=== PATIENT | male | born 1955 | race Caucasian/White ===

== ENCOUNTER 2021-12-06 09:34 | Inpatient (IN) ==
[2021-12-06] MEDS ORDERED: SODIUM CHLORIDE 0.9% 500 ML IV ONE (10:01)
[2021-12-06 11:01] LABS: Basophils # (auto) 0.04 K/uL (0-0.2); Basophils % (auto) 0.6 %; Eosinophils # (auto) 0.02 K/uL (0-0.5); Eosinophils % (auto) 0.3 %; Immature Granulocytes # (auto) 0.04 K/uL (0.00-0.02); Immature Granulocytes % (auto) 0.6 %; Lymphocytes # (auto) 1.81 K/uL (1.2-3.4); Mean Corpuscular Hemoglobin 34.2 pg (25-34); Mean Corpuscular Hgb Conc 33.3 g/dL (32-36); Mean Corpuscular Volume 102.7 fL (80-100); Mean Platelet Volume 9.4 fL (7.4-10.4); Monocytes # (auto) 0.57 K/uL (0.11-0.59); Monocytes % (auto) 9.1 %; Neutrophils # (auto) 3.77 K/uL (1.4-6.5); Neutrophils % (auto) 60.4 %; Platelet Count 145 K/uL (130-400); RDW Coefficient of Variation 18.6 % (11.5-14.5); RDW Standard Deviation 69.3 fL (36.4-46.3); Red Blood Count 4.09 M/uL (4.7-6.1); White Blood Count 6.25 K/uL (4.8-10.8)
[2021-12-06 11:13] LABS: INR 1.1 (0.9-1.1)
[2021-12-06] MEDS ORDERED: METOPROLOL TARTRATE 1 MG/ML VIAL IV STA ×2 (11:13→13:40)
[2021-12-06 11:40] LABS: Troponin I 0.03 ng/ml (0-0.04)
[2021-12-06 11:46] LABS: BUN Creatinine Ratio 10.1 (10-20); Creatinine Clr Calc Pharmacy 111.3 ml/min; Est GFR (African American) 102.5 ml/min; Est GFR (Non-African American) 88.5 ml/min; Potassium 3.1 mmol/L (3.5-5.1)
[2021-12-06 11:56] LABS: Albumin Globulin Ratio 1.4 (0.9-2); Albumin Level 3.6 gm/dl (3.4-5.0); Bilirubin,Total 0.8 mg/dl (0.2-1.0); Globulin 2.5 gm/dl (2.5-4.0); Magnesium 0.7 mg/dl (1.7-2.4); Phosphorus 3.9 mg/dl (2.5-4.9); Total Protein 6.1 gm/dl (6.0-8.3)
[2021-12-06] MEDS ORDERED: OPTIRAY 320 125ml IV ONE (12:37)
--- NOTE | 2021-12-06 12:50 | CT Scan Report ---
CT ANGIOGRAPHY OF THE CHEST, PULMONARY EMBOLUS PROTOCOL CLINICAL HISTORY: Shortness of breath, tachycardia, covid in october, r/o PE COMPARISON STUDY: Chest CT November 24, 2020. Chest radiograph performed earlier today. TECHNIQUE: Following IV administration of 111 mL of Optiray, helical axial images of the chest were o btained utilizing the pulmonary embolus protocol. Maximal intensity projections and sagittal and cor onal reformats were viewed on an independent 3D workstation. IV contrast was administered without co mplication. Automated exposure control was utilized for the study. A dose lowering technique was ut ilized adhering to the principles of ALARA. CT DOSE: 852.64 mGy.cm FINDINGS: No pulmonary emboli are identified although the segmental and subsegmental pulmonary arter ies are suboptimally assessed within the bilateral lower lobes. Dilatation of the ascending aorta, me asuring 4.6 cm, is similar to CT of November 2020. Note is made of mild cardiomegaly. Dilatation of th e central pulmonary arteries is noted. Main pulmonary artery measures 4.2 cm in diameter. There are t race bilateral pleural effusions. No pneumothorax is present. Marked elevation of the left hemidiaphr agm is unchanged. Adjacent airspace opacity reflects atelectasis. There are a few scattered small sub pleural groundglass opacities within the lungs, most evident within the left upper lobe. There is no pneumothorax. No thoracic lymphadenopathy is present. Hepatic steatosis is incidentally noted. There is trace perisplenic fluid. There is mild body wall edema. IMPRESSION: 1. No pulmonary emboli identified although bilateral lower lobe segmental and subsegmental pulmonary arteries suboptimally assessed due to respiratory motion. 2. No change in marked elevation of the left hemidiaphragm with associated atelectasis. 3. Scattered small subpleural groundglass opacities which could reflect an infectious process or atel ectasis. 4. Dilatation of the central pulmonary arteries which raises the possibility of pulmonary arterial hy pertension. 5. No change in dilatation of the ascending aorta, measuring 4.6 cm. Cardiomegaly. 6. Trace bilateral pleural effusions. ACT 112: Negative or not required by law. Electronically signed by: Blu Hdez M.D. 12/06/2021 12:49 PM
[2021-12-06] MEDS: MAGNESIUM SULFATE / D5W 1 GM/100 ML BAG IV SCH ×2 (13:00→14:00)
[2021-12-06] MEDS: POTASSIUM CHLORIDE / WTR 10 MEQ/100 ML PLCT IV SCH ×2 (13:01→14:00)
--- NOTE | 2021-12-06 13:51 | History & Physical Report ---
Date of Service December 06, 2021 Assessment & Plan (1) Atrial fibrillation with RVR: Plan: Start metoprolol 25mg Q6H with hold parameters Anticoagulation wtih Kade [id number]: 1-2 (possible CHF only due to a. fib rate as above), 2.2% stroke risk per year HAS BLED: 1 - low risk for major bleeding TSH WNL He denies alcohol use also notably AST is elevated > ALT. TTE ordered Aim K > 4, Mg > 2 (2) Acute heart failure: Plan: Unknown ejection fraction. Continue lasix 20mg PO daily - appears to be diuresing well on this. TTE as above. (3) Hypomagnesemia: Plan: Patient already taking Mg Ox 500mg PO daily at home and reports compliance. Suspect acutely decreased to 0.7mg/dL on admission due to recent diuretic use. Mg sulphate 2g IV given in ER. Increase Mg Ox to 800mg PO BID. Repeat levels in AM. (4) Elevated MCV: Plan: Consider B12 supplementation or repeating level as outpatient given prior level < 400 (5) Bipolar I disorder: Plan: On lamictal and depakote (6) Chronic gout: Plan: Continue allopurinol 300mg PO daily (7) BPH (benign prostatic hypertrophy): Plan: Continue alfuzosin 10mg PO daily (8) Asthma: Plan: Uses advair as needed (9) Insomnia: Plan: Melatonin 3mg PO HS PRN Plan: VTE Prophylaxis - Eliquis Diet - heart healthy, low Na Disposition - admit to PCU Admission and Anticipated Discharge Date Admission Date: [facility]2021 History of Present Illness Chief Complaint: Shortness of breath Primary Care Provider: DO Tom Soni Ayad is a 66-year-old male who presents on the advice of his primary care physician after finding incidental atrial fibrillation on EKG today. He was at his primary care doctor to follow-up for lower back pain, hip pain and increasing fatigue since September. With hindsight he reports feeling like his heart has been intermittently racing with associated fatigue and shortness of breath for the past 2 weeks. Symptoms can last for hours at a time but usually resolve spontaneously. He also noticed increased leg swelling and was started on Lasix 20mg PO daily for the last week with good resolution of the leg swelling but fatigue and shortness of breath episodes have persisted. This is on a background of having COVID-19 diagnosed from a home test on 17 October. Initial symptoms lasted about 12 days although he had trouble sleeping and coughing after this. He was vaccinated with the 1 dose of Clif & Clif vaccine. He followed up on October 31 for lingering COVID symptoms and was treated for secondary bacterial infection at that time with significant improvement in cough and shortness of breath. He was feeling better up until a few weeks ago. In the ER EKG showed atrial fibrillation with a rate of 164. He was given metoprolol 5mg IV x2 with improvement in his HR down to 100 bpm. He was referred to medicine for admission and ongoing management of atrial fibrillation with rapid ventricular rate. Allergies Allergy/AdvReac Type Severity Reaction Status Date / Time amitriptyline [From Elavil] Allergy Verified 12/06/21 08:09 aripiprazole [From Abilify] Allergy Verified 12/06/21 08:09 hyoscyamine Allergy Verified 12/06/21 08:09 [From Symax Duotab] meloxicam Allergy Verified 12/06/21 08:09 Penicillins Allergy Verified 12/06/21 08:09 venlafaxine [From Effexor] Allergy Verified 12/06/21 08:09 zolpidem [From Ambien] Allergy Verified 12/06/21 08:09 Home Medications Medication Instructions Recorded Confirmed Type cetirizine 10 mg tablet 5 mg PO DAILY PRN 11/25/19 12/06/21 History magnesium oxide 500 mg tablet 500 mg PO DAILY #60 tab 11/03/20 12/06/21 Rx fluticasone 232mcg-salmeterol 1 inh INHALATION BID #1 ea 11/27/20 12/06/21 Rx 14mcg/actuation breath act,powder sensor (AirDuo Digihaler) alfuzosin 10 mg tablet,extended 10 mg PO DAILY #90 tab 03/23/21 12/06/21 Rx release 24 hr allopurinol 300 mg tablet 300 mg PO DAILY #90 tab 03/23/21 12/06/21 Rx trazodone 100 mg tablet 200 mg PO DAILY #60 tab 04/17/21 12/06/21 Rx divalproex 500 mg tablet,extended 500 mg PO BID #180 tab 08/07/21 12/06/21 Rx release 24 hr prednisone 5 mg tablet 5 mg PO DAILY #30 tab 10/04/21 12/06/21 Rx oxycodone-acetaminophen 5 mg-325 1 tab PO Q12H PRN #60 tab 11/02/21 12/06/21 Rx mg tablet (Percocet) furosemide 20 mg tablet 20 mg PO DAILY PRN #30 tab 12/03/21 12/06/21 Rx lamotrigine 150 mg tablet 150 mg PO HS 12/06/21 12/06/21 History vitamin B complex 1 tab PO DAILY 12/06/21 12/06/21 History Past Med/Surg History Medical History Arthritis of hip Asthma Atelectasis Bipolar I disorder BPH (benign prostatic hypertrophy) Chronic gout Decreased range of right hip movement Dyspnea Elevated d-dimer Elevated hemidiaphragm Fatigue History of hypogonadism Hypertension Hypoxia Medical marijuana use Memory impairment 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 RLS (restless legs syndrome) Routine health maintenance Spinal stenosis Surgical History History of cholecystectomy Hx of hernia repair Hx of knee surgery [place] 2016, meniscal S/P insertion of spinal cord stimulator Family History Mother Breast cancer Hypertension Sister Diabetes Lung cancer Denies family history of Ovarian cancer Prostate cancer Myocardial infarction Colorectal cancer Social History Smoking Status: Never smoker Second Hand Exposure: No; Hx Alcohol Use: Yes Hx Substance Use: No Preferred Language: Maltese Communication Ability: Effective Hearing Ability: Use of Hearing Aid Market Consultant Required: No Beliefs That Will Affect Care: None marital status: Current Living Situation: Spouse current occupational status: retired How many Children do You have: 2 Other Information That Helps Us Care for You: No Feels Safe at Home: Yes Childhood Exposure to Second-Hand Smoke: Yes Diet Comment: Optivia diet caffeine: Yes Dental Care, Regularly: No Physical Activity Frequency: 3-4 Times per Week Seatbelt Use: always Sunscreen Use: No Assistive Devices: Glasses Review of Systems Review of Systems: All systems reviewed & are unremarkable except as noted in HPI & below Insomnia - Uses marijuana vape in the evenings to help him sleep Physical Exam Constitutional: WD/WN, vitals as above Eyes: + anicteric sclerae; normal pupil size ENMT: external ear and nose normal, oropharynx normal Cardiovascular: Rate/Rhythm: + tachycardic and + irregularly irregular Heart Sounds: no murmur Extremities: normal capillary refill and + pedal edema (1+ ankles equal b/l); no calf tenderness Gastrointestinal (Abdomen): Inspection/Auscultation: normal bowel sounds Percussion/Palpation: abdomen soft; abdomen nontender Musculoskeletal: no cyanosis or clubbing, extremities motor strength 5/5 Skin: no rashes, warm and dry Neurologic: moves all extremities and awake; not confused Psychiatric: A+Ox3, euthymic affect Results & Data Results & Data ([facility]) Vital Signs (Past 12 Hours) Vital Signs Temp Pulse Pulse Resp BP BP Pulse Ox 12/06/21 12:13 107 H 14 149/90 H 97 12/06/21 10:01 143 H 93 12/06/21 09:36 36.5 C 177 H 20 112/77 94 Laboratory Results Abnormal lab results 12/06/21 12/06/21 Range/Units 10:53 10:53 RBC 4.09 L (4.7-6.1) M/uL MCV 102.7 H (80-100) fL MCH 34.2 H (25-34) pg RDW Std Deviation 69.3 H (36.4-46.3) fL RDW Coeff of Daniel 18.6 H (11.5-14.5) % Immature Gran # (Auto) 0.04 H (0.00-0.02) K/uL Potassium 3.1 L (3.5-5.1) mmol/L Chloride 97 L (98-107) mmol/L Anion Gap 14 H (3-11) Calcium 8.0 L (8.5-10.1) mg/dl Magnesium 0.7 L* (1.7-2.4) mg/dl AST 77 H (13-39) U/L Lipase 4 L (11-82) U/L Diagnostic Findings PA CHEST RADIOGRAPH AND UPRIGHT AND SUPINE AP RADIOGRAPHS OF THE ABDOMEN CLINICAL HISTORY: R06.00 - Dyspnea, unspecified COMPARISON STUDY: CT of the abdomen and pelvis February 08, 2020. CT of the chest November 24, 2020. FINDINGS: Intracanalicular electrodes are partially imaged. Elevation of the left hemidiaphragm is unchanged. Left basilar opacity reflects atelectasis. No consolidation to suggest pneumonia. No pneumothorax. Cardiomediastinal silhouette is stable. There are cholecystectomy clips. No free air is present. The bowel gas pattern is normal. IMPRESSION: 1. Stable elevation of the left hemidiaphragm with associated left lower lung atelectasis. No acute findings within the chest. 2. No free air or evidence of bowel obstruction. CT ANGIOGRAPHY OF THE CHEST, PULMONARY EMBOLUS PROTOCOL CLINICAL HISTORY: Shortness of breath, tachycardia, covid in october, r/o PE COMPARISON STUDY: Chest CT November 24, 2020. Chest radiograph performed earlier today. TECHNIQUE: Following IV administration of 111 mL of Optiray, helical axial images of the chest were obtained utilizing the pulmonary embolus protocol. Maximal intensity projections and sagittal and coronal reformats were viewed on an independent 3D workstation. IV contrast was administered without complication. Automated exposure control was utilized for the study. A dose lowering technique was utilized adhering to the principles of ALARA. CT DOSE: 852.64 mGy.cm FINDINGS: No pulmonary emboli are identified although the segmental and subsegmental pulmonary arteries are suboptimally assessed within the bilateral lower lobes. Dilatation of the ascending aorta, measuring 4.6 cm, is similar to CT of November 2020. Note is made of mild cardiomegaly. Dilatation of the central pulmonary arteries is noted. Main pulmonary artery measures 4.2 cm in diameter. There are trace bilateral pleural effusions. No pneumothorax is present. Marked elevation of the left hemidiaphragm is unchanged. Adjacent airspace opacity reflects atelectasis. There are a few scattered small subpleural groundglass opacities within the lungs, most evident within the left upper lobe. There is no pneumothorax. No thoracic lymphadenopathy is present. Hepatic steatosis is incidentally noted. There is trace perisplenic fluid. There is mild body wall edema. IMPRESSION: 1. No pulmonary emboli identified although bilateral lower lobe segmental and subsegmental pulmonary arteries suboptimally assessed due to respiratory motion. 2. No change in marked elevation of the left hemidiaphragm with associated atelectasis. 3. Scattered small subpleural groundglass opacities which could reflect an infectious process or atelectasis. 4. Dilatation of the central pulmonary arteries which raises the possibility of pulmonary arterial hypertension. 5. No change in dilatation of the ascending aorta, measuring 4.6 cm. Cardiomegaly. 6. Trace bilateral pleural effusions. Medications Administered ER medications given: NSS 500 mL bolus Metoprolol 5 mg IV x2 Magnesium sulfate 1 g IV x2 Potassium chloride 10 meq IV x2 ECG Indication: SOB/dyspnea Rate (beats per minute): 164 Rhythm: atrial fibrillation Findings: no acute ischemic change Comparison ECG Date: no prior available Code Status & VTE Plan Code Status Full VTE Prophylaxis Plan VTE Prophylaxis will be ordered: Yes PG Care Time/CCT Total # of Minutes Spent Total Time Spent with Patient: Total time spent is greater than 50% in coordination of care (as documented) at patient's floor/unit and/or counseling patient: Coding Level of Care Code 88192 Initial Inpt Care Lvl 3 Diagnoses Bipolar I disorder F31.9 Chronic gout [id number] BPH (benign prostatic hypertrophy) N40.0 Asthma J45.909 Acute heart failure I50.9 Atrial fibrillation with RVR I48.91 Elevated MCV R71.8 Hypomagnesemia E83.42 Insomnia G47.00
[2021-12-06] MEDS ORDERED: METOPROLOL TARTRATE 25 MG TAB PO STA (14:09)
[2021-12-06] MEDS ORDERED: APIXABAN 5 MG TABLET PO STA (14:17)
--- NOTE | 2021-12-06 15:17 | Emergency Department Note ---
Impression & Plan Atrial fibrillation with rapid ventricular response, Hypomagnesemia, Hypokalemia, Atrial fibrillation, new onset ED Provider Note NAME: YANNICK QUINTERO AGE: 66 SEX: M ARRIVES VIA: Walk-In INFORMANT: Patient, ED PROVIDER(S): Karlo Morris MD CHIEF COMPLAINT: Referred. New afib. PLAN: Disposition: Admit MEDICAL DECISION MAKING: The patient is a pleasant 66-year-old gentleman with a past medical history of bipolar disorder on Depakote, BPH, spinal stenosis, history of hypomagnesemia who presents to the emergency department referred from his PCPs office accompanied by his for evaluation of new onset atrial fibrillation in the setting of the patient feeling weak, shortness of breath and palpitations for the past several days. The patient's symptoms occur in the setting of having COVID-19 which was diagnosed in October 2021. They report he had symptoms lasting several weeks but then improved. However they report he never returned to his baseline and has had some residual weakness and congestion. They deny nausea, vomiting, diarrhea. They report that he has been eating and drinking okay recently. They report that he has had new swelling of his ankles over the past week and was started on Lasix by their doctor and had some improvement. He did have blood work performed yesterday that showed slightly low potassium and otherwise was unremarkable. EKG demonstrates atrial fibrillatoin with RVR without overt acute ischemia. WBC, H/H and platelets within normal limits. Chemistry without metabolic acidosis. Potassium 3.1 with repletion provided. Magnesium 0.7, with repletion provided. Electrolytes otherwise without significant abnormality. AST 77, nonspecific and similar to prior values. Troponin 0.03, within normal limits. Lipase is not elevated. COVID-19 RNA, KWASI test was negative. CT a of the chest was negative for PE although suboptimal evaluation of lower lobe segmental and subsegmental pulmonary arteries. Note is made of scattered small subpleural groundglass opacities which may reflect the patient's prior COVID-19 infection/pneumonia. There is also suspicion for possible pulmonary artery hypertension with dilation of central pulmonary arteries. Trace pleural effusions are noted. The patient did have some improvement in his heart rate after 500 cc of normal saline with range improving from 150-170s to 130-140s. He was then given 5 mg of IV Lopressor with improvement to the 100s. However upon reevaluation the patient heart rate did again rise to the 120s-130s and so was given a repeat dose. I did review the patient's results with the patient and his at the bedside. Given his significant electrolyte abnormalities in the setting of his new onset atrial fibrillation he ultimately agreed with plan for admission. The patient's [id number]-[id number] score is 1-2 (unclear h/o htn) and so anticoagulation vs asa deferred to admitting team pending further evaluation. Case was d/w Dr. Nettles [facility] hospitalist who will evaluate the patient for admission. Triage Nursing notes reviewed and agree them. Prior medical records reviewed Vital Signs: reviewed and remarkable for tachycardia. Differential diagnosis: Premature contractions, electrolyte abnormality, cardiac dysrhythmia, thyroid dysfunction, pulmonary embolism, infection, gastrointestinal, as well as other pathologies. ER treatment provided: See below. Diagnostics interpreted by me: ECG: Atrial fibrillation, RVR, 164 bpm, nonspecific T wave abnormality, no overt ST elevation or depression, QTC 492, cures 102. Cardiac Monitoring: An order for continuous cardiac monitoring was placed and demonstrated atrial fibrillation, RVR, 164 bpm. Laboratory studies: See below Imaging studies: See below Consultation(s): Case was d/w Dr. Nettles [facility] hospitalist who will evaluate the patient for admission. HPI: The patient is a pleasant 66-year-old gentleman with a past medical history of bipolar disorder on Depakote, BPH, spinal stenosis, history of hypomagnesemia who presents to the emergency department referred from his PCPs office accompan ied by his for evaluation of new onset atrial fibrillation in the setting of the patient feeling weak, shortness of breath and palpitations for the past several days. The patient's symptoms occur in the setting of having COVID-19 which was diagnosed in October 2021. They report he had symptoms lasting several weeks but then improved. However they report he never returned to his baseline and has had some residual weakness and congestion. They deny nausea, vomiting, diarrhea. They report that he has been eating and drinking okay recently. They report that he has had new swelling of his ankles over the past week and was started on Lasix by their doctor and had some improvement. He did have blood work performed yesterday that showed slightly low potassium and otherwise was unremarkable. ROS: See above HPI for pertinent positives & negatives. A total of 10 systems reviewed and were otherwise negative. PAST MEDICAL HISTORY:See Below PAST SURGICAL HISTORY:See Below FAMILY HISTORY:See Below SOCIAL HISTORY:See Below HOME MEDICATIONS:See Below ALLERGIES:See Below VITALS:See Below PHYSICAL EXAMINATION: GENERAL: Awake, alert, fatigued-appearing, in no distress HENT: Normocephalic, atraumatic. Oropharynx with dry mucous membranes and otherw ise unremarkable. EYES: Normal conjunctiva. Sclera non-icteric. NECK: Supple. No nuchal rigidity. FROM. No JVD. RESPIRATORY: Clear to auscultation. CARDIAC: Tachycardic rate, irregular rhythm. Extremities warm and well perfused. Pulses equal. ABDOMEN: Soft, non-distended. No tenderness to palpation. No rebound or guarding. No masses. RECTAL: Deferred. MUSCULOSKELETAL: Chest examination reveals no tenderness. The back is symmetrical on inspection without obvious abnormality. There is no CVA tend erness to palpation. No joint edema. LOWER EXTREMITIES: Calves are equal size bilaterally and non-tender. Scant BLE edema. No discoloration. NEURO: Normal sensorium. No sensory or motor deficits noted. SKIN: No rash or jaundice noted. ED COURSE: Critical Care: I have personally spent greater than 65 minutes of critical care time in the direct management of this patient. This includes bedside care, interpretation of diagnostic studies, and testing, discussion with consultants, patient, and family members, and other required patient management activities. This 64 susan cesar is in excess of all separately billable procedures. Karlo Morris MD Past Med/Surg History Medical History Arthritis of hip Asthma Atelectasis Bipolar I disorder BPH (benign prostatic hypertrophy) Chronic gout Decreased range of right hip movement Dyspnea Elevated d-dimer Elevated hemidiaphragm Fatigue History of hypogonadism Hypertension Hypoxia Medical marijuana use Memory impairment 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 RLS (restless legs syndrome) Routine health maintenance Spinal stenosis Surgical History History of cholecystectomy Hx of hernia repair Hx of knee surgery Plummer 2016, meniscal S/P insertion of spinal cord stimulator Family History Mother Breast cancer Hypertension Sister Diabetes Lung cancer Denies family history of Ovarian cancer Prostate cancer Myocardial infarction Colorectal cancer Social History Smoking Status: Never smoker Second Hand Exposure: No; Hx Alcohol Use: No Hx Substance Use: Yes Prescribed Medications: Marijuana Last Used Substance: Hours (ago) Preferred Language: Malay Communication Ability: Effective Hearing Ability: Use of [facility] Receptionist Required: No marital status: Current Living Situation: Spouse current occupational status: retired How many Children do You have: 2 Feels Safe at Home: Yes Childhood Exposure to Second-Hand Smoke: Yes Diet Comment: Optivia diet caffeine: Yes Dental Care, Regularly: No Physical Activity Frequency: 3-4 Times per Week Seatbelt Use: always Sunscreen Use: No Allergies Allergies Allergy/AdvReac Type Severity Reaction Status Date / Time amitriptyline [From Elavil] Allergy Verified 12/06/21 08:09 aripiprazole [From Abilify] Allergy Verified 12/06/21 08:09 hyoscyamine Allergy Verified 12/06/21 08:09 [From Symax Duotab] meloxicam Allergy Verified 12/06/21 08:09 Penicillins Allergy Verified 12/06/21 08:09 venlafaxine [From Effexor] Allergy Verified 12/06/21 08:09 zolpidem [From Ambien] Allergy Verified 12/06/21 08:09 Home Meds Home Medications Medication Instructions Recorded Confirmed cetirizine 10 mg tablet 5 mg PO DAILY PRN 11/25/19 12/06/21 lamotrigine 150 mg tablet 150 mg PO HS 12/06/21 12/06/21 vitamin B complex 1 tab PO DAILY 12/06/21 12/06/21 Previous Rx's Medication Instructions Recorded magnesium oxide 500 mg tablet 500 mg PO DAILY #60 tab 11/03/20 fluticasone 232mcg-salmeterol 1 inh INHALATION BID #1 ea 11/27/20 14mcg/actuation breath act,powder sensor (AirDuo Digihaler) alfuzosin 10 mg tablet,extended 10 mg PO DAILY #90 tab 03/23/21 release 24 hr allopurinol 300 mg tablet 300 mg PO DAILY #90 tab 03/23/21 trazodone 100 mg tablet 200 mg PO DAILY #60 tab 04/17/21 divalproex 500 mg tablet,extended 500 mg PO BID #180 tab 08/07/21 release 24 hr prednisone 5 mg tablet 5 mg PO DAILY #30 tab 10/04/21 oxycodone-acetaminophen 5 mg-325 1 tab PO Q12H PRN #60 tab 11/02/21 mg tablet (Percocet) furosemide 20 mg tablet 20 mg PO DAILY PRN #30 tab 12/03/21 Results & Data (ED) Vital Signs Vital Signs - 24 hr 12/06/21 09:36 12/06/21 10:01 12/06/21 12:13 Temperature 36.5 C Temperature Source Oral Pulse Rate 177 H 143 H Pulse Rate [Left Radial] 107 H Pulse Rhythm Regular Pulse Rhythm [Left Radial] Regular Pulse Strength [Left Radial] Normal Respiratory Rate 20 14 Respiratory Effort / Characteristics Non-Labored Respiratory Depth Normal Respiratory Pattern Regular Blood Pressure 112/77 Blood Pressure [Left Arm] 149/90 H Blood Pressure Mean 88 Blood Pressure Mean [Left Arm] 109 Blood Pressure Position [Left Arm] Lying Pulse Oximetry 94 93 97 Oxygen Delivery Method Room Air Room Air Room Air Sepsis Recent Fever Within 48 Hours No Sepsis New/Unexplained Change in Mental Status No Sepsis Action Taken by Nursing No Action Required 12/06/21 14:00 Temperature Temperature Source Pulse Rate Pulse Rate [Left Radial] 103 H Pulse Rhythm Pulse Rhythm [Left Radial] Regular Pulse Strength [Left Radial] Normal Respiratory Rate 14 Respiratory Effort / Characteristics Non-Labored Respiratory Depth Normal Respiratory Pattern Regular Blood Pressure Blood Pressure [Left Arm] 126/87 Blood Pressure Mean Blood Pressure Mean [Left Arm] 100 Blood Pressure Position [Left Arm] Lying Pulse Oximetry 98 Oxygen Delivery Method Room Air Sepsis Recent Fever Within 48 Hours Sepsis New/Unexplained Change in Mental Status Sepsis Action Taken by Nursing Laboratory Data Attestation: I reviewed the patient's lab results. Result diagrams: 12/06/21 10:53 12/06/21 10:53 Lab Results 12/06/21 12/06/21 12/06/21 Range/Units 10:53 10:53 10:53 WBC 6.25 (4.8-10.8) K/uL RBC 4.09 L (4.7-6.1) M/uL Hgb 14.0 (14.0-18.0) g/dL Hct 42.0 (42-52) % MCV 102.7 H (80-100) fL MCH 34.2 H (25-34) pg MCHC 33.3 (32-36) g/dL RDW Std Deviation 69.3 H (36.4-46.3) fL RDW Coeff of Daniel 18.6 H (11.5-14.5) % Plt Count 145 (130-400) K/uL MPV 9.4 (7.4-10.4) fL Immature Gran % (Auto) 0.6 % Neut % (Auto) 60.4 % Lymph % (Auto) 29.0 % [place] % (Auto) 9.1 % Eos % (Auto) 0.3 % Baso % (Auto) 0.6 % Neut # (Auto) 3.77 (1.4-6.5) K/uL Lymph # (Auto) 1.81 (1.2-3.4) K/uL [place] # (Auto) 0.57 (0.11-0.59) K/uL Eos # (Auto) 0.02 (0-0.5) K/uL Baso # (Auto) 0.04 (0-0.2) K/uL Immature Gran # (Auto) 0.04 H (0.00-0.02) K/uL PT 11.0 (9.0-12.0) Seconds INR 1.1 (0.9-1.1) Sodium 141 (136-145) mmol/L Potassium 3.1 L (3.5-5.1) mmol/L Chloride 97 L (98-107) mmol/L Carbon Dioxide 30 (21-32) mmol/L Anion Gap 14 H (3-11) BUN 9 (6-23) mg/dl Creatinine 0.89 (0.6-1.4) mg/dl Est Cr Clr Drug Dosing 111.3 ml/min Est GFR ( Amer) 102.5 ml/min Est GFR (Non-Af Amer) 88.5 ml/min BUN/Creatinine Ratio 10.1 (10-20) Glucose 80 (70-99(Fasting)) mg/dl Calcium 8.0 L (8.5-10.1) mg/dl Phosphorus 3.9 (2.5-4.9) mg/dl Magnesium 0.7 L* (1.7-2.4) mg/dl Total Bilirubin 0.8 (0.2-1.0) mg/dl AST 77 H (13-39) U/L ALT 37 (7-52) U/L Alkaline Phosphatase 68 (34-104) U/L Troponin I 0.03 (0-0.04) ng/ml Total Protein 6.1 (6.0-8.3) gm/dl Albumin 3.6 (3.4-5.0) gm/dl Globulin 2.5 (2.5-4.0) gm/dl Albumin/Globulin Ratio 1.4 (0.9-2) Lipase 4 L (11-82) U/L SARS-CoV-2, RNA, NAAT (NEGATIVE) 12/06/21 Range/Units Unknown WBC (4.8-10.8) K/uL RBC (4.7-6.1) M/uL Hgb (14.0-18.0) g/dL Hct (42-52) % MCV (80-100) fL MCH (25-34) pg MCHC (32-36) g/dL RDW Std Deviation (36.4-46.3) fL RDW Coeff of Daniel (11.5-14.5) % Plt Count (130-400) K/uL MPV (7.4-10.4) fL Immature Gran % (Auto) % Neut % (Auto) % Lymph % (Auto) % [place] % (Auto) % Eos % (Auto) % Baso % (Auto) % Neut # (Auto) (1.4-6.5) K/uL Lymph # (Auto) (1.2-3.4) K/uL [place] # (Auto) (0.11-0.59) K/uL Eos # (Auto) (0-0.5) K/uL Baso # (Auto) (0-0.2) K/uL Immature Gran # (Auto) (0.00-0.02) K/uL PT (9.0-12.0) Seconds INR (0.9-1.1) Sodium (136-145) mmol/L Potassium (3.5-5.1) mmol/L Chloride (98-107) mmol/L Carbon Dioxide (21-32) mmol/L Anion Gap (3-11) BUN (6-23) mg/dl Creatinine (0.6-1.4) mg/dl Est Cr Clr Drug Dosing ml/min Est GFR ( Amer) ml/min Est GFR (Non-Af Amer) ml/min BUN/Creatinine Ratio (10-20) Glucose (70-99(Fasting)) mg/dl Calcium (8.5-10.1) mg/dl Phosphorus (2.5-4.9) mg/dl Magnesium (1.7-2.4) mg/dl Total Bilirubin (0.2-1.0) mg/dl AST (13-39) U/L ALT (7-52) U/L Alkaline Phosphatase (34-104) U/L Troponin I (0-0.04) ng/ml Total Protein (6.0-8.3) gm/dl Albumin (3.4-5.0) gm/dl Globulin (2.5-4.0) gm/dl Albumin/Globulin Ratio (0.9-2) Lipase (11-82) U/L SARS-CoV-2, RNA, NAAT NEGATIVE (NEGATIVE) Administered Medications Discontinued Medications Sodium Chloride (Nss) 500 mls @ 999 mls/hr IV .Q31M ONE Stop: 12/06/21 10:31 Last Infusion: 12/06/21 10:40 Dose: 0 mls/hr Documented by: [id number] Admin: 12/06/21 10:00 Dose: 999 mls/hr Documented by: [id number] Magnesium Sulfate/Dextrose (Magnesium Sulfate / D5w) 1 gm in 100 mls @ 100 mls/hr IV Q1H JEAN-CLAUDE Stop: 12/06/21 14:00 Last Infusion: 12/06/21 15:01 Dose: 0 mls/hr Documented by: [id number] Admin: 12/06/21 14:00 Dose: 100 mls/hr Documented by: [id number] Infusion: 12/06/21 14:00 Dose: 100 mls/hr Documented by: [id number] Admin: 12/06/21 13:00 Dose: 100 mls/hr Documented by: [id number] Potassium Chloride (K Saad / Wtr) 10 meq in 100 mls @ 100 mls/hr IV Q1H JEAN-CLAUDE; Protocol Stop: 12/06/21 13:59 Last Infusion: 12/06/21 15:01 Dose: 0 mls/hr Documented by: [id number] Admin: 12/06/21 14:00 Dose: 100 mls/hr Documented by: [id number] Infusion: 12/06/21 14:00 Dose: 100 mls/hr Documented by: [id number] Admin: 12/06/21 13:01 Dose: 100 mls/hr Documented by: [id number] Ioversol (Optiray 320 125ml) 111 ml IV ONCE ONE Stop: 12/06/21 12:38 Last Admin: 12/06/21 12:37 Dose: 111 ml Documented by: [id number] Metoprolol Tartrate (Metoprolol Tartrate 1 Mg/Ml Vial) 5 mg IV NOW STA Stop: 12/06/21 11:14 Last Admin: 12/06/21 11:17 Dose: 5 mg Documented by: [id number] Metoprolol Tartrate (Metoprolol Tartrate 1 Mg/Ml Vial) 5 mg IV NOW STA Stop: 12/06/21 13:41 Last Admin: 12/06/21 14:01 Dose: 5 mg Documented by: [id number] Imaging Data Radiologist's Impression: Chest CTA 12/06/21 10:01 CT ANGIOGRAPHY OF THE CHEST, PULMONARY EMBOLUS PROTOCOL CLINICAL HISTORY: Shortness of breath, tachycardia, covid in october, r/o PE COMPARISON STUDY: Chest CT November 24, 2020. Chest radiograph performed earlier today. TECHNIQUE: Following IV administration of 111 mL of Optiray, helical axial images of the chest were obtained utilizing the pulmonary embolus protocol. Maximal intensity projections and sagittal and coronal reformats were viewed on an independent 3D workstation. IV contrast was administered without complication. Automated exposure control was utilized for the study. A dose lowering technique was utilized adhering to the principles of ALARA. CT DOSE: 852.64 mGy.cm FINDINGS: No pulmonary emboli are identified although the segmental and subsegmental pulmonary arteries are suboptimally assessed within the bilateral lower lobes. Dilatation of the ascending aorta, measuring 4.6 cm, is similar to CT of November 2020. Note is made of mild cardiomegaly. Dilatation of the central pulmonary arteries is noted. Main pulmonary artery measures 4.2 cm in diameter. There are trace bilateral pleural effusions. No pneumothorax is present. Marked elevation of the left hemidiaphragm is unchanged. Adjacent airspace opacity reflects atelectasis. There are a few scattered small subpleural groundglass opacities within the lungs, most evident within the left upper lobe. There is no pneumothorax. No thoracic lymphadenopathy is present. Hepatic steatosis is incidentally noted. There is trace perisplenic fluid. There is mild body wall edema. IMPRESSION: 1. No pulmonary emboli identified although bilateral lower lobe segmental and subsegmental pulmonary arteries suboptimally assessed due to respiratory motion. 2. No change in marked elevation of the left hemidiaphragm with associated atelectasis. 3. Scattered small subpleural groundglass opacities which could reflect an infectious process or atelectasis. 4. Dilatation of the central pulmonary arteries which raises the possibility of pulmonary arterial hypertension. 5. No change in dilatation of the ascending aorta, measuring 4.6 cm. Cardiomegaly. 6. Trace bilateral pleural effusions. ACT 112: Negative or not required by law. Electronically signed by: Blu Hdez M.D. 12/06/2021 12:49 PM Discharge Plan Visit Data Chief Complaint: Referred by Doctor Stated Complaint: IN A-FIB, HEART RATE 171 ED Provider: Karlo Morris Discharge Problem: Atrial fibrillation with rapid ventricular response, Hypomagnesemia, Hypokalemia, Atrial fibrillation, new onset Forms Stand Alone Forms: [facility] [employer] Prescriptions Prescriptions: No Action magnesium oxide 500 mg tablet 500 mg PO DAILY Qty: 60 RF: 5 allopurinol 300 mg tablet 300 mg PO DAILY Qty: 90 RF: 3 alfuzosin 10 mg tablet extended release 24 hr 10 mg PO DAILY Qty: 90 RF: 3 trazodone 100 mg tablet 200 mg PO DAILY Qty: 60 RF: 11 oxycodone-acetaminophen [Percocet] 5-325 mg tablet 1 tab PO Q12H PRN (Reason: pain) Qty: 60 RF: 0 furosemide 20 mg tablet 20 mg PO DAILY PRN (Reason: edema) Qty: 30 RF: 5 divalproex 500 mg tablet extended release 24 hr 500 mg PO BID Qty: 180 RF: 3 prednisone 5 mg tablet 5 mg PO DAILY Qty: 30 RF: 5 cetirizine 10 mg tablet 5 mg PO DAILY PRN (Reason: Allergy Symptoms) RF: 0 AirDuo Digihaler 232-14 mcg/actuation aero powdr breath act w/sensor 1 inh inhalation BID Qty: 1 RF: 5 lamotrigine 150 mg tablet 150 mg PO HS RF: 0 vitamin B complex Tablet 1 tab PO DAILY RF: 0 Referrals Referrals: Keith Dimas DO [Primary Care Provider] -
[2021-12-06] MEDS ORDERED: ACETAMINOPHEN 325 MG TAB PO PRN (16:47)
[2021-12-06] MEDS ORDERED: CETIRIZINE HCL 10 MG TABLET PO PRN (16:47)
[2021-12-06] MEDS ORDERED: POLYETHYLENE (MIRALAX) 17 GM PACK PO PRN (16:47)
[2021-12-06] MEDS: MAGNESIUM OXIDE 400 MG TAB PO SCH (21:14)
[2021-12-06] MEDS: lamoTRIgine 100 MG TAB PO SCH (21:14)
[2021-12-06] MEDS: lamoTRIgine 25 MG TAB PO SCH (21:14)
[2021-12-06] MEDS: METOPROLOL TARTRATE 25 MG TAB PO SCH (21:15)
[2021-12-06] MEDS: DIVALPROEX EXTENDED RELEASE 500 MG TAB PO SCH (21:15)
[2021-12-06] MEDS: traZODone HCL 100 MG TAB PO SCH (21:16)
[2021-12-07] MEDS: METOPROLOL TARTRATE 25 MG TAB PO SCH ×3 (03:18→20:49)
[2021-12-07] MEDS: APIXABAN 5 MG TABLET PO SCH ×2 (08:17→20:51)
[2021-12-07] MEDS: allopurinoL 300 MG TAB PO SCH (08:17)
[2021-12-07] MEDS: ALFUZOSIN HCL 10 MG TAB PO SCH (08:17)
[2021-12-07] MEDS: DIVALPROEX EXTENDED RELEASE 500 MG TAB PO SCH ×2 (08:18→20:51)
[2021-12-07] MEDS: FLUTICASONE/VILANTEROL 200/25MCG 14 PUFFS/INHALER INH SCH (08:18)
[2021-12-07] MEDS: MAGNESIUM OXIDE 400 MG TAB PO SCH ×2 (08:19→20:51)
[2021-12-07] MEDS: FUROSEMIDE 20 MG TAB PO SCH (08:19)
[2021-12-07] MEDS: predniSONE 5 MG TAB PO SCH (08:19)
[2021-12-07] MEDS: VITAMIN B COMPLEX TAB PO SCH (08:20)
[2021-12-07 08:26] LABS: Hematocrit (blood only) 46.2 % (42-52); Hemoglobin 15.3 g/dL (14.0-18.0); Mean Corpuscular Hemoglobin 34.2 pg (25-34); Mean Corpuscular Hgb Conc 33.1 g/dL (32-36); Mean Corpuscular Volume 103.1 fL (80-100); Mean Platelet Volume 10.4 fL (7.4-10.4); Platelet Count 167 K/uL (130-400); RDW Coefficient of Variation 17.9 % (11.5-14.5); RDW Standard Deviation 67.6 fL (36.4-46.3); Red Blood Count 4.48 M/uL (4.7-6.1); White Blood Count 7.16 K/uL (4.8-10.8)
[2021-12-07 08:44] LABS: BUN Creatinine Ratio 10.3 (10-20); Calcium 7.7 mg/dl (8.5-10.1); Creatinine Clr Calc Pharmacy 113.9 ml/min; Est GFR (African American) 103.5 ml/min; Est GFR (Non-African American) 89.3 ml/min; Potassium 3.3 mmol/L (3.5-5.1)
[2021-12-07 08:54] LABS: Magnesium 0.9 mg/dl (1.7-2.4)
[2021-12-07] MEDS ORDERED: POTASSIUM CHLORIDE CRTAB 20 MEQ TABCR PO SCH (09:00)
--- NOTE | 2021-12-07 09:47 | XCELERA ---
[id number]\[id number]
[2021-12-07] MEDS ORDERED: METOPROLOL TARTRATE 50 MG TAB PO STA (14:01)
--- NOTE | 2021-12-07 14:15 | Hospitalist Progress Note ---
Date of Service December 07, 2021 Assessment & Plan (1) Atrial fibrillation with RVR: Plan: Paroxysmal afib, but now appears to be in a longer streak, possibly due to recent Covid or age. TSH wnl. He denies alcohol use also notably AST is elevated > ALT. - Anticoagulation wtih Eliquis ([id number]-1-GEZV: 1-2 (possible CHF only due to a. fib rate as above), 2.2% stroke risk per year) - Aim K > 4, Mg > 2 - Rate control has not been quite good enough with metoprolol 25 mg PO Q6h (HR ~100 at rest, up to 140 bpm with minimal activity). -> Increase metoprolol to 75 mg PO BID (50% increase); can transition to Toprol XL 150 mg if this is adequate. (2) Acute heart failure: Plan: Echo on 12/07 showed EF 40 - 45%. Likely tachycardia-induced given global hypokinesis. - Weight on 12/07 was 240 lbs (standing weight, done by me this afternoon). -> Continue lasix 20mg PO daily - diuresing well on this. - Beta lilian as above (3) Hypomagnesemia: Plan: Patient already taking Mg Ox 500mg PO daily at home and reports compliance. Suspect acutely decreased to 0.7mg/dL on admission due to recent diuretic use. - Mg sulphate 2g IV given in ER. Increase Mg Ox to 800mg PO BID. - Repeat levels in AM -> Replete further. (4) Elevated MCV: Plan: - Check B12 & folate in AM (5) Bipolar I disorder: Plan: No indication of mood issues. - Continue Lamictal and Depakote (6) Chronic gout: Plan: - Continue allopurinol 300mg PO daily (7) BPH (benign prostatic hypertrophy): Plan: - Continue alfuzosin 10mg PO daily (8) Asthma: Plan: No wheezing today. - Uses Advair as needed (9) Insomnia: Plan: - Melatonin 3mg PO HS PRN Admission and Anticipated Discharge Date Admission Date: December 06, 2021 Subjective Doing well today. Swelling is down substantially. Breathing is very comfortable. Reports no fevers/chills, chest pain, shortness of breath, abdominal pain, nausea, or vomiting. Physical Exam Constitutional: WD/WN, vitals as above Eyes: EOM intact bilaterally; no conjunctival abnormality ENMT: external ear and nose normal, oropharynx normal Neck: trachea midline, no thyromegaly normal visual inspection Respiratory: normal respiratory effort, lungs clear to auscultation no respiratory distress Cardiovascular: Rate/Rhythm: + tachycardic and + irregularly irregular Extremities: no edema Gastrointestinal (Abdomen): Inspection/Auscultation: abdomen normal to inspection; abdomen not distended Musculoskeletal: no cyanosis or clubbing, extremities motor strength 5/5 Skin: no rashes, warm and dry Neurologic: moves all extremities and awake Psychiatric: Orientation: alert, oriented to person and cooperative Results & Data Results & Data ([facility]) Vital Signs (Past 12 Hours) Vital Signs Temp Pulse Resp BP Pulse Ox 12/07/21 11:48 36.5 C 85 18 117/86 93 12/07/21 08:00 36.6 C 91 H 20 143/93 H 93 12/07/21 03:24 36.4 C L 104 H 20 135/98 97 PG Care Time/CCT Total # of Minutes Spent Total Time Spent with Patient: Total time spent is greater than 50% in coordination of care (as documented) at patient's floor/unit and/or counseling patient: Coding Level of Care Code 99465 Subseq Hosp Care Lvl 3 Diagnoses Atrial fibrillation with RVR I48.91 Acute heart failure I50.9 Hypomagnesemia E83.42 Elevated MCV R71.8 Bipolar I disorder F31.9 Chronic gout M1A.9XX0 BPH (benign prostatic hypertrophy) N40.0 Asthma J45.909 Insomnia G47.00
[2021-12-07] MEDS: MAGNESIUM SULFATE / D5W 1 GM/100 ML BAG IV SCH ×4 (15:06→21:30)
--- NOTE | 2021-12-07 18:57 | Electrocardiogram Report ---
Test Reason : Blood Pressure : / mmHG Vent. Rate : 164 BPM Atrial Rate : 163 BPM P-R Int : 000 ms QRS Dur : 102 ms QT Int : 298 ms P-R-T Axes : 000 048 -13 degrees QTc Int : 492 ms Atrial fibrillation with rapid ventricular response Low voltage QRS Nonspecific T wave abnormality Abnormal ECG No previous ECGs available Confirmed by Lemuel Strickland ([id number]) on 12/07/2021 6:56:46 PM Referred By: Confirmed By:Lemuel Strickland
[2021-12-07] MEDS: MELATONIN 3 MG TAB PO PRN (20:48)
[2021-12-07] MEDS: POTASSIUM CHLORIDE CRTAB 20 MEQ TABCR PO SCH (20:49)
[2021-12-07] MEDS: lamoTRIgine 25 MG TAB PO SCH (20:51)
[2021-12-07] MEDS: traZODone HCL 100 MG TAB PO SCH (20:51)
[2021-12-07] MEDS: lamoTRIgine 100 MG TAB PO SCH (20:52)
[2021-12-08 06:53] LABS: Hematocrit (blood only) 47.6 % (42-52); Hemoglobin 15.7 g/dL (14.0-18.0); Mean Corpuscular Hemoglobin 34.1 pg (25-34); Mean Corpuscular Volume 103.3 fL (80-100); Platelet Count 165 K/uL (130-400); RDW Coefficient of Variation 17.9 % (11.5-14.5); RDW Standard Deviation 67.6 fL (36.4-46.3); Red Blood Count 4.61 M/uL (4.7-6.1); White Blood Count 9.53 K/uL (4.8-10.8)
[2021-12-08 07:24] LABS: Albumin Globulin Ratio 1.3 (0.9-2); Albumin Level 3.4 gm/dl (3.4-5.0); BUN Creatinine Ratio 10.9 (10-20); Bilirubin,Total 0.9 mg/dl (0.2-1.0); Calcium 7.8 mg/dl (8.5-10.1); Creatinine Clr Calc Pharmacy 88.3 ml/min; Est GFR (African American) 80.1 ml/min; Est GFR (Non-African American) 69.1 ml/min; Globulin 2.6 gm/dl (2.5-4.0); Magnesium 1.6 mg/dl (1.7-2.4); Potassium 3.2 mmol/L (3.5-5.1)
[2021-12-08 07:47] LABS: Folate (Folic Acid) 12.81 ng/ml (>5.38)
[2021-12-08] MEDS: FLUTICASONE/VILANTEROL 200/25MCG 14 PUFFS/INHALER INH SCH (08:06)
[2021-12-08] MEDS: VITAMIN B COMPLEX TAB PO SCH (08:07)
[2021-12-08] MEDS: APIXABAN 5 MG TABLET PO SCH ×2 (08:07→21:21)
[2021-12-08] MEDS: predniSONE 5 MG TAB PO SCH (08:08)
[2021-12-08] MEDS: FUROSEMIDE 20 MG TAB PO SCH (08:08)
[2021-12-08] MEDS: ALFUZOSIN HCL 10 MG TAB PO SCH (08:09)
[2021-12-08] MEDS: METOPROLOL TARTRATE 25 MG TAB PO SCH (08:09)
[2021-12-08] MEDS: MAGNESIUM OXIDE 400 MG TAB PO SCH ×2 (08:09→21:22)
[2021-12-08] MEDS: allopurinoL 300 MG TAB PO SCH (08:10)
[2021-12-08] MEDS: POTASSIUM CHLORIDE CRTAB 20 MEQ TABCR PO SCH ×3 (08:10→21:11)
[2021-12-08] MEDS: DIVALPROEX EXTENDED RELEASE 500 MG TAB PO SCH ×2 (08:11→21:09)
[2021-12-08] MEDS ORDERED: INDOMETHACIN 25 MG CAP PO PRN (08:22)
[2021-12-08] MEDS ORDERED: KETOROLAC TROMETHAMINE 15 MG/ML VIAL IV ONE ×2 (08:22→16:19)
--- NOTE | 2021-12-08 08:27 | Hospitalist Progress Note ---
Date of Service December 08, 2021 Assessment & Plan (1) Atrial fibrillation with RVR: Plan: Paroxysmal afib, but now appears to be in a longer streak, possibly due to recent Covid or age. TSH wnl. He denies alcohol use also notably AST is elevated > ALT. - Anticoagulation wtih Eliquis ([id number]-5-EJQL: 1-2 (possible CHF only due to a. fib rate as above), 2.2% stroke risk per year) - Aim K > 4, Mg > 2 - Rate control -> Increase metoprolol to 75 mg PO BID (50% increase); will transition to Toprol XL 150 mg if this is adequate. (2) Acute heart failure: Plan: HFrEF Echo on 12/07 showed EF 40 - 45%. Likely tachycardia-induced given global hypokinesis. -> Continue lasix 20mg PO daily - diuresing well on this. - Beta lilian as above (3) Hypomagnesemia: Plan: Patient already taking Mg Ox 500mg PO daily at home and reports compliance. Suspect acutely decreased to 0.7mg/dL on admission due to recent diuretic use. - supplemental magnesium IV Increase Mg Ox to 800mg PO BID. - Replete . (4) Elevated MCV: Plan: - Check B12 & folate normal (5) Bipolar I disorder: Plan: No indication of mood issues. - Continue Lamictal and Depakote (6) Chronic gout: Plan: - acute flare, one dose cohchicine, nsaids, Continue allopurinol 300mg PO daily (7) BPH (benign prostatic hypertrophy): Plan: - Continue alfuzosin 10mg PO daily (8) Asthma: Plan: stable - Uses Advair as needed (9) Insomnia: Plan: - Melatonin 3mg PO HS PRN (10) Gout: Plan: will use colchicine and nsaids to help Admission and Anticipated Discharge Date Admission Date: December 06, 2021 Subjective Patient is feeling much better regarding his atrial fibrillation and is now in rate controlled. However he had a gout flare and cannot walk. Attempts were made to use colchicine and Toradol without success and therefore he needs to have another data improve his ambulation so he is safe enough to go home. Review of Systems Review of Systems: moderate distress from gout and fatigue no headache, no visual changes no speech or swallowing issues no chest pain, pressure or palpitations no shortness of breath, cough or wheezes no abdominal pain, nausea or vomiting, diarrhea or constipation no dysuria, hematuria or frequency right ankle/foot pain consistent with previous gout no back pain, CVA tenderness or radicular pain no bruising, bleeding or rashes no focal signs of weakness or numbness or altered sensation no complaints of anxiety or depression.. Physical Exam Physical Exam: The patient appeared well nourished and normally developed. Vital signs as documented. Head exam is normocephalic atraumatic Neck is without JVD, thyromegaly, or carotid bruits. Lungs are clear to auscultation, no focal loss of breath sounds Cardiac exam, irregular and rate control Abdominal exam reveals normal bowel sounds, soft non tender, no masses right ankle is painful to exam but with little swelling or erythema Neurologic exam is alert and oriented, no focal loss of strength or sensation Skin is without bruises or rashes Psychologically is without concerns for anxiety or depression.. Results & Data Results & Data ([facility]) Vital Signs (Past 12 Hours) Vital Signs Temp Pulse Resp BP Pulse Ox 12/08/21 07:45 97.9 F 84 20 119/78 96 12/08/21 03:06 97.3 F L 101 H 19 104/73 91 12/07/21 23:10 97.3 F L 92 H 17 107/76 93 PG Care Time/CCT Total # of Minutes Spent Total Time Spent with Patient: Total time spent is greater than 50% in coordination of care (as documented) at patient's floor/unit and/or counseling patient: Coding Level of Care Code 53379 Subseq Hosp Care Lvl 3 Diagnoses Atrial fibrillation with RVR I48.91 Acute heart failure I50.9 Hypomagnesemia E83.42 Elevated MCV R71.8 Bipolar I disorder F31.9 Chronic gout M1A.9XX0 BPH (benign prostatic hypertrophy) N40.0 Asthma J45.909 Insomnia G47.00 Gout M10.9
[2021-12-08] MEDS ORDERED: COLCHICINE 0.6 MG TAB PO ONE ×2 (08:45→16:30)
[2021-12-08] MEDS ORDERED: MAGNESIUM SULFATE / D5W 1 GM/100 ML BAG IV ONE (09:00)
[2021-12-08] MEDS ORDERED: METOPROLOL TARTRATE 25 MG TAB PO SCH ×2 (19:00)
[2021-12-08] MEDS: MELATONIN 3 MG TAB PO PRN (21:09)
[2021-12-08] MEDS: lamoTRIgine 100 MG TAB PO SCH (21:21)
[2021-12-08] MEDS: traZODone HCL 100 MG TAB PO SCH (21:21)
[2021-12-08] MEDS: lamoTRIgine 25 MG TAB PO SCH (21:21)
[2021-12-09] MEDS: METOPROLOL SUCC 50MG EXT REL TAB PO SCH (08:21)
[2021-12-09] MEDS: DIVALPROEX EXTENDED RELEASE 500 MG TAB PO SCH ×2 (08:23→20:56)
[2021-12-09] MEDS: allopurinoL 300 MG TAB PO SCH (08:23)
[2021-12-09] MEDS: VITAMIN B COMPLEX TAB PO SCH (08:24)
[2021-12-09] MEDS: predniSONE 5 MG TAB PO SCH (08:24)
[2021-12-09] MEDS: APIXABAN 5 MG TABLET PO SCH ×2 (08:26→20:56)
[2021-12-09] MEDS: FUROSEMIDE 20 MG TAB PO SCH (08:26)
[2021-12-09] MEDS: ALFUZOSIN HCL 10 MG TAB PO SCH (08:26)
[2021-12-09] MEDS: FLUTICASONE/VILANTEROL 200/25MCG 14 PUFFS/INHALER INH SCH (08:27)
[2021-12-09] MEDS: MAGNESIUM OXIDE 400 MG TAB PO SCH ×2 (08:27→20:56)
[2021-12-09] MEDS: POTASSIUM CHLORIDE CRTAB 20 MEQ TABCR PO SCH (08:28)
[2021-12-09] MEDS ORDERED: methylPREDNISolone 40 MG in SYRINGE 0 ML IV ONE (09:00)
--- NOTE | 2021-12-09 14:26 | XRay Report ---
XR foot LT min 3V routine CLINICAL HISTORY: pain in foot TECHNIQUE: 3 views of the left foot were obtained. Comparison: None available at the time of this dictation. FINDINGS: There is irregularity of the distal metaphysis of the first metatarsal without definite evidence of a cute fracture. The alignment is anatomic. Degenerative changes are seen. Vascular calcifications are seen. IMPRESSION: Irregularity of the first metatarsal distal metaphysis likely represents old healed fracture. Correla tion with point tenderness is recommended. Otherwise no evidence of acute abnormality. ACT 112: Negative or not required by law. Electronically signed by: Zach Hooks M.D. 12/09/2021 2:25 PM
--- NOTE | 2021-12-09 18:08 | Hospitalist Progress Note ---
Date of Service December 09, 2021 Assessment & Plan (1) Foot pain, left: Plan: Has become his biggest problem right now patient cannot stand bear weight or walk due to his foot pain. Plain radiographs did not reveal any significant fractures. Attempted treatment of gout did not have any significant resolution with exception of a dose of Toradol with some moderate improvement. Subsequently before ordering additional imaging will have evaluation by orthopedics patient previous is a relationship with Dr. August. Perhaps stress fracture could be the case as the patient says his foot began paining him about 4:00 in the morning and he stepped out onto the hard floor. But before ordering additional modality will discuss with Dr. August. We will supply some topical Voltaren gel at this time in addition to parenteral and enteral medications (2) Atrial fibrillation with RVR: Plan: Paroxysmal afib, but now appears to be in a longer streak, possibly due to recent Covid or age. TSH wnl. He denies alcohol use also notably AST is elevated > ALT. - Anticoagulation wtih Eliquis ([id number]-9-KXSX: 1-2 (possible CHF only due to a. fib rate as above), 2.2% stroke risk per year) - Aim K > 4, Mg > 2 - Rate control -> Increase metoprolol to 75 mg PO BID (50% increase); will transition to Toprol XL 150 mg if this is adequate. (3) Acute heart failure: Plan: HFrEF Echo on 12/07 showed EF 40 - 45%. Likely tachycardia-induced given global hypokinesis. -> Continue lasix 20mg PO daily - diuresing well on this. - Beta lilian as above (4) Hypomagnesemia: Plan: Patient already taking Mg Ox 500mg PO daily at home and reports compliance. Suspect acutely decreased to 0.7mg/dL on admission due to recent diuretic use. - supplemental magnesium IV Increase Mg Ox to 800mg PO BID. - Replete . (5) Elevated MCV: Plan: - Check B12 & folate normal (6) Bipolar I disorder: Plan: No indication of mood issues. - Continue Lamictal and Depakote (7) Chronic gout: Plan: - Now beginning to doubt if it was a acute flare, did not improve after 2 doses of cohchicine, nsaids, Continue allopurinol 300mg PO daily (8) BPH (benign prostatic hypertrophy): Plan: - Continue alfuzosin 10mg PO daily (9) Asthma: Plan: stable - Uses Advair as needed (10) Insomnia: Plan: - Melatonin 3mg PO HS PRN Admission and Anticipated Discharge Date Admission Date: December 06, 2021 Subjective Patient is feeling much better regarding his atrial fibrillation and is now in rate controlled. Patient feels his left foot is too painful to walk. He felt it was consistent with his gout. Attempts were made to use colchicine Solu-Medrol and Toradol without success plain x-ray did not reveal any acute fractures. Pain is in a slightly atypical location for gout. Still adamant that he cannot stand or go home with regard to his foot pain Review of Systems Review of Systems: moderate distress from gout and fatigue no headache, no visual changes no speech or swallowing issues no chest pain, pressure or palpitations no shortness of breath, cough or wheezes no abdominal pain, nausea or vomiting, diarrhea or constipation no dysuria, hematuria or frequency right ankle/foot pain consistent with previous gout however an unusual location no back pain, CVA tenderness or radicular pain no bruising, bleeding or rashes no focal signs of weakness or numbness or altered sensation no complaints of anxiety or depression.. Physical Exam Physical Exam: The patient appeared well nourished and normally developed. Vital signs as documented. Head exam is normocephalic atraumatic Neck is without JVD, thyromegaly, or carotid bruits. Lungs are clear to auscultation, no focal loss of breath sounds Cardiac exam, irregular and rate control Abdominal exam reveals normal bowel sounds, soft non tender, no masses Left foot shows erythema to the dorsum of his foot near the proximal metatarsal area. It is reproducibly tender to touch there. There is no evidence of cellulitis edema or fluctuance. It is not significantly warm. His joints are not significantly involved its more like perhaps tendinitis or tendon sheath issue Neurologic exam is alert and oriented, no focal loss of strength or sensation does have some mild neuropathy which is baseline for him Skin is with redness over the dorsum of his foot not clear whether it is from him rubbing it or part of his foot related issue Psychologically is without concerns for anxiety or depression.. Results & Data Results & Data ([facility]) Vital Signs (Past 12 Hours) Vital Signs Temp Pulse Pulse Resp BP Pulse Ox 12/09/21 15:41 98.2 F 102 H 20 127/80 94 12/09/21 11:22 98.1 F 96 H 18 107/75 97 12/09/21 08:00 120 H 12/09/21 07:44 97.9 F 100 H 20 122/89 97 PG Care Time/CCT Total # of Minutes Spent Total Time Spent with Patient: Total time spent is greater than 50% in coordination of care (as documented) at patient's floor/unit and/or counseling patient: Coding Level of Care Code 31133 Subseq Hosp Care Lvl 2 Diagnoses Atrial fibrillation with RVR I48.91 Acute heart failure I50.9 Hypomagnesemia E83.42 Elevated MCV R71.8 Bipolar I disorder F31.9 Chronic gout M1A.9XX0 BPH (benign prostatic hypertrophy) N40.0 Asthma J45.909 Insomnia G47.00 Foot pain, left M79.672
[2021-12-09] MEDS: lamoTRIgine 100 MG TAB PO SCH (20:55)
[2021-12-09] MEDS: lamoTRIgine 25 MG TAB PO SCH (20:55)
[2021-12-09] MEDS: traZODone HCL 100 MG TAB PO SCH (20:55)
[2021-12-09] MEDS: DICLOFENAC SOD 1% GEL 100 GM TUBE EXT SCH (20:57)
[2021-12-10 06:15] LABS: Hemoglobin 15.2 g/dL (14.0-18.0); Mean Corpuscular Hemoglobin 34.2 pg (25-34); Mean Corpuscular Hgb Conc 32.3 g/dL (32-36); Mean Corpuscular Volume 105.6 fL (80-100); Platelet Count 190 K/uL (130-400); RDW Coefficient of Variation 17.1 % (11.5-14.5); RDW Standard Deviation 67.1 fL (36.4-46.3); Red Blood Count 4.45 M/uL (4.7-6.1); White Blood Count 11.56 K/uL (4.8-10.8)
[2021-12-10 06:38] LABS: BUN Creatinine Ratio 15.5 (10-20); Calcium 8.4 mg/dl (8.5-10.1); Creatinine Clr Calc Pharmacy 89.7 ml/min; Est GFR (African American) 80.1 ml/min; Est GFR (Non-African American) 69.1 ml/min; Potassium 3.7 mmol/L (3.5-5.1)
[2021-12-10] MEDS: DICLOFENAC SOD 1% GEL 100 GM TUBE EXT SCH (08:23)
[2021-12-10] MEDS: VITAMIN B COMPLEX TAB PO SCH (08:24)
[2021-12-10] MEDS: predniSONE 5 MG TAB PO SCH (08:24)
[2021-12-10] MEDS: allopurinoL 300 MG TAB PO SCH (08:24)
[2021-12-10] MEDS: MAGNESIUM OXIDE 400 MG TAB PO SCH (08:25)
[2021-12-10] MEDS: DIVALPROEX EXTENDED RELEASE 500 MG TAB PO SCH (08:25)
[2021-12-10] MEDS: ALFUZOSIN HCL 10 MG TAB PO SCH (08:25)
[2021-12-10] MEDS: APIXABAN 5 MG TABLET PO SCH (08:25)
[2021-12-10] MEDS: FLUTICASONE/VILANTEROL 200/25MCG 14 PUFFS/INHALER INH SCH (08:25)
[2021-12-10] MEDS: FUROSEMIDE 20 MG TAB PO SCH (08:25)
[2021-12-10] MEDS: METOPROLOL SUCC 50MG EXT REL TAB PO SCH (08:25)
--- NOTE | 2021-12-10 09:06 | Orthopedic Consultation ---
Date of Service December 10, 2021 Assessment & Plan (1) Degenerative joint disease, foot, left: He was seen and examined by Dr. August today as well. He does have some 1st tarsometatarsal joint arthritis on xray and very possibly had some gout involvement in addition. He is improved this morning with the treatment so far. With the midfoot arthritis, we discussed wearing suppportive shoes. No further intervention needed for his foot at this time. We will contact him regarding scheduling for his hip replacement. History of Present Illness Reason for Consultation: . Requesting Physician: . Attending Physician: Ivan Knight MD .66 year old male who has seen Dr. August recently for hip pain and was looking into scheduling total hip arthroplasty. However, he was admitted 4 days ago with new onset atrial fibrillation. Two days ago he developed acute left foot pain. Denies injury. He has a h/o gout that has affected his 1st MTP joint in the past. He was given colchine, toradol, and is on allopurinol. Today his pain is improved. In fact, he was able to stand up this morning without any foot pain. He localizes the pain mostly around the midfoot. Allergies Allergy/AdvReac Type Severity Reaction Status Date / Time amitriptyline [From Elavil] Allergy Verified 12/06/21 08:09 aripiprazole [From Abilify] Allergy Verified 12/06/21 08:09 hyoscyamine Allergy Verified 12/06/21 08:09 [From Symax Duotab] meloxicam Allergy Verified 12/06/21 08:09 Penicillins Allergy Verified 12/06/21 08:09 venlafaxine [From Effexor] Allergy Verified 12/06/21 08:09 zolpidem [From Ambien] Allergy Verified 12/06/21 08:09 Home Medications Medication Instructions Recorded Confirmed Type cetirizine 10 mg tablet 5 mg PO DAILY PRN 11/25/19 12/06/21 History fluticasone 232mcg-salmeterol 1 inh INHALATION BID #1 ea 11/27/20 12/06/21 Rx 14mcg/actuation breath act,powder sensor (AirDuo Digihaler) alfuzosin 10 mg tablet,extended 10 mg PO DAILY #90 tab 03/23/21 12/06/21 Rx release 24 hr allopurinol 300 mg tablet 300 mg PO DAILY #90 tab 03/23/21 12/06/21 Rx trazodone 100 mg tablet 200 mg PO DAILY #60 tab 04/17/21 12/06/21 Rx divalproex 500 mg tablet,extended 500 mg PO BID #180 tab 08/07/21 12/06/21 Rx release 24 hr prednisone 5 mg tablet 5 mg PO DAILY #30 tab 10/04/21 12/06/21 Rx oxycodone-acetaminophen 5 mg-325 1 tab PO Q12H PRN #60 tab 11/02/21 12/06/21 Rx mg tablet (Percocet) furosemide 20 mg tablet 20 mg PO DAILY PRN #30 tab 12/03/21 12/06/21 Rx lamotrigine 150 mg tablet 150 mg PO HS 12/06/21 12/06/21 History vitamin B complex 1 tab PO DAILY 12/06/21 12/06/21 History apixaban 5 mg tablet (Eliquis) 5 mg PO BID #60 tab 12/08/21 Rx colchicine 0.6 mg capsule 0.6 mg PO UD #3 cap 12/08/21 Rx indomethacin 25 mg capsule 25 mg PO BID #10 cap 12/08/21 Rx magnesium oxide 500 mg tablet 500 mg PO BID #60 tab 12/08/21 12/06/21 Rx metoprolol succinate 100 mg 100 mg PO DAILY #30 tab 12/08/21 Rx tablet,extended release 24 hr metoprolol succinate 50 mg 50 mg PO DAILY #30 tab 12/08/21 Rx tablet,extended release 24 hr Past Med/Surg History Medical History Arthritis of hip Asthma Atelectasis Bipolar I disorder BPH (benign prostatic hypertrophy) Chronic gout Decreased range of right hip movement Dyspnea Elevated d-dimer Elevated hemidiaphragm Fatigue History of hypogonadism Hypertension Hypoxia Medical marijuana use Memory impairment 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 RLS (restless legs syndrome) Routine health maintenance Spinal stenosis Surgical History History of cholecystectomy Hx of hernia repair Hx of knee surgery [place] 2016, meniscal S/P insertion of spinal cord stimulator Family History Mother Breast cancer Hypertension Sister Diabetes Lung cancer Denies family history of Ovarian cancer Prostate cancer Myocardial infarction Colorectal cancer Social History Smoking Status: Never smoker Second Hand Exposure: No; Hx Alcohol Use: Yes Hx Substance Use: No Preferred Language: Tajik Communication Ability: Effective Hearing Ability: Use of Hearing Aid Welfare Aide Required: No Beliefs That Will Affect Care: None marital status: Current Living Situation: Spouse current occupational status: retired How many Children do You have: 4 Other Information That Helps Us Care for You: No Feels Safe at Home: Yes Childhood Exposure to Second-Hand Smoke: Yes Diet Comment: Optivia diet caffeine: Yes Dental Care, Regularly: No Physical Activity Frequency: 3-4 Times per Week Seatbelt Use: always Sunscreen Use: No Assistive Devices: Oxygen - at Night Review of Systems All systems reviewed & are unremarkable except as noted in HPI & below. Physical Exam .alert and oriented. NAD Left foot: No significant swelling or discoloration. He has some mild tenderness at the 1st tarsometatarsal joint. No tenderness of the 1st MTP joint. NVI. Skin intact. Results & Data Results & Data Laboratory Results . Diagnostic Findings . xrays of his left foot were reviewed and show some arthritis at the 1st tarsometatarsal joint. No fractures. PG Care Time/CCT Total # of Minutes Spent Total Time Spent with Patient: Total time spent is greater than 50% in coordination of care (as documented) at patient's floor/unit and/or counseling patient: Coding Level of Care Code 65958 Inpt Consult Level 3 Diagnoses Degenerative joint disease, foot, left M19.072
--- NOTE | 2021-12-10 15:07 | Discharge Summary ---
Date of Service December 10, 2021 Admission HPI Per Admitting Provider Tom Lion is a 66-year-old male who presents on the advice of his primary care physician after finding incidental atrial fibrillation on EKG today. He was at his primary care doctor to follow-up for lower back pain, hip pain and increasing fatigue since September. With hindsight he reports feeling like his heart has been intermittently racing with associated fatigue and shortness of breath for the past 2 weeks. Symptoms can last for hours at a time but usually resolve spontaneously. He also noticed increased leg swelling and was started on Lasix 20mg PO daily for the last week with good resolution of the leg swelling but fatigue and shortness of breath episodes have persisted. This is on a background of having COVID-19 diagnosed from a home test on 17 October. Initial symptoms lasted about 12 days although he had trouble sleeping and coughing after this. He was vaccinated with the 1 dose of Clif & Clif vaccine. He followed up on October 31 for lingering COVID symptoms and was treated for secondary bacterial infection at that time with significant improvement in cough and shortness of breath. He was feeling better up until a few weeks ago. In the ER EKG showed atrial fibrillation with a rate of 164. He was given metoprolol 5mg IV x2 with improvement in his HR down to 100 bpm. He was referred to medicine for admission and ongoing management of atrial fibrillation with rapid ventricular rate. Principal Diagnosis afib rvr HFref with pulmonary edema tendonitis to left foot -> improved Discharge Exam rate controlled afib clear lungs foot no longer tender Discharge Data Allergies Allergy/AdvReac Type Severity Reaction Status Date / Time amitriptyline [From Elavil] Allergy Verified 12/06/21 08:09 aripiprazole [From Abilify] Allergy Verified 12/06/21 08:09 hyoscyamine Allergy Verified 12/06/21 08:09 [From Symax Duotab] meloxicam Allergy Verified 12/06/21 08:09 Penicillins Allergy Verified 12/06/21 08:09 venlafaxine [From Effexor] Allergy Verified 12/06/21 08:09 zolpidem [From Ambien] Allergy Verified 12/06/21 08:09 Consultations 12/06/21 13:40 ED Decision to Admit Stat 12/09/21 15:59 Consult Orthopedic Surgery Routine Ordered Studies 12/06/21 10:01 CT angio chest PE protocol Stat Hospital Course (1) Foot pain, left: Now resolved, had become his biggest problem right now patient cannot stand bear weight or walk due to his foot pain. Plain radiographs did not reveal any significant fractures. Attempted treatment of gout did not have any significant resolution with exception of a dose of Toradol with some moderate improvement., On the Day of discharge was able to ambulate in halls (2) Atrial fibrillation with RVR: Paroxysmal afib, but now appears to be in a longer streak, possibly due to recent Covid or age. TSH wnl. He denies alcohol use also notably AST is elevated > ALT. - Anticoagulation wtih Eliquis ([id number]-6-ZQRT: 1-2 (possible CHF only due to a. fib rate as above), 2.2% stroke risk per year) - Aim K > 4, Mg > 2 - Rate control -> transition to Toprol XL 150 mg if this is adequate. (3) Acute heart failure: HFrEF Echo on 12/07 showed EF 40 - 45%. Likely tachycardia-induced given global hypokinesis. - Beta lilian and lasix low salt diet, follow up with pcp and cardiology (4) Hypomagnesemia: Mg Ox 500mg PO daily at home (5) Elevated MCV: - Check B12 & folate normal (6) Bipolar I disorder: No indication of mood issues. - Continue Lamictal and Depakote (7) Chronic gout: - Now beginning to doubt if it was a acute flare, did not improve after 2 doses of cohchicine, nsaids, Continue allopurinol 300mg PO daily (8) BPH (benign prostatic hypertrophy): - Continue alfuzosin 10mg PO daily (9) Asthma: stable - Uses Advair as needed (10) Insomnia: - Melatonin 3mg PO HS PRN Total Time Total Time Spent Total Time Spent (In Minutes): It required greater than 30 minutes to prepare this patient for discharge Discharge Plan Discharge Items Patient Disposition: Home - Self-Care Reason For Visit: A. FIB WITH RVR, ACUTE HEART FAILURE Discharge Diagnosis: atrial fibrillation rapid rate resolved with med changes Activity: Resume your previous activity Non-emergency contact: Primary Care Provider Call non-emergency contact if: your symptoms worsen Follow-up/Referrals: Keith Dimas DO [Primary Care Provider] - 12/17/21 1:30 pm (Please follow up with Dr. Dimas on Friday12/17/21 at 1:30 pm. Please arrive to the office at 1:15 pm for your appointment. If you are unable to keep this appointment, please call the office to resched domingo at [phone].) Addtl Attending Provider Instructions: If you have been diagnosed with atrial fibrillation (AF or AFib), we have controlled your rapid heart rate by using a medicine called metoprolol, you will be given the other dose for today to take the evening of your discharge, then on 12/09, start the Rx of extended release once a day Part of your rapid heart rate caused some fluid retention, it will still be important to watch your salt intake and if you notice that you are increasing in body weight this maybe fluid retention. If you notice this please contact your primary care provider and/or standards engineer. Please see your family doctor in a week and coordinate a Cardiology follow up appointment please use ibuprofen or indocin sparingly as you are on a blood thinner, consider using tylenol and ice or topical treatment if foot pain returns Pending Studies at Discharge: No Stand-Alone Forms: My [facility] [employer], Smoking Cessation Medications and DC Order Prescriptions: New Eliquis 5 mg Tablet 5 mg PO BID Qty: 60 RF: 3 metoprolol succinate 50 mg tablet extended release 24 hr 50 mg PO DAILY Qty: 30 RF: 3 metoprolol succinate 100 mg tablet extended release 24 hr 100 mg PO DAILY Qty: 30 RF: 2 indomethacin 25 mg capsule 25 mg PO BID Qty: 10 RF: 0 colchicine 0.6 mg capsule 0.6 mg PO UD Qty: 3 RF: 3 Continued allopurinol 300 mg tablet 300 mg PO DAILY Qty: 90 RF: 3 alfuzosin 10 mg tablet extended release 24 hr 10 mg PO DAILY Qty: 90 RF: 3 trazodone 100 mg tablet 200 mg PO DAILY Qty: 60 RF: 11 oxycodone-acetaminophen [Percocet] 5-325 mg tablet 1 tab PO Q12H PRN (Reason: pain) Qty: 60 RF: 0 furosemide 20 mg tablet 20 mg PO DAILY PRN (Reason: edema) Qty: 30 RF: 5 divalproex 500 mg tablet extended release 24 hr 500 mg PO BID Qty: 180 RF: 3 prednisone 5 mg tablet 5 mg PO DAILY Qty: 30 RF: 5 cetirizine 10 mg tablet 5 mg PO DAILY PRN (Reason: Allergy Symptoms) RF: 0 AirDuo Digihaler 232-14 mcg/actuation aero powdr breath act w/sensor 1 inh inhalation BID Qty: 1 RF: 5 lamotrigine 150 mg tablet 150 mg PO HS RF: 0 vitamin B complex Tablet 1 tab PO DAILY RF: 0 Changed magnesium oxide 500 mg tablet 500 mg PO BID Qty: 60 RF: 5 Discharge Orders: Discharge Order (Routine); Ordered 12/10/21 Ordered By: Ivan Escalante/Other Patient Handouts: Metoprolol 24 Hour 24 HR Extended Release Oral Tablet 100 mg, Colchicine Oral Tablet 0.6 mg, Eliquis Oral Tablet 2.5 mg, Eliquis Oral Tablet 5 mg, Indomethacin Oral Capsule 25 mg Admission Data Admit Date/Time: 12/06/21 14:29 Attending Provider: Ivan Knight Admit Provider: Michelet Nettles Primary Care Provider: Keith Dimas Other Providers: Ivan Knight ; James August Other Interventions: Discharge Summary Assessment (RN) Last Done: 12/10/21 13:16 Coding Level of Care Code D/C DAY MANAGEMENT >30 MINS Diagnoses Foot pain, left M79.672 Atrial fibrillation with RVR I48.91 Acute heart failure I50.9 Hypomagnesemia E83.42 Elevated MCV R71.8 Bipolar I disorder F31.9 Chronic gout M1A.9XX0 BPH (benign prostatic hypertrophy) N40.0 Asthma J45.909 Insomnia G47.00
== END 2021-12-10 15:02 | disposition home or self-care (01) | DRG 308 ==
LOC: ED 09:34 → EDINP 14:29 → SUATTDRO 14:29 → 2S 19:44
DX: J45.909 Unspecified asthma, uncomplicated; E87.6 Hypokalemia; Z79.52 Long term (current) use of systemic steroids; I48.0 Paroxysmal atrial fibrillation; Z88.8 Allergy status to other drugs, medicaments and biological substances; G47.00 Insomnia, unspecified; F31.9 Bipolar disorder, unspecified; U09.9 Post COVID-19 condition, unspecified; E83.42 Hypomagnesemia; M10.9 Gout, unspecified; Z20.822 Contact with and (suspected) exposure to COVID-19; N40.0 Benign prostatic hyperplasia without lower urinary tract symptoms; I50.21 Acute systolic (congestive) heart failure; M77.52 Other enthesopathy of left foot and ankle; Z82.49 Family history of ischemic heart disease and other diseases of the circulatory system; M19.072 Primary osteoarthritis, left ankle and foot; Z79.899 Other long term (current) drug therapy; I11.0 Hypertensive heart disease with heart failure; Z88.6 Allergy status to analgesic agent; Z88.0 Allergy status to penicillin

== ENCOUNTER 2022-03-19 05:10 | Observation (INO) ==
--- NOTE | 2022-02-25 10:38 | PAT Medication Instructions ---
Medication Instructions Date of Service February 25, 2022 Home Medications Medication Instructions Recorded fluticasone 232mcg-salmeterol 1 inh INHALATION BID #1 ea 11/27/20 14mcg/actuation breath act,powder sensor (AirDuo Digihaler) apixaban 5 mg tablet (Eliquis) 5 mg PO BID #60 tab 12/08/21 magnesium oxide 500 mg tablet 500 mg PO BID #60 tab 12/08/21 lamotrigine 150 mg tablet 150 mg PO HS #30 tab 12/24/21 furosemide 40 mg tablet See Rx Instructions PO BID #30 tab 01/11/22 sacubitril 24 mg-valsartan 26 mg 1 tab PO BID #60 tab 01/16/22 tablet (Entresto) baclofen 10 mg tablet 10 mg PO BID #60 tab 01/30/22 oxycodone-acetaminophen 5 mg-325 1 tab PO Q8H PRN #90 tab 02/07/22 mg tablet (Percocet) cetirizine 10 mg tablet 5 mg PO DAILY PRN fluticasone 232mcg-salmeterol 14mcg/actuation breath act,powder sensor (AirDuo Digihaler) 1 inh INHALATION BID vitamin B complex 1 tab PO DAILY apixaban 5 mg tablet (Eliquis) 5 mg PO BID magnesium oxide 500 mg tablet 500 mg PO BID lamotrigine 150 mg tablet 150 mg PO HS colchicine 0.6 mg capsule 0.6 mg PO DIRECTED PRN trazodone 100 mg tablet 200 mg PO HS furosemide 40 mg tablet See Rx Instructions PO BID sacubitril 24 mg-valsartan 26 mg tablet (Entresto) 1 tab PO BID baclofen 10 mg tablet 10 mg PO BID divalproex 500 mg tablet,extended release 24 hr 1,000 mg PO HS oxycodone-acetaminophen 5 mg-325 mg tablet (Percocet) 1 tab PO Q8H PRN alfuzosin 10 mg tablet,extended release 24 hr 10 mg PO QAM allopurinol 300 mg tablet 300 mg PO QPM digoxin 250 mcg (0.25 mg) tablet 125 mcg PO QAM metoprolol succinate 100 mg tablet,extended release 24 hr 200 mg PO QAM ASK your prescriber and surgeon apixaban 5 mg tablet (Eliquis) 5 mg PO BID (in order for spinal anesthesia, Apixaban/Eliquis needs to be stopped 72 hours/3 days before surgery. Please check if okay with doctor that prescribes this to you) STOP taking 48 hours before surgery colchicine 0.6 mg capsule 0.6 mg PO DIRECTED PRN DO NOT take the morning of surgery cetirizine 10 mg tablet 5 mg PO DAILY PRN vitamin B complex 1 tab PO DAILY magnesium oxide 500 mg tablet 500 mg PO BID furosemide 40 mg tablet See Rx Instructions PO BID sacubitril 24 mg-valsartan 26 mg tablet (Entresto) 1 tab PO BID (unless told otherwise by prescriber) baclofen 10 mg tablet 10 mg PO BID Take morning of surgery With a small sip of water, OTHERWISE NOTHING TO EAT OR DRINK AFTER MIDNIGHT: fluticasone 232mcg-salmeterol 14mcg/actuation breath act,powder sensor (AirDuo Digihaler) 1 inh INHALATION BID oxycodone-acetaminophen 5 mg-325 mg tablet (Percocet) 1 tab PO Q8H PRN (okay to take up to 4 hours prior to surgery if needed) alfuzosin 10 mg tablet,extended release 24 hr 10 mg PO QAM digoxin 250 mcg (0.25 mg) tablet 125 mcg PO QAM metoprolol succinate 100 mg tablet,extended release 24 hr 200 mg PO QAM Take evening before surgery cetirizine 10 mg tablet 5 mg PO DAILY PRN (if needed) fluticasone 232mcg-salmeterol 14mcg/actuation breath act,powder sensor (AirDuo Digihaler) 1 inh INHALATION BID magnesium oxide 500 mg tablet 500 mg PO BID lamotrigine 150 mg tablet 150 mg PO HS trazodone 100 mg tablet 200 mg PO HS furosemide 40 mg tablet See Rx Instructions PO BID sacubitril 24 mg-valsartan 26 mg tablet (Entresto) 1 tab PO BID baclofen 10 mg tablet 10 mg PO BID divalproex 500 mg tablet,extended release 24 hr 1,000 mg PO HS oxycodone-acetaminophen 5 mg-325 mg tablet (Percocet) 1 tab PO Q8H PRN (if needed) allopurinol 300 mg tablet 300 mg PO QPM Other Notes If you have any questions please call us at [phone] or [phone] or [phone] or [phone]
--- NOTE | 2022-02-26 11:30 | Anesthesiology Consultation ---
Date of Service February 26, 2022 Assessment & Plan (1) Encounter for pre-operative examination: Chart Review Chart Review: Acceptable Risk for Surgery (pending cardio appt and any updated cardiac testing (scheduled 03/05/22), PCP appt (03/07/22) and preop Covid testing results ) and Patient seen in Pre Admission Testing -Awaiting cardio appt scheduled 03/05/22 (will await to see if any updated cardiac testing done) -Awaiting PCP appt scheduled 03/07/22 Per PAT appt on 02/26/22, patient denies any recent travel or large group activities. No known Covid positive exposures or Covid related symptoms. No known Covid infection in the past 90 days. Pt is vaccinated for Covid. Preop Covid testing scheduled 03/15/22 = will await results. Educated on importance of self quarantining, social distancing and wearing mask in public for the patient one week prior to surgery and after Covid testing done Pt last seen by cardio 01/31/22= patient seen for follow-up on hypertension, pa roxysmal A. fibmild LV dysfunction (possibly tachycardia induced), dilated ascending thoracic aorta, and preop evaluation. Since last visit patient has been stable. To exercise and carry out daily activities. Patient is stable from cardiovascular standpoint. Demonstrates excellent control of BP. Has been managing his volume status well. Tolerating current medications without difficulty. Had previously planned on initiating amiodarone but will first reassess LV systolic function evaluate the patient in approximately 1 month. " In terms of hip replacement surgery, the patient is an acceptable cardiac risk as long as extremes of volume and blood pressure are avoided... Acceptable cardiac risk for hip replacement surgery without further testing. Hold Eliquis 3 full days before hip replacement surgery." F/u 1 month. Teaching & Discussion Pre-Anesthesia Teaching/Discussion Notes: Instructed NPO after midnight before surgery,except medications with 15 cc of water. Medication instructions provided according to the PAT guidelines. History Surgery Operation Date: 03/19/22 10:40 Proposed Procedures p Left Total Hip Arthroplasty - James August MD Height/Weight Height: 6 ft 3 in Weight: 113.9 kg Allergies Allergy/AdvReac Type Severity Reaction Status Date / Time meloxicam Allergy Severe Swollen Verified 02/26/22 12:13 tongue Penicillins Allergy Mild Rash Verified 02/21/22 13:12 amitriptyline [From Elavil] Allergy Unknown Hallucinati Verified 02/26/22 12:13 ons aripiprazole [From Abilify] Allergy Unknown Tremors, Verified 02/26/22 12:13 balance issues, trouble controlling body movements hyoscyamine Allergy Unknown Hallucinati Verified 02/26/22 12:13 [From Symax Duotab] ons venlafaxine [From Effexor] Allergy Unknown Hallucinations Verified 02/26/22 12:13 and tremors zolpidem [From Ambien] Allergy Unknown Hallucinati Verified 02/26/22 12:13 ons Medications Home Medications Medication Instructions Recorded Confirmed Last Taken cetirizine 10 mg tablet 5 mg PO DAILY PRN 11/25/19 02/21/22 Unknown vitamin B complex 1 tab PO DAILY 12/06/21 02/21/22 01/09/22 apixaban 5 mg tablet (Eliquis) 5 mg PO BID #60 tab 12/08/21 02/21/22 01/09/22 magnesium oxide 500 mg tablet 500 mg PO BID #60 tab 12/08/21 02/21/22 01/09/22 lamotrigine 150 mg tablet 150 mg PO HS #30 tab 12/24/21 02/21/22 01/09/22 colchicine 0.6 mg capsule 0.6 mg PO DIRECTED PRN 01/09/22 02/21/22 Unknown trazodone 100 mg tablet 200 mg PO HS 01/09/22 02/21/22 01/09/22 furosemide 40 mg tablet See Rx Instructions PO BID #30 tab 01/11/22 02/21/22 Unknown sacubitril 24 mg-valsartan 26 mg 1 tab PO BID #60 tab 01/16/22 02/21/22 Unknown tablet (Entresto) baclofen 10 mg tablet 10 mg PO BID #60 tab 01/30/22 02/21/22 Unknown divalproex 500 mg tablet,extended 1,000 mg PO HS tab 01/30/22 02/21/22 Unknown release 24 hr oxycodone-acetaminophen 5 mg-325 1 tab PO Q8H PRN #90 tab 02/07/22 02/21/22 Un known mg tablet (Percocet) alfuzosin 10 mg tablet,extended 10 mg PO QAM 02/21/22 02/21/22 Unknown release 24 hr allopurinol 300 mg tablet 300 mg PO QPM 02/21/22 02/21/22 Unknown digoxin 250 mcg (0.25 mg) tablet 125 mcg PO QAM 02/21/22 02/21/22 Unknown metoprolol succinate 100 mg 200 mg PO QAM 02/21/22 02/21/22 Unknown tablet,extended release 24 hr Vitamin D3 See Rx Instructions .ROUTE .COMPLEX 02/26/22 02/26/22 Unknown indomethacin 50 mg capsule 50 mg PO TID PRN 02/26/22 02/26/22 Unknown omega-3 fatty acids 1,000 mg PO QAM 02/26/22 02/26/22 Unknown Past Medical History Medical History (Updated 02/26/22 @ 15:42 by Ami Dutta PA-C) Ascending aorta dilatation 4.6 cm - no change from Nov [address] per 12/06/21 chest CTA Asthma COLD WEATHER INDUCED>NO INHALER USED FOR A WHILE Breathing stable Atrial fibrillation On Eliquis Bipolar I disorder BPH (benign prostatic hypertrophy) Chronic gout Chronic low back pain Congestive heart failure EF 40-45% Nov 2021 ECHO (questionable tachycardia induced per cardio) History of COVID-19 11/2021>TROUBLE BREATHING/CONGESTION>HOSPITAL AFTER DX FOR PULSE RATE *RESOLVED History of hypogonadism Hypertension Iniguez's neuroma of left foot Peripheral neuropathy Bilateral feet RLS (restless legs syndrome) HX OF Spinal stenosis Exercise / Class Metabolic Activity II 4-5 Yardwork/Stairs/Walk up hill (one flight of stairs - no chest pain or SOB ) Past Family History Family History Mother Breast cancer Hypertension Sister Diabetes Lung cancer Other No family history of adverse response to anesthesia Denies family history of Ovarian cancer Prostate cancer Myocardial infarction Colorectal cancer Past Surgical History Surgical History H/O hand surgery LEFT History of cataract surgery RT/LEFT History of colonoscopy History of tonsillectomy Hx of hernia repair UMBILICAL HERNIA Hx of knee surgery RT KNEE SCOPE Hx of vasectomy S/P insertion of spinal cord stimulator X 2 *ONLY 1 IS FUNCTIONING BUT NOT IN USE CURRENTLY (WILL BRING ALONG REMOTE AND INSTRUCTIONS TO SURGERY/PAT APT) [place] teeth removed Past Anesthesia History No Hx of Anesthesia Complications and No Family Hx of Anesthesia Complications History of PONV No Hx of PONV and No Hx of Motion Sickness Social History Smoking Status: Never smoker Hx Alcohol Use: No Hx Substance Use: No substance use type: does not use Substance Use Type Other:: medical marijuana for sleep Last Used Substance: Hours (ago) Review of Systems Patient denies chest pain, shortness of breath, dyspnea on exertion, reflux, cough, wheezing, palpitations. No hx of seizures, stroke, [place], apnea/snoring. No hx of blood clots or blood transfusions Physical Exam Vital Signs VITALS BP 140/91 P 83 TEMP 97.9 SP02 94% RESP 16 Constitutional no acute distress ENMT Mouth: no TMJ clicking Thyromental Distance: > or= 3.5 Finger Breadths (3.5) Mallampati Class: II Missing molars and side teeth Crowns to side teeth Neck + limited neck extension (significant ) Respiratory normal respiratory effort; no respiratory distress Auscultation: lungs clear to auscultation bilaterally; no wheezes Cardiovascular Heart Sounds: no murmur Vessels: no carotid bruit Irregularly irregular - rate controlled Musculoskeletal Spine: + pain with cervical ROM Extremities: extremities normal to inspection Psychiatric Orientation: alert Lab Results Anesthesia Preop Results Results Anesthesia Widget: WBC 8.58 K/uL (4.8-10.8) 02/26/22 Hgb 14.4 g/dL (14.0-18.0) 02/26/22 Hct 43.5 % (42-52) 02/26/22 Plt 276 K/uL (130-400) 02/26/22 Na 138 mmol/L (136-145) 02/26/22 K 4.0 mmol/L (3.5-5.1) 02/26/22 Cl 97 mmol/L (98-107) L 02/26/22 CO2 35 mmol/L (21-32) H 02/26/22 BUN 14 mg/dl (6-23) 02/26/22 Creat 1.27 mg/dl (0.6-1.4) 02/26/22 Glucose Level 82 mg/dl (70-99(Fasting)) 02/26/22 PT 11.2 Seconds (9.0-12.0) 02/26/22 PTT 27.9 Seconds (21.0-31.0) 02/26/22 INR 1.1 (0.9-1.1) 02/26/22 Blood Type O Positive 02/26/22 Antibody Screen NEGATIVE 02/26/22 Testing Electrocardiogram Date: 01/16/22 Findings: + AFIB @ (84bpm) Low voltage QRS Chest X-Ray Date: 01/16/22 Findings: + NAD There is again asymmetric elevation of the left hemidiaphragm. Echocardiogram Date: 12/07/21 EF: 40-45% Other Findings: no LVH Valvular Disease: + no significant valvular disease Mild to moderately reduced systolic function. Global hypokinesis. Mildly dilated right ventricle with mildly reduced systolic function. Severe left atrial dilation. Normal estimated RVSP, assuming normal right atrial pressure. Mildly dilated aortic root; 4.6 cm Atrial fibrillation with RVR. Stress Test Date: 11/02/20 Type: nuclear Myocardial perfusion study was negative for significant ischemic changes Apical inferior lateral and apical inferior fixed defects may represent artifact given normal wall motion. Cannot exclude small infarct. Normal LV systolic function and wall motion. EF 66%. Nondiagnostic EKG. Other Testing Chest CTA 12/06/2021 = No pulmonary emboli identified although bilateral lower lobe segmental and subsegmental pulmonary arteries suboptimally assessed due to respiratory motion. No change in marked elevation of the left hemidiaphragm with associated atelectasis. Scattered small subpleural groundglass opacities which could reflect an infectious process or atelectasis. Dilatation of the central pulmonary arteries which raises the possibility of pulmonary arterial hypertension. No change in dilatation of the ascending aorta, measuring 4.6 cm. Cardiomegaly. Trace bilateral pleural effusions.
--- NOTE | 2022-03-15 18:56 | History and Physical Report ---
DATE OF ADMISSION: 03/19/2022. CHIEF COMPLAINT: Left hip and leg pain. HISTORY OF PRESENT ILLNESS: The patient is a 67-year-old gentleman who presents now for surgical keaton atment of his left hip. He has got a long history of left hip and leg pain. He describes it has got ten worse over time. He describes mostly groin pain, thigh pain. He limps more as the day goes on. He has difficulty putting his shoes and socks on due to the stiffness. He takes oral medicines with out much relief. He has been through physical therapy without much relief at all. It was thought th at he may have the back problem and saw the back surgeon who has referred him for surgical treatment of his hip. He is now hoping to have his hip fixed. PAST MEDICAL HISTORY: Significant for: 1. Bipolar disorder. 2. BPH. 3. Hypertension. 4. Chronic back pain and spinal stenosis. 5. Atrial fibrillation, followed by Dr. Artis. PAST SURGICAL HISTORY: Includes: 1. Cholecystectomy. 2. Hernia repair. 3. Bilateral knee scopes. 4. Spinal cord stimulator. ALLERGIES: 1. AMITRIPTYLINE. 2. ABILIFY. 3. MELOXICAM. 4. PENICILLIN, WHICH CAUSES A RASH. 5. EFFEXOR. 5. AMBIEN. SOCIAL HISTORY: A 66-year-old male. He is . Does not smoke. No alcohol intake. FAMILY HISTORY: Noncontributory. REVIEW OF SYSTEMS: Negative for diabetes, neurologic problem, vascular problems or bleeding disorder s. He does have some chronic back issues. He is in atrial fibrillation, followed by Dr. Artis. PHYSICAL EXAMINATION: GENERAL: Shows a pleasant middle-aged male. Looks to be in pretty good health. HEENT: Benign. NECK: Supple. No lymphadenopathy. LUNGS: Clear to auscultation. HEART: Has a regular rate and rhythm. ABDOMEN: Soft, nontender, nondistended. EXTREMITIES: Grossly neurovascularly intact except as follows. Examination of the left hip and leg reveals the patient walks with a bit of a limp. He is about 0.5 cm short to a 1 cm short on the left side compared to right. He does have very limited hip motion. He has got an external rotation contracture about 10 degrees. Negative straight leg raise. No knee effusion. X-RAYS: X-rays of the left hip were reviewed. It shows advanced left hip DJD. He has got complete loss of his superior joint space. He has got pretty extensive osteophytes around the femoral head an d acetabulum. ASSESSMENT: A 67-year-old gentleman with multiple medical comorbidities including bipolar disorder, benign prostatic hyperplasia, hypertension, chronic back pain, spinal stenosis, atrial fibrillation w ith advanced left hip arthritis. He has failed conservative treatment and would like to have his lef t hip fixed. PLAN: We are going to take him to the operating room and do left total hip replacement. The risks a nd benefits of this procedure were explained to the patient, include but not limited to DVT, PE, deat h, infection, neurological injury, vascular injury, bleeding problem, pain, limited range of motion, stiffness, failure to relieve symptoms, incomplete relief of symptoms, etc. The patient understands and desires to proceed. Informed consent was obtained. Hopefully, this will help his back issues a little bit too, but there is certainly no guarantee. He has been seen by Dr. Artis and cleared for surgery. He has also seen his primary care doctor as marlena beckwith. He is planning to be discharged to home using [facility] program and his to yessenia ist in his care. He will need to hold his Eliquis 3 days preoperatively. Job ID: [id number]
[2022-03-19] MEDS ORDERED: GABAPENTIN 300 MG CAP PO SCH (06:00)
[2022-03-19] MEDS ORDERED: Scopolamine 1 MG TDSY TD SCH (06:00)
[2022-03-19] MEDS ORDERED: ACETAMINOPHEN 500 MG TAB PO SCH (06:00)
[2022-03-19] MEDS ORDERED: LR 500ML BOLUS, THEN 15ML/HR IV SCH (06:00)
[2022-03-19] MEDS ORDERED: TRANEXAMIC ACID 1,000 MG **IV Pre-op IV SCH (06:00)
[2022-03-19] MEDS ORDERED: FAMOTIDINE 20 MG TAB PO SCH (06:00)
[2022-03-19] MEDS ORDERED: ceFAZolin 2000MG 2,000 MG/15 ML SYR IV SCH (06:00)
[2022-03-19] MEDS ORDERED: LR 60ML/HR IV SCH (06:00)
[2022-03-19] MEDS ORDERED: BUPIVACAINE 0.5 % 5 MG/1 ML PF 10ML VIAL ONE (06:24)
[2022-03-19] MEDS ORDERED: BUPIVACAINE 0.5 % 5 MG/1 ML MPF 30ML VIAL ONE (06:38)
[2022-03-19] MEDS ORDERED: EPINEPHrine INJ 1 MG/ML AMP ONE (06:38)
[2022-03-19] MEDS ORDERED: PROPOFOL IV EMULSION 10 MG/ML 20 ML VIAL IV ONE (06:43)
[2022-03-19] MEDS ORDERED: LIDOCAINE 2% 2 ML VIAL/AMP(20MG/ML) INFIL ONE (06:43)
[2022-03-19] MEDS ORDERED: MIDAZOLAM HCL 1 MG/ML 2ML VIAL ONE (06:44)
[2022-03-19] MEDS ORDERED: fentaNYL citrate 100 MCG/2 ML VIAL ONE (06:44)
--- NOTE | 2022-03-19 06:54 | History & Physical Bridge Note ---
Date of Service March 19, 2022 History & Physical Bridge Note I have examined the patient, reviewed the History & Physical and in the interval since the performance of the History & Physical I have noted the following changes of clinical significance: no changes noted
[2022-03-19] MEDS ORDERED: ATROPINE SULFATE 0.1 MG/ML 10ML SYR IV PRN (07:29)
[2022-03-19] MEDS ORDERED: ONDANSETRON INJ 2 MG/ML 2 ML VIAL IV PRN ×2 (07:29→09:59)
[2022-03-19] MEDS ORDERED: fentaNYL citrate 100 MCG/2 ML VIAL IV PRN (07:29)
[2022-03-19] MEDS ORDERED: ePHEDrine sulfate 50 MG/ML AMP IV PRN (07:29)
[2022-03-19] MEDS ORDERED: HYDROmorphone INJ 2 MG/ML SYR/VIAL IV PRN (07:29)
[2022-03-19] MEDS ORDERED: PROMETHAZINE HCL 12.5 MG in SODIUM CHLORIDE 0.9% 50 ML IV PRN (07:29)
--- NOTE | 2022-03-19 08:48 | Operative Report ---
PG Post Operative Report Pre & Post Diagnosis Operation Date: 03/19/22 07:00 Pre-Op Diagnosis: Left Hip Advanced Degenerative Joint Disease Post-Op Diagnosis: Left Hip Advanced Degenerative Joint Disease I identified the patient and participated in the time-out.: Yes Procedure Operation Date: 03/19/22 07:00 Actual Procedures p Left Total Hip Arthroplasty--Uncemented(Left) - James August MD Surgeon James August MD Stars Coordinator Ketan Bolivar PA-C Estimated Blood Loss 200 Findings Consistent with Post-Op Diagnosis Operative findings were advanced left hip DJD. Extensive grade 4 [id number] disease of the femoral head and acetabulum. He had significant osteophytes around the femoral head as well as the acetabulum. Moderate-sized joint effusion. Fluids 1200 cc Specimens Left femoral head sent for pathology Anesthesia Type Spinal MAC Complications none Disposition Accompanied Patient To Recovery: Yes Indications Patient is a 67-year-old gentleman is had a several year history of increasing left hip and leg pain and discomfort. Also has history of chronic back problems and is had a dorsal column back stimulator placed. Over the years she has developed persistent progressive and increasing hip pain. He failed conservative measures. X-rays show advanced left hip arthritis. He elected proceed with surgical treatment. Description of Procedure Operative implants consist of: 1 Biomet G7 size 60 mm acetabular shell. 2. [place] hole wool grader. 3. 6.5 cancellous acetabular screws 1 of 35 mm length 125 mm length. 4. Highly cross-linked polyethylene liner with a 60 mm outer diameter and 40 mm inner diameter. 5. DePuy Cor[place] size 15 KLA femoral stem. 6. +12/40 mm ceramic articular ball. The patient was taken to the operating, identified, and placed on the operating table supine position protectors were properly padded. IV antibiotics tried by anesthesia team. A spinal anesthetic and been implemented holding area. Colon catheter was placed in sterile fashion. Patient was then placed in the right lateral decubitus position. An axillary roll was placed. A Stulberg hip positioner was used for positioning. The left hip and leg were then prepped and draped in usual sterile fashion. A posterolateral approach to the left hip was then performed to a curvilinear incision centered over the greater trochanter. Sharp dissection was carried through subcutaneous tissue down to the IT band gluteal fascia. The IT band gluteal fascia incised longitudinally in line with skin incision. The underlying greater bursa was excised. The piriformis and external rotators and the posterior capsule were then released from the posterior aspect the hip joint as a single layer. Great care was taken throughout the procedure to protect the sciatic nerve at all times. The hip was internally rotated and dislocated. Femoral neck osteotomy cut was made with Final Cut about 10 mm above the lesser trochanter. Femoral head was removed and sent for pathology. The femur was retracted anteriorly. Attention drawn the acetabulum. The acetabular labrum was excised. The pulvinar fat was excised. Sequential reaming the acetabular was then performed performed again with size 49 and progressing up to a 59. I did reamed a little bit with a 60 reamer and then placed a 60 mm cup in about 40 degrees lateral opening and 20 degrees of anteversion. Some large anterior osteophytes were removed. Trial liner was placed. Attention drawn the femur. The proximal femur was entered with a cookie cutter followed by canal finder. I then broached beginning with size 8 and progressing up to 15. We got excellent fit of 15. I then trialed the hip and the +5 articular ball provided pretty goo d stability but there was a lot of soft tissue laxity still. Therefore we elected to place the 12 mm head. The hip was fully stable full extension and external rotation and flexion to 90 degrees internal Tatian over 50 degrees. Soft tissue tension seemed appropriate and leg lengths seem equal. I elect to place these implants. All trial implants were removed. An apex hole wool grader was placed. Highly cross-linked polyethylene liner was placed. A DePuy size 15 KLA femoral stem was impacted in position. A +12/40 mm articular ball was placed. Hip was located once again found to be stable. Attention drawn toward closing. The wound was irrigated scope soft and pulsatile lavage solution. We did inject locally with 60 cc of absent Marcaine with epinephrine. The posterior capsule and external rotators were repaired as a single layer through drill holes in the posterior trochanter with #2 Tycron suture. The IT band gluteal fascia then closed #1 PDS suture running fashion for subcutaneous tissues then closed in 2 layers with deep layer #1 Vicryl suture and subcutaneous tissues with 2 Dexon suture in a buried interrupted fashion. Skin was closed skin irvin. Leg was then cleaned and dried and sterile dressed with Xeroform, 4 fours, ABD pad, Medipore tape were applied. Patient was then transferred to the recovery room in stable condition. Patient tolerated procedure well and there were no complications. Ketan Bolivar, my physician him assistant, was present for the entire procedure. His assistance was essential and required for appropriate patient positioning, prepping and draping, surgical exposure, performing the technical details of the operation, placement the implants, closure of the wound, and placement of the sterile bandage. I attest to the content of the Intraoperative Record and any orders documented therein. Any exceptions are noted below.
--- NOTE | 2022-03-19 09:29 | Anesthesiology Progress Note ---
Date of Service March 19, 2022 Anesthesia Post Procedure Vital Signs Vital Signs: Temp Pulse Pulse Resp BP Pulse Ox 03/19/22 09:25 73 14 111/87 97 03/19/22 09:15 66 15 97/73 L 93 03/19/22 09:05 66 12 92/73 L 93 03/19/22 08:55 74 14 96/68 L 97 03/19/22 08:45 73 16 95/68 L 97 03/19/22 08:36 36.2 C L 86 14 100/69 95 03/19/22 05:49 37 C 92 H 20 114/75 97 Pain Intensity Left Hip: Pain Intensity: 7 Transfer of Care Handoff Completed per policy Notes Mental Status: alert / awake / arousable and participated in evaluation Patient Amnestic to Procedure: Yes Nausea / Vomiting: adequately controlled Pain: adequately controlled Airway Patency, RR, SpO2: stable & adequate BP & HR: stable & adequate Hydration State: stable & adequate Neuraxial Anesthesia: was administered and sensory block is resolving Anesthetic Complications: no major complications apparent
[2022-03-19] MEDS ORDERED: ALUMINUM/MAGNESIUM SUSP 30 ML UDC PO PRN (09:59)
[2022-03-19] MEDS ORDERED: bisacodyL 10 MG SUPP PR PRN (09:59)
[2022-03-19] MEDS ORDERED: METOCLOPRAMIDE HCL INJ 5 MG/ML 2 ML VIAL IV PRN (09:59)
[2022-03-19] MEDS ORDERED: MAGNESIUM HYDROXIDE SUSP 30 ML UDC PO PRN (09:59)
[2022-03-19] MEDS ORDERED: NALOXONE HCL 0.4 MG/1 ML VIAL/CARP IV PRN (09:59)
[2022-03-19] MEDS ORDERED: CETIRIZINE HCL 10 MG TABLET PO PRN (09:59)
[2022-03-19] MEDS ORDERED: COLCHICINE 0.6 MG TAB PO PRN (10:38)
--- NOTE | 2022-03-19 10:42 | XRay Report ---
XR hip 1V LT w pelvis CLINICAL HISTORY: Postoperative evaluation. COMPARISON: Pelvis radiograph October 19, 2020. FINDINGS: Stimulator device projects over the right flank. Leads are partially imaged. Alignment of the total left hip arthroplasty is anatomic. No periprosthetic fracture or unexpected radiopaque fore ign bodies are noted. There are 2 acetabular screws. Skin irvin are present. IMPRESSION: Expected findings following total left hip arthroplasty. ACT 112: Negative or not required by law. Electronically signed by: Blu Hdez M.D. 03/19/2022 10:41 AM
[2022-03-19] MEDS: BACLOFEN 10 MG TAB PO SCH ×2 (10:54→20:38)
[2022-03-19] MEDS: DOCUSATE SODIUM 100 MG CAP PO SCH ×2 (10:54→20:38)
[2022-03-19] MEDS: MULTIVITAMIN TAB PO SCH (10:54)
[2022-03-19] MEDS: SODIUM CHLORIDE 0.9% 1000ML 1,000 ML IV SCH ×2 (10:54→17:18)
[2022-03-19] MEDS: ALFUZOSIN HCL 10 MG TAB PO SCH (10:54)
[2022-03-19] MEDS: allopurinoL 300 MG TAB PO SCH (10:55)
[2022-03-19] MEDS: DOCUSATE SODIUM/SENNA 50/8.6MG TAB PO SCH (10:55)
[2022-03-19] MEDS: TAMSULOSIN HCL 0.4 MG CAP PO SCH (10:55)
[2022-03-19] MEDS: KETOROLAC TROMETHAMINE 15 MG/ML VIAL IV SCH ×3 (11:27→22:16)
[2022-03-19] MEDS ORDERED: TRANEXAMIC ACID / 0.7% NACL 1,000 MG/100 ML BAG IV SCH (14:30)
[2022-03-19] MEDS: oxyCODONE HCL IR 5 MG TAB (IMMEDIATE RELEASE) PO PRN (14:40)
[2022-03-19] MEDS: ceFAZolin 2000MG 2,000 MG/15 ML SYR IV SCH ×2 (14:40→22:16)
[2022-03-19] MEDS: ACETAMINOPHEN 500 MG TAB PO SCH ×2 (14:41→22:16)
[2022-03-19] MEDS: Scopolamine CHECK PATCH PLACEMENT SCH ×2 (15:56→23:02)
[2022-03-19] MEDS: HYDROmorphone INJ 0.5 MG/0.5 ML SYR IV PRN (19:39)
[2022-03-19] MEDS: MAGNESIUM OXIDE 400 MG TAB PO SCH (20:38)
[2022-03-19] MEDS ORDERED: traZODone HCL 100 MG TAB PO SCH (21:00)
[2022-03-19] MEDS ORDERED: SENNA 8.6 MG TAB PO SCH (21:00)
[2022-03-19] MEDS ORDERED: DIVALPROEX EXTENDED RELEASE 500 MG TAB PO SCH (21:00)
[2022-03-19] MEDS ORDERED: lamoTRIgine 100 MG TAB PO SCH (21:00)
[2022-03-20] MEDS: oxyCODONE HCL IR 5 MG TAB (IMMEDIATE RELEASE) PO PRN ×2 (00:11→08:57)
[2022-03-20] MEDS: KETOROLAC TROMETHAMINE 15 MG/ML VIAL IV SCH (05:44)
[2022-03-20] MEDS: ACETAMINOPHEN 500 MG TAB PO SCH (05:44)
[2022-03-20 06:14] LABS: Basophils # (auto) 0.03 K/uL (0-0.2); Basophils % (auto) 0.3 %; Eosinophils # (auto) 0.07 K/uL (0-0.5); Eosinophils % (auto) 0.6 %; Hematocrit (blood only) 38.1 % (42-52); Hemoglobin 12.6 g/dL (14.0-18.0); Immature Granulocytes # (auto) 0.05 K/uL (0.00-0.02); Immature Granulocytes % (auto) 0.4 %; Lymphocytes # (auto) 1.93 K/uL (1.2-3.4); Lymphocytes % (auto) 17.2 %; Mean Corpuscular Hemoglobin 33.7 pg (25-34); Mean Corpuscular Hgb Conc 33.1 g/dL (32-36); Mean Corpuscular Volume 101.9 fL (80-100); Mean Platelet Volume 9.2 fL (7.4-10.4); Monocytes # (auto) 1.62 K/uL (0.11-0.59); Monocytes % (auto) 14.5 %; Platelet Count 173 K/uL (130-400); RDW Coefficient of Variation 15.5 % (11.5-14.5); Red Blood Count 3.74 M/uL (4.7-6.1)
[2022-03-20 06:37] LABS: BUN Creatinine Ratio 14.3 (10-20); Calcium 7.9 mg/dl (8.5-10.1); Creatinine Clr Calc Pharmacy 80.7 ml/min; Est GFR (African American) 72.3 ml/min; Est GFR (Non-African American) 62.4 ml/min; Potassium 3.6 mmol/L (3.5-5.1)
[2022-03-20] MEDS ORDERED: dexAMETHasone 10 MG in SYRINGE 0 ML IV SCH (08:00)
[2022-03-20] MEDS: MAGNESIUM OXIDE 400 MG TAB PO SCH (08:48)
[2022-03-20] MEDS: BACLOFEN 10 MG TAB PO SCH (08:48)
[2022-03-20] MEDS: ALFUZOSIN HCL 10 MG TAB PO SCH (08:48)
[2022-03-20] MEDS: MULTIVITAMIN TAB PO SCH (08:49)
[2022-03-20] MEDS: TAMSULOSIN HCL 0.4 MG CAP PO SCH (08:49)
[2022-03-20] MEDS: allopurinoL 300 MG TAB PO SCH (08:50)
[2022-03-20] MEDS: Scopolamine CHECK PATCH PLACEMENT SCH (08:54)
[2022-03-20] MEDS: DOCUSATE SODIUM 100 MG CAP PO SCH (08:56)
[2022-03-20] MEDS: DOCUSATE SODIUM/SENNA 50/8.6MG TAB PO SCH (08:56)
[2022-03-20] MEDS ORDERED: OMEGA-3 (PURIFIED FISH OIL) 1 GM CAP PO SCH (09:00)
[2022-03-20] MEDS ORDERED: FUROSEMIDE 40 MG TAB PO SCH (09:00)
[2022-03-20] MEDS ORDERED: VITAMIN B COMPLEX TAB PO SCH (09:00)
[2022-03-20] MEDS ORDERED: METOPROLOL SUCC 50MG EXT REL TAB PO SCH (09:00)
[2022-03-20] MEDS ORDERED: DIGOXIN 0.125 MG TAB PO SCH (09:00)
[2022-03-20] MEDS ORDERED: APIXABAN 2.5 MG TAB PO SCH (09:00)
--- NOTE | 2022-03-20 12:21 | Progress Notes ---
DATE OF SERVICE: 03/20/2022. SUBJECTIVE: A 67-year-old gentleman, postoperative day 1 from left hip replacement. He is doing pre tty well. He rates his pain at 1 or 2 currently. Therapy went pretty well. No chest pain or shortne ss of breath. Not feeling dizzy or lightheaded. He is hoping to go home. OBJECTIVE: VITAL SIGNS: Temperature 36.9. Vital signs are stable. PHYSICAL EXAMINATION: GENERAL: Shows a pleasant middle-aged male. He is sitting up in bed and looks quite comfortable. LUNGS: Clear to auscultation. HEART: Regular rate and rhythm. ABDOMEN: Soft, nontender, nondistended. EXTREMITIES: Grossly neurovascularly intact except as follows: Examination of the left leg reveals the dressing to be clean, dry and intact. His hip is located. Leg lengths are equal. He can dorsif daljit and plantarflex his foot appropriately. He is neurologically intact. ASSESSMENT: A 67-year-old gentleman, postoperative day 1 from left hip replacement, doing pretty wel l. Pain is controlled. Hip is located. He is neurologically intact. PLAN: 1. DVT prophylaxis includes thigh-high TEDs, SCDs and back on his anticoagulation/Eliquis. 2. PT, OT, weightbear as tolerated. Left total hip protocol. 3. Pain control, doing okay with current pain regimen. 4. Disposition: Plan to discharge to home with some home health later today if does okay in therapy . Job ID: [id number]
[2022-03-20] MEDS: HYDROmorphone INJ 0.5 MG/0.5 ML SYR IV PRN (12:27)
--- NOTE | 2022-03-26 06:39 | Discharge Summary ---
Date of Service March 26, 2022 Discharge Data Procedures Performed Operation Date: 03/19/22 07:00 Actual Procedures p Left Total Hip Arthroplasty--Uncemented(Left) - James August MD Hospital Course (1) S/P total left hip arthroplasty: This patient is a 67 year old patient admitted on 03/19/22 and underwent total hip arthroplasty. He tolerated the procedure well and there were no complications. Transferred to the PACU post op and later to the orthopedic floor for further care. He was given ancef for antibiotic prophylaxis. He was also given KIN stockings, SCDs, and eliquis for DVT prophylaxis. Hemoglobin, hematocrit, and vital signs were monitored during his hospital stay and remained stable. Did not require any blood transfusions. There were no complications during his hospital stay. By post op day #1 the patient was tolerating a regular diet, pain was reasonably controlled with oral pain medicine, and he was participating in physical therapy. On post op day #1 the patient was discharged home and set up with home health care. He was given printed discharge instructions including prescriptions for extra strength tylenol, zofran,, and oxycodone. Continue physical therapy, weight bearing as tolerated. Continue hip precautions. Continue KIN stockings. Follow up approximately 2 weeks post op or sooner if there are problems or concerns. Coding Level of Care Code None Diagnoses S/P total left hip arthroplasty Z96.642
== END 2022-03-20 13:37 | disposition home health service (06) ==
LOC: 3E 05:10 → ASU 05:10

== ENCOUNTER 2023-01-07 21:06 | Observation (INO) ==
[2023-01-07] MEDS ORDERED: dilTIAZem HCl 5 MG/ML 5 ML VIAL IV STA (21:34)
[2023-01-07] MEDS ORDERED: dilTIAZem HCl 5 MG/ML 5 ML VIAL IV ONE (21:35)
[2023-01-07] MEDS ORDERED: SODIUM CHLORIDE 0.9% 1000ML 500 ML IV ONE (21:35)
[2023-01-07] MEDS ORDERED: NITROGLYCERIN SL 0.4 MG/TAB TAB SL STA (21:40)
[2023-01-07] MEDS ORDERED: STAT IV Infusion **Titration per Protocol STA (21:40)
[2023-01-07] MEDS ORDERED: dilTIAZem HCL 125 MG in DEXTROSE 5% 100 ML IV SCH (21:45)
[2023-01-07] MEDS: SODIUM CHLORIDE 0.9% 500 ML IV SCH (21:58)
[2023-01-07 22:17] LABS: Basophils # (auto) 0.04 K/uL (0-0.2); Basophils % (auto) 0.4 %; Eosinophils # (auto) 0.19 K/uL (0-0.50); Hematocrit (blood only) 40.9 % (42.0-52.0); Hemoglobin 14.2 g/dl (14.0-18.0); Immature Granulocytes # (auto) 0.08 K/uL (0.01-0.20); Immature Granulocytes % (auto) 0.8 %; Lymphocytes # (auto) 2.81 K/uL (1.2-3.4); Lymphocytes % (auto) 29.8 %; Mean Corpuscular Hemoglobin 35.3 pg (25.0-34.0); Mean Corpuscular Hgb Conc 34.7 g/dL (32.0-36.0); Mean Corpuscular Volume 101.7 fL (80.0-100.0); Monocytes % (auto) 9.5 %; Neutrophils # (auto) 5.42 K/uL (1.40-6.50); Neutrophils % (auto) 57.5 %; Platelet Count 128 K/uL (130-400); RDW Coefficient of Variation 14.4 % (11.5-14.5); RDW Standard Deviation 53.1 fL (36.4-46.3); Red Blood Count 4.02 M/uL (4.70-6.10); White Blood Count 9.44 K/ul (4.8-10.8)
[2023-01-07 22:26] LABS: BUN Creatinine Ratio 17.1 (10-20); Blood Urea Nitrogen 24 mg/dl (6-23); Calcium 9.6 mg/dl (8.5-10.1); Carbon Dioxide 25 mmol/L (21-32); Chloride 98 mmol/L (98-107); Creatinine Clr Calc Pharmacy 60.4 ml/min; Est GFR (African American) 59.4 ml/min; Est GFR (Non-African American) 51.3 ml/min; Glucose 86 mg/dl (70-99(Fasting)); Lipase 14 U/L (11-82)
[2023-01-07 22:33] LABS: Troponin I High Sensitivity 7.8 pg/ml (0-20)
--- NOTE | 2023-01-07 22:50 | Emergency Department Note ---
History of Present Illness General Chief Complaint: Chest Pain Stated Complaint: CHEST PAIN,HX CHF,SOB,STABBING PAIN Time Seen by Provider: 01/07/23 21:34 History of Present Illness Provider Complaint: chest pain Onset (ago): day(s) 1 Duration: intermittent Onset: during rest Pain Location: left chest Pain Radiation: back Severity: moderate Maximum Pain Intensity: 8 Current Pain Intensity: 8 Quality: + tightness, + sharp and + dull Relieved By: + nothing Exacerbated By: + inspiration Context: no recent illness, no recent surgery, no recent immobilization, no recent travel or no trauma/injury Associated symptoms: + dyspnea and + palpitations; no nausea, no vomiting or no fever Patient has a history of atrial fibrillation feels like he is in atrial fibrillation. Patient is on Eliquis and metoprolol 200 mg every morning for this. Home Medications Medication Instructions Recorded Confirmed Type cetirizine 10 mg tablet 5 mg PO DAILY PRN Allergy Symptoms 11/25/19 01/07/23 History vitamin B complex 1 tab PO DAILY 12/06/21 01/07/23 History colchicine 0.6 mg capsule 0.6 mg PO DIRECTED PRN GOUT 01/09/22 01/07/23 History FLARE UPS metoprolol succinate 100 mg 200 mg PO QAM 02/21/22 01/07/23 History tablet,extended release 24 hr acetaminophen 500 mg capsule 1,000 mg PO TID Pain 30 days #180 03/18/22 01/07/23 Rx caps alfuzosin 10 mg tablet,extended 10 mg PO DAILY #90 tabs 04/08/22 01/07/23 Rx release 24 hr (Uroxatral) allopurinol 300 mg tablet 300 mg PO QAM #90 tabs 04/08/22 01/07/23 Rx apixaban 5 mg tablet (Eliquis) 5 mg PO BID #180 tabs 04/16/22 01/07/23 Rx trazodone 100 mg tablet 200 mg PO HS #60 tabs 04/16/22 01/07/23 Rx lamotrigine 150 mg tablet 150 mg PO HS #30 tabs 07/03/22 01/07/23 Rx (Lamictal) metolazone 5 mg tablet 5 mg PO DAILY PRN edema or weight 07/15/22 01/07/23 Rx gain #90 tabs Portable Oxygen #1 ea 09/23/22 12/25/22 Rx divalproex 500 mg tablet,extended 1,000 mg PO HS #180 tabs 10/30/22 01/07/23 Rx release 24 hr (Depakote ER) tadalafil 5 mg tablet 5 mg PO DAILY sexual activity #30 11/05/22 01/07/23 Rx tabs potassium chloride 20 mEq 20 meq PO TID #90 tabs 11/15/22 01/07/23 Rx tablet,extended release bumetanide 1 mg tablet 1 mg PO DAILY #45 tabs 12/04/22 01/07/23 Rx magnesium chloride 71.5 mg 71.5 mg PO BID #60 tabs 12/04/22 01/07/23 Rx (magnesium chloride) tablet,delayed release (Slow-Mag) oxycodone 5 mg tablet 5 mg PO Q8H PRN pain #90 tabs 01/03/23 01/07/23 Rx cholecalciferol (vitamin D3) 25 0 mcg PO DAILY 01/07/23 01/07/23 History mcg (1,000 unit) capsule (Vitamin D3) omega-3 fatty acids 1,000 mg 1,000 mg PO QAM 01/07/23 01/07/23 History capsule Allergies Allergy/AdvReac Type Severity Reaction Status Date / Time meloxicam Allergy Severe Swollen Verified 01/07/23 22:30 tongue amitriptyline [From Elavil] Allergy Intermediate Hallucinati Verified 01/07/23 22:30 ons aripiprazole [From Abilify] Allergy Intermediate Tremors, Verified 01/07/23 22:30 balance issues, trouble controlling body movements hyoscyamine Allergy Intermediate Hallucinati Verified 01/07/23 22:30 [From Symax Duotab] ons venlafaxine [From Effexor] Allergy Intermediate Hallucinations Verified 01/07/23 22:30 and tremors zolpidem [From Ambien] Allergy Intermediate Hallucinati Verified 01/07/23 22:30 ons Penicillins Allergy Mild Rash Verified 01/07/23 22:30 adhesive tape AdvReac Mild rash, red Verified 01/07/23 22:30 skin Past Med/Surg History Medical History Ascending aorta dilatation 4.6 cm - no change from Nov [address] per 12/06/21 chest CTA Asthma COLD WEATHER INDUCED>NO INHALER USED FOR A WHILE Breathing stable Atrial fibrillation On Eliquis Congestive heart failure EF 40-45% Nov 2021 ECHO (questionable tachycardia induced per cardio) Encounter for pre-operative examination History of COVID-19 11/2021>TROUBLE BREATHING/CONGESTION>HOSPITAL AFTER DX FOR PULSE RATE *RESOLVED History of hypogonadism Hypertension Lumbar facet joint syndrome Iniguez's neuroma of left foot Peripheral neuropathy Bilateral feet RLS (restless legs syndrome) HX OF Spinal stenosis Surgical History H/O hand surgery LEFT History of cataract surgery RT/LEFT History of colonoscopy History of tonsillectomy Hx of hernia repair UMBILICAL HERNIA Hx of knee surgery RT KNEE SCOPE Hx of vasectomy S/P insertion of spinal cord stimulator X 2 *ONLY 1 IS FUNCTIONING BUT NOT IN USE CURRENTLY (WILL BRING ALONG REMOTE AND INSTRUCTIONS TO SURGERY/PAT APT) S/P total left hip arthroplasty 03-19-22 Dr August, [facility] teeth removed Family History Mother Breast cancer Hypertension Sister Diabetes Lung cancer Other No family history of adverse response to anesthesia Denies family history of Ovarian cancer Prostate cancer Myocardial infarction Colorectal cancer Social History Smoking Status: Never smoker Second Hand Exposure: No ( A CHILD); Hx Alcohol Use: No Hx Substance Use: No Preferred Language: Slovak Communication Ability: Effective Hearing Ability: Use of Hearing Aid Care Asst Required: No Beliefs That Will Affect Care: None marital status: Current Living Situation: Spouse current occupational status: retired How many Children do You have: 6 How many Children do You have Comment: 2 biological and 4 step-children. Feels Safe at Home: Yes Childhood Exposure to Second-Hand Smoke: Yes Diet Comment: Optivia diet caffeine: Yes during the past year weight has: remained stable Dental Care, Regularly: No Physical Activity Frequency: Does not Exercise Physical Activity Frequency Comment: CHF Seatbelt Use: always Sunscreen Use: No Do you think of yourself as: straight/heterosexual Gender Identity: Male Assistive Devices: Hearing Aid - Bilateral and Oxygen - at Night Physical Exam Vital Signs Vital Signs - 24 hr 01/07/23 21:09 01/07/23 21:19 01/07/23 21:46 Temperature 36.8 C Temperature Source Temporal Artery Scan Pulse Rate 144 H 124 H Pulse Rate [Apical] 86 Pulse Rate from SpO2 Sensor Pulse Rhythm [Apical] Irregular Pulse Strength [Apical] Normal Respiratory Rate 17 18 Respiratory Effort / Characteristics Non-Labored Respiratory Depth Normal Normal Respiratory Pattern Regular Blood Pressure 111/75 Blood Pressure [Left Arm] 90/61 L Blood Pressure Mean 87 Blood Pressure Mean [Left Arm] 70 Blood Pressure Position [Left Arm] Lying Pulse Oximetry 95 94 Oxygen Delivery Method Room Air Sepsis Recent Fever Within 48 Hours No Sepsis New/Unexplained Change in Mental Status No Sepsis Action Taken by Nursing No Action Required 01/07/23 21:46 01/07/23 21:18 01/07/23 21:30 Temperature Temperature Source Pulse Rate 129 H 125 H Pulse Rate [Apical] Pulse Rate from SpO2 Sensor Pulse Rhythm [Apical] Pulse Strength [Apical] Respiratory Rate 20 24 Respiratory Effort / Characteristics Respiratory Depth Respiratory Pattern Blood Pressure Blood Pressure [Left Arm] Blood Pressure Mean Blood Pressure Mean [Left Arm] Blood Pressure Position [Left Arm] Pulse Oximetry 94 Oxygen Delivery Method Room Air Sepsis Recent Fever Within 48 Hours Sepsis New/Unexplained Change in Mental Status Sepsis Action Taken by Nursing 01/07/23 21:31 01/07/23 21:31 01/07/23 21:43 Temperature Temperature Source Pulse Rate 121 H 81 Pulse Rate [Apical] Pulse Rate from SpO2 Sensor 113 H 88 Pulse Rhythm [Apical] Pulse Strength [Apical] Respiratory Rate 26 H 21 Respiratory Effort / Characteristics Respiratory Depth Respiratory Pattern Blood Pressure 112/87 Blood Pressure [Left Arm] Blood Pressure Mean 95 Blood Pressure Mean [Left Arm] Blood Pressure Position [Left Arm] Pulse Oximetry 93 92 Oxygen Delivery Method Sepsis Recent Fever Within 48 Hours Sepsis New/Unexplained Change in Mental Status Sepsis Action Taken by Nursing 01/07/23 21:43 01/07/23 21:53 01/07/23 21:53 Temperature Temperature Source Pulse Rate 89 Pulse Rate [Apical] Pulse Rate from SpO2 Sensor 91 H Pulse Rhythm [Apical] Pulse Strength [Apical] Respiratory Rate 16 Respiratory Effort / Characteristics Respiratory Depth Respiratory Pattern Blood Pressure 89/61 L 107/76 Blood Pressure [Left Arm] Blood Pressure Mean 70 86 Blood Pressure Mean [Left Arm] Blood Pressure Position [Left Arm] Pulse Oximetry 96 Oxygen Delivery Method Sepsis Recent Fever Within 48 Hours Sepsis New/Unexplained Change in Mental Status Sepsis Action Taken by Nursing Physical Exam HENT: Exam performed. - Head: Normocephalic and atraumatic. EYES: Conjunctivae and EOM are normal. Pupils are equal, round, and reactive to light. Right eye exhibits no discharge. Left eye exhibits no discharge. No scleral icterus. NECK: Normal range of motion. Neck supple. No JVD present. CV: Tachycardic rate, irregular rhythm, normal heart sounds and intact distal pulses. There is no peripheral edema. Palpable radial pulses bue. PULM/CHEST: Effort normal and breath sounds normal. No respiratory distress. No stridor. He has no wheezes. He has no rales. ABD: The abdomen is soft. LYMPH: No cervical adenopathy. NEURO: Motor and sensation grossly intact. SKIN: Skin is warm and dry. He is not diaphoretic. Course Course 2133: The patient was evaluated in room C5. A complete history and physical exam was performed Cardiac monitoring: An order was placed for continuous cardiac monitoring. The monitor shows a rate of 130 with atrial fibrillation rhythm interpreted by me Patient found to be in A-fib RVR. Large-bore IV access was obtained patient was given Cardizem 10 mg bolus which improved his ventricular rate. We will conduct labs and imaging at this time. Patient reports his chest pain has improved significantly after receiving Cardizem bolus. 0008: Vital signs stable. Patient wear supplemental oxygen at night and he is satting well on supplemental oxygen. Labs and imaging within normal limits including negative troponin chest x-ray and D-dimer. Patient will be observed for chest pain rule out ACS discussed case with Dr. August who will evaluate the patient for admission. Administered Medications Sodium Chloride (Nss) 500 mls @ 125 mls/hr IV .Q4H [facility] Stop: 02/06/23 21:44 Last Admin: 01/07/23 21:58 Dose: 125 mls/hr Documented By: RSHenri Diltiazem HCl 125 mg/ Dextrose 125 mls @ 5 mls/hr IV .Q24H [facility]; Protocol Stop: 02/06/23 21:44 Last Admin: 01/07/23 21:58 Dose: Not Given Documented By: RSL Discontinued Medications Diltiazem HCl (Diltiazem Hcl 5 Mg/Ml 5 Ml Vial) 20 mg IV NOW RUST Stop: 01/07/23 21:35 Last Admin: 01/07/23 21:37 Dose: 20 mg Documented By: AMRIT Co-signed By: ML Diltiazem HCl (Diltiazem Hcl 5 Mg/Ml 5 Ml Vial) Confirm Administered Dose 25 mg IV .STK-MED ONE Stop: 01/07/23 21:36 Last Admin: 01/07/23 21:38 Dose: Not Given Documented By: AMRIT Sodium Chloride (Nss 1000ml) 500 mls @ 999 mls/hr IV .Q31M ONE Stop: 01/07/23 22:05 Last Infusion: 01/07/23 21:58 Dose: 0 mls/hr Documented By: Admin: 01/07/23 21:38 Dose: 999 mls/hr Documented By: AMRIT Miscellaneous (Stat Iv Infusion Titration Per Protocol) 1 each N/A NOW STA Stop: 01/07/23 21:41 Last Admin: 01/07/23 21:58 Dose: Not Given Documented By: AMRIT Nitroglycerin (Nitroglycerin Sl 0.4 Mg/Tab Tab) 0.4 mg SL NOW STA Stop: 01/07/23 21:41 Last Admin: 01/07/23 21:57 Dose: Not Given Documented By: AMRIT Medical Decision Making Laboratory Data Attestation: I reviewed the patient's lab results. 01/07/23 21:30 01/07/23 21:30 Labs: Lab Results 01/07/23 01/07/23 01/07/23 Range/Units 21:30 21:30 21:30 WBC 9.44 (4.8-10.8) K/ul RBC 4.02 L (4.70-6.10) M/uL Hgb 14.2 (14.0-18.0) g/dl Hct 40.9 L (42.0-52.0) % MCV 101.7 H (80.0-100.0) fL MCH 35.3 H (25.0-34.0) pg MCHC 34.7 (32.0-36.0) g/dL RDW Std Deviation 53.1 H (36.4-46.3) fL RDW Coeff of Daniel 14.4 (11.5-14.5) % Plt Count 128 L (130-400) K/uL MPV 10.0 (9.4-12.4) fL Immature Gran % (Auto) 0.8 % Neut % (Auto) 57.5 % Lymph % (Auto) 29.8 % [place] % (Auto) 9.5 % Eos % (Auto) 2.0 % Baso % (Auto) 0.4 % Neut # (Auto) 5.42 (1.40-6.50) K/uL Lymph # (Auto) 2.81 (1.2-3.4) K/uL [place] # (Auto) 0.90 H (0.11-0.59) K/uL Eos # (Auto) 0.19 (0-0.50) K/uL Baso # (Auto) 0.04 (0-0.2) K/uL Immature Gran # (Auto) 0.08 (0.01-0.20) K/uL PT Cancelled INR Cancelled APTT Cancelled PTT Ratio Cancelled D-Dimer (0-500) ug/L FEU Sodium TNP Potassium TNP Chloride 98 (98-107) mmol/L Carbon Dioxide 25 (21-32) mmol/L Anion Gap TNP BUN 24 H (6-23) mg/dl Creatinine 1.40 (0.6-1.4) mg/dl Est Cr Clr Drug Dosing 60.4 ml/min Est GFR ( Amer) 59.4 ml/min Est GFR (Non-Af Amer) 51.3 ml/min BUN/Creatinine Ratio 17.1 (10-20) Glucose 86 (70-99(Fasting)) mg/dl Calcium 9.6 (8.5-10.1) mg/dl Troponin I High Sens 7.8 (0-20) pg/ml Lipase 14 (11-82) U/L SARS-CoV-2, RNA, NAAT (NEGATIVE) 01/07/23 01/07/23 Range/Units 21:30 23:01 WBC (4.8-10.8) K/ul RBC (4.70-6.10) M/uL Hgb (14.0-18.0) g/dl Hct (42.0-52.0) % MCV (80.0-100.0) fL MCH (25.0-34.0) pg MCHC (32.0-36.0) g/dL RDW Std Deviation (36.4-46.3) fL RDW Coeff of Daniel (11.5-14.5) % Plt Count (130-400) K/uL MPV (9.4-12.4) fL Immature Gran % (Auto) % Neut % (Auto) % Lymph % (Auto) % [place] % (Auto) % Eos % (Auto) % Baso % (Auto) % Neut # (Auto) (1.40-6.50) K/uL Lymph # (Auto) (1.2-3.4) K/uL [place] # (Auto) (0.11-0.59) K/uL Eos # (Auto) (0-0.50) K/uL Baso # (Auto) (0-0.2) K/uL Immature Gran # (Auto) (0.01-0.20) K/uL PT 11.8 INR 1.1 APTT 30.6 PTT Ratio 1.1 D-Dimer 360 (0-500) ug/L FEU Sodium Potassium Chloride (98-107) mmol/L Carbon Dioxide (21-32) mmol/L Anion Gap BUN (6-23) mg/dl Creatinine (0.6-1.4) mg/dl Est Cr Clr Drug Dosing ml/min Est GFR ( Amer) ml/min Est GFR (Non-Af Amer) ml/min BUN/Creatinine Ratio (10-20) Glucose (70-99(Fasting)) mg/dl Calcium (8.5-10.1) mg/dl Troponin I High Sens (0-20) pg/ml Lipase (11-82) U/L SARS-CoV-2, RNA, NAAT NEGATIVE (NEGATIVE) Imaging Data Chest x-ray: Attestation: I personally reviewed and interpreted this imaging study as follows: My impression: No significant change from the chest x-ray done on December 20, 2022. ECG Data Attestation: I personally reviewed and interpreted this ECG as follows: Additional Comments: EKG #1 at 2114: Atrial fibrillation with rate of 123. QRS [address] elevation or ST depression. EKG #2 at 2142 status post Cardizem bolus: Atrial fibrillation with rate of 86. QRS QTc intervals within normal limits. No ST elevation or ST depressions. [facility] Narrative 2133: The patient was evaluated in room C5. A complete history and physical exam was performed Cardiac monitoring: An order was placed for continuous cardiac monitoring. The monitor shows a rate of 130 with atrial fibrillation rhythm interpreted by me Patient found to be in A-fib RVR. Large-bore IV access was obtained patient was given Cardizem 10 mg bolus which improved his ventricular rate. We will conduct labs and imaging at this time. Patient reports his chest pain has improved significantly after receiving Cardizem bolus. 0008: Vital signs stable. Patient wear supplemental oxygen at night and he is satting well on supplemental oxygen. Labs and imaging within normal limits including negative troponin chest x-ray and D-dimer. Patient will be observed for chest pain rule out ACS discussed case with Dr. August who will evaluate the patient for admission. Impression & Plan Chest pain Discharge Plan Visit Data Chief Complaint: Chest Pain Stated Complaint: CHEST PAIN,HX CHF,SOB,STABBING PAIN ED Provider: Satya Aggarwal Discharge Problem: Chest pain Patient Disposition: Being Evaluated by Hospitalist Forms Stand Alone Forms: [facility] Prescriptions Prescriptions: No Action acetaminophen 500 mg capsule 1,000 mg PO TID 30 Days Qty: 180 0RF Rx Instructions: TAke 3 times per day to lessen pain. alfuzosin [Uroxatral] 10 mg tablet extended release 24 hr 10 mg PO DAILY Qty: 90 3RF Rx Instructions: administer after the same meal each day allopurinol 300 mg tablet 300 mg PO QAM Qty: 90 3RF trazodone 100 mg tablet 200 mg PO HS Qty: 60 11RF Eliquis 5 mg tablet 5 mg PO BID Qty: 180 3RF lamotrigine [Lamictal] 150 mg tablet 150 mg PO HS Qty: 30 11RF (DME) Portable Oxygen Misc See Rx Instructions .Route Qty: 1 0RF Rx Instructions: prn dyspnea. portable oxygen concentrator divalproex [Depakote ER] 500 mg tablet extended release 24 hr 1,000 mg PO HS Qty: 180 3RF potassium chloride 20 mEq tablet extended release 20 meq PO TID Qty: 90 11RF oxycodone 5 mg tablet 5 mg PO Q8H PRN (Reason: pain) Qty: 90 0RF Rx Instructions: PDMP searched, last filled on 12/04/22 for 30 days, okay to fill tadalafil 5 mg tablet 5 mg PO DAILY Qty: 30 11RF cetirizine 10 mg tablet 5 mg PO DAILY PRN (Reason: Allergy Symptoms) metolazone 5 mg tablet 5 mg PO DAILY PRN (Reason: edema or weight gain) Qty: 90 3RF Hold Instructions: Home Medication placed on hold at Doctor's office Rx Instructions: take 1hr prior to lasix. Slow-Mag 71.5 mg tablet,delayed release (DR/EC) 71.5 mg PO BID Qty: 60 5RF bumetanide 1 mg tablet 1 mg PO DAILY Qty: 45 5RF Rx Instructions: Take one tablet daily. If weight 240 lbs or greater, increase to one tablet BID. Reduce to one tablet daily once weight 235 lbs or less. colchicine 0.6 mg capsule 0.6 mg PO DIRECTED PRN (Reason: GOUT FLARE UPS) Rx Instructions: two pills at onset of gout flare, one pill in 2-6 hours if not resolved no more than 3 pills every 3 days ask pt if he wants this filled metoprolol succinate 100 mg tablet extended release 24 hr 200 mg PO QAM vitamin B complex Tablet 1 tab PO DAILY omega-3 fatty acids 1,000 mg Capsule 1,000 mg PO QAM cholecalciferol (vitamin D3) [Vitamin D3] 25 mcg (1,000 unit) Capsule 0 mcg PO DAILY Rx Instructions: PT UNSURE OF STRENGTH Referrals Referrals: Keith Dimas DO [Primary Care Provider] -
[2023-01-07 23:47] LABS: D Dimer 360 ug/L FEU (0-500); INR 1.1 (0.9-1.1); Partial Thromboplastin Ratio 1.1; Partial Thromboplastin Time 30.6 Seconds (21.0-31.0); Prothrombin Time 11.8 Seconds (9.0-12.0)
--- NOTE | 2023-01-08 00:23 | History & Physical Report ---
Date of Service January 08, 2023 Assessment & Plan (1) Chest pain: Plan: 67-year-old male with history of atrial fibrillation on Eliquis anticoagulation, hypertension, chronic CHF presenting with acute episode of chest pain. Pain has since resolved. Troponin x1 unremarkable at 7.8. EKG with no acute ischemic findings. Exam is unremarkable. Do not strongly suspect cardiac source of chest pain. Of note, patient does have known history of dilatation of the ascending aortic aneurysm. Last visualized on 6 chest CTA 12/06/2021measuring 4.6 cm. Patient's pain in the chest and shoulder blade have resolved. He is comfortable at present, hemodynamically stable. Observation to medical telemetry Trend troponin (2) Atrial fibrillation with RVR: Plan: Patient with episode of A-fib with RVR in the ER with heart rates in the 140s. This has improved with administration of diltiazem IV 20 mg. Patient is compliant with his medications, metoprolol 200 mg daily as well as apixaban anticoagulation. Heart rate now improved presently 89 bpm. Continue metoprolol 200 mg p.o. every morning Continue apixaban 5 mg p.o. twice daily Telemetry monitoring Check magnesium and phosphorus levels and replete as needed (3) Congestive heart failure: Plan: Patient with chronic systolic heart failure, well compensated at present. He appears euvolemic. Last echocardiogram performed on 12/10/2022 which revealed left ventricular systolic function borderline reduced with a EF of 45 to 50%. Borderline global hypokinesis of the LV. Mild concentric LVH. Mild TR. Mild aortic root dilatation. Continue metoprolol succinate 200 mg p.o. daily Continue Bumex 1 mg p.o. daily (4) Hypertension: Plan: Blood pressure adequately controlled at present Continue metoprolol as above Continue to monitor (5) Bipolar 2 disorder: Plan: Patient reports stable moods. Continue Lamictal 150 mg p.o. nightly Continue divalproex 1000 mg p.o. nightly (6) BPH w urinary obs/LUTS: Plan: Chronic. Stable. Continue alfuzosin Monitor urine output (7) Chronic gout: Plan: Chronic. Stable. Continue allopurinol FENHep-Lock, monitor electrolytes and replete as needed, heart healthy diet as tolerated Prophylaxiscontinue patient's home apixaban Codefull per discussion with patient Dispositionobservation to medical telemetry History of Present Illness Chief Complaint: Chest pain Primary Care Provider: Keith Dimas DO Tom Lion is a 67-year-old male with history of atrial fibrillation on apixaban anticoagulation, hypertension and chronic systolic heart failure presenting with chest pain. Patient reports he was at home resting this evening around 2230 when he developed acute onset of sharp substernal chest pain and pain behind the left shoulder blade. Pain was nonradiating. Was mildly pleuritic. He denies dizziness, diaphoresis, palpitations. He did have some shortness of breath. Symptoms have since resolved. Patient is resting comfortably with no additional complaints at this time. Patient denies prior episodes of chest pain. He does follow with cardiology for his atrial fibrillation, chronic CHF and cardiomyopathy. Last seen 11/13/2022. Patient had a Holter monitor placed which ultimately showed persistent atrial fibrillation with ventricular rate of 77 to 154 bpm. Rare PVCs. In the ER patient afebrile, tachycardic with heart rate up to 144atrial fibrillation. Blood pressure stable. He was administered 20 mg diltiazem IV with improvement in heart rate. During my encounter he was in the 90s. Patient resting comfortably. Remains asymptomatic. Chest pain has not recurred. ER course: Normal saline 500 mL Diltiazem 20 mg IV Allergies Allergy/AdvReac Type Severity Reaction Status Date / Time meloxicam Allergy Severe Swollen Verified 01/07/23 22:30 tongue amitriptyline [From Elavil] Allergy Intermediate Hallucinati Verified 01/07/23 22:30 ons aripiprazole [From Abilify] Allergy Intermediate Tremors, Verified 01/07/23 22:30 balance issues, trouble controlling body movements hyoscyamine Allergy Intermediate Hallucinati Verified 01/07/23 22:30 [From Symax Duotab] ons venlafaxine [From Effexor] Allergy Intermediate Hallucinations Verified 01/07/23 22:30 and tremors zolpidem [From Ambien] Allergy Intermediate Hallucinati Verified 01/07/23 22:30 ons Penicillins Allergy Mild Rash Verified 01/07/23 22:30 adhesive tape AdvReac Mild rash, red Verified 01/07/23 22:30 skin Home Medications Medication Instructions Recorded Confirmed Type cetirizine 10 mg tablet 5 mg PO DAILY PRN Allergy Symptoms 11/25/19 01/07/23 History vitamin B complex 1 tab PO DAILY 12/06/21 01/07/23 History colchicine 0.6 mg capsule 0.6 mg PO DIRECTED PRN GOUT 01/09/22 01/07/23 History FLARE UPS metoprolol succinate 100 mg 200 mg PO QAM 02/21/22 01/07/23 History tablet,extended release 24 hr acetaminophen 500 mg capsule 1,000 mg PO TID Pain 30 days #180 03/18/22 01/07/23 Rx caps alfuzosin 10 mg tablet,extended 10 mg PO DAILY #90 tabs 04/08/22 01/07/23 Rx release 24 hr (Uroxatral) allopurinol 300 mg tablet 300 mg PO QAM #90 tabs 04/08/22 01/07/23 Rx apixaban 5 mg tablet (Eliquis) 5 mg PO BID #180 tabs 04/16/22 01/07/23 Rx trazodone 100 mg tablet 200 mg PO HS #60 tabs 04/16/22 01/07/23 Rx lamotrigine 150 mg tablet 150 mg PO HS #30 tabs 07/03/22 01/07/23 Rx (Lamictal) metolazone 5 mg tablet 5 mg PO DAILY PRN edema or weight 07/15/22 01/07/23 Rx gain #90 tabs Portable Oxygen #1 ea 09/23/22 12/25/22 Rx divalproex 500 mg tablet,extended 1,000 mg PO HS #180 tabs 10/30/22 01/07/23 Rx release 24 hr (Depakote ER) tadalafil 5 mg tablet 5 mg PO DAILY sexual activity #30 11/05/22 01/07/23 Rx tabs potassium chloride 20 mEq 20 meq PO TID #90 tabs 11/15/22 01/07/23 Rx tablet,extended release bumetanide 1 mg tablet 1 mg PO DAILY #45 tabs 12/04/22 01/07/23 Rx magnesium chloride 71.5 mg 71.5 mg PO BID #60 tabs 12/04/22 01/07/23 Rx (magnesium chloride) tablet,delayed release (Slow-Mag) oxycodone 5 mg tablet 5 mg PO Q8H PRN pain #90 tabs 01/03/23 01/07/23 Rx cholecalciferol (vitamin D3) 25 0 mcg PO DAILY 01/07/23 01/07/23 History mcg (1,000 unit) capsule (Vitamin D3) omega-3 fatty acids 1,000 mg 1,000 mg PO QAM 01/07/23 01/07/23 History capsule Past Med/Surg History Medical History (Updated 01/08/23 @ 01:09 by Diane August DO) Ascending aorta dilatation 4.6 cm - no change from Nov [address] per 12/06/21 chest CTA Asthma COLD WEATHER INDUCED>NO INHALER USED FOR A WHILE Breathing stable Atrial fibrillation On Eliquis Congestive heart failure EF 40-45% Nov 2021 ECHO (questionable tachycardia induced per cardio) Encounter for pre-operative examination History of COVID-19 11/2021>TROUBLE BREATHING/CONGESTION>HOSPITAL AFTER DX FOR PULSE RATE *RESOLVED History of hypogonadism Hypertension Lumbar facet joint syndrome Iniguez's neuroma of left foot Peripheral neuropathy Bilateral feet RLS (restless legs syndrome) HX OF Spinal stenosis Surgical History H/O hand surgery LEFT History of cataract surgery RT/LEFT History of colonoscopy History of tonsillectomy Hx of hernia repair UMBILICAL HERNIA Hx of knee surgery RT KNEE SCOPE Hx of vasectomy S/P insertion of spinal cord stimulator X 2 *ONLY 1 IS FUNCTIONING BUT NOT IN USE CURRENTLY (WILL BRING ALONG REMOTE AND INSTRUCTIONS TO SURGERY/PAT APT) S/P total left hip arthroplasty 03-19-22 Dr August, [facility] [place] teeth removed Family History Mother Breast cancer Hypertension Sister Diabetes Lung cancer Other No family history of adverse response to anesthesia Denies family history of Ovarian cancer Prostate cancer Myocardial infarction Colorectal cancer Social History Smoking Status: Never smoker Second Hand Exposure: No ( A CHILD); Hx Alcohol Use: No Hx Substance Use: No Preferred Language: Filipino Communication Ability: Effective Hearing Ability: Use of Hearing Aid 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 Feels Safe at Home: Yes Childhood Exposure to Second-Hand Smoke: Yes Diet Comment: Optivia diet caffeine: Yes during the past year weight has: remained stable Dental Care, Regularly: No Physical Activity Frequency: Does not Exercise Physical Activity Frequency Comment: CHF Seatbelt Use: always Sunscreen Use: No Do you think of yourself as: straight/heterosexual Gender Identity: Male Assistive Devices: Hearing Aid - Bilateral and Oxygen - at Night Review of Systems Review of Systems: All systems reviewed & are unremarkable except as noted in HPI & below Physical Exam Physical Exam: General: patient resting comfortably, NAD, non-toxic in appearance, AA&O x 4 Skin: warm, dry, intact, no rashes or lesions HEENT: NC/AT, PERRL, EOMI, anicteric sclera, conjunctiva without injection, external ear normal to inspection and nontender, nares patent, moist mucus membranes, dentition intact, no oropharyngeal lesions, neck supple, trachea midline, no LAD, no thyromegaly, no JVD Heart: +S1/S2, irregularly irregular, no m/r/g, no reproducible chest wall pain Lungs: equal air entry bilaterally, no rales/rhonchi/wheezes Abd: +BS, soft, NT/ND, no masses/organomegaly/ascites Ext: warm, 2+ pulses in UE/LE bilaterally, no clubbing/cyanosis or edema Neuro: nonfocal, patient AA&O x 4, speech intact, no facial droop, moving all extremities on command with equal strength 5/5 Results & Data Results & Data ([facility]) Vital Signs (Past 12 Hours) Vital Signs Temp Pulse Pulse Resp BP BP Pulse Ox 01/07/23 21:53 107/76 01/07/23 21:53 89 16 96 01/07/23 21:43 89/61 L 01/07/23 21:43 81 21 92 01/07/23 21:31 112/87 01/07/23 21:31 121 H 26 H 93 01/07/23 21:30 125 H 24 01/07/23 21:18 129 H 20 01/07/23 21:46 94 01/07/23 21:46 86 18 90/61 L 94 01/07/23 21:19 124 H 01/07/23 21:09 36.8 C 144 H 17 111/75 95 O2 Del Method 01/07/23 21:53 01/07/23 21:53 01/07/23 21:43 01/07/23 21:43 01/07/23 21:31 01/07/23 21:31 01/07/23 21:30 01/07/23 21:18 01/07/23 21:46 Room Air 01/07/23 21:46 Room Air 01/07/23 21:19 01/07/23 21:09 Laboratory Results Laboratory Results WBC 9.44 K/ul (4.8-10.8) 01/07/23 21:30 RBC 4.02 M/uL (4.70-6.10) L 01/07/23 21:30 Hgb 14.2 g/dl (14.0-18.0) 01/07/23 21:30 Hct 40.9 % (42.0-52.0) L 01/07/23 21: MCV 101.7 fL (80.0-100.0) H 01/07/23 21: MCH 35.3 pg (25.0-34.0) H 01/07/23 21: MCHC 34.7 g/dL (32.0-36.0) 01/07/23 21: RDW Std Deviation 53.1 fL (36.4-46.3) H 01/07/23 21:30 RDW Coeff of Daneil 14.4 % (11.5-14.5) 01/07/23 21: Plt Count 128 K/uL (130-400) L 01/07/23 21: MPV 10.0 fL (9.4-12.4) 01/07/23 21:30 Immature Gran % (Auto) 0.8 % 01/07/23 21:30 Neut % (Auto) 57.5 % 01/07/23 21: Lymph % (Auto) 29.8 % 01/07/23 21:30 Collier % (Auto) 9.5 % 01/07/23 21:30 Eos % (Auto) 2.0 % 01/07/23 21:30 Baso % (Auto) 0.4 % 01/07/23 21: Neut # (Auto) 5.42 K/uL (1.40-6.50) 01/07/23 21:30 Lymph # (Auto) 2.81 K/uL (1.2-3.4) 01/07/23 21:30 Collier # (Auto) 0.90 K/uL (0.11-0.59) H 01/07/23 21:30 Eos # (Auto) 0.19 K/uL (0-0.50) 01/07/23 21:30 Baso # (Auto) 0.04 K/uL (0-0.2) 01/07/23 21: Immature Gran # (Auto) 0.08 K/uL (0.01-0.20) 01/07/23 21:30 PT 11.8 Seconds (9.0-12.0) 01/07/23 23:01 INR 1.1 (0.9-1.1) 01/07/23 23:01 APTT 30.6 Seconds (21.0-31.0) 01/07/23 23:01 PTT Ratio 1.1 01/07/23 23:01 D-Dimer 360 ug/L FEU (0-500) 01/07/23 23:01 Sodium TNP 01/07/23 21:30 Potassium TNP 01/07/23 21:30 Chloride 98 mmol/L (98-107) 01/07/23 21:30 Carbon Dioxide 25 mmol/L (21-32) 01/07/23 21:30 Anion Gap TNP 01/07/23 21:30 BUN 24 mg/dl (6-23) H 01/07/23 21:30 Creatinine 1.40 mg/dl (0.6-1.4) 01/07/23 21: Est Cr Clr Drug Dosing 60.4 ml/min 01/07/23 21:30 Est GFR ( Amer) 59.4 ml/min 01/07/23 21:30 Est GFR (Non-Af Amer) 51.3 ml/min 01/07/23 21:30 BUN/Creatinine Ratio 17.1 (10-20) 01/07/23 21: Glucose 86 mg/dl (70-99(Fasting)) 01/07/23 21: Calcium 9.6 mg/dl (8.5-10.1) 01/07/23 21: Troponin I High Sens 7.8 pg/ml (0-20) 01/07/23 21:30 Lipase 14 U/L (11-82) 01/07/23 21:30 SARS-CoV-2, RNA, NAAT NEGATIVE (NEGATIVE) 01/07/23 21:30 Diagnostic Findings Chest x-rayby my interpretationpatient with chronic elevation of left hemidiaphragm, unchanged from prior valuations. Otherwise, does not appear to have infiltrate, pulmonary edema or pneumothorax. ECG Additional Comments: EKG with atrial fibrillation with heart rate of 123, normal axis, low voltage, QRS = 108, QTc equals 469 PG Care Time/CCT Total # of Minutes Spent Total Time Spent with Patient: Total time spent is greater than 50% in coordination of care (as documented) at patient's floor/unit and/or counseling patient: Coding Level of Care Code 53236 INT INP/OBS CARE 3/75MIN Diagnoses Chest pain R07.9 Chest pain type: unspecified Atrial fibrillation with RVR I48.91 Congestive heart failure I50.9 Hypertension I10 Bipolar 2 disorder F31.81 BPH w urinary obs/LUTS N40.1; N13.8 Chronic gout [id number] (1) Chest pain Chest pain type: unspecified Qualified Code(s): R07.9 - Chest pain, unspecified
[2023-01-08] MEDS ORDERED: ACETAMINOPHEN 325 MG TAB PO PRN (02:15)
[2023-01-08] MEDS ORDERED: oxyCODONE HCL IR 5 MG TAB (IMMEDIATE RELEASE) PO PRN (02:15)
[2023-01-08 03:11] LABS: Magnesium 1.5 mg/dl (1.7-2.4); Phosphorus 4.4 mg/dl (2.5-4.9)
[2023-01-08] MEDS: SODIUM CHLORIDE 0.9% 500 ML IV SCH (03:25)
--- NOTE | 2023-01-08 07:53 | Hospitalist Progress Note ---
Date of Service January 08, 2023 Assessment & Plan (1) Chest pain: Plan: 67-year-old male with history of atrial fibrillation on Eliquis anticoagulation, hypertension, chronic CHF presenting with acute episode of chest pain. Pain has since resolved. Troponin x1 unremarkable at 7.8. EKG with no acute ischemic findings. Exam is unremarkable. Do not strongly suspect cardiac source of chest pain. Of note, patient does have known history of dilatation of the ascending aortic aneurysm. Last visualized on 6 chest CTA 12/06/2021measuring 4.6 cm. Patient's pain in the chest and shoulder blade have resolved. He is comfortable at present, hemodynamically stable. Troponin initial 7.8, 6.2, 6.2, 5.9 ECHO ordered, not yet done No further CHEST PAIN since cardizem in ER , monitor on telemetry Hx afib --rates to 120-130s this morning, improving and to the 80-90s w/ magnesium replacement. Bumex 1mg PO x 1 additional for weight >240lb on admit (dry weight to be ~235lb) Montior weights/I&O EKG c CP Monitoring overnight and patient hopeful for discharge tomorrow (2) Atrial fibrillation with RVR: Plan: Patient with episode of A-fib with RVR in the ER with heart rates in the 140s. This has improved with administration of diltiazem IV 20 mg. Patient is compliant with his medications, metoprolol 200 mg daily as well as apixaban anticoagulation. Ddimer NEGATIVE, low susp for PE, also on eliquis Continue metoprolol 200mg, eliquis 5mg BID Mag 1.5-- IV replacement ordered, K 4.0 on AM labs. Keep mag ~2, K~4 TSH 2.347 Monitor on telemetry -- rates improved to 80-90s w/ mag and cardizem as above MCV also >100 -- check B12/folate w/ repeat labs, if normal check peripheral smear for further eval (3) Congestive heart failure: Plan: Patient with chronic systolic heart failure, well compensated at present. He appears euvolemic. Last echocardiogram performed on 12/10/2022 which revealed left ventricular systolic function borderline reduced with a EF of 45 to 50%. Borderline global hypokinesis of the LV. Mild concentric LVH. Mild TR. Mild aortic root dilatation. Continue metoprolol 200mg daily BNP 240 (prior 260 last month), slightly volume up/2nd to afib/rvr possibly from hypomagnesemia On bumex 1mg PO daily -- per nephrology notes, to be on 1mg BID when weight >240lb (recorded 114kg on admit) Additional 1mg BUMEX for today, monitor I&O and daily weights Repeat ECHO ordered Also has metolazone prn Follows with Dr Artis/Dr Holman, may benefit from reaching out to cardi ology/CHF clinic in follow up (reports eating high processed foods/frequent meals at restaurants 4x/weekly) (4) Hypertension: Plan: BP stable continue metoprolol (5) Bipolar 2 disorder: Plan: Patient reports stable moods. Continue Lamictal 150 mg p.o. nightly Continue divalproex 1000 mg p.o. nightly (6) BPH w urinary obs/LUTS: Plan: Chronic. Stable. Continue alfuzosin Monitor urine output (7) Chronic gout: Plan: Chronic. Stable. Continue allopurinol Plan continued inpatient stay patient hopeful for discharge tomorrow Admission and Anticipated Discharge Date Admission Date: January 08, 2023 Supervising Physician Co-Signing Physician Notes The patient was not seen by me. The chart was reviewed. Case discussed with EMELI Oliva. Agree with assessment and plan Subjective BRIDGE NOTE, ADMIT AFTER MIDNIGHT eval this morning, resting comfortably in bed, easily awoken. denies any further chest pain rates improved since Cardizem and replacement of magnesium. asked RN to check weight, as discussed his dry weight ~235 and to increase Bumex to BID when >240lb. Discussed giving extra dose while inpatient and monitoring overnight and hopefully will be able to discharge in AM. Also discussed Eliquis, stopped due to bruising/bleeding -- discussed should f/u PCP and consider restarting given increased stroke risk with his atrial fibrillation. Rates were higher 110-130/140s this morning, currently to the 90s w/ magnesium (additional bag currently running). 4L O2 when moving and uses when sleeping but does not require any at rest. No fever/chills, chest pain. No shortness of breath reported but was sleeping on usual 4L. RN to titrate when up/rest. States uses 4L w/ ambulation. No pleuritic chest pain. If developed worsening hypotension/tachycardia/chest pain would need to eval for possible PE. Review of Systems Review of Systems: All systems reviewed & are unremarkable except as noted in HPI & below Physical Exam Physical Exam: General: patient resting comfortably, NAD, non-toxic in appearance, AA&O x 4 Skin: warm, dry, intact, no rashes or lesions HEENT: NC/AT, PERRL, EOMI, anicteric sclera, conjunctiva without injection, external ear normal to inspection and nontender, nares patent, moist mucus membranes, dentition intact, no oropharyngeal lesions, neck supple, trachea midline, no LAD, no thyromegaly, +?JVD Heart: +S1/S2, irregularly irregular (rates 80-90s), no m/r/g, no reproducible chest wall pain Lungs: equal air entry bilaterally, no rales/rhonchi/wheezes Abd: +BS, soft, NT/ND, no masses/organomegaly/ascites Ext: warm, 2+ pulses in UE/LE bilaterally, no clubbing/cyanosis or edema Neuro: nonfocal, patient AA&O x 4, speech intact, no facial droop, moving all extremities on command with equal strength 5/5 Results & Data Results & Data ([facility]) Vital Signs (Past 12 Hours) Vital Signs Temp Pulse Pulse Pulse Resp BP BP 01/08/23 03:49 101 H 01/08/23 02:20 01/08/23 02:15 01/08/23 02:15 36.5 C 95 H 18 01/08/23 01:50 94 H 13 96/69 L 01/08/23 01:25 101 H 01/07/23 21:53 107/76 01/07/23 21:53 89 16 01/07/23 21:43 89/61 L 01/07/23 21:43 81 21 01/07/23 21:31 112/87 01/07/23 21:31 121 H 26 H 01/07/23 21:30 125 H 24 01/07/23 21:18 129 H 20 01/07/23 21:46 01/07/23 21:46 86 18 90/61 L 01/07/23 21:19 124 H 01/07/23 21:09 36.8 C 144 H 17 111/75 BP Pulse Ox O2 Del Method O2 Flow Rate 01/08/23 03:49 01/08/23 02:20 96 Nasal Cannula 2 01/08/23 02:15 Nasal Cannula 2 01/08/23 02:15 118/84 98 Nasal Cannula 4 01/08/23 01:50 01/08/23 01:25 01/07/23 21:53 01/07/23 21:53 96 01/07/23 21:43 01/07/23 21:43 92 01/07/23 21:31 01/07/23 21:31 93 01/07/23 21:30 01/07/23 21:18 01/07/23 21:46 94 Room Air 01/07/23 21:46 94 Room Air 01/07/23 21:19 01/07/23 21:09 95 Laboratory Results 01/08/23 01/08/23 01/07/23 Range/Units 02:43 02:43 23:01 WBC (4.8-10.8) K/ul RBC (4.70-6.10) M/uL Hgb (14.0-18.0) g/dl Hct (42.0-52.0) % MCV (80.0-100.0) fL MCH (25.0-34.0) pg MCHC (32.0-36.0) g/dL RDW Std Deviation (36.4-46.3) fL RDW Coeff of Daniel (11.5-14.5) % Plt Count (130-400) K/uL MPV (9.4-12.4) fL Immature Gran % (Auto) % Neut % (Auto) % Lymph % (Auto) % Carver % (Auto) % Eos % (Auto) % Baso % (Auto) % Neut # (Auto) (1.40-6.50) K/uL Lymph # (Auto) (1.2-3.4) K/uL Carver # (Auto) (0.11-0.59) K/uL Eos # (Auto) (0-0.50) K/uL Baso # (Auto) (0-0.2) K/uL Immature Gran # (Auto) (0.01-0.20) K/uL PT 11.8 INR 1.1 APTT 30.6 PTT Ratio 1.1 D-Dimer 360 (0-500) ug/L FEU Sodium Potassium Chloride (98-107) mmol/L Carbon Dioxide (21-32) mmol/L Anion Gap BUN (6-23) mg/dl Creatinine (0.6-1.4) mg/dl Est Cr Clr Drug Dosing ml/min Est GFR ( Amer) ml/min Est GFR (Non-Af Amer) ml/min BUN/Creatinine Ratio (10-20) Glucose (70-99(Fasting)) mg/dl Calcium (8.5-10.1) mg/dl Phosphorus 4.4 (2.5-4.9) mg/dl Magnesium 1.5 L (1.7-2.4) mg/dl Troponin I High Sens 6.2 (0-20) pg/ml Lipase (11-82) U/L SARS-CoV-2, RNA, NAAT (NEGATIVE) 01/07/23 01/07/23 01/07/23 Range/Units 21:30 21:30 21:30 WBC 9.44 (4.8-10.8) K/ul RBC 4.02 L (4.70-6.10) M/uL Hgb 14.2 (14.0-18.0) g/dl Hct 40.9 L (42.0-52.0) % MCV 101.7 H (80.0-100.0) fL MCH 35.3 H (25.0-34.0) pg MCHC 34.7 (32.0-36.0) g/dL RDW Std Deviation 53.1 H (36.4-46.3) fL RDW Coeff of Daniel 14.4 (11.5-14.5) % Plt Count 128 L (130-400) K/uL MPV 10.0 (9.4-12.4) fL Immature Gran % (Auto) 0.8 % Neut % (Auto) 57.5 % Lymph % (Auto) 29.8 % Carver % (Auto) 9.5 % Eos % (Auto) 2.0 % Baso % (Auto) 0.4 % Neut # (Auto) 5.42 (1.40-6.50) K/uL Lymph # (Auto) 2.81 (1.2-3.4) K/uL Carver # (Auto) 0.90 H (0.11-0.59) K/uL Eos # (Auto) 0.19 (0-0.50) K/uL Baso # (Auto) 0.04 (0-0.2) K/uL Immature Gran # (Auto) 0.08 (0.01-0.20) K/uL PT Cancelled INR Cancelled APTT Cancelled PTT Ratio Cancelled D-Dimer (0-500) ug/L FEU Sodium Potassium Chloride (98-107) mmol/L Carbon Dioxide (21-32) mmol/L Anion Gap BUN (6-23) mg/dl Creatinine (0.6-1.4) mg/dl Est Cr Clr Drug Dosing ml/min Est GFR ( Amer) ml/min Est GFR (Non-Af Amer) ml/min BUN/Creatinine Ratio (10-20) Glucose (70-99(Fasting)) mg/dl Calcium (8.5-10.1) mg/dl Phosphorus (2.5-4.9) mg/dl Magnesium (1.7-2.4) mg/dl Troponin I High Sens (0-20) pg/ml Lipase (11-82) U/L SARS-CoV-2, RNA, NAAT NEGATIVE (NEGATIVE) 01/07/23 Range/Units 21:30 WBC (4.8-10.8) K/ul RBC (4.70-6.10) M/uL Hgb (14.0-18.0) g/dl Hct (42.0-52.0) % MCV (80.0-100.0) fL MCH (25.0-34.0) pg MCHC (32.0-36.0) g/dL RDW Std Deviation (36.4-46.3) fL RDW Coeff of Daniel (11.5-14.5) % Plt Count (130-400) K/uL MPV (9.4-12.4) fL Immature Gran % (Auto) % Neut % (Auto) % Lymph % (Auto) % Carver % (Auto) % Eos % (Auto) % Baso % (Auto) % Neut # (Auto) (1.40-6.50) K/uL Lymph # (Auto) (1.2-3.4) K/uL Carver # (Auto) (0.11-0.59) K/uL Eos # (Auto) (0-0.50) K/uL Baso # (Auto) (0-0.2) K/uL Immature Gran # (Auto) (0.01-0.20) K/uL PT INR APTT PTT Ratio D-Dimer (0-500) ug/L FEU Sodium TNP Potassium TNP Chloride 98 (98-107) mmol/L Carbon Dioxide 25 (21-32) mmol/L Anion Gap TNP BUN 24 H (6-23) mg/dl Creatinine 1.40 (0.6-1.4) mg/dl Est Cr Clr Drug Dosing 60.4 ml/min Est GFR ( Amer) 59.4 ml/min Est GFR (Non-Af Amer) 51.3 ml/min BUN/Creatinine Ratio 17.1 (10-20) Glucose 86 (70-99(Fasting)) mg/dl Calcium 9.6 (8.5-10.1) mg/dl Phosphorus (2.5-4.9) mg/dl Magnesium (1.7-2.4) mg/dl Troponin I High Sens 7.8 (0-20) pg/ml Lipase 14 (11-82) U/L SARS-CoV-2, RNA, NAAT (NEGATIVE) PG Care Time/CCT Total # of Minutes Spent Total Time Spent with Patient: Total time spent is greater than 50% in coordination of care (as documented) at patient's floor/unit and/or counseling patient: Coding Level of Care Code None Diagnoses Chest pain R07.9 Chest pain type: unspecified Atrial fibrillation with RVR I48.91 Congestive heart failure I50.9 Hypertension I10 Bipolar 2 disorder F31.81 BPH w urinary obs/LUTS N40.1; N13.8 Chronic gout M1A.[id number] (1) Chest pain Chest pain type: unspecified Qualified Code(s): R07.9 - Chest pain, unspecified
--- NOTE | 2023-01-08 08:40 | XRay Report ---
XR chest 1V portable CLINICAL HISTORY: Chest pain, nonspecific COMPARISON STUDY: Chest radiograph December 20, 2022. Chest CT December 06, 2021. FINDINGS: Elevation of the left hemidiaphragm is again noted. No pneumothorax or pleural effusion is present. No consolidation is identified. There has been no significant change in appearance of the ch est. Cardiomediastinal silhouette is stable. IMPRESSION: No acute cardiopulmonary findings. No significant change in appearance of the chest. ACT 112: Negative or not required by law. Electronically signed by: Blu Hdez M.D. 01/08/2023 8:39 AM
[2023-01-08 08:41] LABS: Hematocrit (blood only) 38.7 % (42.0-52.0); Hemoglobin 13.3 g/dl (14.0-18.0); Mean Corpuscular Hgb Conc 34.4 g/dL (32.0-36.0); Mean Corpuscular Volume 101.8 fL (80.0-100.0); Mean Platelet Volume 9.8 fL (9.4-12.4); Platelet Count 118 K/uL (130-400); RDW Coefficient of Variation 14.6 % (11.5-14.5); RDW Standard Deviation 53.2 fL (36.4-46.3)
[2023-01-08] MEDS ORDERED: BUMETANIDE 1 MG TAB PO SCH (09:00)
[2023-01-08 09:07] LABS: BUN Creatinine Ratio 16.4 (10-20); Calcium 9.1 mg/dl (8.5-10.1); Creatinine Clr Calc Pharmacy 78.6 ml/min; Est GFR (African American) 70.2 ml/min; Est GFR (Non-African American) 60.5 ml/min
[2023-01-08] MEDS: ALFUZOSIN HCL 10 MG TAB PO SCH (09:13)
[2023-01-08] MEDS: METOPROLOL SUCC 50MG EXT REL TAB PO SCH (09:13)
[2023-01-08] MEDS: APIXABAN 5 MG TABLET PO SCH ×2 (09:13→21:00)
[2023-01-08] MEDS: MAGNESIUM SULFATE / D5W 1 GM/100 ML BAG IV SCH ×3 (09:14→12:29)
[2023-01-08] MEDS: allopurinoL 300 MG TAB PO SCH (09:14)
[2023-01-08 09:15] LABS: Vitamin B12 > 1500 pg/ml (180-914)
--- NOTE | 2023-01-08 10:14 | Electrocardiogram Report ---
Test Reason : Blood Pressure : / mmHG Vent. Rate : 123 BPM Atrial Rate : 131 BPM P-R Int : 000 ms QRS Dur : 108 ms QT Int : 328 ms P-R-T Axes : 000 039 007 degrees QTc Int : 469 ms Atrial fibrillation with rapid ventricular response Low voltage QRS Abnormal ECG When compared with ECG of 20-DEC-2022 05:13, No significant change was found Confirmed by Christofer Harris ([id number]) on 01/08/2023 10:13:50 AM Referred By: REFERRED SELF Confirmed By:Mando Harris
--- NOTE | 2023-01-08 10:15 | Electrocardiogram Report ---
Test Reason : Blood Pressure : / mmHG Vent. Rate : 086 BPM Atrial Rate : 080 BPM P-R Int : 000 ms QRS Dur : 104 ms QT Int : 382 ms P-R-T Axes : 000 047 017 degrees QTc Int : 457 ms Poor data quality, interpretation may be adversely affected Atrial fibrillation Low voltage QRS Abnormal ECG When compared with ECG of 07-JAN-2023 21:15, (unconfirmed) No significant change was found Confirmed by Christofer Harris ([id number]) on 01/08/2023 10:14:41 AM Referred By: REFERRED SELF Confirmed By:Mando Harris
[2023-01-08] MEDS ORDERED: BUMETANIDE 1 MG TAB PO ONE (11:24)
[2023-01-08 12:47] LABS: D Dimer 300 ug/L FEU (0-500)
--- NOTE | 2023-01-08 16:18 | XCELERA ---
[id number]
[2023-01-08] MEDS ORDERED: MELATONIN 3 MG TAB PO PRN (20:20)
[2023-01-08] MEDS ORDERED: METOPROLOL TARTRATE 25 MG TAB PO ONE (20:41)
[2023-01-08] MEDS ORDERED: LORazepam 0.5 MG TAB PO PRN (20:51)
[2023-01-08] MEDS ORDERED: DIVALPROEX EXTENDED RELEASE 500 MG TAB PO SCH (21:00)
[2023-01-08] MEDS ORDERED: lamoTRIgine 100 MG TAB PO SCH (21:00)
[2023-01-08] MEDS ORDERED: traZODone HCL 100 MG TAB PO SCH (21:00)
[2023-01-09 07:09] LABS: Basophils # (auto) 0.03 K/uL (0-0.2); Basophils % (auto) 0.4 %; Eosinophils # (auto) 0.13 K/uL (0-0.50); Eosinophils % (auto) 1.6 %; Hematocrit (blood only) 43.1 % (42.0-52.0); Immature Granulocytes % (auto) 1.2 %; Lymphocytes # (auto) 2.04 K/uL (1.2-3.4); Lymphocytes % (auto) 24.6 %; Mean Corpuscular Hemoglobin 35.5 pg (25.0-34.0); Mean Corpuscular Hgb Conc 34.8 g/dL (32.0-36.0); Mean Corpuscular Volume 101.9 fL (80.0-100.0); Mean Platelet Volume 9.8 fL (9.4-12.4); Monocytes # (auto) 0.99 K/uL (0.11-0.59); Monocytes % (auto) 11.9 %; Neutrophils % (auto) 60.3 %; Platelet Count 130 K/uL (130-400); RDW Coefficient of Variation 14.2 % (11.5-14.5); Red Blood Count 4.23 M/uL (4.70-6.10); White Blood Count 8.29 K/ul (4.8-10.8)
[2023-01-09 07:27] LABS: BUN Creatinine Ratio 13.1 (10-20); Creatinine Clr Calc Pharmacy 87.8 ml/min; Est GFR (African American) 82.2 ml/min; Magnesium 1.4 mg/dl (1.7-2.4); Potassium 3.4 mmol/L (3.5-5.1)
--- NOTE | 2023-01-09 07:39 | Hospitalist Progress Note ---
Date of Service January 09, 2023 Assessment & Plan (1) Chest pain: Plan: 67-year-old male with history of atrial fibrillation on Eliquis anticoagulation, hypertension, chronic CHF presenting with acute episode of chest pain. Pain has since resolved. Troponin x1 unremarkable at 7.8. EKG with no acute ischemic findings. Exam is unremarkable. Do not strongly suspect cardiac source of chest pain. Of note, patient does have known history of dilatation of the ascending aortic aneurysm. Last visualized on 6 chest CTA 12/06/2021measuring 4.6 cm. Patient's pain in the chest and shoulder blade have resolved. He is comfortable at present, hemodynamically stable. Troponin initial 7.8, 6.2, 6.2, 5.9 ECHO ordered, no significant change from last month. No wma. EF 40-45% No further CHEST PAIN since cardizem in ER , monitor on telemetry Hx afib --rates to 120-130s this morning, improving and to the 80-90s w/ magnesium replacement. Bumex 1mg PO x 1 additional for weight >240lb on admit (dry weight to be ~235lb) Montior weights/I&O EKG c CP Monitoring overnight and patient hopeful for discharge this morning (2) Atrial fibrillation with RVR: Plan: Patient with episode of A-fib with RVR in the ER with heart rates in the 140s. This has improved with administration of diltiazem IV 20 mg. Patient is compliant with his medications, metoprolol 200 mg daily as well as apixaban anticoagulation. Ddimer NEGATIVE, low susp for PE, also on eliquis Continue metoprolol 200mg, eliquis 5mg BID Mag 1.5-- IV replacement ordered, K 4.0 on AM labs. Keep mag ~2, K~4 TSH 2.347 Monitor on telemetry -- rates improved to 80-90s w/ mag and cardizem as above MCV also >100 -- check B12/folate w/ repeat labs, if normal check peripheral smear for further eval (3) Congestive heart failure: Plan: Patient with chronic systolic heart failure, well compensated at present. He appears euvolemic. Last echocardiogram performed on 12/10/2022 which revealed left ventricular systolic function borderline reduced with a EF of 45 to 50%. Borderline global hypokinesis of the LV. Mild concentric LVH. Mild TR. Mild aortic root dilatation. Continue metoprolol 200mg daily BNP 240 (prior 260 last month), slightly volume up/2nd to afib/rvr possibly from hypomagnesemia On bumex 1mg PO daily -- per nephrology notes, to be on 1mg BID when weight >240lb (recorded 114kg on admit) Additional 1mg BUMEX for today, monitor I&O and daily weights Repeat ECHO ordered Also has metolazone prn Follows with Dr Artis/Dr Holman, may benefit from reaching out to cardiology/CHF clinic in follow up (reports eating high processed foods/frequent meals at restaurants 4x/weekly) (4) Hypertension: Plan: BP stable continue metoprolol (5) Bipolar 2 disorder: Plan: Patient reports stable moods. Continue Lamictal 150 mg p.o. nightly Continue divalproex 1000 mg p.o. nightly (6) BPH w urinary obs/LUTS: Plan: Chronic. Stable. Continue alfuzosin Monitor urine output (7) Chronic gout: Plan: Chronic. Stable. Continue allopurinol Plan continued inpatient stay patient hopeful for discharge tomorrow Admission and Anticipated Discharge Date Admission Date: January 08, 2023 Results & Data Results & Data ([facility]) Vital Signs (Past 12 Hours) Vital Signs Temp Pulse Pulse Resp BP Pulse Ox O2 Del Method 01/09/23 07:30 36.5 C 97 H 12 123/86 97 Nasal Cannula 01/09/23 07:02 98 H 01/09/23 04:00 36.5 C 98 H 18 117/85 94 Room Air 01/08/23 23:00 113 H 01/08/23 20:00 Nasal Cannula 01/08/23 20:26 36.5 C 104 H 20 105/72 Room Air O2 Flow Rate 01/09/23 07:30 3 01/09/23 07:02 01/09/23 04:00 01/08/23 23:00 01/08/23 20:00 4 01/08/23 20:26 PG Care Time/CCT Total # of Minutes Spent Total Time Spent with Patient: Total time spent is greater than 50% in coordination of care (as documented) at patient's floor/unit and/or counseling patient: Coding Diagnoses Chest pain R07.9 Chest pain type: unspecified Atrial fibrillation with RVR I48.91 Congestive heart failure I50.9 Hypertension I10 Bipolar 2 disorder F31.81 BPH w urinary obs/LUTS N40.1; N13.8 Chronic gout [id number].[id number] (1) Chest pain Chest pain type: unspecified Qualified Code(s): R07.9 - Chest pain, unspecified
[2023-01-09] MEDS ORDERED: POTASSIUM CHLORIDE CRTAB 20 MEQ TABCR PO STA (07:48)
[2023-01-09] MEDS ORDERED: BUMETANIDE 1 MG TAB PO SCH (08:00)
[2023-01-09] MEDS: APIXABAN 5 MG TABLET PO SCH (08:36)
[2023-01-09] MEDS: METOPROLOL SUCC 50MG EXT REL TAB PO SCH (08:37)
[2023-01-09] MEDS: allopurinoL 300 MG TAB PO SCH (08:37)
[2023-01-09] MEDS: MAGNESIUM SULFATE / D5W 1 GM/100 ML BAG IV SCH ×4 (08:42→14:10)
[2023-01-09] MEDS ORDERED: MAGNESIUM CHLORIDE W/CALCIUM 64MG DELAYED REL TAB PO SCH (09:00)
[2023-01-09] MEDS: ALFUZOSIN HCL 10 MG TAB PO SCH (09:29)
--- NOTE | 2023-01-09 11:28 | Discharge Summary ---
Date of Service January 09, 2023 Admission HPI Per Admitting Provider Tom Lion is a 67-year-old male with history of atrial fibrillation on apixaban anticoagulation, hypertension and chronic systolic heart failure presenting with chest pain. Patient reports he was at home resting this evening around 2230 when he developed acute onset of sharp substernal chest pain and pain behind the left shoulder blade. Pain was nonradiating. Was mildly pleuritic. He denies dizziness, diaphoresis, palpitations. He did have some shortness of breath. Symptoms have since resolved. Patient is resting comfortably with no additional complaints at this time. Patient denies prior episodes of chest pain. He does follow with cardiology for his atrial fibrillation, chronic CHF and cardiomyopathy. Last seen 11/13/2022. Patient had a Holter monitor placed which ultimately showed persistent atrial fibrillation with ventricular rate of 77 to 154 bpm. Rare PVCs. In the ER patient afebrile, tachycardic with heart rate up to 144atrial fibrillation. Blood pressure stable. He was administered 20 mg diltiazem IV with improvement in heart rate. During my encounter he was in the 90s. Patient resting comfortably. Remains asymptomatic. Chest pain has not recurred. ER course: Normal saline 500 mL Diltiazem 20 mg IV Admission Exam Per Admitting Provider General: patient resting comfortably, NAD, non-toxic in appearance, AA&O x 4 Skin: warm, dry, intact, no rashes or lesions HEENT: NC/AT, PERRL, EOMI, anicteric sclera, conjunctiva without injection, external ear normal to inspection and nontender, nares patent, moist mucus membranes, dentition intact, no oropharyngeal lesions, neck supple, trachea midline, no LAD, no thyromegaly, +?JVD Heart: +S1/S2, irregularly irregular (rates 80-90s), no m/r/g, no reproducible chest wall pain Lungs: equal air entry bilaterally, no rales/rhonchi/wheezes Abd: +BS, soft, NT/ND, no masses/organomegaly/ascites Ext: warm, 2+ pulses in UE/LE bilaterally, no clubbing/cyanosis or edema Neuro: nonfocal, patient AA&O x 4, speech intact, no facial droop, moving all extremities on command with equal strength 5/5 Principal Diagnosis CP r/o ACS, AFIB w/ RVR Discharge Exam General: WD/WN male sitting up in bed, NAD HEENT: head normocephalic, atraumatic, mmm, trachea midline without deviation Resp: CTAB, diminished in bases but on ROOM AIR CV: irregularly irregular (rates 90s), no significant m/r/g, no pitting edema, calves nontender GI:+BS, soft/NT : no gilman MSK/Neuro: moves all extremities, no focal deficits Psych: AOx3, pleasant and cooperative Discharge Data Allergies Allergy/AdvReac Type Severity Reaction Status Date / Time meloxicam Allergy Severe Swollen Verified 01/07/23 22:30 tongue amitriptyline [From Elavil] Allergy Intermediate Hallucinati Verified 01/07/23 22:30 ons aripiprazole [From Abilify] Allergy Intermediate Tremors, Verified 01/07/23 22:30 balance issues, trouble controlling body movements hyoscyamine Allergy Intermediate Hallucinati Verified 01/07/23 22:30 [From Symax Duotab] ons venlafaxine [From Effexor] Allergy Intermediate Hallucinations Verified 01/07/23 22:30 and tremors zolpidem [From Ambien] Allergy Intermediate Hallucinati Verified 01/07/23 22:30 ons Penicillins Allergy Mild Rash Verified 01/07/23 22:30 adhesive tape AdvReac Mild rash, red Verified 01/07/23 22:30 skin Consultations 01/07/23 23:53 ED Decision to Admit Stat 01/09/23 10:27 [facility] [place] CHF Program Referral Routine Ordered Studies Chest X-Ray 01/07/23 21:35 XR chest 1V portable CLINICAL HISTORY: Chest pain, nonspecific COMPARISON STUDY: Chest radiograph December 20, 2022. Chest CT December 06, 2021. FINDINGS: Elevation of the left hemidiaphragm is again noted. No pneumothorax or pleural effusion is present. No consolidation is identified. There has been no significant change in appearance of the chest. Cardiomediastinal silhouette is stable. IMPRESSION: No acute cardiopulmonary findings. No significant change in appearance of the chest. ACT 112: Negative or not required by law. Electronically signed by: Blu Hdez M.D. 01/08/2023 8:39 AM Hospital Course (1) Atrial fibrillation with RVR: 67-year-old male with history of atrial fibrillation with rates in 140s on Eliquis anticoagulation, hypertension, chronic CHF presenting with acute episode of chest pain Given diltiazem 20mg IV with improvement. Compliance with medications at home. Mag low on admit, also with evidence of volume overload, possibly due to e levated HR. ECHO unchanged. Trop negative x 3 Ddimer negative, low susp for PE. On Eliquis. Continued on metoprolol 200mg, eliquis 5mg BID. Mag replacement, additional IV prior to d/c and RESUMED his home mag-oxide BID TSH wnl Given additional bumex dosing prior to discharge, BUN/Cr stable and improved, weights closer now to dry weight ~235lb (currently 237 on AM weight). Continue low Na diet/2L fluid daily Rates 90-100 on monitor, no further chest pain or shortness of breath reported and wanting to go home. F/u cardiology at discharge with CHF clinic-- continue bumex 1mg daily for now as discussed w/ Joanie Manasig and monitor weights. Patient to increase to 1mg TWICE DAILY for weight gain 3lb above dry 235lb or 5lb in a week. Consideration for entresto given reduced EF to be discussed in follow up with CHF clinic/cardiology (2) Congestive heart failure: Patient with chronic systolic heart failure, mildly reduced EF -- Last echocardiogram performed on 12/10/2022 which revealed left ventricular systolic function borderline reduced with a EF of 45 to 50%. Borderline global hypokinesis of the LV. Mild concentric LVH. Mild TR. Mild aortic root dilatation. BNP 240 from 260 last month, weight up (weight 250lb recorded on admit, dry weight ~235lb) ?2nd to afib w RVR vs dietary indiscretion/CHF exacerbation Prior Cards note high processed foods/eating out frequently Repeat ECHO unchanged Low AHA diet, 2L fluid restriction Given extra 1mg bumex 01/08, 2mg for 01/09 prior to discharge and CHF clinic consulted. Weight 237lb prior to discharge To continue current regimen 1mg bumex at discharge and use additional prn dosing for weight gain Further discussion with CHF clinic/cards in follow up for discussion of Entresto (didn't tolerate low dose due to hypotension in the past -- continued discussions). Consider LAXMI alone if not able to tolerate combination. Can also considr adding spironolactone vs SGLT2 inhibiter in follow up Continued metoprolol 200mg daily, eliquis for afib (3) Chest pain: Trop negative x 3 ECHO unchanged, no wma Tx afib w/ meds, additional bumex for weight gain w/ resolution (4) Hypertension: BP stable continue metoprolol (5) Bipolar 2 disorder: Patient reports stable moods. Continued Lamictal 150 mg p.o. nightly, divalproex 1000mg HS (6) BPH w urinary obs/LUTS: Chronic. Stable. Continued alfuzosin (7) Chronic gout: Chronic. Stable and continued allopurinol (8) Heart failure with mid-range ejection fraction: as above, slightly volume up, tx w/ additional diuretics w/ weight almost back to baseline close f/u as outlined Plan discharged home on usual diuretic regimen, to monitor weights and have close f/u CHF clininc. To increase bumex to twice daily for weight gain as outlined. COnsideration for addition of lisinopril/LAXMI in follow up if re-trial entresto unsuccessful Total Time Total Time Spent Total Time Spent (In Minutes): 50 Discharge Plan Discharge Items Patient Disposition: Home - Self-Care Reason For Visit: CHEST PAIN, AF WITH RVR Discharge Diagnosis: Chest Pain, Afib with RVR, CHF Goals: You have been hospitalized for an acute medical problem. During your stay at [facility], we have made an effort to correct the problem that brought you to the hospital while keeping you as comfortable as possible. Medications were used to bring your condition under control and your discharge instructions will include directions for any medications you should take after leaving the hospital. Please make sure you see your Primary Care Provider as part of your follow up plan. Activity: As commented below Non-emergency contact: Primary Care Provider and Site Promotion Agent Call non-emergency contact if: you have any medication questions Follow-up/Referrals: Chapito Artis MD [Physician] - Keith Dimas DO [Primary Care Provider] - 01/16/23 12:00 pm Yvonne Russell PA-C [Physician Syrup Maker Cook] - Diet: Heart Healthy and Low Sodium (2gm) Addtl Attending Provider Instructions: You were hospitalized for chest pain. Troponins were negative and ultrasound of your heart did not show any wall motion abnormalities to suggest heart attack. Your heart rate was on the fast side, which could have contributed to your symptoms and your weight was up. You were given medications to help this and were given additional doses of bumex and given 2mg this morning prior to discharge. You should continue a low salt diet and monitor your fluid intake and daily weights at home. We had the CHF clinic provider, Joanie Russell, see you while in the hospital and given improvement and almost back to your baseline weight, you are to continue the bumex 1mg ONCE daily, but can take TWICE daily as needed for weight gain >3lb in a day or 5lb in a week. You should have close follow up with them and they can discuss possibly starting a medication called Entresto to help strengthen your heart. Please follow up with primary care in the next 7-10 days to monitor your progress. Please return to the ER with any worsening chest pain, shortness of breath, or for any other symptoms concerning for you. It has been a pleasure being a part of the medical team providing for you while you have been in the hospital. Take care! Addtl Loan Documents Closer Provider Instructions: Call 911 and go to the Emergency Room if: * You have tightness or pain in your chest that does not go away with rest or Nitroglycerin * You are very short of breath even with rest Call your doctor if any of the following symptoms or problems start or get worse: * Shortness of breath or difficulty breathing * Wake up at night short of breath * Chest pain * Cough * Swelling of your hands, fee, or legs * More fatigued or tired with your normal activity * Palpitations - sudden fast heart beats WEIGHT * Weigh yourself every morning after using the bathroom. * Use the same scale. * Wear the same amount of clothing. * Write your weight down on your chart. * Call your doctor if you gain more than 2-3 pounds in 1-2 days. MEDICATIONS * Use this discharge instruction sheet for instructions. * Take your medications at the time your doctor ordered. * Do not skip a dose of your medicines. * If you miss a dose of medicine, take as soon as possible, but DO NOT DOUBLE A DOSE. * Read your medicine information when you get home. * Know all of the side effects of your medicine. * Call your doctor's office if you have any side effects. * Be sure all of your doctors know what medicine and herbs you take (including cold, flu, and herbal medicine). * Pain Medicine: If you do not get relief from your pain, please call your doctor for help. Take the following with you to your follow-up doctor appointments: * Weight Chart * Medication List * List of questions Do not drink excessive alcohol, beer or wine. Pending Studies at Discharge: No Stand-Alone Forms: [facility], Smoking Cessation Medications and DC Order Prescriptions: Continued acetaminophen 500 mg capsule 1,000 mg PO TID 30 Days Qty: 180 0RF Rx Instructions: TAke 3 times per day to lessen pain. alfuzosin [Uroxatral] 10 mg tablet extended release 24 hr 10 mg PO DAILY Qty: 90 3RF Rx Instructions: administer after the same meal each day allopurinol 300 mg tablet 300 mg PO QAM Qty: 90 3RF trazodone 100 mg tablet 200 mg PO HS Qty: 60 11RF Eliquis 5 mg tablet 5 mg PO BID Qty: 180 3RF lamotrigine [Lamictal] 150 mg tablet 150 mg PO HS Qty: 30 11RF (DME) Portable Oxygen Misc See Rx Instructions .Route Qty: 1 0RF Rx Instructions: prn dyspnea. portable oxygen concentrator divalproex [Depakote ER] 500 mg tablet extended release 24 hr 1,000 mg PO HS Qty: 180 3RF potassium chloride 20 mEq tablet extended release 20 meq PO TID Qty: 90 11RF oxycodone 5 mg tablet 5 mg PO Q8H PRN (Reason: pain) Qty: 90 0RF Rx Instructions: PDMP searched, last filled on 12/04/22 for 30 days, okay to fill tadalafil 5 mg tablet 5 mg PO DAILY Qty: 30 11RF cetirizine 10 mg tablet 5 mg PO DAILY PRN (Reason: Allergy Symptoms) metolazone 5 mg tablet 5 mg PO DAILY PRN (Reason: edema or weight gain) Qty: 90 3RF Hold Instructions: Home Medication placed on hold at Doctor's office Rx Instructions: take 1hr prior to lasix. Slow-Mag 71.5 mg tablet,delayed release (DR/EC) 71.5 mg PO BID Qty: 60 5RF bumetanide 1 mg tablet 1 mg PO DAILY Qty: 45 5RF Rx Instructions: Take one tablet daily. If weight 240 lbs or greater, increase to one tablet BID. Reduce to one tablet daily once weight 235 lbs or less. colchicine 0.6 mg capsule 0.6 mg PO DIRECTED PRN (Reason: GOUT FLARE UPS) Rx Instructions: two pills at onset of gout flare, one pill in 2-6 hours if not resolved no more than 3 pills every 3 days ask pt if he wants this filled metoprolol succinate 100 mg tablet extended release 24 hr 200 mg PO QAM vitamin B complex Tablet 1 tab PO DAILY omega-3 fatty acids 1,000 mg Capsule 1,000 mg PO QAM cholecalciferol (vitamin D3) [Vitamin D3] 25 mcg (1,000 unit) Capsule 0 mcg PO DAILY Rx Instructions: PT UNSURE OF STRENGTH Discharge Orders: Discharge Order- CHF (Routine); Ordered 01/09/23 Ordered By: Brook Escalante/Other Patient Handouts: Understanding Bipolar Disorder, AFib Dc, Eating Heart-Healthy Foods, ED Chest Pain, Uncertain Cause Admission Data Admit Date/Time: 01/08/23 00:22 Attending Provider: Moose Lomax Admit Provider: Diane August Primary Care Provider: Keith Dimas Other Providers: Diane August ; Yvonne Russell. Other Interventions: Discharge Summary Assessment (RN) Last Done: 01/09/23 12:40 Supervising Physician Co-Signing Physician Notes The patient was seen by me. Chart reviewed. Case discussed with EMELI Oliva. Agree with assessment and plan. Home today, January 09 Coding Level of Care Code HOSP INP/OBS DISCH >30 MIN Diagnoses Atrial fibrillation with RVR I48.91 Congestive heart failure I50.9 Chest pain R07.9 Chest pain type: unspecified Hypertension I10 Bipolar 2 disorder F31.81 BPH w urinary obs/LUTS N40.1; N13.8 Chronic gout M1A.9XX0 Heart failure with mid-range ejection fraction I50.22
--- NOTE | 2023-01-09 11:39 | Heart Failure Consultation ---
Date of Consultation January 09, 2023 Assessment & Plan (1) Heart failure with mid-range ejection fraction: (2) Chronic kidney disease with active medical management without dialysis, stage 3 (moderate): (3) Atrial fibrillation with RVR: (4) Ascending aorta dilatation: (5) Hypertension: Plan Chronic HFmrEF: Currently Class II symptoms. He did not present with HF symptoms and was well compensated on admission. He appears well compensated and euvolemic on exam currently. Kidney function stable. He did respond well to additional Bumex and is net negative 2 L. Suspect this was likely tachycardia related as he presented in afib with RVR. He was history of orthostatic symptoms and azotemic. Would discharge on his previous home dose of Bumex 1 mg daily with an additional 1 mg PRN for weight gain, edema, or dyspnea. Plan to check BMP/mag/BNP next week for close monitoring. Optimize rate control. Recommend daily standing weights both inpatient and at home. He does typically follow this routine at home. Dry weight 240 lb. Recommend low sodium diet, less than 2,000 mg daily. We discussed the nature of heart failure and the goals of the program. He is agreeable to enrollment and ongoing participation. Atrial fibrillation: Afib with RVR on admission. His rate is running high/normal at this time. Had Holter in Nov 2022 with adequate rate control. Continue metoprolol succinate 200 mg daily. Continue Eliquis 5 mg BID for stroke risk reduction. Cardiomyopathy: Mildly reduced LV systolic function with most recent echo, suspect tachycardia induced. Continue metoprolol succinate 200 mg daily. He did not tolerate low dose Entresto due to hypotension. Continue to discuss opportunities to further optimize his regimen. Consider retrial of Entresto or adding other agents like Spironolactone vs SGLT2i. Can discuss as outpatient. Dilated ascending thoracic aorta: Continue beta maría elena therapy. BP is well controlled. Will monitor over time. Hypokalemia: Stable .Continue supplementation. Disposition: Follow-up with the heart failure program within 7 days of discharge. Hoping for discharge today. History of Present Illness Attending Physician: Moose Lomax MD History of Present Illness Mr. Lion is a 67-year-old male with a past medical history significant for atrial fibrillation, cardiomyopathy (LVEF 40-45%, November 2021; 45-50% November 2022), chronic HFmrEF, hypertension, dilated ascending thoracic aorta, bipolar disorder, elevated left hemidiaphragm, and spinal stenosis. 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 Recent cardiac studies: 1. 12/10/22 Echo: LV systolic function is borderline. EF 45-50%. Borderline global hypokinesis. Mild concentric LVH.Mild TR. Mild aortic root dilation 2. 01/08/23 Echo: Limited. LV function mildly reduced. EF 45-50%. No change. He presented to the ED on 01/07/23 with chest pain radiating into the left shoulder. He was noted to be in afib with RVR in the 140s. Treated with Cardiz em. Troponin unremarkable. EKG without ischemic findings. He appeared well compensated and euvolemic on exam. He continued home dose of Bumex 1 mg. Echo unchanged with EF 45-50%. Patient has been referred to the heart failure program by the primary service. He has minimal complaints today. He currently has no lower extremity edema. His breathing is at baseline. He is tolerating room air. He typically wears 4 L of O2 at night. He denies orthopnea or PND. He denies palpitations, cough, or further episodes of chest pain. Kidney function and electrolytes stable. Weight 238 per bed scale. Dry weight at home 240 lb. He's net negative 2 L for his hospitalization. Home dose is Bumex 1 mg daily, increase to BID dosing for weight > 240 lb. Allergies Allergy/AdvReac Type Severity Reaction Status Date / Time meloxicam Allergy Severe Swollen Verified 01/07/23 22:30 tongue amitriptyline [From Elavil] Allergy Intermediate Hallucinati Verified 01/07/23 22:30 ons aripiprazole [From Abilify] Allergy Intermediate Tremors, Verified 01/07/23 22:30 balance issues, trouble controlling body movements hyoscyamine Allergy Intermediate Hallucinati Verified 01/07/23 22:30 [From Symax Duotab] ons venlafaxine [From Effexor] Allergy Intermediate Hallucinations Verified 01/07/23 22:30 and tremors zolpidem [From Ambien] Allergy Intermediate Hallucinati Verified 01/07/23 22:30 ons Penicillins Allergy Mild Rash Verified 01/07/23 22:30 adhesive tape AdvReac Mild rash, red Verified 01/07/23 22:30 skin Home Medications Medication Instructions Recorded Confirmed Type cetirizine 10 mg tablet 5 mg PO DAILY PRN Allergy Symptoms 11/25/19 01/07/23 History vitamin B complex 1 tab PO DAILY 12/06/21 01/07/23 History colchicine 0.6 mg capsule 0.6 mg PO DIRECTED PRN GOUT 01/09/22 01/07/23 History FLARE UPS metoprolol succinate 100 mg 200 mg PO QAM 02/21/22 01/07/23 History tablet,extended release 24 hr acetaminophen 500 mg capsule 1,000 mg PO TID Pain 30 days #180 03/18/22 01/07/23 Rx caps alfuzosin 10 mg tablet,extended 10 mg PO DAILY #90 tabs 04/08/22 01/07/23 Rx release 24 hr (Uroxatral) allopurinol 300 mg tablet 300 mg PO QAM #90 tabs 04/08/22 01/07/23 Rx apixaban 5 mg tablet (Eliquis) 5 mg PO BID #180 tabs 04/16/22 01/07/23 Rx trazodone 100 mg tablet 200 mg PO HS #60 tabs 04/16/22 01/07/23 Rx lamotrigine 150 mg tablet 150 mg PO HS #30 tabs 07/03/22 01/07/23 Rx (Lamictal) metolazone 5 mg tablet 5 mg PO DAILY PRN edema or weight 07/15/22 01/07/23 Rx gain #90 tabs Portable Oxygen #1 ea 09/23/22 12/25/22 Rx divalproex 500 mg tablet,extended 1,000 mg PO HS #180 tabs 10/30/22 01/07/23 Rx release 24 hr (Depakote ER) tadalafil 5 mg tablet 5 mg PO DAILY sexual activity #30 11/05/22 01/07/23 Rx tabs potassium chloride 20 mEq 20 meq PO TID #90 tabs 11/15/22 01/07/23 Rx tablet,extended release bumetanide 1 mg tablet 1 mg PO DAILY #45 tabs 12/04/22 01/07/23 Rx magnesium chloride 71.5 mg 71.5 mg PO BID #60 tabs 12/04/22 01/07/23 Rx (magnesium chloride) tablet,delayed release (Slow-Mag) oxycodone 5 mg tablet 5 mg PO Q8H PRN pain #90 tabs 01/03/23 01/07/23 Rx cholecalciferol (vitamin D3) 25 0 mcg PO DAILY 01/07/23 01/07/23 History mcg (1,000 unit) capsule (Vitamin D3) omega-3 fatty acids 1,000 mg 1,000 mg PO QAM 01/07/23 01/07/23 History capsule Patient History Medical History (Updated 01/09/23 @ 11:31 by Yvonne Russell PA-C) Ascending aorta dilatation 4.6 cm - no change from Nov [address] per 12/06/21 chest CTA Asthma COLD WEATHER INDUCED>NO INHALER USED FOR A WHILE Breathing stable Atrial fibrillation On Eliquis Congestive heart failure EF 40-45% Nov 2021 ECHO (questionable tachycardia induced per cardio) Encounter for pre-operative examination History of COVID-19 11/2021>TROUBLE BREATHING/CONGESTION>HOSPITAL AFTER DX FOR PULSE RATE *RESOLVED History of hypogonadism Hypertension Lumbar facet joint syndrome Iniguez's neuroma of left foot Peripheral neuropathy Bilateral feet RLS (restless legs syndrome) HX OF Spinal stenosis Surgical History H/O hand surgery LEFT History of cataract surgery RT/LEFT History of colonoscopy History of tonsillectomy Hx of hernia repair UMBILICAL HERNIA Hx of knee surgery RT KNEE SCOPE Hx of vasectomy S/P insertion of spinal cord stimulator X 2 *ONLY 1 IS FUNCTIONING BUT NOT IN USE CURRENTLY (WILL BRING ALONG REMOTE AND INSTRUCTIONS TO SURGERY/PAT APT) S/P total left hip arthroplasty 03-19-22 Dr August, [facility] Vivian teeth removed Family History Mother Breast cancer Hypertension Sister Diabetes Lung cancer Other No family history of adverse response to anesthesia Denies family history of Ovarian cancer Prostate cancer Myocardial infarction Colorectal cancer Social History Smoking Status: Never smoker Second Hand Exposure: No ( A CHILD); Hx Alcohol Use: No Hx Substance Use: No Preferred Language: Croatian Communication Ability: Effective Hearing Ability: Use of Hearing Aid Technical Planner Required: No Beliefs That Will Affect Care: None marital status: Current Living Situation: Spouse Current Living Situation Comment: House current occupational status: retired How many Children do You have: 6 How many Children do You have Comment: 2 biological and 4 step-children. Feels Safe at Home: Yes Childhood Exposure to Second-Hand Smoke: Yes Diet Comment: Optivia diet caffeine: Yes during the past year weight has: remained stable Dental Care, Regularly: No Physical Activity Frequency: Does not Exercise Physical Activity Frequency Comment: CHF Seatbelt Use: always Sunscreen Use: No Do you think of yourself as: straight/heterosexual Gender Identity: Male Assistive Devices: Glasses Physical Exam Physical Exam: Constitutional: Alert, oriented, in no acute distress HEENT: Head is atraumatic and normocephalic. EOMs intact. Sclera non-icteric. Neck: No JVD Pulmonary: Normal respiratory effort, clear to auscultation throughout Cardiac: Irregularly irregular, normal S1 and S2, no gallops, no rubs, no murmurs Extremities: No edema. No clubbing or cyanosis. 2+ radial pulses +vericose veins Abdomen: Normal bowel sounds, soft, non-tender, no abdominal masses palpated Skin: Normal skin color, turgor, and pigmentation. No rash or skin lesions Neurological: Oriented to person, place, and time Results & Data ([facility]) Vital Signs (Past 12 Hours) Vital Signs Temp Pulse Pulse Resp BP Pulse Ox O2 Del Method 01/09/23 11:00 Room Air 01/09/23 07:30 97.7 F 97 H 12 123/86 97 Nasal Cannula 01/09/23 07:02 98 H 01/09/23 04:00 97.7 F 98 H 18 117/85 94 Room Air O2 Flow Rate 01/09/23 11:00 01/09/23 07:30 3 01/09/23 07:02 01/09/23 04:00 Heart Failure Data/Metrics Heart Failure Type: HFmrEF (Midly Reduced/Mid-Range, EF 41-49%) Ejection Fraction: 45-50% Evidenced Based Beta María Elena Therapy Beta María Elena Therapy: Not Indicated LAXMI/ARB/ARNI Therapy LAXMI/ARB/ARNI Therapy: Not Indicated Aldosterone Antagonist Therapy Aldosterone Antagonist Therapy: Not Indicated Coding Level of Care Code 28677 INT INP/OBS CARE 3/75MIN Diagnoses Heart failure with mid-range ejection fraction I50.22 Chronic kidney disease with active medical management without dialysis, stage 3 (moderate) N18.30 Atrial fibrillation with RVR I48.91 Ascending aorta dilatation I77.810 Hypertension I10
== END 2023-01-09 16:32 | disposition home or self-care (01) ==
LOC: ED 21:06 → 2N 21:06 → SUATTDRO 01-08 00:22 → 2N 01-08 01:50

== ENCOUNTER 2023-11-01 05:44 | Observation (INO) ==
[2023-11-01] MEDS ORDERED: MULTI-VITAMIN INFUSION 10 ML, THIAMINE HCL 100 MG, FOLIC ACID 1 MG in SODIUM CHLORIDE 0... IV ONE (06:00)
[2023-11-01] MEDS ORDERED: SODIUM CHLORIDE 0.9% 1,000 ML IV SCH (06:00)
[2023-11-01] MEDS ORDERED: LORazepam 1 MG/1 ML SYR ED Inj Use IV PRN (06:05)
[2023-11-01 06:28] LABS: Basophils # (auto) 0.08 K/uL (0.00-0.20); Basophils % (auto) 0.6 %; Eosinophils # (auto) 0.01 K/uL (0.00-0.50); Eosinophils % (auto) 0.1 %; Hematocrit (blood only) 49.8 % (42.0-52.0); Immature Granulocytes # (auto) 0.09 K/uL (0.01-0.20); Immature Granulocytes % (auto) 0.7 %; Lymphocytes # (auto) 2.76 K/uL (1.20-3.40); Lymphocytes % (auto) 21.1 %; Mean Corpuscular Hemoglobin 34.2 pg (25.0-34.0); Mean Corpuscular Hgb Conc 34.1 g/dL (32.0-36.0); Mean Corpuscular Volume 100.2 fL (80.0-100.0); Mean Platelet Volume 9.8 fL (9.4-12.4); Monocytes # (auto) 1.28 K/uL (0.11-0.59); Monocytes % (auto) 9.8 %; Neutrophils # (auto) 8.89 K/uL (1.40-6.50); Neutrophils % (auto) 67.7 %; Platelet Count 245 K/uL (130-400); RDW Coefficient of Variation 13.2 % (11.5-14.5); RDW Standard Deviation 49.1 fL (36.4-46.3); Red Blood Count 4.97 M/uL (4.70-6.10); White Blood Count 13.11 K/ul (4.8-10.8)
[2023-11-01 06:44] LABS: Anion Gap 16 (3-11); BUN Creatinine Ratio 10.3 (10-20); Blood Urea Nitrogen 17 mg/dl (6-23); Calcium 8.8 mg/dl (8.6-10.3); Carbon Dioxide 28 mmol/L (21-32); Chloride 94 mmol/L (98-107); Creatinine Clr Calc Pharmacy 55.2 ml/min; Est GFR (African American) 48.4 ml/min; Est GFR (Non-African American) 41.7 ml/min; Glucose 82 mg/dl (70-99(Fasting)); Potassium 3.6 mmol/L (3.5-5.1); Sodium 138 mmol/L (136-145)
[2023-11-01 06:45] LABS: Alanine Aminotransferase 24 U/L (7-52); Albumin Globulin Ratio 1.5 (0.9-2); Albumin Level 4.1 gm/dl (3.4-5.0); Alkaline Phosphatase 69 U/L (34-104); Aspartate Aminotransferase 47 U/L (13-39); Creatine Kinase 368 U/L (30-223); Globulin 2.7 gm/dl (2.5-4.0); Lipase < 3 U/L (11-82); Magnesium 1.5 mg/dl (1.7-2.4); Total Protein 6.8 gm/dl (6.0-8.3)
[2023-11-01 06:50] LABS: Troponin I High Sensitivity 12.4 pg/ml (0-20)
[2023-11-01] MEDS ORDERED: OPTIRAY 320 500ml IV ONE (06:55)
[2023-11-01 07:03] LABS: Appearance Urine Clear (Clear); Bacteria Urine Automated Negative (Negative); Bilirubin Urine Negative (Negative); Blood Urine Negative (Negative); Color Urine Dark Yellow; Glucose Urine UA Negative (Negative); Ketones Urine Trace (Negative); Leukocyte Esterase Urine Trace (Negative); Nitrite Urine Negative (Negative); Protein Urine Trace (Negative); RBC Urine Automated 0-4 /hpf (0-4); Specific Gravity Urine 1.018 (1.000-1.030); Urobilinogen Urine Negative (Negative); pH Urine 5.5 (4.5-7.5)
[2023-11-01 07:20] LABS: Base Excess ABG 3.4 mEq/L (-9-1.8); HCO3 ABG 29 mmol/L (19-24); Oxygen Saturation ABG 92.9 % (90-95); PCO2 ABG 44 mmHg (35-46); PO2 ABG 67 mmHg (80-95); pH ABG 7.42 (7.35-7.45)
--- NOTE | 2023-11-01 07:20 | CT Scan Report ---
CT SCAN OF THE BRAIN WITHOUT IV CONTRAST CLINICAL HISTORY: Trauma. COMPARISON STUDY: CT of the brain dated 08/27/2023. TECHNIQUE: Unenhanced axial CT scan of the brain is performed from the vertex to the skull base. A do se lowering technique was utilized adhering to the principles of ALARA. FINDINGS: Brain parenchyma: There is age-related involutional change noting mild subcortical and periventricula r microangiopathic disease. There is no hemorrhage, mass effect, or evidence of acute territorial isc hemia by CT criteria. Arellano-white matter differentiation is preserved. No extra-axial fluid collection is seen. Ventricles, sulci, cisterns: Prominent secondary to involutional change. Intracranial vasculature: There is atherosclerotic calcification of the cavernous carotid and vertebr al arteries. Calvarium: The skeletal structures are osteopenic. No depressed calvarial fracture is seen. There is chronic deformity of the nasal bones. Sinuses and mastoids: There is trace mucosal thickening within the left maxillary antrum and the sphe noid sinuses. The mastoid air cells are well pneumatized. Orbits: The bony orbits are grossly intact. There are bilateral ocular lens implants. IMPRESSION: There is no hemorrhage, mass effect, or evidence of acute territorial ischemia by CT irene fitzgerald. ACT 112: Negative or not required by law. Electronically signed by: Benoit Azevedo M.D. 11/01/2023 7:18 AM
--- NOTE | 2023-11-01 07:23 | Emergency Department Note ---
Impression & Plan Fall from standing, Hypomagnesemia, Hematoma of muscle, Alcohol intoxication, Rhabdomyolysis ED Provider Note HISTORY OF PRESENT ILLNESS: Patient is a 68-year-old male presenting with bilateral hip pain and low back pain after a fall from standing. Patient reports he is a chronic alcoholic and drinks half a container to a full container of mouthwash daily. He states that yesterday he "had too much to drink" and got up to go to the bathroom and lost his balance, resulting in a fall. Patient reports he landed on his right hip and then onto his buttock. He is unsure if he struck his head or lost consciousness. He is on Eliquis for history of A-fib. States he was unable to get up off the floor secondary to pain in his bilateral hips and low back. States that he was able to drive himself to a phone after about 8 hours and called for help. Patient states he has been drinking this amount of mouthwash daily for "a long time." ROS: as above PHYSICAL EXAM: Constitutional: Patient appears in no acute distress. HENT: Head: Normocephalic and atraumatic. Eyes: EOMI, PERRL Mouth/Throat: Mucous membranes moist. Neck: Trachea midline. Neck supple. No midline cervical spine tenderness palpation. Cardiovascular: RRR, No murmurs, rubs or gallops. Intact distal pulses. Pulmonary/Chest: No respiratory distress. Breath sounds clear and equal bilaterally. No wheezes or rales. No chest wall tenderness to palpation. Abdominal: Abdomen soft, no tenderness, rebound or guarding. Back: No midline spinal tenderness, no paraspinal tenderness, no CVA tenderness. Musculoskeletal: Patient has tenderness to palpation of the bilateral hip. No laxity with compression of the pelvis. When asked to straight leg raise, the patient complains of pain in his low back and bilateral hips. He does have a hematoma to the left gluteal region. Skin: Warm and dry. No rash, erythema, pallor or cyanosis Psychiatric: Appropriate mood and affect for situation. Neurological: Alert and keenly responsive. CN II-XII grossly intact, moving all extremities equally and fully. MDM: - Vitals signs stable. - History obtained via patient. Patient presents with [] - Chronic conditions affecting care: Afib - Differential diagnoses include, but are not limited to: [] - Order placed for continuous cardiac monitoring. At this time, monitor showed rate of 81 bpm with atrial fibrillation rhythm, per my interpretation. - External medical records reviewed. Showed [EMS sheet, outpt notes, outpt imaging] - EKG interpreted by myself showed atrial fibrillation. Rate 75 bpm. QTc 428. No acute ischemic changes - Laboratory workup interpreted by myself showed leukocytosis (WBC 13.11); stable electrolytes; elevated anion gap (16); elevated creatinine (Cr 1.65 - baseline around 1.5); hypomagnesemia (Mg 1.5); elevated AST (47); elevated CK (368); normal lipase; elevated alcohol (381.2); elevated serum osmolality - UA negative for infection - UDS negative - CXR negative for pneumonia or pneumothorax, per my interpretation - CT head wo contrast negative for acute pathology - CT cervical spine negative for injury - CT abdomen/pelvis with IV contrast showed intramuscular hemorrhage in the left gluteal musculature with focus of active extravasation. - CT lumbar spine wo contrast negative for fracture. - Patient given 1L NS on arrival to ER. Banana bag also ordered for further hydration. Given 1g IV acetaminophen for pain control. - Discussed case with orthopedist, Dr. Parada about intramuscular hematoma. He recommended potential eliquis reversal with KCentra if warranted, but thought it was appropriate to keep patient at [facility] for monitoring of H&H. - 1g IV magnesium ordered for electrolyte replacement - Hematoma appears small on CT, I do not feel he requires active reversal at this time. However, I discussed case with armature winder, Dr. Haynes at 9:52. She recommends obtaining unfractionated heparin (Xa) level to assess for cogulopathy panel. She recommends holding on Kcentra reversal right now. If negative, will NOT do reversal. - Discussion was had with career services director about patient's case and need for admission - Hospitalist consulted for admission - Patient admitted to [facility] hospitalist service for further evaluation and management. ASSESSMENT AND PLAN: Diagnosis: fall from standing; alcohol intoxication; left gluteal muscle hematoma; hypomagnesemia; rhabdomyolysis Plan: admit Past Med/Surg History Medical History Peripheral neuropathy Atrial fibrillation History of COVID-19 History of hypogonadism Surgical History S/P total left hip arthroplasty H/O hand surgery Hx of vasectomy History of colonoscopy History of tonsillectomy [place] teeth removed History of cataract surgery S/P insertion of spinal cord stimulator History of cholecystectomy Hx of hernia repair Hx of knee surgery Family History Mother Breast cancer Hypertension Sister Diabetes Lung cancer Other No family history of adverse response to anesthesia Denies family history of Ovarian cancer Prostate cancer Myocardial infarction Colorectal cancer Social History Smoking Status: Never smoker Second Hand Exposure: No; Do You Dip or Chew Tobacco: No; Hx Alcohol Use: Yes Alcohol type: beer Hx Substance Use: No Preferred Language: Luxembourger Communication Ability: Effective Hearing Ability: Use of Hearing Aid Development Spec Required: No Beliefs That Will Affect Care: None marital status: Current Living Situation: Spouse Current Living Situation Comment: House current occupational status: retired How many Children do You have: 6 How many Children do You have Comment: 2 biological and 4 step-children. Feels Safe at Home: Yes Childhood Exposure to Second-Hand Smoke: Yes Diet: regular Diet Comment: Optivia diet caffeine: Yes during the past year weight has: remained stable Dental Care, Regularly: No Physical Activity Frequency: Does not Exercise Physical Activity Frequency Comment: CHF Seatbelt Use: always Sunscreen Use: No Do you think of yourself as: straight/heterosexual Gender Identity: Male Assistive Devices: Cane Allergies Allergies Allergy/AdvReac Type Severity Reaction Status Date / Time meloxicam Allergy Severe Swollen Verified 11/01/23 09:22 tongue amitriptyline [From Elavil] Allergy Intermediate Hallucinati Verified 11/01/23 09:22 ons aripiprazole [From Abilify] Allergy Intermediate Tremors, Verified 11/01/23 09:22 balance issues, trouble controlling body movements hyoscyamine Allergy Intermediate Hallucinati Verified 11/01/23 09:22 [From Symax Duotab] ons venlafaxine [From Effexor] Allergy Intermediate Hallucinations Verified 11/01/23 09:22 and tremors zolpidem [From Ambien] Allergy Intermediate Hallucinati Verified 11/01/23 09:22 ons Penicillins Allergy Mild Rash Verified 11/01/23 09:22 adhesive tape AdvReac Mild rash, red Verified 11/01/23 09:22 skin Home Meds Home Medications Medication Instructions Recorded Confirmed cetirizine 10 mg tablet 5 mg PO DAILY PRN Allergy Symptoms 11/25/19 10/14/23 vitamin B complex 1 tab PO DAILY 12/06/21 10/14/23 albuterol sulfate 90 mcg/actuation 2 puff inhalation Q4H PRN 01/31/23 11/01/23 aerosol inhaler SOB/WHEEZING cholecalciferol (vitamin D3) 25 5,000 unit PO DAILY 01/31/23 10/14/23 mcg (1,000 unit) capsule (Vitamin D3) mecobalamin (vitamin B12) 1,000 1,000 mcg PO DAILY 01/31/23 10/14/23 mcg chewable tablet testosterone 75 mg implant pellet 75 mg implant .COMPLEX 01/31/23 10/14/23 vitamin A 2,400 mcg capsule 2,400 mcg PO DAILY 01/31/23 10/14/23 zinc gluconate 50 mg tablet 50 mg PO DAILY 01/31/23 10/14/23 bumetanide 1 mg tablet 0 mg PO DAILY 08/07/23 11/01/23 metolazone 5 mg tablet 5 mg PO DAILY PRN Edema 11/01/23 11/01/23 Previous Rx's Medication Instructions Recorded acetaminophen 500 mg capsule 1,000 mg (2 x 500 mg) PO TID Pain 03/18/22 30 days #180 caps alfuzosin 10 mg tablet,extended 10 mg PO DAILY #90 tabs 04/16/23 release 24 hr (Uroxatral) metoprolol succinate 100 mg 200 mg (2 x 100 mg) PO QAM #180 04/28/23 tablet,extended release 24 hr tabs trazodone 100 mg tablet 200 mg (2 x 100 mg) PO HS #60 tabs 05/01/23 apixaban 5 mg tablet (Eliquis) 5 mg PO BID #180 tabs 05/14/23 diltiazem HCl 120 mg 120 mg PO DAILY #30 caps 05/28/23 capsule,extended release 12 hr Portable Oxygen #1 ea 07/04/23 allopurinol 300 mg tablet 300 mg PO QAM #90 tabs 07/10/23 lamotrigine 150 mg tablet 150 mg PO HS #30 tabs 07/22/23 (Lamictal) digoxin 125 mcg (0.125 mg) tablet 125 mcg PO DAILY #90 tabs 09/29/23 oxycodone 5 mg tablet 5 mg PO Q8H PRN pain #90 tabs 10/06/23 colchicine 0.6 mg capsule 0.6 mg PO DIRECTED PRN GOUT 10/14/23 FLARE UPS #2 caps Results & Data (ED) Vital Signs Vital Signs - 24 hr 11/01/23 05:55 11/01/23 06:01 11/01/23 08:40 Temperature 36.4 C L 36.6 C Temperature Source Oral Oral Pulse Rate 89 81 Pulse Rate [Right Finger] 85 Respiratory Rate 20 18 Respiratory Effort / Characteristics Non-Labored Spontaneous Non-Labored Spontaneous Respiratory Depth Normal Normal Respiratory Pattern Regular Blood Pressure 130/70 Blood Pressure [Right Arm] 123/85 Blood Pressure Mean 90 Blood Pressure Mean [Right Arm] 97 Blood Pressure Position Lying Pulse Oximetry 95 95 Oxygen Delivery Method Room Air Room Air Sepsis Recent Fever Within 48 Hours No Sepsis New/Unexplained Change in Mental Status N/A Sepsis Action Taken by Nursing No Action Required Laboratory Data 11/01/23 06:06 11/01/23 06:06 Lab Results 11/01/23 11/01/23 11/01/23 Range/Units 06:06 06:48 07:13 WBC 13.11 H (4.8-10.8) K/ul RBC 4.97 (4.70-6.10) M/uL Hgb 17.0 (14.0-18.0) g/dl Hct 49.8 (42.0-52.0) % MCV 100.2 H (80.0-100.0) fL MCH 34.2 H (25.0-34.0) pg MCHC 34.1 (32.0-36.0) g/dL RDW Std Deviation 49.1 H (36.4-46.3) fL RDW Coeff of Daniel 13.2 (11.5-14.5) % Plt Count 245 (130-400) K/uL MPV 9.8 (9.4-12.4) fL Immature Gran % (Auto) 0.7 % Neut % (Auto) 67.7 % Lymph % (Auto) 21.1 % Emmons % (Auto) 9.8 % Eos % (Auto) 0.1 % Baso % (Auto) 0.6 % Neut # (Auto) 8.89 H (1.40-6.50) K/uL Lymph # (Auto) 2.76 (1.20-3.40) K/uL Emmons # (Auto) 1.28 H (0.11-0.59) K/uL Eos # (Auto) 0.01 (0.00-0.50) K/uL Baso # (Auto) 0.08 (0.00-0.20) K/uL Immature Gran # (Auto) 0.09 (0.01-0.20) K/uL PT Cancelled 12.4 H INR Cancelled 1.1 ABG pH 7.42 (7.35-7.45) ABG pCO2 44 (35-46) mmHg ABG pO2 67 L (80-95) mmHg ABG HCO3 29 H (19-24) mmol/L ABG O2 Saturation 92.9 (90-95) % ABG Base Excess 3.4 H (-9-1.8) mEq/L Bayron Test Pos (Pos) Oxygen Given ROOM AIR Sodium 138 (136-145) mmol/L Potassium 3.6 (3.5-5.1) mmol/L Chloride 94 L (98-107) mmol/L Carbon Dioxide 28 (21-32) mmol/L Anion Gap 16 H (3-11) BUN 17 (6-23) mg/dl Creatinine 1.65 H (0.6-1.4) mg/dl Est Cr Clr Drug Dosing 55.2 ml/min Est GFR ( Amer) 48.4 ml/min Est GFR (Non-Af Amer) 41.7 ml/min BUN/Creatinine Ratio 10.3 (10-20) Glucose 82 (70-99(Fasting)) mg/dl Osmolality Cancelled 344 H Calcium 8.8 (8.6-10.3) mg/dl Magnesium 1.5 L (1.7-2.4) mg/dl Total Bilirubin 1.0 (0.2-1.0) mg/dl AST 47 H (13-39) U/L ALT 24 (7-52) U/L Alkaline Phosphatase 69 (34-104) U/L Total Creatine Kinase 368 H (30-223) U/L Troponin I High Sens 12.4 (0-20) pg/ml Total Protein 6.8 (6.0-8.3) gm/dl Albumin 4.1 (3.4-5.0) gm/dl Globulin 2.7 (2.5-4.0) gm/dl Albumin/Globulin Ratio 1.5 (0.9-2) Lipase < 3 L (11-82) U/L Urine Color Dark Yellow Urine Appearance Clear (Clear) Urine pH 5.5 (4.5-7.5) Ur Specific [place] 1.018 (1.000-1.030) Urine Protein Trace H (Negative) Urine Glucose (UA) Negative (Negative) Urine Ketones Trace H (Negative) Urine Blood Negative (Negative) Urine Nitrite Negative (Negative) Urine Bilirubin Negative (Negative) Urine Urobilinogen Negative (Negative) Ur Leukocyte Esterase Trace H (Negative) Urine WBC (Auto) 5-10 H (0-5) /hpf Urine RBC (Auto) 0-4 (0-4) /hpf U Hyaline Cast (Auto) 1-5 (0-5) /lpf U Epithel Cells (Auto) 10-20 H (0-5) /lpf Urine Bacteria (Auto) Negative (Negative) Urine Opiates Screen Neg (Neg) Ur Methadone, Qual Neg (Neg) Urine Barbiturates Neg (Neg) Ur Phencyclidine (PCP) Neg (Neg) U Amphetamin/Meth Scrn Neg (Neg) MDMA (Ecstasy) Screen Neg (Neg) U Benzodiazepines Scrn Neg (Neg) Ur Cocaine Metabolite Neg (Neg) U Marijuana (THC) Screen Neg (Neg) Ethyl Alcohol mg/dL 381.2 H (<10.0) mg/dl Administered Medications Sodium Chloride (Nss) 1,000 mls @ 100 mls/hr IV .Q10H JEAN-CLAUDE Stop: 12/01/23 05:59 Last Infusion: 11/01/23 06:41 Dose: 0 mls/hr Documented By: Admin: 11/01/23 06:26 Dose: 100 mls/hr Documented By: DANIELA Multivitamins 10 ml/ Thiamine HCl 100 mg/ Folic Acid 1 mg/Sodium Chloride 1,011.2 mls @ 200 mls/hr IV .Q5H4M ONE Stop: 11/01/23 11:03 Last Admin: 11/01/23 06:43 Dose: 200 mls/hr Documented By: DANIELA Magnesium Sulfate/Dextrose (Magnesium Sulfate / D5w) 1 gm in 100 mls @ 100 mls/hr IV NOW STA Stop: 11/01/23 10:08 Last Admin: 11/01/23 09:34 Dose: 100 mls/hr Documented By: TRAVON Discontinued Medications Acetaminophen (Ofirmev) 1,000 mg in 100 mls @ 400 mls/hr IV NOW STA Stop: 11/01/23 08:52 Last Infusion: 11/01/23 09:33 Dose: Infused Documented By: Admin: 11/01/23 09:17 Dose: 400 mls/hr Documented By: TRAVON Ioversol (Optiray 320 500ml) 94 ml IV ONCE ONE Stop: 11/01/23 06:56 Last Admin: 11/01/23 06:55 Dose: 94 ml Documented By: CAIT Imaging Data Radiologist's Impression: Abdomen/Pelvis CT 11/01/23 06:00 CT SCAN OF THE ABDOMEN AND PELVIS WITH IV CONTRAST; CT SCAN OF THE LUMBAR SPINE WITH IV CONTRAST CLINICAL HISTORY: Trauma. Fall. COMPARISON STUDY: Abdominal CT dated 02/08/2020. TECHNIQUE: Following the IV administration of 94 cc of Optiray 320, CT scan of the abdomen and pelvis is performed from the lung bases to the proximal femora. Additionally, CT scan of the lumbar spine is performed from the lower thoracic spine to the sacrum. Images for both examinations are reviewed in the axial, sagittal, and coronal planes. IV contrast was administered without complication. A dose lowering technique was utilized adhering to the principles of ALARA. CT DOSE: 3944.52 mGy.cm FINDINGS: Lung bases: The heart is enlarged and without pericardial effusion. There is chronic elevation of the left hemidiaphragm with bibasilar scarring/atelectasis. No airspace consolidation typical for pneumonia or pleural effusion is identified. No basilar pneumothorax is seen. Liver: The contrast-enhanced liver is normal in size, contour, and attenuation. There is minimal central intrahepatic biliary ductal dilatation. The hepatic veins and portal veins are patent. Gallbladder: Surgically absent noting clips in the gallbladder fossa. Spleen: Normal in size and attenuation. Pancreas: The pancreas is atrophic. There are parenchymal and intraductal calculi suggesting chronic pancreatitis. Adrenal glands: Unremarkable. Kidneys: The contrast enhanced kidneys are normal in size and without hydronephrosis. The kidneys enhance symmetrically. A 7 mm complex exophytic cyst is again seen arising from the right upper pole on image #167. Abdominal vasculature: The abdominal aorta is normal in course and caliber. Bowel: There is moderate colonic diverticulosis without CT evidence of acute diverticulitis. No bowel obstruction is seen. There is mild to moderate colonic fecal retention. The appendix is well-visualized and normal. Peritoneum: There is trace perisplenic ascites. No intraperitoneal free air is seen. No intraperitoneal hemorrhage is identified. Lymphadenopathy: None. Pelvic viscera: Evaluation of the pelvis is degraded by streak artifact from a left hip arthroplasty. The prostate gland is enlarged and heterogeneous. The bladder wall is thickened/trabeculated indicating chronic outlet obstruction. There is intramuscular hemorrhage within the left gluteus muscles. A focus of active extravasation is seen on axial image #359. Skeletal structures: The skeletal structures are osteopenic. See below for dedicated discussion of the lumbar spine. The bony pelvis and proximal femora appear intact. Degenerative change is noted in the sacroiliac joints. No lytic or blastic lesions are seen. A left hip arthroplasty is in place. There are chronic/healed bilateral rib fractures. LUMBAR SPINE: Vertebral body height and alignment are maintained throughout the lumbar spine. There is no evidence of fracture or malalignment. Anterior and lateral marginal osteophytes are seen throughout. The transverse and spinous processes are intact. There is no spondylolysis. Facet arthropathy is observed in the lower lumbar spine. There is moderate to severe disc space narrowing at L3-L4, L4-L5, and L5-S1. Milder narrowing is seen at the remaining lumbar levels. Posterior disc osteophyte complexes are seen at these levels. There is no CT evidence of large disc herniation or high-grade central canal stenosis. Degenerative endplate sclerosis is noted at L3-L4 and L5-S1. The paraspinous soft tissues are within normal limits. A neurostimulator device is present in the right gluteal soft tissues. This enters the central canal at T10, and extends into the thoracic region and terminates at the level of T9. IMPRESSION: 1. There is intramuscular hemorrhage within the left gluteal musculature with a focus of active extravasation. 2. There is no evidence of solid organ injury in the abdomen or pelvis. 3. Cardiomegaly. 4. There is no evidence of fracture or malalignment involving the lumbar spine. 5. Colonic diverticulosis without CT evidence of acute diverticulitis. 6. The pancreas is atrophic with evidence of chronic pancreatitis. 7. Trace left upper quadrant ascites. 8. Additional findings as above. ACT 112: Negative or not required by law. Electronically signed by: Benoit Azevedo M.D. 11/01/2023 7:41 AM Chest X-Ray 11/01/23 06:00 SINGLE VIEW CHEST CLINICAL HISTORY: Trauma. FINDINGS: An AP, portable, upright chest radiograph is compared to study dated 08/07/2023 and correlated with chest CT dated 12/06/2021. The heart is enlarged. The pulmonary vasculature is noncongested. There is chronic elevation of the left hemidiaphragm with associated atelectasis of left lower lung. No air space consolidation typical for pneumonia or large pleural effusion is identified. No pneumothorax is seen. The skeletal structures are osteopenic. There are chronic/healed bilateral rib fractures. IMPRESSION: Cardiomegaly with no acute cardiopulmonary abnormality. ACT 112: Negative or not required by law. Electronically signed by: Benoit Azeevdo M.D. 11/01/2023 7:[address] 11/01/23 06:00 CT SCAN OF THE ABDOMEN AND PELVIS WITH IV CONTRAST; CT SCAN OF THE LUMBAR SPINE WITH IV CONTRAST CLINICAL HISTORY: Trauma. Fall. COMPARISON STUDY: Abdominal CT dated 02/08/2020. TECHNIQUE: Following the IV administration of 94 cc of Optiray 320, CT scan of the abdomen and pelvis is performed from the lung bases to the proximal femora. Additionally, CT scan of the lumbar spine is performed from the lower thoracic spine to the sacrum. Images for both examinations are reviewed in the axial, sagittal, and coronal planes. IV contrast was administered without complication. A dose lowering technique was utilized adhering to the principles of ALARA. CT DOSE: 3944.52 mGy.cm FINDINGS: Lung bases: The heart is enlarged and without pericardial effusion. There is chronic elevation of the left hemidiaphragm with bibasilar scarring/atelectasis. No airspace consolidation typical for pneumonia or pleural effusion is identified. No basilar pneumothorax is seen. Liver: The contrast-enhanced liver is normal in size, contour, and attenuation. There is minimal central intrahepatic biliary ductal dilatation. The hepatic veins and portal veins are patent. Gallbladder: Surgically absent noting clips in the gallbladder fossa. Spleen: Normal in size and attenuation. Pancreas: The pancreas is atrophic. There are parenchymal and intraductal calculi suggesting chronic pancreatitis. Adrenal glands: Unremarkable. Kidneys: The contrast enhanced kidneys are normal in size and without hydronephrosis. The kidneys enhance symmetrically. A 7 mm complex exophytic cyst is again seen arising from the right upper pole on image #167. Abdominal vasculature: The abdominal aorta is normal in course and caliber. Bowel: There is moderate colonic diverticulosis without CT evidence of acute diverticulitis. No bowel obstruction is seen. There is mild to moderate colonic fecal retention. The appendix is well-visualized and normal. Peritoneum: There is trace perisplenic ascites. No intraperitoneal free air is seen. No intraperitoneal hemorrhage is identified. Lymphadenopathy: None. Pelvic viscera: Evaluation of the pelvis is degraded by streak artifact from a left hip arthroplasty. The prostate gland is enlarged and heterogeneous. The bladder wall is thickened/trabeculated indicating chronic outlet obstruction. There is intramuscular hemorrhage within the left gluteus muscles. A focus of active extravasation is seen on axial image #359. Skeletal structures: The skeletal structures are osteopenic. See below for dedicated discussion of the lumbar spine. The bony pelvis and proximal femora appear intact. Degenerative change is noted in the sacroiliac joints. No lytic or blastic lesions are seen. A left hip arthroplasty is in place. There are chronic/healed bilateral rib fractures. LUMBAR SPINE: Vertebral body height and alignment are maintained throughout the lumbar spine. There is no evidence of fracture or malalignment. Anterior and lateral marginal osteophytes are seen throughout. The transverse and spinous processes are intact. There is no spondylolysis. Facet arthropathy is observed in the lower lumbar spine. There is moderate to severe disc space narrowing at L3-L4, L4-L5, and L5-S1. Milder narrowing is seen at the remaining lumbar levels. Posterior disc osteophyte complexes are seen at these levels. There is no CT evidence of large disc herniation or high-grade central canal stenosis. Degenerative endplate sclerosis is noted at L3-L4 and L5-S1. The paraspinous soft tissues are within normal limits. A neurostimulator device is present in the right gluteal soft tissues. This enters the central canal at T10, and extends into the thoracic region and terminates at the level of T9. IMPRESSION: 1. There is intramuscular hemorrhage within the left gluteal musculature with a focus of active extravasation. 2. There is no evidence of solid organ injury in the abdomen or pelvis. 3. Cardiomegaly. 4. There is no evidence of fracture or malalignment involving the lumbar spine. 5. Colonic diverticulosis without CT evidence of acute diverticulitis. 6. The pancreas is atrophic with evidence of chronic pancreatitis. 7. Trace left upper quadrant ascites. 8. Additional findings as above. ACT 112: Negative or not required by law. Electronically signed by: Benoit Azevedo M.D. 11/01/2023 7:[address] 11/01/23 06:01 CT SCAN OF THE CERVICAL SPINE CLINICAL HISTORY: Trauma. COMPARISON STUDY: CT of the cervical spine dated 08/27/2023. TECHNIQUE: CT scan of the cervical spine is performed from the skull base to the upper thoracic spine. Images are reviewed in the axial, sagittal, and coronal planes. IV contrast was not administered for this examination. A dose lowering technique was utilized adhering to the principles of ALARA. FINDINGS: Skeletal structures: The skeletal structures are osteopenic. There is no evidence of fracture or subluxation involving the cervical spine. Vertebral body height is maintained. There is minimal retrolisthesis at C3-C4. Alignment is otherwise preserved. Anterior osteophytes are seen throughout. The odontoid process and lateral masses are intact. The atlantoaxial articulation is preserved noting advanced productive degenerative change. The spinous processes appear intact. There is moderate multilevel cervical spondylosis. Uncovertebral and facet arthropathy contribute to neural foraminal narrowing at several levels. Intervertebral discs: There is severe disc space narrowing at C3-C4, C5-C6, and C6-C7 with associated endplate sclerosis. Mild to moderate narrowing is seen at the remaining cervical levels. Central canal: Posterior disc osteophyte complexes at C3-C4, C5-C6, and C6-C7 may contribute to acquired compromise of the central canal. Soft tissues: The prevertebral and paraspinous soft tissues are within normal limits. Calvarium: The visualized calvarium at the skull base appears intact. Brain parenchyma: Partially visualized brain parenchyma at the skull base is within normal limits. Mastoids: The mastoid air cells are well pneumatized. Lung apices: Clear as visualized. IMPRESSION: 1. There is no evidence of cervical spine fracture or subluxation. 2. Osteopenia and spondylotic changes as above. ACT 112: Negative or not required by law. Electronically signed by: Benoit Azevedo M.D. 11/01/2023 7:[address] 11/01/23 06:01 CT SCAN OF THE BRAIN WITHOUT IV CONTRAST CLINICAL HISTORY: Trauma. COMPARISON STUDY: CT of the brain dated 08/27/2023. TECHNIQUE: Unenhanced axial CT scan of the brain is performed from the vertex to the skull base. A dose lowering technique was utilized adhering to the principles of ALARA. FINDINGS: Brain parenchyma: There is age-related involutional change noting mild subcortical and periventricular microangiopathic disease. There is no hemorrhage, mass effect, or evidence of acute territorial ischemia by CT criteria. Arellano-white matter differentiation is preserved. No extra-axial fluid collection is seen. Ventricles, sulci, cisterns: Prominent secondary to involutional change. Intracranial vasculature: There is atherosclerotic calcification of the cavernous carotid and vertebral arteries. Calvarium: The skeletal structures are osteopenic. No depressed calvarial fracture is seen. There is chronic deformity of the nasal bones. Sinuses and mastoids: There is trace mucosal thickening within the left maxillary antrum and the sphenoid sinuses. The mastoid air cells are well pneumatized. Orbits: The bony orbits are grossly intact. There are bilateral ocular lens implants. IMPRESSION: There is no hemorrhage, mass effect, or evidence of acute territorial ischemia by CT criteria. ACT 112: Negative or not required by law. Electronically signed by: Benoit Azevedo M.D. 11/01/2023 7:18 AM Discharge Plan Visit Data Chief Complaint: Fall Stated Complaint: Fall, Hip Pain, Alcohol Withdrawl ED Provider: Irene Love Discharge Problem: Fall from standing, Hypomagnesemia, Hematoma of muscle, Alcohol intoxication, Rhabdomyolysis Forms Stand Alone Forms: My [employer] Prescriptions Prescriptions: No Action acetaminophen 500 mg capsule 1,000 mg PO TID 30 Days Qty: 180 0RF Rx Instructions: TAke 3 times per day to lessen pain. alfuzosin [Uroxatral] 10 mg tablet extended release 24 hr 10 mg PO DAILY Qty: 90 3RF Rx Instructions: administer after the same meal each day trazodone 100 mg tablet 200 mg PO HS Qty: 60 11RF Eliquis 5 mg tablet 5 mg PO BID Qty: 180 3RF Hold Instructions: PT. STATED HE IS NOT CURRENTLY TAKING diltiazem HCl 120 mg capsule,extended release 12 hr 120 mg PO DAILY Qty: 30 11RF (DME) Portable Oxygen Misc See Rx Instructions .Route Qty: 1 0RF Rx Instructions: prn dyspnea. portable oxygen concentrator allopurinol 300 mg tablet 300 mg PO QAM Qty: 90 3RF lamotrigine [Lamictal] 150 mg tablet 150 mg PO HS Qty: 30 11RF digoxin 125 mcg (0.125 mg) tablet 125 mcg PO DAILY Qty: 90 3RF oxycodone 5 mg tablet 5 mg PO Q8H PRN (Reason: pain) Qty: 90 0RF Rx Instructions: DNFB 10-11-23 vitamin A 2,400 mcg capsule 2,400 mcg PO DAILY testosterone 75 mg pellet 75 mg implant .COMPLEX Rx Instructions: 75 mg implant Quarterly; zinc gluconate 50 mg tablet 50 mg PO DAILY albuterol sulfate 90 mcg/actuation HFA aerosol inhaler 2 puff inhalation Q4H PRN (Reason: SOB/WHEEZING) mecobalamin (vitamin B12) 1,000 mcg tablet,chewable 1,000 mcg PO DAILY colchicine 0.6 mg capsule 0.6 mg PO DIRECTED PRN (Reason: GOUT FLARE UPS) Qty: 2 5RF Rx Instructions: one pills at onset of gout flare, one pill in 2-6 hours if not resolved no more than 2 pills every 14 days cetirizine 10 mg tablet 5 mg PO DAILY PRN (Reason: Allergy Symptoms) metoprolol succinate 100 mg tablet extended release 24 hr 200 mg PO QAM Qty: 180 3RF metolazone 5 mg tablet 5 mg PO DAILY PRN (Reason: Edema) vitamin B complex Tablet 1 tab PO DAILY cholecalciferol (vitamin D3) [Vitamin D3] 25 mcg (1,000 unit) capsule 5,000 unit PO DAILY bumetanide 1 mg tablet 0 mg PO DAILY Rx Instructions: Take one tablet daily. If weight 240 lbs or greater, increase to 2MG. Reduce to 1MG daily once weight 235 lbs or less. Referrals Referrals: Keith Dimas DO [Primary Care Provider] -
--- NOTE | 2023-11-01 07:26 | CT Scan Report ---
CT SCAN OF THE CERVICAL SPINE CLINICAL HISTORY: Trauma. COMPARISON STUDY: CT of the cervical spine dated 08/27/2023. TECHNIQUE: CT scan of the cervical spine is performed from the skull base to the upper thoracic spine . Images are reviewed in the axial, sagittal, and coronal planes. IV contrast was not administered fo r this examination. A dose lowering technique was utilized adhering to the principles of ALARA. FINDINGS: Skeletal structures: The skeletal structures are osteopenic. There is no evidence of fracture or subl uxation involving the cervical spine. Vertebral body height is maintained. There is minimal retrolist hesis at C3-C4. Alignment is otherwise preserved. Anterior osteophytes are seen throughout. The odont oid process and lateral masses are intact. The atlantoaxial articulation is preserved noting advanced productive degenerative change. The spinous processes appear intact. There is moderate multilevel ce rvical spondylosis. Uncovertebral and facet arthropathy contribute to neural foraminal narrowing at s everal levels. Intervertebral discs: There is severe disc space narrowing at C3-C4, C5-C6, and C6-C7 with associated endplate sclerosis. Mild to moderate narrowing is seen at the remaining cervical levels. Central canal: Posterior disc osteophyte complexes at C3-C4, C5-C6, and C6-C7 may contribute to acqui red compromise of the central canal. Soft tissues: The prevertebral and paraspinous soft tissues are within normal limits. Calvarium: The visualized calvarium at the skull base appears intact. Brain parenchyma: Partially visualized brain parenchyma at the skull base is within normal limits. Mastoids: The mastoid air cells are well pneumatized. Lung apices: Clear as visualized. IMPRESSION: 1. There is no evidence of cervical spine fracture or subluxation. 2. Osteopenia and spondylotic changes as above. ACT 112: Negative or not required by law. Electronically signed by: Benoit Azevedo M.D. 11/01/2023 7:23 AM
[2023-11-01 07:44] LABS: Amphetamines+Metham, Urine Neg (Neg); Barbiturates, Urine Neg (Neg); Benzodiazepine, Urine Neg (Neg); Cocaine, Urine Neg (Neg); MDMA (Ecstacy), Urine Neg (Neg); Marijuana, Urine Neg (Neg); Methadone, Urine Neg (Neg); Opiate, Urine Neg (Neg); Phencyclidine, Urine Neg (Neg)
--- NOTE | 2023-11-01 07:44 | CT Scan Report ---
CT SCAN OF THE ABDOMEN AND PELVIS WITH IV CONTRAST; CT SCAN OF THE LUMBAR SPINE WITH IV CONTRAST CLINICAL HISTORY: Trauma. Fall. COMPARISON STUDY: Abdominal CT dated 02/08/2020. TECHNIQUE: Following the IV administration of 94 cc of Optiray 320, CT scan of the abdomen and pelvi s is performed from the lung bases to the proximal femora. Additionally, CT scan of the lumbar spine is performed from the lower thoracic spine to the sacrum. Images for both examinations are reviewed i n the axial, sagittal, and coronal planes. IV contrast was administered without complication. A dose lowering technique was utilized adhering to the principles of ALARA. CT DOSE: 3944.52 mGy.cm FINDINGS: Lung bases: The heart is enlarged and without pericardial effusion. There is chronic elevation of the left hemidiaphragm with bibasilar scarring/atelectasis. No airspace consolidation typical for pneumo darcie or pleural effusion is identified. No basilar pneumothorax is seen. Liver: The contrast-enhanced liver is normal in size, contour, and attenuation. There is minimal cent ral intrahepatic biliary ductal dilatation. The hepatic veins and portal veins are patent. Gallbladder: Surgically absent noting clips in the gallbladder fossa. Spleen: Normal in size and attenuation. Pancreas: The pancreas is atrophic. There are parenchymal and intraductal calculi suggesting chronic pancreatitis. Adrenal glands: Unremarkable. Kidneys: The contrast enhanced kidneys are normal in size and without hydronephrosis. The kidneys enh ance symmetrically. A 7 mm complex exophytic cyst is again seen arising from the right upper pole on image #[id number]. Abdominal vasculature: The abdominal aorta is normal in course and caliber. Bowel: There is moderate colonic diverticulosis without CT evidence of acute diverticulitis. No bowel obstruction is seen. There is mild to moderate colonic fecal retention. The appendix is well-visual ized and normal. Peritoneum: There is trace perisplenic ascites. No intraperitoneal free air is seen. No intraperitone al hemorrhage is identified. Lymphadenopathy: None. Pelvic viscera: Evaluation of the pelvis is degraded by streak artifact from a left hip arthroplasty. The prostate gland is enlarged and heterogeneous. The bladder wall is thickened/trabeculated indicat ing chronic outlet obstruction. There is intramuscular hemorrhage within the left gluteus muscles. A focus of active extravasation is seen on axial image #[id number]. Skeletal structures: The skeletal structures are osteopenic. See below for dedicated discussion of th e lumbar spine. The bony pelvis and proximal femora appear intact. Degenerative change is noted in th e sacroiliac joints. No lytic or blastic lesions are seen. A left hip arthroplasty is in place. There are chronic/healed bilateral rib fractures. LUMBAR SPINE: Vertebral body height and alignment are maintained throughout the lumbar spine. There i s no evidence of fracture or malalignment. Anterior and lateral marginal osteophytes are seen through out. The transverse and spinous processes are intact. There is no spondylolysis. Facet arthropathy is observed in the lower lumbar spine. There is moderate to severe disc space narrowing at L3-L4, L4-L5 , and L5-S1. Milder narrowing is seen at the remaining lumbar levels. Posterior disc osteophyte compl exes are seen at these levels. There is no CT evidence of large disc herniation or high-grade central canal stenosis. Degenerative endplate sclerosis is noted at L3-L4 and L5-S1. The paraspinous soft ti ssues are within normal limits. A neurostimulator device is present in the right gluteal soft tissues . This enters the central canal at T10, and extends into the thoracic region and terminates at the le raul of T9. IMPRESSION: 1. There is intramuscular hemorrhage within the left gluteal musculature with a focus of active extra vasation. 2. There is no evidence of solid organ injury in the abdomen or pelvis. 3. Cardiomegaly. 4. There is no evidence of fracture or malalignment involving the lumbar spine. 5. Colonic diverticulosis without CT evidence of acute diverticulitis. 6. The pancreas is atrophic with evidence of chronic pancreatitis. 7. Trace left upper quadrant ascites. 8. Additional findings as above. ACT 112: Negative or not required by law. Electronically signed by: Benoit Azevedo M.D. 11/01/2023 7:41 AM
--- NOTE | 2023-11-01 07:47 | XRay Report ---
SINGLE VIEW CHEST CLINICAL HISTORY: Trauma. FINDINGS: An AP, portable, upright chest radiograph is compared to study dated 08/07/2023 and correlat ed with chest CT dated 12/06/2021. The heart is enlarged. The pulmonary vasculature is noncongested. T here is chronic elevation of the left hemidiaphragm with associated atelectasis of left lower lung. N o air space consolidation typical for pneumonia or large pleural effusion is identified. No pneumotho rax is seen. The skeletal structures are osteopenic. There are chronic/healed bilateral rib fractures . IMPRESSION: Cardiomegaly with no acute cardiopulmonary abnormality. ACT 112: Negative or not required by law. Electronically signed by: Benoit Azevedo M.D. 11/01/2023 7:46 AM
[2023-11-01 07:54] LABS: INR 1.1 (0.9-1.1); Prothrombin Time 12.4 Seconds (9.0-12.0)
[2023-11-01] MEDS ORDERED: ACETAMINOPHEN 1,000 MG/100 ML VIAL IV STA (08:38)
[2023-11-01] MEDS ORDERED: MAGNESIUM SULFATE / D5W 1 GM/100 ML BAG IV STA (09:09)
[2023-11-01 09:12] LABS: Allen Test Pos (Pos)
--- NOTE | 2023-11-01 10:22 | History & Physical Report ---
Date of Service November 01, 2023 Assessment & Plan (1) Hematoma of left buttock: Plan: -Admit to the PCU on tele and pulse oximetry -Patient presented to the ED via EMS after sustaining a mechanical fall at home yesterday afternoon around 3 pm -Lost his balance due to alcohol intoxication -Only trauma on imaging obtained in the ED is the left gluteal hematoma with signs of active extravasation -Patient is on Elqiuis, last dose was yesterday morning -Patient's Hgb is stable, vitals have been completely stable, minimal bruising -Orthopaedics was consulted and was comfortable with the patient staying at our facility at this time -Dr. Haynes was consulted by the ED, appreciate her assistance >Will give 2000 units of K-Centra now with his elevated unfractionated Xa level -Hold all anticoagulation -Completed blood consent with patient and will obtain type & screen for now in case he would require transfusion -Will repeat CBC at noon then continue monitoring q6h for now -Orthopedics consult placed to follow while patient is admitted -Bruising has been outlined for monitoring moving forward -HH diet -BL KIN's for DVT PPX -AM CMP, mag, PT/INR (2) Fall from standing: Plan: -Patient experienced a mechanical fall in his home yesterday afternoon due to alcohol intoxication -Denies symptoms such as chest pain, palpitations, SOB, lightheadedness/dizzi ness prior to his fall -Denies hitting head or losing consciousness -See left buttock hematoma for management -Fall precautions, PT/OT consults (3) TYRA (acute kidney injury): Plan: -Cr today is 1.65, baseline is near 1.30 -Patient is dehydrated on exam, will obtain bladder scan to monitor for retention -No signs of hydronephrosis on CT of the abd/pelvis -S/P 1L NSS in the ED, will give a 1L LR bolus then continue with maintenance LR for now -If he is retaining a significant amount will order prn straight caths (4) Alcohol abuse: Plan: -Patient had been in remission but started drinking one week ago when he went to visit family -Has been drinking approximately 1/2 large bottle of mouth wash daily -Has hx of withdrawal but denies withdrawal seizures -Alcohol level at 381 on arrival -No signs of active withdrawal at this time -S/P one banana bag in the ED -Will start AWSS at risk protocol with ativan for now -If he being to go into withdrawal will consider starting Librium as well -Will continue daily B12, folic acid, and thiamine >Will start with 100 mg IV thiamine BID for now, can convert to PO in a few days (5) Hypomagnesemia: Plan: -1.5 on arrival -Likely due to alcohol abuse and poor oral intake -S/P one dose of 1gm IV mag-sulfate in the ED -Will give an additional 2gm IV mag-sulfate on admission -Monitor daily mag level (6) Atrial fibrillation, permanent: Plan: -Currently in rate controlled afib -Hold eliquis with hematoma, will be receiving K-centra shortly -Will give am dose of metoprolol and diltiazem -Will obtain Dig level and dose accordingly -Conitnue to monitor on tele (7) Restrictive lung disease: Plan: -Currently stable on RA -Does use prn O2 at home for SOB -Continue home breathing treatments -Incentive spirometry, flutter therapy, prn O2 to keep SpO2 between 89-92% (8) Hypertension: Plan: -Stable -Holding diuretics as he is dehydrated on exam and has an TYRA -Continue to monitor hemodynamics closely moving forward (9) Nocturnal hypoxia: Plan: -Patient wears 2L NC HS -Will order HS oxygen (10) Heart failure with reduced ejection fraction: Plan: -Currently appears dehydrated -No sign of congestive failure on CXR -Hold diuretics for now with dehydration and TYRA -IV fluids for hydration Plan The patient was discussed with Dr. Nettles at the time of the admission History of Present Illness Chief Complaint: Fall Primary Care Provider: Keith Dimas DO Tom is a 68 year old male with a PMH significant for current alcohol abuse (drinks mouthwash), afib on Eliquis, restrictive lung disease, stage 3 CKD, HFrEF (LVEF of 45-50% as of 10/20/23), HTN, lumbar stenosis, and BPH with urinary obs/LUTS who presented to the [facility] ED via EMS from home after sustaining a fall last night. He remained stable in the ED. Labs were significant for a leukocytosis of 13 with neutrophil predominance of 8.89, MCV of 100.2, CBC which appears hemoconcentrated, VBG pH of 7.42, pO2 of 67, and pCO2 of 44, cr of 1.65 (Baseline is near 1.3), AG of 16 with bicarb of 28, mag of 1.5, total CK of 368, and UA with trace protein, trace ketones/leukocyte esterase, 5-10 WBC, 10-20 epithelial cells and bacteria negative, alcohol level of 381 with urine tox screen negative. CT head, CT cervical spine, Chest Xray, and CT of the lumbar spine were negative for acute trauma. CT of the abd/pelvis w/IV con shows an intramuscular hemorrhage within the left gluteal musculature with a focus of active extravasation and signs of chronic pancreatitis. The ED spoke with Orthopedic surgery who was comfortable with the patient staying at our facility and recommend considering anticoagulation reversal. The ED also spoke with Dr. Haynes who recommended obtaining obtaining an unfractionated Xa prior to doing any anticoagulation reversal. Prior to arrival the patient was given 1L NSS, 1gm Iv mag-sulfate, 1gm IV tylenol, and a banana bag. At the time of the exam the patient was lying in bed in no acute distress. He states that he had been in sobriety until his went to visit family in [place] approximately a week ago. Since then he has been drinking approximately 1/2 of a large bottle of mouth was daily. His last drink was yesterday afternoon around 2 pm. He states that he was walking the his home when he lost his balance and fell, landing on his left hip. He denies symptoms such as lightheadedness, dizziness, chest pain, palpitations, or SOB prior to his fall. He did not hit his head or lose consciousness. He believes he fell around 3 PM yesterday and was on the ground overnight until he was able to reach his cell phone this am. His only complaints at this time are BL hip pain and left buttocks pain. He did not take any of his am medications today. His last dose of Eliquis was yesterday am. When asked, he states that he has gone into withdrawal in the past when he stops drinking but denies withdrawal seizures. He feels as though he is starting to develop mild tremors since arrival. He is a conditional code; he would not want chest compressions or defibrillation in the event of cardiac arrest. In the event of respiratory failure he would want a trial of intubation. His would be his primary decision maker if he could not make decisions himself. Please refer to Dr. Nettles's attestation for any changes to the treatment plan Allergies Allergy/AdvReac Type Severity Reaction Status Date / Time meloxicam Allergy Severe Swollen Verified 11/01/23 09:22 tongue amitriptyline [From Elavil] Allergy Intermediate Hallucinati Verified 11/01/23 09:22 ons aripiprazole [From Abilify] Allergy Intermediate Tremors, Verified 11/01/23 09:22 balance issues, trouble controlling body movements hyoscyamine Allergy Intermediate Hallucinati Verified 11/01/23 09:22 [From Symax Duotab] ons venlafaxine [From Effexor] Allergy Intermediate Hallucinations Verified 11/01/23 09:22 and tremors zolpidem [From Ambien] Allergy Intermediate Hallucinati Verified 11/01/23 09:22 ons Penicillins Allergy Mild Rash Verified 11/01/23 09:22 adhesive tape AdvReac Mild rash, red Verified 11/01/23 09:22 skin Home Medications Medication Instructions Recorded Confirmed Type cetirizine 10 mg tablet 5 mg PO DAILY PRN Allergy Symptoms 11/25/19 10/14/23 History vitamin B complex 1 tab PO DAILY 12/06/21 10/14/23 History acetaminophen 500 mg capsule 1,000 mg (2 x 500 mg) PO TID Pain 03/18/22 10/14/23 Rx 30 days #180 caps albuterol sulfate 90 mcg/actuation 2 puff inhalation Q4H PRN 01/31/23 11/01/23 History aerosol inhaler SOB/WHEEZING cholecalciferol (vitamin D3) 25 5,000 unit PO DAILY 01/31/23 10/14/23 History mcg (1,000 unit) capsule (Vitamin D3) mecobalamin (vitamin B12) 1,000 1,000 mcg PO DAILY 01/31/23 10/14/23 History mcg chewable tablet testosterone 75 mg implant pellet 75 mg implant .COMPLEX 01/31/23 10/14/23 History vitamin A 2,400 mcg capsule 2,400 mcg PO DAILY 01/31/23 10/14/23 History zinc gluconate 50 mg tablet 50 mg PO DAILY 01/31/23 10/14/23 History alfuzosin 10 mg tablet,extended 10 mg PO DAILY #90 tabs 04/16/23 11/01/23 Rx release 24 hr (Uroxatral) metoprolol succinate 100 mg 200 mg (2 x 100 mg) PO QAM #180 04/28/23 11/01/23 Rx tablet,extended release 24 hr tabs trazodone 100 mg tablet 200 mg (2 x 100 mg) PO HS #60 tabs 05/01/23 11/01/23 Rx apixaban 5 mg tablet (Eliquis) 5 mg PO BID #180 tabs 05/14/23 11/01/23 Rx diltiazem HCl 120 mg 120 mg PO DAILY #30 caps 05/28/23 11/01/23 Rx capsule,extended release 12 hr Portable Oxygen #1 ea 07/04/23 10/14/23 Rx allopurinol 300 mg tablet 300 mg PO QAM #90 tabs 07/10/23 11/01/23 Rx lamotrigine 150 mg tablet 150 mg PO HS #30 tabs 07/22/23 11/01/23 Rx (Lamictal) bumetanide 1 mg tablet 0 mg PO DAILY 08/07/23 11/01/23 History digoxin 125 mcg (0.125 mg) tablet 125 mcg PO DAILY #90 tabs 09/29/23 11/01/23 Rx oxycodone 5 mg tablet 5 mg PO Q8H PRN pain #90 tabs 10/06/23 11/01/23 Rx colchicine 0.6 mg capsule 0.6 mg PO DIRECTED PRN GOUT 10/14/23 11/01/23 Rx FLARE UPS #2 caps metolazone 5 mg tablet 5 mg PO DAILY PRN Edema 11/01/23 11/01/23 History Past Med/Surg History Medical History Peripheral neuropathy Atrial fibrillation History of COVID-19 History of hypogonadism Surgical History S/P total left hip arthroplasty H/O hand surgery Hx of vasectomy History of colonoscopy History of tonsillectomy [place] teeth removed History of cataract surgery S/P insertion of spinal cord stimulator History of cholecystectomy Hx of hernia repair Hx of knee surgery Family History Mother Breast cancer Hypertension Sister Diabetes Lung cancer Other No family history of adverse response to anesthesia Denies family history of Ovarian cancer Prostate cancer Myocardial infarction Colorectal cancer Social History Smoking Status: Never smoker Second Hand Exposure: No; Do You Dip or Chew Tobacco: No; Tobacco Cessation Education Requested by Patient: No Hx Alcohol Use: No Hx Substance Use: No Preferred Language: Gambian Communication Ability: Effective Hearing Ability: Use of Hearing Aid Mold Technician Required: No Beliefs That Will Affect Care: None marital status: Current Living Situation: Spouse Current Living Situation Comment: House current occupational status: retired How many Children do You have: 6 How many Children do You have Comment: 2 biological and 4 step-children. Other Information That Helps Us Care for You: No Feels Safe at Home: Yes Safety Concerns: Feels Safe At This Time Childhood Exposure to Second-Hand Smoke: Yes Diet: regular Diet Comment: Optivia diet caffeine: Yes during the past year weight has: remained stable Dental Care, Regularly: No Physical Activity Frequency: Does not Exercise Physical Activity Frequency Comment: CHF Seatbelt Use: always Sunscreen Use: No Do you think of yourself as: straight/heterosexual Gender Identity: Male Assistive Devices: Cane Physical Exam Physical Exam: Physical Exam: General: In no acute distress, stated age, non-toxic appearing HEENT: Normocephalic, atraumatic, no scleral icterus, pupils around round, symmetrical, and reactive to light, dry mucus membranes, trachea midline, no thyromegaly Chest/Pulm: No respiratory distress, symmetrical chest expansion, clear breath sounds throughout Cardiac: irregular rate and rhythm, no murmurs noted Abdomen: Negative for ascites and bruising, normoactive bowel sounds, soft, non-tender to palpation throughout Musculoskeletal: Symmetrical and without signs of acute trauma, upper and lower extremities with full ROM, no atrophy, spasticity, or flaccidity, negative tenderness to palpation of the face, head, and neck Extremities: Radial, dorsalis pedis, and posterior tibial pulses are intact and symmetrical, no edema noted in the BL LE's Skin: patient with an approximately 3 cm x 3 cm area of bruising over the left lateral buttocks; area was outlined with a surgical marker for repeat evaluation Neuro: Alert and oriented to person, place, month, year, and president, no focal defects, no tremors noted Psych: No acute distress, calm and cooperative during the exam Results & Data Results & Data Vital Signs (Past 12 Hours) Vital Signs Temp Pulse Pulse Resp BP BP Pulse Ox 11/01/23 08:40 36.6 C 85 18 123/85 95 11/01/23 06:01 81 11/01/23 05:55 36.4 C L 89 20 130/70 95 O2 Del Method 11/01/23 08:40 Room Air 11/01/23 06:01 11/01/23 05:55 Room Air Laboratory Results Abnormal lab results 11/01/23 11/01/23 11/01/23 Range/Units 06:06 06:48 07:13 WBC 13.11 H (4.8-10.8) K/ul MCV 100.2 H (80.0-100.0) fL MCH 34.2 H (25.0-34.0) pg RDW Std Deviation 49.1 H (36.4-46.3) fL Neut # (Auto) 8.89 H (1.40-6.50) K/uL Amelia # (Auto) 1.28 H (0.11-0.59) K/uL PT 12.4 H (9.0-12.0) Seconds Heparin Anti-Xa, Unfract 0.86 H* (0.3-0.7) IU/ml ABG pO2 67 L (80-95) mmHg ABG HCO3 29 H (19-24) mmol/L ABG Base Excess 3.4 H (-9-1.8) mEq/L Chloride 94 L (98-107) mmol/L Anion Gap 16 H (3-11) Creatinine 1.65 H (0.6-1.4) mg/dl Osmolality 344 H (280-300) mOsm/kg Magnesium 1.5 L (1.7-2.4) mg/dl AST 47 H (13-39) U/L Total Creatine Kinase 368 H (30-223) U/L Lipase < 3 L (11-82) U/L Urine Protein Trace H (Negative) Urine Ketones Trace H (Negative) Ur Leukocyte Esterase Trace H (Negative) Urine WBC (Auto) 5-10 H (0-5) /hpf U Epithel Cells (Auto) 10-20 H (0-5) /lpf Ethyl Alcohol mg/dL 381.2 H (<10.0) mg/dl Diagnostic Findings Abdomen/Pelvis CT 11/01/23 06:00 CT SCAN OF THE ABDOMEN AND PELVIS WITH IV CONTRAST; CT SCAN OF THE LUMBAR SPINE WITH IV CONTRAST CLINICAL HISTORY: Trauma. Fall. COMPARISON STUDY: Abdominal CT dated 02/08/2020. TECHNIQUE: Following the IV administration of 94 cc of Optiray 320, CT scan of the abdomen and pelvis is performed from the lung bases to the proximal femora. Additionally, CT scan of the lumbar spine is performed from the lower thoracic spine to the sacrum. Images for both examinations are reviewed in the axial, sagittal, and coronal planes. IV contrast was administered without complication. A dose lowering technique was utilized adhering to the principles of ALARA. CT DOSE: 3944.52 mGy.cm FINDINGS: Lung bases: The heart is enlarged and without pericardial effusion. There is chronic elevation of the left hemidiaphragm with bibasilar scarring/atelectasis. No airspace consolidation typical for pneumonia or pleural effusion is markell ntified. No basilar pneumothorax is seen. Liver: The contrast-enhanced liver is normal in size, contour, and attenuation. There is minimal central intrahepatic biliary ductal dilatation. The hepatic veins and portal veins are patent. Gallbladder: Surgically absent noting clips in the gallbladder fossa. Spleen: Normal in size and attenuation. Pancreas: The pancreas is atrophic. There are parenchymal and intraductal calculi suggesting chronic pancreatitis. Adrenal glands: Unremarkable. Kidneys: The contrast enhanced kidneys are normal in size and without hydronephrosis. The kidneys enhance symmetrically. A 7 mm complex exophytic cyst is again seen arising from the right upper pole on image #167. Abdominal vasculature: The abdominal aorta is normal in course and caliber. Bowel: There is moderate colonic diverticulosis without CT evidence of acute diverticulitis. No bowel obstruction is seen. There is mild to moderate colonic fecal retention. The appendix is well-visualized and normal. Peritoneum: There is trace perisplenic ascites. No intraperitoneal free air is seen. No intraperitoneal hemorrhage is identified. Lymphadenopathy: None. Pelvic viscera: Evaluation of the pelvis is degraded by streak artifact from a left hip arthroplasty. The prostate gland is enlarged and heterogeneous. The bladder wall is thickened/trabeculated indicating chronic outlet obstruction. There is intramuscular hemorrhage within the left gluteus muscles. A focus of active extravasation is seen on axial image #359. Skeletal structures: The skeletal structures are osteopenic. See below for dedicated discussion of the lumbar spine. The bony pelvis and proximal femora appear intact. Degenerative change is noted in the sacroiliac joints. No lytic or blastic lesions are seen. A left hip arthroplasty is in place. There are chronic/healed bilateral rib fractures. LUMBAR SPINE: Vertebral body height and alignment are maintained throughout the lumbar spine. There is no evidence of fracture or malalignment. Anterior and lateral marginal osteophytes are seen throughout. The transverse and spinous processes are intact. There is no spondylolysis. Facet arthropathy is observed in the lower lumbar spine. There is moderate to severe disc space narrowing at L3-L4, L4-L5, and L5-S1. Milder narrowing is seen at the remaining lumbar levels. Posterior disc osteophyte complexes are seen at these levels. There is no CT evidence of large disc herniation or high-grade central canal stenosis. Degenerative endplate sclerosis is noted at L3-L4 and L5-S1. The paraspinous soft tissues are within normal limits. A neurostimulator device is present in the right gluteal soft tissues. This enters the central canal at T10, and extends into the thoracic region and terminates at the level of T9. IMPRESSION: 1. There is intramuscular hemorrhage within the left gluteal musculature with a focus of active extravasation. 2. There is no evidence of solid organ injury in the abdomen or pelvis. 3. Cardiomegaly. 4. There is no evidence of fracture or malalignment involving the lumbar spine. 5. Colonic diverticulosis without CT evidence of acute diverticulitis. 6. The pancreas is atrophic with evidence of chronic pancreatitis. 7. Trace left upper quadrant ascites. 8. Additional findings as above. ACT 112: Negative or not required by law. Electronically signed by: Benoit Azevedo M.D. 11/01/2023 7:41 AM Chest X-Ray 11/01/23 06:00 SINGLE VIEW CHEST CLINICAL HISTORY: Trauma. FINDINGS: An AP, portable, upright chest radiograph is compared to study dated 08/07/2023 and correlated with chest CT dated 12/06/2021. The heart is enlarged. The pulmonary vasculature is noncongested. There is chronic elevation of the left hemidiaphragm with associated atelectasis of left lower lung. No air space consolidation typical for pneumonia or large pleural effusion is identified. No pneumothorax is seen. The skeletal structures are osteopenic. There are chronic/healed bilateral rib fractures. IMPRESSION: Cardiomegaly with no acute cardiopulmonary abnormality. ACT 112: Negative or not required by law. Electronically signed by: Benoit Azevedo M.D. 11/01/2023 7:[address] 11/01/23 06:00 CT SCAN OF THE ABDOMEN AND PELVIS WITH IV CONTRAST; CT SCAN OF THE LUMBAR SPINE WITH IV CONTRAST CLINICAL HISTORY: Trauma. Fall. COMPARISON STUDY: Abdominal CT dated 02/08/2020. TECHNIQUE: Following the IV administration of 94 cc of Optiray 320, CT scan of the abdomen and pelvis is performed from the lung bases to the proximal femora. Additionally, CT scan of the lumbar spine is performed from the lower thoracic spine to the sacrum. Images for both examinations are reviewed in the axial, sagittal, and coronal planes. IV contrast was administered without complication. A dose lowering technique was utilized adhering to the principles of ALARA. CT DOSE: 3944.52 mGy.cm FINDINGS: Lung bases: The heart is enlarged and without pericardial effusion. There is chronic elevation of the left hemidiaphragm with bibasilar scarring/atelectasis. No airspace consolidation typical for pneumonia or pleural effusion is identified. No basilar pneumothorax is seen. Liver: The contrast-enhanced liver is normal in size, contour, and attenuation. There is minimal central intrahepatic biliary ductal dilatation. The hepatic veins and portal veins are patent. Gallbladder: Surgically absent noting clips in the gallbladder fossa. Spleen: Normal in size and attenuation. Pancreas: The pancreas is atrophic. There are parenchymal and intraductal calculi suggesting chronic pancreatitis. Adrenal glands: Unremarkable. Kidneys: The contrast enhanced kidneys are normal in size and without hydronephrosis. The kidneys enhance symmetrically. A 7 mm complex exophytic cyst is again seen arising from the right upper pole on image #167. Abdominal vasculature: The abdominal aorta is normal in course and caliber. Bowel: There is moderate colonic diverticulosis without CT evidence of acute diverticulitis. No bowel obstruction is seen. There is mild to moderate colonic fecal retention. The appendix is well-visualized and normal. Peritoneum: There is trace perisplenic ascites. No intraperitoneal free air is seen. No intraperitoneal hemorrhage is identified. Lymphadenopathy: None. Pelvic viscera: Evaluation of the pelvis is degraded by streak artifact from a left hip arthroplasty. The prostate gland is enlarged and heterogeneous. The bladder wall is thickened/trabeculated indicating chronic outlet obstruction. There is intramuscular hemorrhage within the left gluteus muscles. A focus of active extravasation is seen on axial image #359. Skeletal structures: The skeletal structures are osteopenic. See below for dedicated discussion of the lumbar spine. The bony pelvis and proximal femora appear intact. Degenerative change is noted in the sacroiliac joints. No lytic or blastic lesions are seen. A left hip arthroplasty is in place. There are chronic/healed bilateral rib fractures. LUMBAR SPINE: Vertebral body height and alignment are maintained throughout the lumbar spine. There is no evidence of fracture or malalignment. Anterior and lateral marginal osteophytes are seen throughout. The transverse and spinous processes are intact. There is no spondylolysis. Facet arthropathy is observed in the lower lumbar spine. There is moderate to severe disc space narrowing at L3-L4, L4-L5, and L5-S1. Milder narrowing is seen at the remaining lumbar level s. Posterior disc osteophyte complexes are seen at these levels. There is no CT evidence of large disc herniation or high-grade central canal stenosis. Degenerative endplate sclerosis is noted at L3-L4 and L5-S1. The paraspinous soft tissues are within normal limits. A neurostimulator device is present in the right gluteal soft tissues. This enters the central canal at T10, and extends into the thoracic region and terminates at the level of T9. IMPRESSION: 1. There is intramuscular hemorrhage within the left gluteal musculature with a focus of active extravasation. 2. There is no evidence of solid organ injury in the abdomen or pelvis. 3. Cardiomegaly. 4. There is no evidence of fracture or malalignment involving the lumbar spine. 5. Colonic diverticulosis without CT evidence of acute diverticulitis. 6. The pancreas is atrophic with evidence of chronic pancreatitis. 7. Trace left upper quadrant ascites. 8. Additional findings as above. ACT 112: Negative or not required by law. Electronically signed by: Benoit Azevedo M.D. 11/01/2023 7:[address] 11/01/23 06:01 CT SCAN OF THE CERVICAL SPINE CLINICAL HISTORY: Trauma. COMPARISON STUDY: CT of the cervical spine dated 08/27/2023. TECHNIQUE: CT scan of the cervical spine is performed from the skull base to the upper thoracic spine. Images are reviewed in the axial, sagittal, and coronal planes. IV contrast was not administered for this examination. A dose lowering technique was utilized adhering to the principles of ALARA. FINDINGS: Skeletal structures: The skeletal structures are osteopenic. There is no evidence of fracture or subluxation involving the cervical spine. Vertebral body height is maintained. There is minimal retrolisthesis at C3-C4. Alignment is otherwise preserved. Anterior osteophytes are seen throughout. The odontoid process and lateral masses are intact. The atlantoaxial articulation is preserved noting advanced productive degenerative change. The spinous processes appear intact. There is moderate multilevel cervical spondylosis. Uncovertebral and facet arthropathy contribute to neural foraminal narrowing at several levels. Intervertebral discs: There is severe disc space narrowing at C3-C4, C5-C6, and C6-C7 with associated endplate sclerosis. Mild to moderate narrowing is seen at the remaining cervical levels. Central canal: Posterior disc osteophyte complexes at C3-C4, C5-C6, and C6-C7 may contribute to acquired compromise of the central canal. Soft tissues: The prevertebral and paraspinous soft tissues are within normal limits. Calvarium: The visualized calvarium at the skull base appears intact. Brain parenchyma: Partially visualized brain parenchyma at the skull base is within normal limits. Mastoids: The mastoid air cells are well pneumatized. Lung apices: Clear as visualized. IMPRESSION: 1. There is no evidence of cervical spine fracture or subluxation. 2. Osteopenia and spondylotic changes as above. ACT 112: Negative or not required by law. Electronically signed by: Benoit Azevedo M.D. 11/01/2023 7:[address] 11/01/23 06:01 CT SCAN OF THE BRAIN WITHOUT IV CONTRAST CLINICAL HISTORY: Trauma. COMPARISON STUDY: CT of the brain dated 08/27/2023. TECHNIQUE: Unenhanced axial CT scan of the brain is performed from the vertex to the skull base. A dose lowering technique was utilized adhering to the principles of ALARA. FINDINGS: Brain parenchyma: There is age-related involutional change noting mild subcortical and periventricular microangiopathic disease. There is no hemorrhage, mass effect, or evidence of acute territorial ischemia by CT criteria. Arellano-white matter differentiation is preserved. No extra-axial fluid collection is seen. Ventricles, sulci, cisterns: Prominent secondary to involutional change. Intracranial vasculature: There is atherosclerotic calcification of the cavernous carotid and vertebral arteries. Calvarium: The skeletal structures are osteopenic. No depressed calvarial fracture is seen. There is chronic deformity of the nasal bones. Sinuses and mastoids: There is trace mucosal thickening within the left maxillary antrum and the sphenoid sinuses. The mastoid air cells are well pneumatized. Orbits: The bony orbits are grossly intact. There are bilateral ocular lens implants. IMPRESSION: There is no hemorrhage, mass effect, or evidence of acute territorial ischemia by CT criteria. ACT 112: Negative or not required by law. Electronically signed by: Benoit Azevedo M.D. 11/01/2023 7:18 AM ECG Additional Comments: Atrial fibrillation Low voltage QRS Septal infarct (cited on or before 27-AUG-2023) Abnormal ECG When compared with ECG of 27-AUG-2023 22:11, No significant change was found Code Status & VTE Plan Code Status Conditional code; No CPR or defibrillation if cardiac arrest. Would want trial of intubation in the event of respiratory failure VTE Prophylaxis Plan VTE Prophylaxis will be ordered: Yes Supervising Physician Co-Signing Physician Notes I personally saw and examined the patient. I verified all meza points and agree with Hai Seymour PA-C with the following exceptions and/or additions: 68-year-old male presents to the ER following a fall last night due to alcohol intoxication. Having pain in his left hip today. Left gluteal muscle intramuscular hemorrhage noted on CT. Recently went back to drinking earlier this week and drinking half bottle of mouthwash daily. O/E Patient appears diaphoretic, HS regular rate, irregular rhythm, no murmurs, chest clear to auscultation bilaterally, abdomen soft nontender, no CVA tenderness, no unilateral focal weakness, bilateral resting tremors, mild ecchymosis over the left gluteal region outlined with surgical marker. A/P Gluteal intramuscular hemorrhage - Kcentra given in ER. Hold Eliquis. Unable to exclude extravasation on CT however his hemoglobin has been relatively stable. Continue to trend q.6 hourly. Transfusion threshold of hemoglobin < 7. Alcohol withdrawal - when patient reviewed in better 211 his signs have withdrawal symptoms and was given lorazepam 1 mg around 4 PM. Currently having tremors and diaphoresis. Will start phenobarbital 520 mg IV loading dose followed by 65 mg IV x 2 if needed over the next 2 hours, PRN dose of 65 mg IV q.6 hourly for RASS >= 2 or hallucinations, start tapering dose oral dose tomorrow. Fall - suspect secondary to alcohol intoxication, PT/OT Otherwise as above PG Care Time/CCT Total # of Minutes Spent Total Time Spent with Patient: Total time spent is greater than 50% in coordination of care (as documented) at patient's floor/unit and/or counseling patient: Coding [place] [address] INT INP/OBS CARE 3/75MIN Patient Type Established Medical Decision Making High Complexity Diagnoses Hematoma of left buttock S30.0XXA Fall from standing W19.XXXA TYRA (acute kidney injury) N17.9 Alcohol abuse F10.10 Hypomagnesemia E83.42 Atrial fibrillation, permanent I48.21 Restrictive lung disease J98.4 Hypertension I10 Nocturnal hypoxia G47.34 Heart failure with reduced ejection fraction I50.20
[2023-11-01] MEDS ORDERED: LORazepam 1 MG in SYRINGE 0.5 ML IV PRN (10:28)
[2023-11-01 10:43] LABS: ANTI-Xa, UFH(UnfractionatedHep 0.86 IU/ml (0.3-0.7)
[2023-11-01] MEDS ORDERED: METOPROLOL SUCC 50MG EXT REL TAB PO STA (10:51)
[2023-11-01] MEDS ORDERED: dilTIAZem HCL 120 MG CAPCR PO STA (10:52)
[2023-11-01] MEDS ORDERED: LACTATED RINGER'S 1,000 ML IV ONE (10:53)
[2023-11-01] MEDS ORDERED: KCENTRA (500unit vial) 2000 units IVP IV ONE (11:30)
[2023-11-01 12:21] LABS: Basophils # (auto) 0.07 K/uL (0.00-0.20); Basophils % (auto) 0.6 %; Eosinophils # (auto) 0.01 K/uL (0.00-0.50); Eosinophils % (auto) 0.1 %; Hematocrit (blood only) 43.3 % (42.0-52.0); Hemoglobin 15.5 g/dl (14.0-18.0); Immature Granulocytes # (auto) 0.06 K/uL (0.01-0.20); Immature Granulocytes % (auto) 0.5 %; Lymphocytes # (auto) 2.13 K/uL (1.20-3.40); Lymphocytes % (auto) 18.9 %; Mean Corpuscular Hemoglobin 35.3 pg (25.0-34.0); Mean Corpuscular Hgb Conc 35.8 g/dL (32.0-36.0); Mean Corpuscular Volume 98.6 fL (80.0-100.0); Mean Platelet Volume 9.5 fL (9.4-12.4); Monocytes # (auto) 0.98 K/uL (0.11-0.59); Monocytes % (auto) 8.7 %; Neutrophils # (auto) 8.01 K/uL (1.40-6.50); Neutrophils % (auto) 71.2 %; Platelet Count 227 K/uL (130-400); RDW Coefficient of Variation 13.2 % (11.5-14.5); Red Blood Count 4.39 M/uL (4.70-6.10); White Blood Count 11.26 K/ul (4.8-10.8)
[2023-11-01] MEDS ORDERED: LACTATED RINGER'S 1,000 ML IV SCH (12:27)
[2023-11-01] MEDS ORDERED: ALBUTEROL HFA 8 GM INHALER INH PRN (12:27)
[2023-11-01] MEDS: MAGNESIUM SULFATE / D5W 1 GM/100 ML BAG IV SCH ×2 (12:52→14:26)
[2023-11-01] MEDS ORDERED: DIGOXIN 0.125 MG TAB PO ONE (13:26)
--- NOTE | 2023-11-01 18:17 | XRay Report ---
LEFT HIP 2 VIEWS CLINICAL HISTORY: Left hip pain. FINDINGS: AP and frog-leg views of the left hip are compared to study dated 03/19/2022 and correlated w ith pelvic CT performed the same day 11/01/2023. The skeletal structures are osteopenic. There is no radiographic evidence of acute fracture involving the left hip or the visualized left hemipelvis. A l eft hip arthroplasty is in near anatomic alignment. No periprosthetic lucency is seen. Degenerative s clerosis is noted in the left sacroiliac joint and the pubic symphysis. Soft tissue edema is suggeste d the left gluteal tissues. There is atherosclerotic calcification of the left femoral artery. IMPRESSION: 1. No acute bony abnormality is identified. 2. A left hip arthroplasty is in near anatomic alignment. Electronically signed by: Benoit Azevedo M.D. 11/01/2023 6:15 PM
[2023-11-01 18:23] LABS: Basophils # (auto) 0.07 K/uL (0.00-0.20); Basophils % (auto) 0.6 %; Eosinophils # (auto) 0.02 K/uL (0.00-0.50); Eosinophils % (auto) 0.2 %; Hematocrit (blood only) 41.7 % (42.0-52.0); Hemoglobin 14.8 g/dl (14.0-18.0); Immature Granulocytes # (auto) 0.07 K/uL (0.01-0.20); Immature Granulocytes % (auto) 0.6 %; Lymphocytes # (auto) 2.21 K/uL (1.20-3.40); Lymphocytes % (auto) 20.4 %; Mean Corpuscular Hemoglobin 34.8 pg (25.0-34.0); Mean Corpuscular Hgb Conc 35.5 g/dL (32.0-36.0); Mean Corpuscular Volume 98.1 fL (80.0-100.0); Mean Platelet Volume 9.6 fL (9.4-12.4); Monocytes # (auto) 1.28 K/uL (0.11-0.59); Monocytes % (auto) 11.8 %; Neutrophils # (auto) 7.19 K/uL (1.40-6.50); Neutrophils % (auto) 66.4 %; Platelet Count 225 K/uL (130-400); RDW Coefficient of Variation 13.2 % (11.5-14.5); RDW Standard Deviation 47.7 fL (36.4-46.3); Red Blood Count 4.25 M/uL (4.70-6.10); White Blood Count 10.84 K/ul (4.8-10.8)
[2023-11-01] MEDS ORDERED: PHENobarbital sodium 65 MG/ML VIAL IV STA (18:57)
[2023-11-01] MEDS ORDERED: PHENobarbital PO Alcohol Withdrawal PO STA (18:57)
[2023-11-01] MEDS ORDERED: PHENobarbital sodium 65 MG/ML VIAL IV PRN (19:12)
[2023-11-01] MEDS: lamoTRIgine 100 MG TAB PO SCH (20:34)
[2023-11-02 01:09] LABS: Basophils # (auto) 0.06 K/uL (0.00-0.20); Basophils % (auto) 0.6 %; Eosinophils # (auto) 0.02 K/uL (0.00-0.50); Eosinophils % (auto) 0.2 %; Hematocrit (blood only) 39.8 % (42.0-52.0); Immature Granulocytes # (auto) 0.08 K/uL (0.01-0.20); Immature Granulocytes % (auto) 0.7 %; Lymphocytes # (auto) 1.93 K/uL (1.20-3.40); Lymphocytes % (auto) 17.9 %; Mean Corpuscular Hemoglobin 34.8 pg (25.0-34.0); Mean Corpuscular Hgb Conc 35.2 g/dL (32.0-36.0); Mean Platelet Volume 10.1 fL (9.4-12.4); Monocytes # (auto) 1.19 K/uL (0.11-0.59); Neutrophils % (auto) 69.6 %; Platelet Count 208 K/uL (130-400); RDW Coefficient of Variation 13.1 % (11.5-14.5); RDW Standard Deviation 47.9 fL (36.4-46.3); Red Blood Count 4.02 M/uL (4.70-6.10); White Blood Count 10.78 K/ul (4.8-10.8)
[2023-11-02] MEDS: LIDOCAINE 5% 1 PATCH TD SCH ×2 (01:33→21:09)
[2023-11-02] MEDS: PHENobarbital sodium 65 MG/ML VIAL IV PRN ×2 (01:33→15:00)
[2023-11-02] MEDS ORDERED: PHENobarbitaL sodium 65 MG in SYRINGE 0 ML IV ONE (06:30)
[2023-11-02 07:08] LABS: Basophils # (auto) 0.07 K/uL (0.00-0.20); Basophils % (auto) 0.6 %; Eosinophils # (auto) 0.03 K/uL (0.00-0.50); Eosinophils % (auto) 0.3 %; Hematocrit (blood only) 39.3 % (42.0-52.0); Hemoglobin 13.7 g/dl (14.0-18.0); Immature Granulocytes # (auto) 0.07 K/uL (0.01-0.20); Immature Granulocytes % (auto) 0.6 %; Lymphocytes % (auto) 15.3 %; Mean Corpuscular Hemoglobin 34.9 pg (25.0-34.0); Mean Corpuscular Hgb Conc 34.9 g/dL (32.0-36.0); Mean Platelet Volume 9.8 fL (9.4-12.4); Monocytes # (auto) 1.21 K/uL (0.11-0.59); Monocytes % (auto) 10.9 %; Neutrophils # (auto) 8.03 K/uL (1.40-6.50); Neutrophils % (auto) 72.3 %; Platelet Count 191 K/uL (130-400); RDW Coefficient of Variation 13.1 % (11.5-14.5); RDW Standard Deviation 48.3 fL (36.4-46.3); Red Blood Count 3.93 M/uL (4.70-6.10); White Blood Count 11.11 K/ul (4.8-10.8)
[2023-11-02 07:50] LABS: Albumin Globulin Ratio 1.6 (0.9-2); Albumin Level 3.1 gm/dl (3.4-5.0); BUN Creatinine Ratio 13.8 (10-20); Bilirubin,Total 1.3 mg/dl (0.2-1.0); Calcium 8.2 mg/dl (8.6-10.3); Creatinine Clr Calc Pharmacy 101.1 ml/min; Est GFR (African American) 95.5 ml/min; Est GFR (Non-African American) 82.4 ml/min; Magnesium 1.6 mg/dl (1.7-2.4); Potassium 2.9 mmol/L (3.5-5.1); Total Protein 5.1 gm/dl (6.0-8.3)
[2023-11-02] MEDS ORDERED: MAGNESIUM SULFATE / D5W 1 GM/100 ML BAG IV ONE (07:55)
--- NOTE | 2023-11-02 08:04 | Hospitalist Progress Note ---
Date of Service November 02, 2023 Assessment & Plan (1) Hematoma of left buttock: Plan: Patient presented to the ED via EMS after sustaining a mechanical fall at home fell due to alcohol intoxication, taking apixaban for afib admission CT: left gluteal hematoma with signs of active extravasation -abixaban stopped -Patient's Hgb is stable, unchanged 11/02 AM, vitals have been completely stable, minimal bruising -Orthopaedics was consulted and was comfortable with the patient staying at our facility at this time -Dr. Haynes was consulted by the ED, appreciate her assistance >given 2000 units of K-Centra at admission, had elevated unfractionated Xa level -blood transfusion consent is in chart -continue monitoring q6h hct for now - added scheduled acetaminophen and low-dose oxycodone as needed pain - reviewed recommendations from Ortho consult, march weight-bear as tolerated, follow-up with Dr. August his outpatient orthopedist -AM CMP, mag, PT/INR - reviewed 11/02 (2) Fall from standing: Plan: -Patient experienced a mechanical fall in his home yesterday afternoon due to alcohol intoxication -Denies symptoms such as chest pain, palpitations, SOB, lightheadedness/dizziness prior to his fall -Denies hitting head or losing consciousness -See left buttock hematoma for management -Fall precautions, PT/OT consults (3) TYRA (acute kidney injury): Plan: -Cr on admission is 1.65, baseline is near 1.30 -prerenal, resolved after IV fluids (4) Alcohol abuse: Plan: -Patient had been in remission but started drinking one week ago when he went to visit family -Has been drinking approximately 1/2 large bottle of mouth wash daily -Has hx of withdrawal but denies withdrawal seizures -Alcohol level at 381 on arrival -No signs of active withdrawal at this time -S/P one banana bag in the ED -continue AWSS at risk protocol with phenobarbital -Will continue daily B12, folic acid, and thiamine >Will start with 100 mg IV thiamine BID for now, can convert to PO in a few days (5) Hypomagnesemia: Plan: -1.5 on arrival, replaced 3g IV, still 1.6 11/02 ordered mag 1g IV, check in am -due to alcohol abuse and poor oral intake (6) Atrial fibrillation, permanent: Plan: -Currently in rate controlled afib -apixaban stopped -cont metoprolol and diltiazem -dig level not elevated. hold digoxin with current electrolyte abnormalities (7) Restrictive lung disease: Plan: -Currently stable on RA -Does use prn O2 at home for SOB -Continue home breathing treatments -Incentive spirometry, flutter therapy, prn O2 to keep SpO2 between 89-92% (8) Hypertension: Plan: -Stable -Holding diuretics, meds as above -Continue to monitor hemodynamics closely moving forward (9) Nocturnal hypoxia: Plan: -Patient wears 2L NC HS -Will order HS oxygen (10) Heart failure with reduced ejection fraction: Plan: -Hold diuretics for now with dehydration and TYRA -cont metoprolol (11) Hypokalemia: Plan: Severe, K 2.9 on 11/02 -continue tele -replace po 40 meq x 2 doses, replete mag -recheck K 4pm Plan DVT ppx: SCDs Admission and Anticipated Discharge Date Admission Date: November 01, 2023 Subjective Mr. Lion is feeling better today generally, he has left buttock pain that is improved from last night but still quite painful and requests pain medication for this. He was able to ambulate with PT though it was painful. No increase in swelling of his left buttock. No lightheadedness or orthostasis. He is having alcohol withdrawal symptoms including shakes and tremors, denies hallucinations. States his is coming back into town from [place] in the next day or 2. Physical Exam 2 Physical Exam: PHYSICAL EXAMINATION Last 24h vital signs reviewed, see documentation in flowsheet General: comfortable appearing, no distress HEENT: Normocephalic, atraumatic, pupils round and equal, sclerae anicteric, no conjunctival injection, moist mucus membranes Lungs: Normal respiratory effort. Clear to auscultation bilaterally. No RRW Heart: Regular rate and rhythm, no murmurs. No JVD Abdomen: Soft, nontender, nondistended. Bowel sounds present. Extremities: Warm, dry, well-perfused. No extremity edema. Left buttock with firm swelling lateral area, has not extended past demarcated area however seems to probably have flattened out Neuro: Alert and oriented x 4, mildly tremulous bilateral upper extremities, face symmetric, moves 4 extremities well skin is warm dry no rashes not damp. Psych: Normal affect and behavior, denies hallucinosis Results & Data Results & Data Vital Signs (Past 12 Hours) Vital Signs Temp Pulse Pulse Resp BP BP BP 11/02/23 07:36 36.6 C 70 18 119/78 11/02/23 06:32 79 21 114/86 11/02/23 05:56 37.1 C 87 21 128/86 11/02/23 03:01 36.5 C 74 20 112/72 11/02/23 01:33 92 H 22 127/83 11/01/23 23:09 36.9 C 80 18 134/90 11/01/23 23:00 84 11/01/23 20:00 11/01/23 19:58 99 H 21 133/91 Pulse Ox O2 Del Method O2 Flow Rate 11/02/23 07:36 97 Nasal Cannula 2 11/02/23 06:32 11/02/23 05:56 98 Nasal Cannula 2 11/02/23 03:01 97 Nasal Cannula 2 11/02/23 01:33 11/01/23 23:09 97 Nasal Cannula 2 11/01/23 23:00 11/01/23 20:00 Nasal Cannula 2 11/01/23 19:58 Laboratory Results 11/02/23 06:53 11/02/23 06:53 PG Care Time/CCT Total # of Minutes Spent Total Time Spent with Patient: Total time spent is greater than 50% in coordination of care (as documented) at patient's floor/unit and/or counseling patient: Coding Level of Care Code 64065 SUB INP/OBS CARE 2/35MIN Diagnoses Hematoma of left buttock S30.0XXA Fall from standing W19.XXXA TYRA (acute kidney injury) N17.9 Alcohol abuse F10.10 Hypomagnesemia E83.42 Atrial fibrillation, permanent I48.21 Restrictive lung disease J98.4 Hypertension I10 Nocturnal hypoxia G47.34 Heart failure with reduced ejection fraction I50.20 Hypokalemia E87.6
[2023-11-02 08:10] LABS: INR 1.1 (0.9-1.1); Prothrombin Time 11.9 Seconds (9.0-12.0)
[2023-11-02] MEDS: POTASSIUM CHLORIDE CRTAB 20 MEQ TABCR PO SCH ×2 (08:26→12:04)
[2023-11-02] MEDS: CYANOCOBALAMIN (B-12) 100 MCG TABLET PO SCH (09:10)
[2023-11-02] MEDS: METOPROLOL SUCC 50MG EXT REL TAB PO SCH (09:10)
[2023-11-02] MEDS: FOLIC ACID 1 MG TAB PO SCH (09:10)
[2023-11-02] MEDS: dilTIAZem HCL 120 MG CAPCR PO SCH (09:10)
[2023-11-02] MEDS: THIAMINE HCL 100 MG in SYRINGE 9 ML IV SCH ×2 (09:10→21:07)
[2023-11-02] MEDS: allopurinoL 300 MG TAB PO SCH (09:10)
[2023-11-02] MEDS: TAMSULOSIN HCL 0.4 MG CAP PO SCH (09:10)
[2023-11-02] MEDS: ACETAMINOPHEN 325 MG TAB PO SCH ×3 (10:21→21:07)
[2023-11-02] MEDS: oxyCODONE HCL IR 5 MG TAB (IMMEDIATE RELEASE) PO PRN ×2 (10:21→21:18)
--- NOTE | 2023-11-02 11:35 | Orthopedic Consultation ---
Date of Consultation November 02, 2023 Assessment & Plan (1) Alcohol abuse: (2) Hematoma of left buttock: Findings discussed with patient. X-rays are negative. Uncomplicated hip replacement. Labs and vitals are noted. He is hemodynamically stable and his hematocrit today is 39. CT scan shows a hematoma of the left hip with some extravasation. His blood thinners have been held and he was given Kcentra. In regards to his left hip. Hip precautions. Otherwise range of motion as tolerated. Activities as tolerated with assistance. He may weight-bear as tolerated with PT OT and use a walker. He can follow-up with me 7 to 10 days postdischarge. However he is an established patient with Dr. August and if possible I would recommend that he follow-up with him. Anticoagulation can be resumed when appropriate. I would do heat or ice on the hematoma. He does not require operative intervention for this. (3) Fall from standing: (4) History of left hip replacement: History of Present Illness Attending Physician: Diana Boyd MD History of Present Illness The patient is 68 years old. Reports having and alcohol problem. Went on a drinking binge. Apparently fell approximately 1 day ago. He reports that he laid there for 8 hours and could not get up. He called 911. He was brought to the hospital. He reports landing directly on his left hip. He also reports that he had his left hip replaced. He indicated that this was about 3 months ago. He did not recall who the doctor was. Procedure was done in approximately March [address] August. He reports 8 out of 10 pain laying in bed. He was able to get up with PT to stand and walk a few steps he reports. With pain. Allergies Allergy/AdvReac Type Severity Reaction Status Date / Time meloxicam Allergy Severe Swollen Verified 11/01/23 09:22 tongue amitriptyline [From Elavil] Allergy Intermediate Hallucinati Verified 11/01/23 09:22 ons aripiprazole [From Abilify] Allergy Intermediate Tremors, Verified 11/01/23 09:22 balance issues, trouble controlling body movements hyoscyamine Allergy Intermediate Hallucinati Verified 11/01/23 09:22 [From Symax Duotab] ons venlafaxine [From Effexor] Allergy Intermediate Hallucinations Verified 11/01/23 09:22 and tremors zolpidem [From Ambien] Allergy Intermediate Hallucinati Verified 11/01/23 09:22 ons Penicillins Allergy Mild Rash Verified 11/01/23 09:22 adhesive tape AdvReac Mild rash, red Verified 11/01/23 09:22 skin Home Medications Medication Instructions Recorded Confirmed Type cetirizine 10 mg tablet 5 mg PO DAILY PRN Allergy Symptoms 11/25/19 10/14/23 History vitamin B complex 1 tab PO DAILY 12/06/21 10/14/23 History acetaminophen 500 mg capsule 1,000 mg (2 x 500 mg) PO TID Pain 03/18/22 10/14/23 Rx 30 days #180 caps albuterol sulfate 90 mcg/actuation 2 puff inhalation Q4H PRN 01/31/23 11/01/23 History aerosol inhaler SOB/WHEEZING cholecalciferol (vitamin D3) 25 5,000 unit PO DAILY 01/31/23 10/14/23 History mcg (1,000 unit) capsule (Vitamin D3) mecobalamin (vitamin B12) 1,000 1,000 mcg PO DAILY 01/31/23 10/14/23 History mcg chewable tablet testosterone 75 mg implant pellet 75 mg implant .COMPLEX 01/31/23 10/14/23 History vitamin A 2,400 mcg capsule 2,400 mcg PO DAILY 01/31/23 10/14/23 History zinc gluconate 50 mg tablet 50 mg PO DAILY 01/31/23 10/14/23 History alfuzosin 10 mg tablet,extended 10 mg PO DAILY #90 tabs 04/16/23 11/01/23 Rx release 24 hr (Uroxatral) metoprolol succinate 100 mg 200 mg (2 x 100 mg) PO QAM #180 04/28/23 11/01/23 Rx tablet,extended release 24 hr tabs trazodone 100 mg tablet 200 mg (2 x 100 mg) PO HS #60 tabs 05/01/23 11/01/23 Rx apixaban 5 mg tablet (Eliquis) 5 mg PO BID #180 tabs 05/14/23 11/01/23 Rx diltiazem HCl 120 mg 120 mg PO DAILY #30 caps 05/28/23 11/01/23 Rx capsule,extended release 12 hr Portable Oxygen #1 ea 07/04/23 10/14/23 Rx allopurinol 300 mg tablet 300 mg PO QAM #90 tabs 07/10/23 11/01/23 Rx lamotrigine 150 mg tablet 150 mg PO HS #30 tabs 07/22/23 11/01/23 Rx (Lamictal) bumetanide 1 mg tablet 0 mg PO DAILY 08/07/23 11/01/23 History digoxin 125 mcg (0.125 mg) tablet 125 mcg PO DAILY #90 tabs 09/29/23 11/01/23 Rx oxycodone 5 mg tablet 5 mg PO Q8H PRN pain #90 tabs 10/06/23 11/01/23 Rx colchicine 0.6 mg capsule 0.6 mg PO DIRECTED PRN GOUT 10/14/23 11/01/23 Rx FLARE UPS #2 caps metolazone 5 mg tablet 5 mg PO DAILY PRN Edema 11/01/23 11/01/23 History Patient History Medical History Peripheral neuropathy Atrial fibrillation History of COVID-19 History of hypogonadism Surgical History S/P total left hip arthroplasty H/O hand surgery Hx of vasectomy History of colonoscopy History of tonsillectomy [place] teeth removed History of cataract surgery S/P insertion of spinal cord stimulator History of cholecystectomy Hx of hernia repair Hx of knee surgery Family History Mother Breast cancer Hypertension Sister Diabetes Lung cancer Other No family history of adverse response to anesthesia Denies family history of Ovarian cancer Prostate cancer Myocardial infarction Colorectal cancer Social History Smoking Status: Never smoker Second Hand Exposure: No; Do You Dip or Chew Tobacco: No; Tobacco Cessation Education Requested by Patient: No Hx Alcohol Use: No Hx Substance Use: No Preferred Language: Moldovan Communication Ability: Effective Hearing Ability: Use of Hearing Aid Armature Rewinder Required: No Beliefs That Will Affect Care: None marital status: Current Living Situation: Spouse Current Living Situation Comment: House current occupational status: retired How many Children do You have: 6 How many Children do You have Comment: 2 biological and 4 step-children. Other Information That Helps Us Care for You: No Feels Safe at Home: Yes Safety Concerns: Feels Safe At This Time Childhood Exposure to Second-Hand Smoke: Yes Diet: regular Diet Comment: Optivia diet caffeine: Yes during the past year weight has: remained stable Dental Care, Regularly: No Physical Activity Frequency: Does not Exercise Physical Activity Frequency Comment: CHF Seatbelt Use: always Sunscreen Use: No Do you think of yourself as: straight/heterosexual Gender Identity: Male Assistive Devices: Cane Physical Exam Physical Exam: DP pulse 1+. Posterior tib pulse trace. Sensation intact. Left leg is not bruised or swollen. 5 out of 5 ankle and toe plantarflexion dorsiflexion inversion and eversion strength. He can flex his knee to 90 and hip to about 45 degrees. There is limited and uncomfortable rotatory movements of the left hip. He can do an active straight leg raise and actively abduct his hip. With discomfort he can position himself on the right side. There is a well-healed posterior hip incision with mild swelling of the gluteal region and a bruise present. This area is tender to palpation. The bony portion of the hip and pelvis do not appear to be tender. Skin intact. Results & Data Vital Signs (Past 12 Hours) Vital Signs Temp Pulse Pulse Resp BP BP Pulse Ox 11/02/23 10:45 36.8 C 78 18 124/94 95 11/02/23 07:36 36.6 C 70 18 119/78 97 11/02/23 06:32 79 21 114/86 11/02/23 05:56 37.1 C 87 21 128/86 98 11/02/23 03:01 36.5 C 74 20 112/72 97 11/02/23 01:33 92 H 22 127/83 O2 Del Method O2 Flow Rate 11/02/23 10:45 Room Air 11/02/23 07:36 Nasal Cannula 2 11/02/23 06:32 11/02/23 05:56 Nasal Cannula 2 11/02/23 03:01 Nasal Cannula 2 11/02/23 01:33 Laboratory Results Laboratory Results WBC 11.11 K/ul (4.8-10.8) H 11/02/23 06:53 RBC 3.93 M/uL (4.70-6.10) L 11/02/23 06:53 Hgb 13.7 g/dl (14.0-18.0) L 11/02/23 06:53 Hct 39.3 % (42.0-52.0) L 11/02/23 06:53 MCV 100.0 fL (80.0-100.0) 11/02/23 06:53 MCH 34.9 pg (25.0-34.0) H 11/02/23 06:53 MCHC 34.9 g/dL (32.0-36.0) 11/02/23 06:53 RDW Std Deviation 48.3 fL (36.4-46.3) H 11/02/23 06:53 RDW Coeff of Daniel 13.1 % (11.5-14.5) 11/02/23 06:53 Plt Count 191 K/uL (130-400) 11/02/23 06:53 MPV 9.8 fL (9.4-12.4) 11/02/23 06:53 Immature Gran % (Auto) 0.6 % 11/02/23 06:53 Neut % (Auto) 72.3 % 11/02/23 06:53 Lymph % (Auto) 15.3 % 11/02/23 06:53 Webb % (Auto) 10.9 % 11/02/23 06:53 Eos % (Auto) 0.3 % 11/02/23 06:53 Baso % (Auto) 0.6 % 11/02/23 06:53 Neut # (Auto) 8.03 K/uL (1.40-6.50) H 11/02/23 06:53 Lymph # (Auto) 1.70 K/uL (1.20-3.40) 11/02/23 06:53 Webb # (Auto) 1.21 K/uL (0.11-0.59) H 11/02/23 06:53 Eos # (Auto) 0.03 K/uL (0.00-0.50) 11/02/23 06:53 Baso # (Auto) 0.07 K/uL (0.00-0.20) 11/02/23 06:53 Immature Gran # (Auto) 0.07 K/uL (0.01-0.20) 11/02/23 06:53 PT 11.9 Seconds (9.0-12.0) 11/02/23 06:53 INR 1.1 (0.9-1.1) 11/02/23 06:53 Heparin Anti-Xa, Unfract 0.86 IU/ml (0.3-0.7) H* 11/01/23 07:13 ABG pH 7.42 (7.35-7.45) 11/01/23 07:13 ABG pCO2 44 mmHg (35-46) 11/01/23 07:13 ABG pO2 67 mmHg (80-95) L 11/01/23 07:13 ABG HCO3 29 mmol/L (19-24) H 11/01/23 07:13 ABG O2 Saturation 92.9 % (90-95) 11/01/23 07:13 ABG Base Excess 3.4 mEq/L (-9-1.8) H 11/01/23 07:13 Bayron Test Pos (Pos) 11/01/23 07:13 Oxygen Given ROOM AIR 11/01/23 07:13 Sodium 136 mmol/L (136-145) 11/02/23 06:53 Potassium 2.9 mmol/L (3.5-5.1) L 11/02/23 06:53 Chloride 96 mmol/L (98-107) L 11/02/23 06:53 Carbon Dioxide 34 mmol/L (21-32) H 11/02/23 06:53 Anion Gap 6 (3-11) 11/02/23 06:53 BUN 13 mg/dl (6-23) 11/02/23 06:53 Creatinine 0.94 mg/dl (0.6-1.4) D 11/02/23 06:53 Est Cr Clr Drug Dosing 101.1 ml/min 11/02/23 06:53 Est GFR ( Amer) 95.5 ml/min 11/02/23 06:53 Est GFR (Non-Af Amer) 82.4 ml/min 11/02/23 06:53 BUN/Creatinine Ratio 13.8 (10-20) 11/02/23 06:53 Glucose 116 mg/dl (70-99(Fasting)) H 11/02/23 06:53 Osmolality 344 mOsm/kg (280-300) H 11/01/23 07:13 Calcium 8.2 mg/dl (8.6-10.3) L 11/02/23 06:53 Magnesium 1.6 mg/dl (1.7-2.4) L 11/02/23 06:53 Total Bilirubin 1.3 mg/dl (0.2-1.0) H 11/02/23 06:53 AST 28 U/L (13-39) 11/02/23 06:53 ALT 16 U/L (7-52) 11/02/23 06:53 Alkaline Phosphatase 54 U/L (34-104) 11/02/23 06:53 Total Creatine Kinase 368 U/L (30-223) H 11/01/23 06:06 Troponin I High Sens 12.4 pg/ml (0-20) 11/01/23 06:06 Total Protein 5.1 gm/dl (6.0-8.3) L D 11/02/23 06:53 Albumin 3.1 gm/dl (3.4-5.0) L 11/02/23 06:53 Globulin 2.0 gm/dl (2.5-4.0) L 11/02/23 06:53 Albumin/Globulin Ratio 1.6 (0.9-2) 11/02/23 06:53 Lipase < 3 U/L (11-82) L 11/01/23 06:06 Urine Color Dark Yellow 11/01/23 06:48 Urine Appearance Clear (Clear) 11/01/23 06:48 Urine pH 5.5 (4.5-7.5) 11/01/23 06:48 Ur Specific [place] 1.018 (1.000-1.030) 11/01/23 06:48 Urine Protein Trace (Negative) H 11/01/23 06:48 Urine Glucose (UA) Negative (Negative) 11/01/23 06:48 Urine Ketones Trace (Negative) H 11/01/23 06:48 Urine Blood Negative (Negative) 11/01/23 06:48 Urine Nitrite Negative (Negative) 11/01/23 06:48 Urine Bilirubin Negative (Negative) 11/01/23 06:48 Urine Urobilinogen Negative (Negative) 11/01/23 06:48 Ur Leukocyte Esterase Trace (Negative) H 11/01/23 06:48 Urine WBC (Auto) 5-10 /hpf (0-5) H 11/01/23 06:48 Urine RBC (Auto) 0-4 /hpf (0-4) 11/01/23 06:48 U Hyaline Cast (Auto) 1-5 /lpf (0-5) 11/01/23 06:48 U Epithel Cells (Auto) 10-20 /lpf (0-5) H 11/01/23 06:48 Urine Bacteria (Auto) Negative (Negative) 11/01/23 06:48 Digoxin 0.5 ng/ml (0.8-2.0) L 11/01/23 12:00 Urine Opiates Screen Neg (Neg) 11/01/23 06:48 Ur Methadone, Qual Neg (Neg) 11/01/23 06:48 Urine Barbiturates Neg (Neg) 11/01/23 06:48 Ur Phencyclidine (PCP) Neg (Neg) 11/01/23 06:48 U Amphetamin/Meth Scrn Neg (Neg) 11/01/23 06:48 MDMA (Ecstasy) Screen Neg (Neg) 11/01/23 06:48 U Benzodiazepines Scrn Neg (Neg) 11/01/23 06:48 Ur Cocaine Metabolite Neg (Neg) 11/01/23 06:48 U Marijuana (THC) Screen Neg (Neg) 11/01/23 06:48 Ethyl Alcohol mg/dL 381.2 mg/dl (<10.0) H 11/01/23 06:06 Blood Type O Positive 11/01/23 11:53 Antibody Screen NEGATIVE 11/01/23 11:53 Impressions Abdomen/Pelvis CT 11/01/23 06:00 CT SCAN OF THE ABDOMEN AND PELVIS WITH IV CONTRAST; CT SCAN OF THE LUMBAR SPINE WITH IV CONTRAST CLINICAL HISTORY: Trauma. Fall. COMPARISON STUDY: Abdominal CT dated 02/08/2020. TECHNIQUE: Following the IV administration of 94 cc of Optiray 320, CT scan of the abdomen and pelvis is performed from the lung bases to the proximal femora. Additionally, CT scan of the lumbar spine is performed from the lower thoracic spine to the sacrum. Images for both examinations are reviewed in the axial, sagittal, and coronal planes. IV contrast was administered without complication. A dose lowering technique was utilized adhering to the principles of ALARA. CT DOSE: 3944.52 mGy.cm FINDINGS: Lung bases: The heart is enlarged and without pericardial effusion. There is chronic elevation of the left hemidiaphragm with bibasilar scarring/atelectasis. No airspace consolidation typical for pneumonia or pleural effusion is identified. No basilar pneumothorax is seen. Liver: The contrast-enhanced liver is normal in size, contour, and attenuation. There is minimal central intrahepatic biliary ductal dilatation. The hepatic veins and portal veins are patent. Gallbladder: Surgically absent noting clips in the gallbladder fossa. Spleen: Normal in size and attenuation. Pancreas: The pancreas is atrophic. There are parenchymal and intraductal calculi suggesting chronic pancreatitis. Adrenal glands: Unremarkable. Kidneys: The contrast enhanced kidneys are normal in size and without hydronephrosis. The kidneys enhance symmetrically. A 7 mm complex exophytic cyst is again seen arising from the right upper pole on image #167. Abdominal vasculature: The abdominal aorta is normal in course and caliber. Bowel: There is moderate colonic diverticulosis without CT evidence of acute diverticulitis. No bowel obstruction is seen. There is mild to moderate colonic fecal retention. The appendix is well-visualized and normal. Peritoneum: There is trace perisplenic ascites. No intraperitoneal free air is seen. No intraperitoneal hemorrhage is identified. Lymphadenopathy: None. Pelvic viscera: Evaluation of the pelvis is degraded by streak artifact from a left hip arthroplasty. The prostate gland is enlarged and heterogeneous. The bladder wall is thickened/trabeculated indicating chronic outlet obstruction. There is intramuscular hemorrhage within the left gluteus muscles. A focus of active extravasation is seen on axial image #359. Skeletal structures: The skeletal structures are osteopenic. See below for dedicated discussion of the lumbar spine. The bony pelvis and proximal femora appear intact. Degenerative change is noted in the sacroiliac joints. No lytic or blastic lesions are seen. A left hip arthroplasty is in place. There are chronic/healed bilateral rib fractures. LUMBAR SPINE: Vertebral body height and alignment are maintained throughout the lumbar spine. There is no evidence of fracture or malalignment. Anterior and lateral marginal osteophytes are seen throughout. The transverse and spinous processes are intact. There is no spondylolysis. Facet arthropathy is observed in the lower lumbar spine. There is moderate to severe disc space narrowing at L3-L4, L4-L5, and L5-S1. Milder narrowing is seen at the remaining lumbar levels. Posterior disc osteophyte complexes are seen at these levels. There is no CT evidence of large disc herniation or high-grade central canal stenosis. Degenerative endplate sclerosis is noted at L3-L4 and L5-S1. The paraspinous soft tissues are within normal limits. A neurostimulator device is present in the right gluteal soft tissues. This enters the central canal at T10, and extends into the thoracic region and terminates at the level of T9. IMPRESSION: 1. There is intramuscular hemorrhage within the left gluteal musculature with a focus of active extravasation. 2. There is no evidence of solid organ injury in the abdomen or pelvis. 3. Cardiomegaly. 4. There is no evidence of fracture or malalignment involving the lumbar spine. 5. Colonic diverticulosis without CT evidence of acute diverticulitis. 6. The pancreas is atrophic with evidence of chronic pancreatitis. 7. Trace left upper quadrant ascites. 8. Additional findings as above. ACT 112: Negative or not required by law. Electronically signed by: Benoit Azevedo M.D. 11/01/2023 7:41 AM Chest X-Ray 11/01/23 06:00 SINGLE VIEW CHEST CLINICAL HISTORY: Trauma. FINDINGS: An AP, portable, upright chest radiograph is compared to study dated 08/07/2023 and correlated with chest CT dated 12/06/2021. The heart is enlarged. The pulmonary vasculature is noncongested. There is chronic elevation of the left hemidiaphragm with associated atelectasis of left lower lung. No air space consolidation typical for pneumonia or large pleural effusion is identified. No pneumothorax is seen. The skeletal structures are osteopenic. There are chronic/healed bilateral rib fractures. IMPRESSION: Cardiomegaly with no acute cardiopulmonary abnormality. ACT 112: Negative or not required by law. Electronically signed by: Benoit Azevedo M.D. 11/01/2023 7:[address] 11/01/23 06:00 CT SCAN OF THE ABDOMEN AND PELVIS WITH IV CONTRAST; CT SCAN OF THE LUMBAR SPINE WITH IV CONTRAST CLINICAL HISTORY: Trauma. Fall. COMPARISON STUDY: Abdominal CT dated 02/08/2020. TECHNIQUE: Following the IV administration of 94 cc of Optiray 320, CT scan of the abdomen and pelvis is performed from the lung bases to the proximal femora. Additionally, CT scan of the lumbar spine is performed from the lower thoracic spine to the sacrum. Images for both examinations are reviewed in the axial, sagittal, and coronal planes. IV contrast was administered without complication. A dose lowering technique was utilized adhering to the principles of ALARA. CT DOSE: 3944.52 mGy.cm FINDINGS: Lung bases: The heart is enlarged and without pericardial effusion. There is chronic elevation of the left hemidiaphragm with bibasilar scarring/atelectasis. No airspace consolidation typical for pneumonia or pleural effusion is id entified. No basilar pneumothorax is seen. Liver: The contrast-enhanced liver is normal in size, contour, and attenuation. There is minimal central intrahepatic biliary ductal dilatation. The hepatic veins and portal veins are patent. Gallbladder: Surgically absent noting clips in the gallbladder fossa. Spleen: Normal in size and attenuation. Pancreas: The pancreas is atrophic. There are parenchymal and intraductal calculi suggesting chronic pancreatitis. Adrenal glands: Unremarkable. Kidneys: The contrast enhanced kidneys are normal in size and without hydronephrosis. The kidneys enhance symmetrically. A 7 mm complex exophytic cyst is again seen arising from the right upper pole on image #167. Abdominal vasculature: The abdominal aorta is normal in course and caliber. Bowel: There is moderate colonic diverticulosis without CT evidence of acute diverticulitis. No bowel obstruction is seen. There is mild to moderate colonic fecal retention. The appendix is well-visualized and normal. Peritoneum: There is trace perisplenic ascites. No intraperitoneal free air is seen. No intraperitoneal hemorrhage is identified. Lymphadenopathy: None. Pelvic viscera: Evaluation of the pelvis is degraded by streak artifact from a left hip arthroplasty. The prostate gland is enlarged and heterogeneous. The bladder wall is thickened/trabeculated indicating chronic outlet obstruction. There is intramuscular hemorrhage within the left gluteus muscles. A focus of active extravasation is seen on axial image #359. Skeletal structures: The skeletal structures are osteopenic. See below for dedicated discussion of the lumbar spine. The bony pelvis and proximal femora appear intact. Degenerative change is noted in the sacroiliac joints. No lytic or blastic lesions are seen. A left hip arthroplasty is in place. There are chronic/healed bilateral rib fractures. LUMBAR SPINE: Vertebral body height and alignment are maintained throughout the lumbar spine. There is no evidence of fracture or malalignment. Anterior and lateral marginal osteophytes are seen throughout. The transverse and spinous processes are intact. There is no spondylolysis. Facet arthropathy is observed in the lower lumbar spine. There is moderate to severe disc space narrowing at L3-L4, L4-L5, and L5-S1. Milder narrowing is seen at the remaining lumbar levels. Posterior disc osteophyte complexes are seen at these levels. There is no CT evidence of large disc herniation or high-grade central canal stenosis. Degenerative endplate sclerosis is noted at L3-L4 and L5-S1. The paraspinous soft tissues are within normal limits. A neurostimulator device is present in the right gluteal soft tissues. This enters the central canal at T10, and extends into the thoracic region and terminates at the level of T9. IMPRESSION: 1. There is intramuscular hemorrhage within the left gluteal musculature with a focus of active extravasation. 2. There is no evidence of solid organ injury in the abdomen or pelvis. 3. Cardiomegaly. 4. There is no evidence of fracture or malalignment involving the lumbar spine. 5. Colonic diverticulosis without CT evidence of acute diverticulitis. 6. The pancreas is atrophic with evidence of chronic pancreatitis. 7. Trace left upper quadrant ascites. 8. Additional findings as above. ACT 112: Negative or not required by law. Electronically signed by: Benoit Azevedo M.D. 11/01/2023 7:[address] 11/01/23 06:01 CT SCAN OF THE CERVICAL SPINE CLINICAL HISTORY: Trauma. COMPARISON STUDY: CT of the cervical spine dated 08/27/2023. TECHNIQUE: CT scan of the cervical spine is performed from the skull base to the upper thoracic spine. Images are reviewed in the axial, sagittal, and coronal planes. IV contrast was not administered for this examination. A dose lowering technique was utilized adhering to the principles of ALARA. FINDINGS: Skeletal structures: The skeletal structures are osteopenic. There is no evidence of fracture or subluxation involving the cervical spine. Vertebral body height is maintained. There is minimal retrolisthesis at C3-C4. Alignment is otherwise preserved. Anterior osteophytes are seen throughout. The odontoid process and lateral masses are intact. The atlantoaxial articulation is preserved noting advanced productive degenerative change. The spinous processes appear intact. There is moderate multilevel cervical spondylosis. Uncovertebral and facet arthropathy contribute to neural foraminal narrowing at several levels. Intervertebral discs: There is severe disc space narrowing at C3-C4, C5-C6, and C6-C7 with associated endplate sclerosis. Mild to moderate narrowing is seen at the remaining cervical levels. Central canal: Posterior disc osteophyte complexes at C3-C4, C5-C6, and C6-C7 may contribute to acquired compromise of the central canal. Soft tissues: The prevertebral and paraspinous soft tissues are within normal limits. Calvarium: The visualized calvarium at the skull base appears intact. Brain parenchyma: Partially visualized brain parenchyma at the skull base is within normal limits. Mastoids: The mastoid air cells are well pneumatized. Lung apices: Clear as visualized. IMPRESSION: 1. There is no evidence of cervical spine fracture or subluxation. 2. Osteopenia and spondylotic changes as above. ACT 112: Negative or not required by law. Electronically signed by: Benoit Azevedo M.D. 11/01/2023 7:[address] 11/01/23 06:01 CT SCAN OF THE BRAIN WITHOUT IV CONTRAST CLINICAL HISTORY: Trauma. COMPARISON STUDY: CT of the brain dated 08/27/2023. TECHNIQUE: Unenhanced axial CT scan of the brain is performed from the vertex to the skull base. A dose lowering technique was utilized adhering to the principles of ALARA. FINDINGS: Brain parenchyma: There is age-related involutional change noting mild subcortical and periventricular microangiopathic disease. There is no hemorrhage, mass effect, or evidence of acute territorial ischemia by CT criteria. Arellano-white matter differentiation is preserved. No extra-axial fluid collection is seen. Ventricles, sulci, cisterns: Prominent secondary to involutional change. Intracranial vasculature: There is atherosclerotic calcification of the cavernous carotid and vertebral arteries. Calvarium: The skeletal structures are osteopenic. No depressed calvarial fracture is seen. There is chronic deformity of the nasal bones. Sinuses and mastoids: There is trace mucosal thickening within the left maxill jose antrum and the sphenoid sinuses. The mastoid air cells are well pneumatized. Orbits: The bony orbits are grossly intact. There are bilateral ocular lens implants. IMPRESSION: There is no hemorrhage, mass effect, or evidence of acute territorial ischemia by CT criteria. ACT 112: Negative or not required by law. Electronically signed by: Benoit Azevedo M.D. 11/01/2023 7:18 AM Hip X-Ray 11/01/23 16:39 LEFT HIP 2 VIEWS CLINICAL HISTORY: Left hip pain. FINDINGS: AP and frog-leg views of the left hip are compared to study dated 03/19/2022 and correlated with pelvic CT performed the same day 11/01/2023. The skeletal structures are osteopenic. There is no radiographic evidence of acute fracture involving the left hip or the visualized left hemipelvis. A left hip arthroplasty is in near anatomic alignment. No periprosthetic lucency is seen. Degenerative sclerosis is noted in the left sacroiliac joint and the pubic symphysis. Soft tissue edema is suggested the left gluteal tissues. There is atherosclerotic calcification of the left femoral artery. IMPRESSION: 1. No acute bony abnormality is identified. 2. A left hip arthroplasty is in near anatomic alignment. Electronically signed by: Benoit Azevedo M.D. 11/01/2023 6:15 PM
[2023-11-02] MEDS: PHENobarbitaL 30 MG TAB PO SCH (12:04)
[2023-11-02 12:42] LABS: Basophils # (auto) 0.05 K/uL (0.00-0.20); Basophils % (auto) 0.4 %; Eosinophils # (auto) 0.03 K/uL (0.00-0.50); Eosinophils % (auto) 0.2 %; Hematocrit (blood only) 42.3 % (42.0-52.0); Hemoglobin 14.5 g/dl (14.0-18.0); Immature Granulocytes # (auto) 0.08 K/uL (0.01-0.20); Immature Granulocytes % (auto) 0.6 %; Lymphocytes # (auto) 1.56 K/uL (1.20-3.40); Mean Corpuscular Hemoglobin 34.2 pg (25.0-34.0); Mean Corpuscular Hgb Conc 34.3 g/dL (32.0-36.0); Mean Corpuscular Volume 99.8 fL (80.0-100.0); Mean Platelet Volume 10.2 fL (9.4-12.4); Monocytes # (auto) 1.32 K/uL (0.11-0.59); Monocytes % (auto) 10.1 %; Neutrophils # (auto) 9.98 K/uL (1.40-6.50); Neutrophils % (auto) 76.7 %; Platelet Count 205 K/uL (130-400); RDW Coefficient of Variation 13.1 % (11.5-14.5); RDW Standard Deviation 47.6 fL (36.4-46.3); Red Blood Count 4.24 M/uL (4.70-6.10); White Blood Count 13.02 K/ul (4.8-10.8)
[2023-11-02] MEDS ORDERED: DIGOXIN 0.125 MG TAB PO SCH (16:00)
[2023-11-02] MEDS ORDERED: POTASSIUM CHLORIDE CRTAB 20 MEQ TABCR PO STA (16:03)
[2023-11-02] MEDS ORDERED: LOPERAMIDE HCL 2 MG CAP PO PRN (18:30)
[2023-11-02 19:07] LABS: Basophils # (auto) 0.07 K/uL (0.00-0.20); Basophils % (auto) 0.6 %; Eosinophils # (auto) 0.06 K/uL (0.00-0.50); Eosinophils % (auto) 0.5 %; Hematocrit (blood only) 41.7 % (42.0-52.0); Hemoglobin 14.6 g/dl (14.0-18.0); Immature Granulocytes # (auto) 0.09 K/uL (0.01-0.20); Immature Granulocytes % (auto) 0.7 %; Lymphocytes # (auto) 2.41 K/uL (1.20-3.40); Lymphocytes % (auto) 19.6 %; Mean Corpuscular Hemoglobin 35.2 pg (25.0-34.0); Mean Corpuscular Volume 100.5 fL (80.0-100.0); Mean Platelet Volume 10.4 fL (9.4-12.4); Monocytes # (auto) 1.29 K/uL (0.11-0.59); Monocytes % (auto) 10.5 %; Neutrophils % (auto) 68.1 %; Platelet Count 203 K/uL (130-400); RDW Coefficient of Variation 13.1 % (11.5-14.5); RDW Standard Deviation 48.4 fL (36.4-46.3); Red Blood Count 4.15 M/uL (4.70-6.10); White Blood Count 12.32 K/ul (4.8-10.8)
[2023-11-02] MEDS: lamoTRIgine 100 MG TAB PO SCH (21:07)
[2023-11-03 01:01] LABS: Basophils # (auto) 0.04 K/uL (0.00-0.20); Basophils % (auto) 0.3 %; Eosinophils % (auto) 0.9 %; Hematocrit (blood only) 40.8 % (42.0-52.0); Hemoglobin 14.6 g/dl (14.0-18.0); Immature Granulocytes # (auto) 0.09 K/uL (0.01-0.20); Immature Granulocytes % (auto) 0.8 %; Lymphocytes # (auto) 2.66 K/uL (1.20-3.40); Lymphocytes % (auto) 22.6 %; Mean Corpuscular Hemoglobin 35.3 pg (25.0-34.0); Mean Corpuscular Hgb Conc 35.8 g/dL (32.0-36.0); Mean Corpuscular Volume 98.6 fL (80.0-100.0); Mean Platelet Volume 10.1 fL (9.4-12.4); Monocytes # (auto) 0.94 K/uL (0.11-0.59); Neutrophils # (auto) 7.92 K/uL (1.40-6.50); Neutrophils % (auto) 67.4 %; Platelet Count 181 K/uL (130-400); RDW Coefficient of Variation 13.1 % (11.5-14.5); RDW Standard Deviation 47.4 fL (36.4-46.3); Red Blood Count 4.14 M/uL (4.70-6.10); White Blood Count 11.75 K/ul (4.8-10.8)
[2023-11-03] MEDS: PHENobarbitaL 30 MG TAB PO SCH ×2 (01:01→13:11)
[2023-11-03] MEDS: oxyCODONE HCL IR 5 MG TAB (IMMEDIATE RELEASE) PO PRN ×2 (01:47→19:00)
--- NOTE | 2023-11-03 05:53 | Electrocardiogram Report ---
Test Reason : Blood Pressure : / mmHG Vent. Rate : 075 BPM Atrial Rate : 000 BPM P-R Int : 000 ms QRS Dur : 092 ms QT Int : 384 ms P-R-T Axes : 000 063 034 degrees QTc Int : 428 ms Atrial fibrillation Low voltage QRS Septal infarct (cited on or before 27-AUG-2023) Abnormal ECG When compared with ECG of 27-AUG-2023 22:11, No significant change was found Confirmed by Lemuel Strickland ([id number]) on 11/03/2023 5:53:28 AM Referred By: Confirmed By:Lemuel Strickland
[2023-11-03 06:38] LABS: Basophils # (auto) 0.05 K/uL (0.00-0.20); Basophils % (auto) 0.5 %; Eosinophils # (auto) 0.11 K/uL (0.00-0.50); Immature Granulocytes % (auto) 0.9 %; Lymphocytes % (auto) 22.6 %; Mean Corpuscular Hemoglobin 34.8 pg (25.0-34.0); Mean Corpuscular Hgb Conc 34.1 g/dL (32.0-36.0); Mean Platelet Volume 9.9 fL (9.4-12.4); Monocytes # (auto) 0.98 K/uL (0.11-0.59); Monocytes % (auto) 9.2 %; Neutrophils % (auto) 65.8 %; Platelet Count 177 K/uL (130-400); RDW Coefficient of Variation 13.2 % (11.5-14.5); RDW Standard Deviation 50.2 fL (36.4-46.3); Red Blood Count 4.02 M/uL (4.70-6.10); White Blood Count 10.64 K/ul (4.8-10.8)
[2023-11-03 06:57] LABS: Albumin Globulin Ratio 1.4 (0.9-2); Albumin Level 3.1 gm/dl (3.4-5.0); BUN Creatinine Ratio 12.9 (10-20); Bilirubin,Total 0.8 mg/dl (0.2-1.0); Creatinine Clr Calc Pharmacy 101.3 ml/min; Est GFR (African American) 96.7 ml/min; Est GFR (Non-African American) 83.5 ml/min; Globulin 2.2 gm/dl (2.5-4.0); Magnesium 1.4 mg/dl (1.7-2.4); Potassium 3.2 mmol/L (3.5-5.1); Total Protein 5.3 gm/dl (6.0-8.3)
[2023-11-03 07:20] LABS: Prothrombin Time 11.4 Seconds (9.0-12.0)
[2023-11-03] MEDS: ACETAMINOPHEN 325 MG TAB PO SCH ×4 (07:23→21:20)
[2023-11-03] MEDS: FOLIC ACID 1 MG TAB PO SCH (08:16)
[2023-11-03] MEDS: allopurinoL 300 MG TAB PO SCH (08:16)
[2023-11-03] MEDS: CYANOCOBALAMIN (B-12) 100 MCG TABLET PO SCH (08:16)
[2023-11-03] MEDS: dilTIAZem HCL 120 MG CAPCR PO SCH (08:16)
[2023-11-03] MEDS: TAMSULOSIN HCL 0.4 MG CAP PO SCH (08:17)
[2023-11-03] MEDS: PHENobarbital sodium 65 MG/ML VIAL IV PRN (08:17)
[2023-11-03] MEDS: METOPROLOL SUCC 50MG EXT REL TAB PO SCH (08:17)
[2023-11-03] MEDS: THIAMINE HCL 100 MG in SYRINGE 9 ML IV SCH ×2 (08:17→21:19)
[2023-11-03] MEDS: POTASSIUM CHLORIDE CRTAB 20 MEQ TABCR PO SCH ×2 (09:57→15:18)
[2023-11-03] MEDS: MAGNESIUM SULFATE / D5W 1 GM/100 ML BAG IV SCH ×3 (09:58→13:11)
[2023-11-03 12:53] LABS: Basophils # (auto) 0.08 K/uL (0.00-0.20); Basophils % (auto) 0.6 %; Eosinophils % (auto) 0.8 %; Hematocrit (blood only) 40.9 % (42.0-52.0); Immature Granulocytes # (auto) 0.14 K/uL (0.01-0.20); Immature Granulocytes % (auto) 1.1 %; Lymphocytes # (auto) 1.82 K/uL (1.20-3.40); Lymphocytes % (auto) 13.9 %; Mean Corpuscular Hemoglobin 34.9 pg (25.0-34.0); Mean Corpuscular Hgb Conc 34.2 g/dL (32.0-36.0); Mean Platelet Volume 10.2 fL (9.4-12.4); Monocytes # (auto) 0.96 K/uL (0.11-0.59); Monocytes % (auto) 7.3 %; Neutrophils # (auto) 10.02 K/uL (1.40-6.50); Neutrophils % (auto) 76.3 %; Platelet Count 198 K/uL (130-400); RDW Coefficient of Variation 13.2 % (11.5-14.5); RDW Standard Deviation 49.7 fL (36.4-46.3); Red Blood Count 4.01 M/uL (4.70-6.10); White Blood Count 13.12 K/ul (4.8-10.8)
--- NOTE | 2023-11-03 16:11 | Hospitalist Progress Note ---
Date of Service November 03, 2023 Assessment & Plan (1) Hematoma of left buttock: Plan: Patient presented to the ED via EMS after sustaining a mechanical fall at home fell due to alcohol intoxication, taking apixaban for afib admission CT: left gluteal hematoma with signs of active extravasation -abixaban stopped -Orthopaedics was consulted and was comfortable with the patient staying at our facility at this time -Dr. Haynes was consulted by the ED, appreciate her assistance >given 2000 units of K-Centra at admission, had elevated unfractionated Xa level -blood transfusion consent is in chart -Patient's Hgb is stable, unchanged 11/03 AM, vitals have been completely stable, swelling on physical exam is stable flattening and evolving as expected. a.m. CBC -scheduled acetaminophen and low-dose oxycodone as needed pain - reviewed recommendations from Ortho consult, march weight-bear as tolerated, follow-up with Dr. August his outpatient orthopedist today's labs notable for hematocrit stable at 41. Mild leukocytosis of 13,000 related to hematoma, platelet count normal INR was 1.0 after Kcentra (2) Fall from standing: Plan: -Patient experienced a mechanical fall in his home yesterday afternoon due to alcohol intoxication -Denies symptoms such as chest pain, palpitations, SOB, lightheadedness/dizziness prior to his fall -Denies hitting head or losing consciousness -See left buttock hematoma for management -Fall precautions, PT/OT consults (3) TYRA (acute kidney injury): Plan: -Cr on admission is 1.65, baseline is near 1.30 -prerenal, resolved after IV fluids - creatinine normal at 0.93 (4) Alcohol abuse: Plan: -Patient had been in remission but started drinking one week ago when he went to visit family -Has been drinking approximately 1/2 large bottle of mouth wash daily -Has hx of withdrawal but denies withdrawal seizures -Alcohol level at 381 on arrival -No signs of active withdrawal at this time -S/P one banana bag in the ED -continue AWSS at risk protocol with phenobarbital - continue, did receive 1 dose of phenobarbital IV this morning, suspect he may not need any more -Will continue daily B12, folic acid, and thiamine >Will start with 100 mg IV thiamine BID for now, can convert to PO in a few days - counseled cessation 11/03, his is coming back into town this week though he is not sure exactly what day, he plans to follow-up with his PCP to discuss naltrexone and go back to AA meetings which he used to attend though he does not currently have a sponsor (5) Hypomagnesemia: Plan: -1.5 on arrival, replaced 3g IV, still 1.6, replaced IV on 11/02 and again replaced today 11/03 - check mag in a.m. -due to alcohol abuse and poor oral intake (6) Atrial fibrillation, permanent: Plan: -Currently in rate controlled afib -apixaban stopped -cont metoprolol and diltiazem -dig level not elevated. hold digoxin with current electrolyte abnormalities (7) Restrictive lung disease: Plan: -Currently stable on RA -Does use prn O2 at home for SOB -Continue home breathing treatments -Incentive spirometry, flutter therapy, prn O2 to keep SpO2 between 89-92% (8) Hypertension: Plan: -Stable -Holding diuretics, meds as above -Continue to monitor hemodynamics closely moving forward (9) Nocturnal hypoxia: Plan: -Patient wears 2L NC HS -Will order HS oxygen (10) Heart failure with reduced ejection fraction: Plan: -Hold diuretics for now with dehydration and TYRA -cont metoprolol (11) Hypokalemia: Plan: Severe, K 2.9 on 11/02 -replaced po 40 meq x 2 doses, replete mag 11/02 - still mildly low replaced with 40 mEq p.o. today, a.m. BMP Plan DVT ppx: SCDs Admission and Anticipated Discharge Date Admission Date: November 01, 2023 Subjective Tom is feeling better, walking better continues to have left buttock pain but it is improved and his ambulation is getting steadier. He notices definite improvement in his alcohol withdrawal syndrome symptoms, not nearly as shaky. He did receive dose of IV phenobarbital as needed this morning Physical Exam 2 Physical Exam: PHYSICAL EXAMINATION Last 24h vital signs reviewed, see documentation in flowsheet General: comfortable appearing, no distress was walking with acute care nursing assistant and walker, pretty steady, got back into bed HEENT: Normocephalic, atraumatic, pupils round and equal, sclerae anicteric, no conjunctival injection, moist mucus membranes Lungs: Normal respiratory effort. Clear to auscultation bilaterally. No RRW Heart: Regular rate and rhythm, no murmurs. No JVD Abdomen: Soft, nontender, nondistended. Bowel sounds present. Extremities: Warm, dry, well-perfused. No extremity edema. Left buttock with swelling lateral area, less firm and flatter, has not extended past demarcated area. improved Neuro: Alert and oriented x 4, not currently tremulous bilateral upper extremities, face symmetric, moves 4 extremities well skin is warm dry no rashes not damp. Psych: Normal affect and behavior Results & Data Results & Data Vital Signs (Past 12 Hours) Vital Signs Temp Pulse Pulse Resp BP BP Pulse Ox 11/03/23 15:34 37.0 C 73 18 111/84 98 11/03/23 12:09 36.9 C 92 H 19 120/88 96 11/03/23 08:35 11/03/23 08:17 90 20 129/80 11/03/23 07:08 36.7 C 87 19 129/80 99 11/03/23 04:39 36.6 C 88 15 121/87 98 O2 Del Method O2 Flow Rate 11/03/23 15:34 Room Air 11/03/23 12:09 Room Air 11/03/23 08:35 Room Air 0 11/03/23 08:17 11/03/23 07:08 Nasal Cannula 2 11/03/23 04:39 Nasal Cannula 2 Laboratory Results 11/03/23 12:20 11/03/23 06:06 PG Care Time/CCT Total # of Minutes Spent Total Time Spent with Patient: Total time spent is greater than 50% in coordination of care (as documented) at patient's floor/unit and/or counseling patient: Coding Level of Care Code 66600 SUB INP/OBS CARE 2/35MIN Diagnoses Hematoma of left buttock S30.0XXA Fall from standing W19.XXXA TYRA (acute kidney injury) N17.9 Alcohol abuse F10.10 Hypomagnesemia E83.42 Atrial fibrillation, permanent I48.21 Restrictive lung disease J98.4 Hypertension I10 Nocturnal hypoxia G47.34 Heart failure with reduced ejection fraction I50.20 Hypokalemia E87.6
[2023-11-03] MEDS: lamoTRIgine 100 MG TAB PO SCH (21:19)
[2023-11-03] MEDS: LIDOCAINE 5% 1 PATCH TD SCH (21:24)
[2023-11-04] MEDS: PHENobarbitaL 30 MG TAB PO SCH (01:15)
[2023-11-04] MEDS: oxyCODONE HCL IR 5 MG TAB (IMMEDIATE RELEASE) PO PRN (01:16)
[2023-11-04] MEDS: ACETAMINOPHEN 325 MG TAB PO SCH ×4 (05:04→20:54)
[2023-11-04 06:30] LABS: Hemoglobin 13.2 g/dl (14.0-18.0); Mean Corpuscular Hemoglobin 35.3 pg (25.0-34.0); Mean Corpuscular Hgb Conc 34.7 g/dL (32.0-36.0); Mean Corpuscular Volume 101.6 fL (80.0-100.0); Mean Platelet Volume 10.4 fL (9.4-12.4); Platelet Count 169 K/uL (130-400); RDW Coefficient of Variation 13.2 % (11.5-14.5); RDW Standard Deviation 49.2 fL (36.4-46.3); Red Blood Count 3.74 M/uL (4.70-6.10); White Blood Count 11.79 K/ul (4.8-10.8)
[2023-11-04 07:02] LABS: Albumin Globulin Ratio 1.5 (0.9-2); Albumin Level 3.1 gm/dl (3.4-5.0); BUN Creatinine Ratio 11.7 (10-20); Bilirubin,Total 0.8 mg/dl (0.2-1.0); Calcium 7.9 mg/dl (8.6-10.3); Creatinine Clr Calc Pharmacy 124.4 ml/min; Est GFR (African American) 107.3 ml/min; Est GFR (Non-African American) 92.6 ml/min; Globulin 2.1 gm/dl (2.5-4.0); Magnesium 1.4 mg/dl (1.7-2.4); Potassium 3.6 mmol/L (3.5-5.1); Total Protein 5.2 gm/dl (6.0-8.3)
[2023-11-04] MEDS: dilTIAZem HCL 120 MG CAPCR PO SCH (08:07)
[2023-11-04] MEDS: CYANOCOBALAMIN (B-12) 100 MCG TABLET PO SCH (08:07)
[2023-11-04] MEDS: TAMSULOSIN HCL 0.4 MG CAP PO SCH (08:07)
[2023-11-04] MEDS: allopurinoL 300 MG TAB PO SCH (08:07)
[2023-11-04] MEDS: THIAMINE HCL 100 MG in SYRINGE 9 ML IV SCH ×2 (08:08→20:54)
[2023-11-04] MEDS: METOPROLOL SUCC 50MG EXT REL TAB PO SCH (08:08)
[2023-11-04] MEDS: FOLIC ACID 1 MG TAB PO SCH (08:08)
[2023-11-04] MEDS: MAGNESIUM SULFATE / D5W 1 GM/100 ML BAG IV SCH ×3 (08:45→12:40)
--- NOTE | 2023-11-04 10:57 | Orthopedic Progress Note ---
Date of Service November 04, 2023 Assessment & Plan (1) Alcohol abuse: (2) Hematoma of left buttock: Plan: PT/OT Total hip precautions reviewed Weightbearing as tolerated with walker assistance Ice with easy wrap Pain control with p.o. medication Patient states he will most likely follow-up with Dr. August for this issue (3) Fall from standing: (4) History of left hip replacement: Admission and Anticipated Discharge Date Admission Date: November 01, 2023 Subjective tinThis 68-year-old male seen this morning for follow-up of a left buttock hematoma after falling from a standing position a few days ago. Patient states his pain is much better than it had been and the swelling has receded. He states that he only has mild pain when he lies on the left side. Patient states that he had the left hip replaced by Dr. August a few months ago. He denies any numbness or tingling or limitations with range of motion in his left lower extremity. He states that he has been able to get up and ambulate with physical therapy with the assistance of his walker. Review of Systems Review of Systems: All systems reviewed & are unremarkable except as noted in Subjective Physical Exam Physical Exam: Left hip: Patient has a palpable hematoma over the medial aspect of the left buttock. This is mildly tender to palpation. Patient tolerates passive hip flexion to 90 degrees and has no pain with light passive internal or external rotation. Logroll testing causes no pain. He is able to perform active straight leg raise test. He is able to actively dorsi and plantarflex his foot. Quad strength is 4+ out of 5. He is neurovascularly intact in the left lower extremity. Results & Data Vital Signs (Past 12 Hours) Vital Signs Temp Pulse Pulse Resp BP BP Pulse Ox 11/04/23 09:00 11/04/23 07:26 36.6 C 86 18 112/77 96 11/04/23 03:38 36.5 C 78 19 116/82 96 11/03/23 23:45 36.4 C L 87 19 125/95 98 11/03/23 23:00 79 O2 Del Method 11/04/23 09:00 Room Air 11/04/23 07:26 Room Air 11/04/23 03:38 Room Air 11/03/23 23:45 Room Air 11/03/23 23:00 Diagnostic Findings Laboratory Results WBC 11.79 K/ul (4.8-10.8) H 11/04/23 05:36 RBC 3.74 M/uL (4.70-6.10) L 11/04/23 05:36 Hgb 13.2 g/dl (14.0-18.0) L 11/04/23 05:36 Hct 38.0 % (42.0-52.0) L 11/04/23 05:36 MCV 101.6 fL (80.0-100.0) H 11/04/23 05:36 MCH 35.3 pg (25.0-34.0) H 11/04/23 05:36 MCHC 34.7 g/dL (32.0-36.0) 11/04/23 05:36 RDW Std Deviation 49.2 fL (36.4-46.3) H 11/04/23 05:36 RDW Coeff of Daniel 13.2 % (11.5-14.5) 11/04/23 05:36 Plt Count 169 K/uL (130-400) 11/04/23 05:36 MPV 10.4 fL (9.4-12.4) 11/04/23 05:36 Immature Gran % (Auto) 1.1 % 11/03/23 12:20 Neut % (Auto) 76.3 % 11/03/23 12:20 Lymph % (Auto) 13.9 % 11/03/23 12:20 [place] % (Auto) 7.3 % 11/03/23 12:20 Eos % (Auto) 0.8 % 11/03/23 12:20 Baso % (Auto) 0.6 % 11/03/23 12:20 Neut # (Auto) 10.02 K/uL (1.40-6.50) H 11/03/23 12:20 Lymph # (Auto) 1.82 K/uL (1.20-3.40) 11/03/23 12:20 [place] # (Auto) 0.96 K/uL (0.11-0.59) H 11/03/23 12:20 Eos # (Auto) 0.10 K/uL (0.00-0.50) 11/03/23 12:20 Baso # (Auto) 0.08 K/uL (0.00-0.20) 11/03/23 12:20 Immature Gran # (Auto) 0.14 K/uL (0.01-0.20) 11/03/23 12:20 PT 11.4 Seconds (9.0-12.0) 11/03/23 06:06 INR 1.0 (0.9-1.1) 11/03/23 06:06 Heparin Anti-Xa, Unfract 0.86 IU/ml (0.3-0.7) H* 11/01/23 07:13 ABG pH 7.42 (7.35-7.45) 11/01/23 07:13 ABG pCO2 44 mmHg (35-46) 11/01/23 07:13 ABG pO2 67 mmHg (80-95) L 11/01/23 07:13 ABG HCO3 29 mmol/L (19-24) H 11/01/23 07:13 ABG O2 Saturation 92.9 % (90-95) 11/01/23 07:13 ABG Base Excess 3.4 mEq/L (-9-1.8) H 11/01/23 07:13 [place]ron Test Pos (Pos) 11/01/23 07:13 Oxygen Given ROOM AIR 11/01/23 07:13 Sodium 134 mmol/L (136-145) L 11/04/23 05:36 Potassium 3.6 mmol/L (3.5-5.1) 11/04/23 05:36 Chloride 99 mmol/L (98-107) 11/04/23 05:36 Carbon Dioxide 30 mmol/L (21-32) 11/04/23 05:36 Anion Gap 5 (3-11) 11/04/23 05:36 BUN 9 mg/dl (6-23) 11/04/23 05:36 Creatinine 0.77 mg/dl (0.6-1.4) 11/04/23 05:36 Est Cr Clr Drug Dosing 124.4 ml/min 11/04/23 05:36 Est GFR ( Amer) 107.3 ml/min 11/04/23 05:36 Est GFR (Non-Af Amer) 92.6 ml/min 11/04/23 05:36 BUN/Creatinine Ratio 11.7 (10-20) 11/04/23 05:36 Glucose 81 mg/dl (70-99(Fasting)) 11/04/23 05:36 Osmolality 344 mOsm/kg (280-300) H 11/01/23 07:13 Calcium 7.9 mg/dl (8.6-10.3) L 11/04/23 05:36 Magnesium 1.4 mg/dl (1.7-2.4) L 11/04/23 05:36 Total Bilirubin 0.8 mg/dl (0.2-1.0) 11/04/23 05:36 AST 17 U/L (13-39) 11/04/23 05:36 ALT 14 U/L (7-52) 11/04/23 05:36 Alkaline Phosphatase 60 U/L (34-104) 11/04/23 05:36 Total Creatine Kinase 368 U/L (30-223) H 11/01/23 06:06 Troponin I High Sens 12.4 pg/ml (0-20) 11/01/23 06:06 Total Protein 5.2 gm/dl (6.0-8.3) L 11/04/23 05:36 Albumin 3.1 gm/dl (3.4-5.0) L 11/04/23 05:36 Globulin 2.1 gm/dl (2.5-4.0) L 11/04/23 05:36 Albumin/Globulin Ratio 1.5 (0.9-2) 11/04/23 05:36 Lipase < 3 U/L (11-82) L 11/01/23 06:06 Urine Color Dark Yellow 11/01/23 06:48 Urine Appearance Clear (Clear) 11/01/23 06:48 Urine pH 5.5 (4.5-7.5) 11/01/23 06:48 Ur Specific [place] 1.018 (1.000-1.030) 11/01/23 06:48 Urine Protein Trace (Negative) H 11/01/23 06:48 Urine Glucose (UA) Negative (Negative) 11/01/23 06:48 Urine Ketones Trace (Negative) H 11/01/23 06:48 Urine Blood Negative (Negative) 11/01/23 06:48 Urine Nitrite Negative (Negative) 11/01/23 06:48 Urine Bilirubin Negative (Negative) 11/01/23 06:48 Urine Urobilinogen Negative (Negative) 11/01/23 06:48 Ur Leukocyte Esterase Trace (Negative) H 11/01/23 06:48 Urine WBC (Auto) 5-10 /hpf (0-5) H 11/01/23 06:48 Urine RBC (Auto) 0-4 /hpf (0-4) 11/01/23 06:48 U Hyaline Cast (Auto) 1-5 /lpf (0-5) 11/01/23 06:48 U Epithel Cells (Auto) 10-20 /lpf (0-5) H 11/01/23 06:48 Urine Bacteria (Auto) Negative (Negative) 11/01/23 06:48 Digoxin 0.5 ng/ml (0.8-2.0) L 11/01/23 12:00 Urine Opiates Screen Neg (Neg) 11/01/23 06:48 Ur Methadone, Qual Neg (Neg) 11/01/23 06:48 Urine Barbiturates Neg (Neg) 11/01/23 06:48 Ur Phencyclidine (PCP) Neg (Neg) 11/01/23 06:48 U Amphetamin/Meth Scrn Neg (Neg) 11/01/23 06:48 MDMA (Ecstasy) Screen Neg (Neg) 11/01/23 06:48 U Benzodiazepines Scrn Neg (Neg) 11/01/23 06:48 Ur Cocaine Metabolite Neg (Neg) 11/01/23 06:48 U Marijuana (THC) Screen Neg (Neg) 11/01/23 06:48 Ethyl Alcohol mg/dL 381.2 mg/dl (<10.0) H 11/01/23 06:06 Blood Type O Positive 11/01/23 11:53 Antibody Screen NEGATIVE 11/01/23 11:53 Impressions Abdomen/Pelvis CT 11/01/23 06:00 CT SCAN OF THE ABDOMEN AND PELVIS WITH IV CONTRAST; CT SCAN OF THE LUMBAR SPINE WITH IV CONTRAST CLINICAL HISTORY: Trauma. Fall. COMPARISON STUDY: Abdominal CT dated 02/08/2020. TECHNIQUE: Following the IV administration of 94 cc of Optiray 320, CT scan of the abdomen and pelvis is performed from the lung bases to the proximal femora. Additionally, CT scan of the lumbar spine is performed from the lower thoracic spine to the sacrum. Images for both examinations are reviewed in the axial, sag ittal, and coronal planes. IV contrast was administered without complication. A dose lowering technique was utilized adhering to the principles of ALARA. CT DOSE: 3944.52 mGy.cm FINDINGS: Lung bases: The heart is enlarged and without pericardial effusion. There is chronic elevation of the left hemidiaphragm with bibasilar scarring/atelectasis. No airspace consolidation typical for pneumonia or pleural effusion is identified. No basilar pneumothorax is seen. Liver: The contrast-enhanced liver is normal in size, contour, and attenuation. There is minimal central intrahepatic biliary ductal dilatation. The hepatic veins and portal veins are patent. Gallbladder: Surgically absent noting clips in the gallbladder fossa. Spleen: Normal in size and attenuation. Pancreas: The pancreas is atrophic. There are parenchymal and intraductal calculi suggesting chronic pancreatitis. Adrenal glands: Unremarkable. Kidneys: The contrast enhanced kidneys are normal in size and without hy dronephrosis. The kidneys enhance symmetrically. A 7 mm complex exophytic cyst is again seen arising from the right upper pole on image #167. Abdominal vasculature: The abdominal aorta is normal in course and caliber. Bowel: There is moderate colonic diverticulosis without CT evidence of acute diverticulitis. No bowel obstruction is seen. There is mild to moderate colonic fecal retention. The appendix is well-visualized and normal. Peritoneum: There is trace perisplenic ascites. No intraperitoneal free air is seen. No intraperitoneal hemorrhage is identified. Lymphadenopathy: None. Pelvic viscera: Evaluation of the pelvis is degraded by streak artifact from a left hip arthroplasty. The prostate gland is enlarged and heterogeneous. The bladder wall is thickened/trabeculated indicating chronic outlet obstruction. There is intramuscular hemorrhage within the left gluteus muscles. A focus of active extravasation is seen on axial image #[id number]. Skeletal structures: The skeletal structures are osteopenic. See below for dedicated discussion of the lumbar spine. The bony pelvis and proximal femora appear intact. Degenerative change is noted in the sacroiliac joints. No lytic or blastic lesions are seen. A left hip arthroplasty is in place. There are chronic/healed bilateral rib fractures. LUMBAR SPINE: Vertebral body height and alignment are maintained throughout the lumbar spine. There is no evidence of fracture or malalignment. Anterior and lateral marginal osteophytes are seen throughout. The transverse and spinous processes are intact. There is no spondylolysis. Facet arthropathy is observed in the lower lumbar spine. There is moderate to severe disc space narrowing at L3-L4, L4-L5, and L5-S1. Milder narrowing is seen at the remaining lumbar levels. Posterior disc osteophyte complexes are seen at these levels. There is no CT evidence of large disc herniation or high-grade central canal stenosis. Degenerative endplate sclerosis is noted at L3-L4 and L5-S1. The paraspinous soft tissues are within normal limits. A neurostimulator device is present in the right gluteal soft tissues. This enters the central canal at T10, and extends into the thoracic region and terminates at the level of T9. IMPRESSION: 1. There is intramuscular hemorrhage within the left gluteal musculature with a focus of active extravasation. 2. There is no evidence of solid organ injury in the abdomen or pelvis. 3. Cardiomegaly. 4. There is no evidence of fracture or malalignment involving the lumbar spine. 5. Colonic diverticulosis without CT evidence of acute diverticulitis. 6. The pancreas is atrophic with evidence of chronic pancreatitis. 7. Trace left upper quadrant ascites. 8. Additional findings as above. ACT 112: Negative or not required by law. Electronically signed by: Benoit Azevedo M.D. 11/01/2023 7:41 AM Chest X-Ray 11/01/23 06:00 SINGLE VIEW CHEST CLINICAL HISTORY: Trauma. FINDINGS: An AP, portable, upright chest radiograph is compared to study dated 08/07/2023 and correlated with chest CT dated 12/06/2021. The heart is enlarged. The pulmonary vasculature is noncongested. There is chronic elevation of the left hemidiaphragm with associated atelectasis of left lower lung. No air space consolidation typical for pneumonia or large pleural effusion is identified. No pneumothorax is seen. The skeletal structures are osteopenic. There are chronic/healed bilateral rib fractures. IMPRESSION: Cardiomegaly with no acute cardiopulmonary abnormality. ACT 112: Negative or not required by law. Electronically signed by: Benoit Azevedo M.D. 11/01/2023 7:[address] 11/01/23 06:00 CT SCAN OF THE ABDOMEN AND PELVIS WITH IV CONTRAST; CT SCAN OF THE LUMBAR SPINE WITH IV CONTRAST CLINICAL HISTORY: Trauma. Fall. COMPARISON STUDY: Abdominal CT dated 02/08/2020. TECHNIQUE: Following the IV administration of 94 cc of Optiray 320, CT scan of the abdomen and pelvis is performed from the lung bases to the proximal femora. Additionally, CT scan of the lumbar spine is performed from the lower thoracic spine to the sacrum. Images for both examinations are reviewed in the axial, sagittal, and coronal planes. IV contrast was administered without complication. A dose lowering technique was utilized adhering to the principles of ALARA. CT DOSE: 3944.52 mGy.cm FINDINGS: Lung bases: The heart is enlarged and without pericardial effusion. There is chronic elevation of the left hemidiaphragm with bibasilar scarring/atelectasis. No airspace consolidation typical for pneumonia or pleural effusion is identified. No basilar pneumothorax is seen. Liver: The contrast-enhanced liver is normal in size, contour, and attenuation. There is minimal central intrahepatic biliary ductal dilatation. The hepatic veins and portal veins are patent. Gallbladder: Surgically absent noting clips in the gallbladder fossa. Spleen: Normal in size and attenuation. Pancreas: The pancreas is atrophic. There are parenchymal and intraductal calculi suggesting chronic pancreatitis. Adrenal glands: Unremarkable. Kidneys: The contrast enhanced kidneys are normal in size and without hydronephrosis. The kidneys enhance symmetrically. A 7 mm complex exophytic cyst is again seen arising from the right upper pole on image #167. Abdominal vasculature: The abdominal aorta is normal in course and caliber. Bowel: There is moderate colonic diverticulosis without CT evidence of acute diverticulitis. No bowel obstruction is seen. There is mild to moderate colonic fecal retention. The appendix is well-visualized and normal. Peritoneum: There is trace perisplenic ascites. No intraperitoneal free air is seen. No intraperitoneal hemorrhage is identified. Lymphadenopathy: None. Pelvic viscera: Evaluation of the pelvis is degraded by streak artifact from a left hip arthroplasty. The prostate gland is enlarged and heterogeneous. The bl adder wall is thickened/trabeculated indicating chronic outlet obstruction. There is intramuscular hemorrhage within the left gluteus muscles. A focus of active extravasation is seen on axial image #359. Skeletal structures: The skeletal structures are osteopenic. See below for dedicated discussion of the lumbar spine. The bony pelvis and proximal femora appear intact. Degenerative change is noted in the sacroiliac joints. No lytic or blastic lesions are seen. A left hip arthroplasty is in place. There are chronic/healed bilateral rib fractures. LUMBAR SPINE: Vertebral body height and alignment are maintained throughout the lumbar spine. There is no evidence of fracture or malalignment. Anterior and lateral marginal osteophytes are seen throughout. The transverse and spinous processes are intact. There is no spondylolysis. Facet arthropathy is observed in the lower lumbar spine. There is moderate to severe disc space narrowing at L3-L4, L4-L5, and L5-S1. Milder narrowing is seen at the remaining lumbar levels. Posterior disc osteophyte complexes are seen at these levels. There is no CT evidence of large disc herniation or high-grade central canal stenosis. Degenerative endplate sclerosis is noted at L3-L4 and L5-S1. The paraspinous soft tissues are within normal limits. A neurostimulator device is present in the right gluteal soft tissues. This enters the central canal at T10, and extends into the thoracic region and terminates at the level of T9. IMPRESSION: 1. There is intramuscular hemorrhage within the left gluteal musculature with a focus of active extravasation. 2. There is no evidence of solid organ injury in the abdomen or pelvis. 3. Cardiomegaly. 4. There is no evidence of fracture or malalignment involving the lumbar spine. 5. Colonic diverticulosis without CT evidence of acute diverticulitis. 6. The pancreas is atrophic with evidence of chronic pancreatitis. 7. Trace left upper quadrant ascites. 8. Additional findings as above. ACT 112: Negative or not required by law. Electronically signed by: Benoit Azevedo M.D. 11/01/2023 7:[address] 11/01/23 06:01 CT SCAN OF THE CERVICAL SPINE CLINICAL HISTORY: Trauma. COMPARISON STUDY: CT of the cervical spine dated 08/27/2023. TECHNIQUE: CT scan of the cervical spine is performed from the skull base to the upper thoracic spine. Images are reviewed in the axial, sagittal, and coronal planes. IV contrast was not administered for this examination. A dose lowering technique was utilized adhering to the principles of ALARA. FINDINGS: Skeletal structures: The skeletal structures are osteopenic. There is no evidence of fracture or subluxation involving the cervical spine. Vertebral body height is maintained. There is minimal retrolisthesis at C3-C4. Alignment is otherwise preserved. Anterior osteophytes are seen throughout. The odontoid process and lateral masses are intact. The atlantoaxial articulation is prese rved noting advanced productive degenerative change. The spinous processes appear intact. There is moderate multilevel cervical spondylosis. Uncovertebral and facet arthropathy contribute to neural foraminal narrowing at several levels. Intervertebral discs: There is severe disc space narrowing at C3-C4, C5-C6, and C6-C7 with associated endplate sclerosis. Mild to moderate narrowing is seen at the remaining cervical levels. Central canal: Posterior disc osteophyte complexes at C3-C4, C5-C6, and C6-C7 may contribute to acquired compromise of the central canal. Soft tissues: The prevertebral and paraspinous soft tissues are within normal limits. Calvarium: The visualized calvarium at the skull base appears intact. Brain parenchyma: Partially visualized brain parenchyma at the skull base is within normal limits. Mastoids: The mastoid air cells are well pneumatized. Lung apices: Clear as visualized. IMPRESSION: 1. There is no evidence of cervical spine fracture or subluxation. 2. Osteopenia and spondylotic changes as above. ACT 112: Negative or not required by law. Electronically signed by: Benoit Azevedo M.D. 11/01/2023 7:[address] 11/01/23 06:01 CT SCAN OF THE BRAIN WITHOUT IV CONTRAST CLINICAL HISTORY: Trauma. COMPARISON STUDY: CT of the brain dated 08/27/2023. TECHNIQUE: Unenhanced axial CT scan of the brain is performed from the vertex to the skull base. A dose lowering technique was utilized adhering to the principles of ALARA. FINDINGS: Brain parenchyma: There is age-related involutional change noting mild subcortical and periventricular microangiopathic disease. There is no hemorrhage, mass effect, or evidence of acute territorial ischemia by CT criteria. Arellano-white matter differentiation is preserved. No extra-axial fluid collection is seen. Ventricles, sulci, cisterns: Prominent secondary to involutional change. Intracranial vasculature: There is atherosclerotic calcification of the cavernous carotid and vertebral arteries. Calvarium: The skeletal structures are osteopenic. No depressed calvarial fracture is seen. There is chronic deformity of the nasal bones. Sinuses and mastoids: There is trace mucosal thickening within the left maxillary antrum and the sphenoid sinuses. The mastoid air cells are well pneumatized. Orbits: The bony orbits are grossly intact. There are bilateral ocular lens implants. IMPRESSION: There is no hemorrhage, mass effect, or evidence of acute territorial ischemia by CT criteria. ACT 112: Negative or not required by law. Electronically signed by: Benoit Azevedo M.D. 11/01/2023 7:18 AM Hip X-Ray 11/01/23 16:39 LEFT HIP 2 VIEWS CLINICAL HISTORY: Left hip pain. FINDINGS: AP and frog-leg views of the left hip are compared to study dated 03/19/2022 and correlated with pelvic CT performed the same day 11/01/2023. The skeletal structures are osteopenic. There is no radiographic evidence of acute fracture involving the left hip or the visualized left hemipelvis. A left hip arthroplasty is in near anatomic alignment. No periprosthetic lucency is seen. Degenerative sclerosis is noted in the left sacroiliac joint and the pubic symphysis. Soft tissue edema is suggested the left gluteal tissues. There is atherosclerotic calcification of the left femoral artery. IMPRESSION: 1. No acute bony abnormality is identified. 2. A left hip arthroplasty is in near anatomic alignment. Electronically signed by: Benoit Azevedo M.D. 11/01/2023 6:15 PM
[2023-11-04 16:00] LABS: Hemoglobin 13.9 g/dl (14.0-18.0)
--- NOTE | 2023-11-04 19:59 | Hospitalist Progress Note ---
Date of Service November 04, 2023 Assessment & Plan (1) Hematoma of left buttock: Plan: 2nd to fall at home in setting of alcohol intoxication and chronic apixaban for afib abixaban stopped - s/p [facility] ortho consult appreciated -- WBAT f/u Dr August as outpatient for recheck H/H remain stable over last 48 hours despite the hematoma keep off the Eliquis for now (2) Fall from standing: Plan: Pt denied chest pain, palpitations, SOB, lightheadedness/dizziness prior to his fall No LOC No head injury Vitals stable while here A.fib stable while here Cont PT/OT (3) TYRA (acute kidney injury): Plan: Peak Cr 1.6 now resolved (4) Alcohol abuse: Plan: Patient had been sober but started drinking about 1 week prior to admission traveled out of town and after her departure he began to drink again Alcohol level 381 on arrival No signs of etoh withdrawal today Cont thiamine supplementation, etc Finish phenobarbital taper (5) Hypomagnesemia: Plan: 2nd etoh abuse had recent diarrhea per staff as well replace again with 3 grams mag sulfate repeat level this evening wnl send home with mag oxide at d/c (6) Atrial fibrillation, permanent: Plan: cont metoprolol and diltiazem holding digoxin Eliquis on hold rates acceptable (7) Restrictive lung disease: Plan: stable lung exam and O2 sats (8) Hypertension: Plan: controlled (9) Nocturnal hypoxia: Plan: Patient wears 2L NC HS (10) Heart failure with reduced ejection fraction: Plan: EF 40-45% resume bumex cont metoprolol ideally he is not on diltiazem due to depressed EF but this is chronic med for him (11) Hypokalemia: Plan: replaced resolved Plan patient wanting to go home but Pt/Ot advising rehab needs re-evals tomorrow Admission and Anticipated Discharge Date Admission Date: November 01, 2023 Subjective patient states that buttock pain has improved mobility has improved can ambulate more comfortably than previous denies shakes/tremors from etoh withdrawal reports his is flying back into town from [place] and thus, if he returns home, he will no longer be alone denies any other new complaints Review of Systems Review of Systems: cv - no chest pain pulm - no dyspnea or INGRAM GI - no abd pain/nausea/emesis Physical Exam Physical Exam: gen - NAD, looks good neck - no JVD mouth - MMM heart - irregularly irregular, s1 s2, no murmur lungs - CTA b/l abd - soft NT ND BS+ ext - no edema, pulses 2+ b/l musculo - left buttock with mild swelling but no sigificant ecchymoses Results & Data Results & Data Vital Signs (Past 12 Hours) Vital Signs Temp Pulse Pulse Resp BP Pulse Ox O2 Del Method 11/04/23 19:29 36.8 C 84 20 128/89 97 Room Air 11/04/23 15:52 36.7 C 86 18 133/83 97 Room Air 11/04/23 15:20 75 11/04/23 11:02 36.7 C 84 18 118/86 96 Room Air 11/04/23 09:00 Room Air Laboratory Results Laboratory Results - last 48 hr 11/03/23 11/04/23 11/04/23 12:20 05:36 15:46 WBC 13.12 H 11.79 H RBC 4.01 L 3.74 L Hgb 14.0 13.2 L 13.9 L Hct 40.9 L 38.0 L 41.0 L MCV 102.0 H 101.6 H MCH 34.9 H 35.3 H MCHC 34.2 34.7 RDW Std Deviation 49.7 H 49.2 H RDW Coeff of Daniel 13.2 13.2 Plt Count 198 169 MPV 10.2 10.4 Immature Gran % (Auto) 1.1 Neut % (Auto) 76.3 Lymph % (Auto) 13.9 Freeborn % (Auto) 7.3 Eos % (Auto) 0.8 Baso % (Auto) 0.6 Neut # (Auto) 10.02 H Lymph # (Auto) 1.82 Freeborn # (Auto) 0.96 H Eos # (Auto) 0.10 Baso # (Auto) 0.08 Immature Gran # (Auto) 0.14 Sodium 134 L Potassium 3.6 Chloride 99 Carbon Dioxide 30 Anion Gap 5 BUN 9 Creatinine 0.77 Est Cr Clr Drug Dosing 124.4 Est GFR ( Amer) 107.3 Est GFR (Non-Af Amer) 92.6 BUN/Creatinine Ratio 11.7 Glucose 81 Calcium 7.9 L Magnesium 1.4 L 1.8 Total Bilirubin 0.8 AST 17 ALT 14 Alkaline Phosphatase 60 Total Protein 5.2 L Albumin 3.1 L Globulin 2.1 L Albumin/Globulin Ratio 1.5 PG Care Time/CCT Total # of Minutes Spent Total Time Spent with Patient: Total time spent is greater than 50% in coordination of care (as documented) at patient's floor/unit and/or counseling patient: Coding Level of Care Code 34492 SUB INP/OBS CARE 2/35MIN Diagnoses Hematoma of left buttock S30.0XXA Fall from standing W19.XXXA TYRA (acute kidney injury) N17.9 Alcohol abuse F10.10 Hypomagnesemia E83.42 Atrial fibrillation, permanent I48.21 Restrictive lung disease J98.4 Hypertension I10 Nocturnal hypoxia G47.34 Heart failure with reduced ejection fraction I50.20 Hypokalemia E87.6
[2023-11-04] MEDS: LIDOCAINE 5% 1 PATCH TD SCH (20:54)
[2023-11-04] MEDS ORDERED: traZODone HCL 100 MG TAB PO SCH (21:00)
[2023-11-04] MEDS ORDERED: DIVALPROEX EXTENDED RELEASE 500 MG TAB PO SCH (21:00)
[2023-11-05] MEDS ORDERED: PHENobarbitaL 30 MG TAB PO SCH (01:00)
[2023-11-05] MEDS: ACETAMINOPHEN 325 MG TAB PO SCH ×2 (03:58→09:10)
[2023-11-05 06:48] LABS: Hematocrit (blood only) 35.9 % (42.0-52.0); Hemoglobin 12.2 g/dl (14.0-18.0); Mean Corpuscular Hemoglobin 34.9 pg (25.0-34.0); Mean Corpuscular Volume 102.6 fL (80.0-100.0); Platelet Count 159 K/uL (130-400); RDW Coefficient of Variation 13.3 % (11.5-14.5); RDW Standard Deviation 50.6 fL (36.4-46.3); White Blood Count 10.77 K/ul (4.8-10.8)
[2023-11-05 07:28] LABS: BUN Creatinine Ratio 9.6 (10-20); Calcium 7.8 mg/dl (8.6-10.3); Creatinine Clr Calc Pharmacy 115.8 ml/min; Est GFR (African American) 104.1 ml/min; Est GFR (Non-African American) 89.8 ml/min; Potassium 3.5 mmol/L (3.5-5.1)
[2023-11-05] MEDS: allopurinoL 300 MG TAB PO SCH (09:02)
[2023-11-05] MEDS: FOLIC ACID 1 MG TAB PO SCH (09:03)
[2023-11-05] MEDS: TAMSULOSIN HCL 0.4 MG CAP PO SCH (09:03)
[2023-11-05] MEDS: CYANOCOBALAMIN (B-12) 100 MCG TABLET PO SCH (09:03)
[2023-11-05] MEDS: METOPROLOL SUCC 50MG EXT REL TAB PO SCH (09:09)
[2023-11-05] MEDS: dilTIAZem HCL 120 MG CAPCR PO SCH (09:10)
[2023-11-05] MEDS: THIAMINE HCL 100 MG in SYRINGE 9 ML IV SCH (09:10)
[2023-11-05] MEDS: oxyCODONE HCL IR 5 MG TAB (IMMEDIATE RELEASE) PO PRN (09:13)
[2023-11-05 13:17] LABS: Hematocrit (blood only) 36.5 % (42.0-52.0); Hemoglobin 12.6 g/dl (14.0-18.0)
--- NOTE | 2023-11-05 14:28 | Discharge Summary ---
Date of Service November 05, 2023 Admission HPI Per Admitting Provider Tom is a 68 year old male with a PMH significant for current alcohol abuse (drinks mouthwash), afib on Eliquis, restrictive lung disease, stage 3 CKD, HFrEF (LVEF of 45-50% as of 10/20/23), HTN, lumbar stenosis, and BPH with urinary obs/LUTS who presented to the [facility] ED via EMS from home after sustaining a fall last night. He remained stable in the ED. Labs were significant for a leukocytosis of 13 with neutrophil predominance of 8.89, MCV of 100.2, CBC which appears hemoconcentrated, VBG pH of 7.42, pO2 of 67, and pCO2 of 44, cr of 1.65 (Baseline is near 1.3), AG of 16 with bicarb of 28, mag of 1.5, total CK of 368, and UA with trace protein, trace ketones/leukocyte esterase, 5-10 WBC, 10-20 epithelial cells and bacteria negative, alcohol level of 381 with urine tox screen negative. CT head, CT cervical spine, Chest Xray, and CT of the lumbar spine were negative for acute trauma. CT of the abd/pelvis w/IV con shows an intramuscular hemorrhage within the left gluteal musculature with a focus of active extravasation and signs of chronic pancreatitis. The ED spoke with Orthopedic surgery who was comfortable with the patient staying at our facility and recommend considering anticoagulation reversal. The ED also spoke with Dr. Haynes who recommended obtaining obtaining an unfractionated Xa prior to doing any anticoagulation reversal. Prior to arrival the patient was given 1L NSS, 1gm Iv mag-sulfate, 1gm IV tylenol, and a banana bag. At the time of the exam the patient was lying in bed in no acute distress. He states that he had been in sobriety until his went to visit family in [place] approximately a week ago. Since then he has been drinking approximately 1/2 of a large bottle of mouth was daily. His last drink was yesterday afternoon around 2 pm. He states that he was walking the his home when he lost his balance and fell, landing on his left hip. He denies symptoms such as lightheadedness, dizziness, chest pain, palpitations, or SOB prior to his fall. He did not hit his head or lose consciousness. He believes he fell around 3 PM yesterday and was on the ground overnight until he was able to reach his cell phone this am. His only complaints at this time are BL hip pain and left buttocks pain. He did not take any of his am medications today. His last dose of Eliquis was yesterday am. When asked, he states that he has gone into withdrawal in the past when he stops drinking but denies withdrawal seizures. He feels as though he is starting to develop mild tremors since arrival. He is a conditional code; he would not want chest compressions or defibrillation in the event of cardiac arrest. In the event of respiratory failure he would want a trial of intubation. His would be his primary decision maker if he could not make decisions himself. Please refer to Dr. Nettles's attestation for any changes to the treatment plan Discharge Exam gen - NAD, looks good neck - no JVD mouth - MMM heart - irregularly irregular, s1 s2, no murmur lungs - CTA b/l abd - soft NT ND BS+ ext - no edema, pulses 2+ b/l musculo - left buttock with mild swelling but no sigificant ecchymoses Discharge Data Allergies Allergy/AdvReac Type Severity Reaction Status Date / Time meloxicam Allergy Severe Swollen Verified 11/01/23 09:22 tongue amitriptyline [From Elavil] Allergy Intermediate Hallucinati Verified 11/01/23 09:22 ons aripiprazole [From Abilify] Allergy Intermediate Tremors, Verified 11/01/23 09:22 balance issues, trouble controlling body movements hyoscyamine Allergy Intermediate Hallucinati Verified 11/01/23 09:22 [From Symax Duotab] ons venlafaxine [From Effexor] Allergy Intermediate Hallucinations Verified 11/01/23 09:22 and tremors zolpidem [From Ambien] Allergy Intermediate Hallucinati Verified 11/01/23 09:22 ons Penicillins Allergy Mild Rash Verified 11/01/23 09:22 adhesive tape AdvReac Mild rash, red Verified 11/01/23 09:22 skin Consultations 11/01/23 09:37 ED Decision to Admit Stat 11/01/23 11:20 Consult Orthopedic Surgery Routine Ordered Studies 11/01/23 06:00 CT abd pelvis IV con only Stat CT lumbar spine w con Stat 11/01/23 06:01 CT cervical spine wo con Stat CT head/brain wo con Stat Hospital Course (1) Hematoma of left buttock: 2nd to fall at home in setting of alcohol intoxication and chronic apixaban for afib abixaban stopped - s/p [facility] ortho consult appreciated -- WBAT f/u Dr August as outpatient for recheck H/H remain stable over last 48 hours despite the hematoma keep off the Eliquis for now (2) Fall from standing: Pt denied chest pain, palpitations, SOB, lightheadedness/dizziness prior to his fall No LOC No head injury Vitals stable while here A.fib stable while here Cont PT/OT (3) TYRA (acute kidney injury): Peak Cr 1.6 now resolved (4) Alcohol abuse: Patient had been sober but started drinking about 1 week prior to admission traveled out of town and after her departure he began to drink again Alcohol level 381 on arrival No signs of etoh withdrawal today Cont thiamine supplementation, etc Finish phenobarbital taper (5) Hypomagnesemia: 2nd etoh abuse had recent diarrhea per staff as well replace again with 3 grams mag sulfate repeat level this evening wnl send home with mag oxide at d/c (6) Atrial fibrillation, permanent: cont metoprolol and diltiazem holding digoxin Eliquis on hold rates acceptable (7) Restrictive lung disease: stable lung exam and O2 sats (8) Hypertension: controlled (9) Nocturnal hypoxia: Patient wears 2L NC HS (10) Heart failure with reduced ejection fraction: EF 40-45% resume bumex cont metoprolol ideally he is not on diltiazem due to depressed EF but this is chronic med for him (11) Hypokalemia: replaced resolved Plan patient wanting to go home but Pt/Ot advising rehab needs re-evals tomorrow Discharge Plan Discharge Items Patient Disposition: Home - Self-Care Reason For Visit: FALL,LEFT GLUTEAL HEMATOMA Discharge Diagnosis: 1. fall 2. left buttock hematoma 3. acute kidney injury- resolved 4. low magnesium- improved 5. atrial fibrillation 6. history of alcohol use Activity: As commented below Activity Comment: light activities x 1 week then gradually increase as tolerated Exercise/Sports: Wait until after follow-up appointment Driving/Machine Use: Resume 3 days after discharge Weightbearing Comment: weight bearing as tolerated on your left leg Non-emergency contact: Primary Care Provider and Specialist Call non-emergency contact if: you have any medication questions, your symptoms worsen, your pain is not controlled and your pain is worsening Follow-up/Referrals: Chapito Artis MD [Physician] - 12/09/23 1:00 pm Keith Dimas DO [Primary Care Provider] - 11/07/23 11:30 am (DISCHARGE PCP F/U APPOINTMENT 11/07/23 @ 11:30am) James August MD [Physician] - (1-2 weeks - if needed - for recheck of left buttock hematoma) Diet: Heart Healthy Fluids: 1800ml (7 cups) Addtl Attending Provider Instructions: Mr Lion, You were hospitalized after having had a fall at home. This led to a buttock hematoma on the left. Your Eliquis blood thinner was held. We performed serial CBC (red blood cell counts) to ensure you were no longer bleeding. Orthopedics saw you in consultation and recommended conservative treatment for the hematoma (rather than draining it). Your examination as well as blood work would suggest there is no ongoing bleeding. Your mobility & walking have improved while here. Your other medical problems - a.fib, congestive heart failure, etc - have been stable. You did have low magnesium in your blood. This took a copious amount of magnesium supplement to correct to normal. Alcohol use, diuretic use, and other factors likely caused the low magnesium levels. Recommendations - 1. HOLD YOUR ELIQUIS at this time. Only resume once your outpatient doctors tell you to start taking it again. Hopefully we can resume this sometime in the next 1-2 weeks. 2. HOLD YOUR DIGOXIN at this time. Only resume if Dr Artis or your family doctor recommend such. 3. TAKE magnesium oxide supplement - 400mg twice daily every day. 4. TAKE thiamine supplement - 200mg twice daily x 30 days then stop. 5. Ok to use a heating pad on the left buttock area -- 30-40 minutes, several times each day - to help speed up resolution of the hematoma. This will also help with pain/discomfort. Don't fall asleep with the heating pad on as this could cause a burn. 6. Have a repeat cbc (blood count) and magnesium level rechecked at the time of your hospital follow-up appointment later this week. 7. Use a walker when ambulating around your home. 8. Take it easy for the next several days - avoid heavy exertional activities, avoid excessive stair climbing, etc. Gradually resume normal activities over the next 1-2 weeks. 9. Follow-up - see separate section. [facility] if - * you have severe pain in your left buttock at rest or with walking despite taking your usual tylenol, etc * you have difficulty walking because of the buttock hematoma * you are short of breath or have chest pain * you are dizzy or lightheaded * any other concerns It was our pleasure to care for you ! Happy holidays ! Pending Studies at Discharge: No Stand-Alone Forms: My [facility], Smoking Cessation Medications and DC Order Prescriptions: New thiamine HCl (vitamin B1) 100 mg tablet 200 mg PO BID Qty: 120 0RF magnesium oxide 400 mg magnesium tablet 400 mg PO BID Qty: 60 2RF Continued acetaminophen 500 mg capsule 1,000 mg PO TID 30 Days Qty: 180 0RF Rx Instructions: TAke 3 times per day to lessen pain. alfuzosin [Uroxatral] 10 mg tablet extended release 24 hr 10 mg PO DAILY Qty: 90 3RF Rx Instructions: administer after the same meal each day trazodone 100 mg tablet 200 mg PO HS Qty: 60 11RF diltiazem HCl 120 mg capsule,extended release 12 hr 120 mg PO DAILY Qty: 30 11RF (DME) Portable Oxygen Misc See Rx Instructions .Route Qty: 1 0RF Rx Instructions: prn dyspnea. portable oxygen concentrator allopurinol 300 mg tablet 300 mg PO QAM Qty: 90 3RF lamotrigine [Lamictal] 150 mg tablet 150 mg PO HS Qty: 30 11RF oxycodone 5 mg tablet 5 mg PO Q8H PRN (Reason: pain) Qty: 90 0RF Rx Instructions: DNFB 10-11-23 vitamin A 2,400 mcg capsule 2,400 mcg PO DAILY testosterone 75 mg pellet 75 mg implant .COMPLEX Rx Instructions: 75 mg implant Quarterly; zinc gluconate 50 mg tablet 50 mg PO DAILY albuterol sulfate 90 mcg/actuation HFA aerosol inhaler 2 puff inhalation Q4H PRN (Reason: SOB/WHEEZING) mecobalamin (vitamin B12) 1,000 mcg tablet,chewable 1,000 mcg PO DAILY colchicine 0.6 mg capsule 0.6 mg PO DIRECTED PRN (Reason: GOUT FLARE UPS) Qty: 2 5RF Rx Instructions: one pills at onset of gout flare, one pill in 2-6 hours if not resolved no more than 2 pills every 14 days cetirizine 10 mg tablet 5 mg PO DAILY PRN (Reason: Allergy Symptoms) metoprolol succinate 100 mg tablet extended release 24 hr 200 mg PO QAM Qty: 180 3RF metolazone 5 mg tablet 5 mg PO DAILY PRN (Reason: Edema) vitamin B complex Tablet 1 tab PO DAILY cholecalciferol (vitamin D3) [Vitamin D3] 25 mcg (1,000 unit) capsule 5,000 unit PO DAILY Changed bumetanide 1 mg tablet 1 mg PO DAILY Qty: 1 0RF Rx Instructions: Take one tablet daily. If weight 240 lbs or greater, increase to 2MG. Reduce to 1MG daily once weight 235 lbs or less. Held Eliquis 5 mg tablet 5 mg PO BID Qty: 180 3RF Hold Instructions: PT. STATED HE IS NOT CURRENTLY TAKING digoxin 125 mcg (0.125 mg) tablet 125 mcg PO DAILY Qty: 90 3RF Hold Instructions: hold unless your outpatient doctors tell you to resume Discharge Orders: Discharge Order (Routine); Ordered 11/05/23 Ordered By: Michelet Reveles Admission Data Admit Date/Time: 11/01/23 10:27 Attending Provider: Michelet Reveles Admit Provider: Michelet Nettles Primary Care Provider: Keith Dimas Other Providers: Diana Boyd; Mario Parada Coding Diagnoses Hematoma of left buttock S30.0XXA Fall from standing W19.XXXA TYRA (acute kidney injury) N17.9 Alcohol abuse F10.10 Hypomagnesemia E83.42 Atrial fibrillation, permanent I48.21 Restrictive lung disease J98.4 Hypertension I10 Nocturnal hypoxia G47.34 Heart failure with reduced ejection fraction I50.20 Hypokalemia E87.6
== END 2023-11-05 17:13 | disposition home or self-care (01) ==
LOC: ED 05:44 → EDINP 10:27 → SUATTDRO 10:27 → INTOOBSV 10:27 → 2E 12:29

== ENCOUNTER 2024-07-24 05:00 | Inpatient (IN) ==
[2024-07-24 05:46] LABS: Basophils # (auto) 0.04 K/uL (0.00-0.20); Basophils % (auto) 0.3 %; Eosinophils # (auto) 0.17 K/uL (0.00-0.50); Eosinophils % (auto) 1.5 %; Hematocrit (blood only) 41.1 % (42.0-52.0); Hemoglobin 13.7 g/dl (14.0-18.0); Immature Granulocytes # (auto) 0.07 K/uL (0.01-0.20); Immature Granulocytes % (auto) 0.6 %; Lymphocytes # (auto) 1.53 K/uL (1.20-3.40); Lymphocytes % (auto) 13.4 %; Mean Corpuscular Hemoglobin 33.6 pg (25.0-34.0); Mean Corpuscular Hgb Conc 33.3 g/dL (32.0-36.0); Mean Corpuscular Volume 100.7 fL (80.0-100.0); Mean Platelet Volume 10.6 fL (9.4-12.4); Monocytes # (auto) 0.84 K/uL (0.11-0.59); Monocytes % (auto) 7.3 %; Neutrophils # (auto) 8.81 K/uL (1.40-6.50); Neutrophils % (auto) 76.9 %; Platelet Count 140 K/uL (130-400); RDW Coefficient of Variation 14.4 % (11.5-14.5); RDW Standard Deviation 52.7 fL (36.4-46.3); Red Blood Count 4.08 M/uL (4.70-6.10); White Blood Count 11.46 K/ul (4.8-10.8)
[2024-07-24 06:06] LABS: Albumin Globulin Ratio 1.5 (0.9-2); Albumin Level 3.8 gm/dl (3.4-5.0); BUN Creatinine Ratio 10.1 (10-20); Calcium 8.8 mg/dl (8.6-10.3); Creatinine Clr Calc Pharmacy 13.1 ml/min; Est GFR (African American) 8.1 ml/min; Globulin 2.6 gm/dl (2.5-4.0); Potassium 4.7 mmol/L (3.5-5.1); Total Protein 6.4 gm/dl (6.0-8.3); Troponin I High Sensitivity 18.6 pg/ml (0-20)
[2024-07-24 06:48] LABS: Adenovirus PCR Not Detected (NotDetected); Bordetella parapertussis PCR Not Detected (NotDetected); Bordetella pertussis PCR Not Detected (NotDetected); Chlamydia pneumoniae PCR Not Detected (NotDetected); Coronavirus 229E PCR Not Detected (NotDetected); Coronavirus CoV-2 (COVID19)PCR Not Detected (NotDetected); Coronavirus HKU1 PCR Not Detected (NotDetected); Coronavirus NL63 PCR Not Detected (NotDetected); Coronavirus OC43PCR Not Detected (NotDetected); Human Metapneumovirus PCR Not Detected (NotDetected); Influenza A PCR Not Detected (NotDetected); Influenza B PCR Not Detected (NotDetected); Mycoplasma pneumoniae PCR Not Detected (NotDetected); Parainfluenza Virus 1 PCR Not Detected (NotDetected); Parainfluenza Virus 2 PCR Not Detected (NotDetected); Parainfluenza Virus 3 PCR Not Detected (NotDetected); Parainfluenza Virus 4 PCR Not Detected (NotDetected); Respiratory Syncytial VirusPCR Not Detected (NotDetected); Rhinovirus/Enterovirus PCR Not Detected (NotDetected)
[2024-07-24] MEDS: SODIUM CHLORIDE 0.9% 1,000 ML IV SCH ×2 (06:49→10:06)
--- NOTE | 2024-07-24 07:23 | Emergency Department Note ---
History of Present Illness General Chief complaint: Fall Stated complaint: Fall, Bilateral Hip Pain Time Seen by Provider: 07/24/24 05:03 History of Present Illness This is a 69-year-old male presenting to the emergency department via EMS from home. The patient history is primarily provided by EMS and the patient's . Patient has had several frequent falls recently, and typically uses a walker to help with ambulation. He wears oxygen at night. There is a past history of alcoholism, however there is no alcohol in the home. Patient reportedly got up at night to use the bathroom, and was assisting him to the bathroom. Patient felt weak and nearly fell, however the was able to keep him upright. Patient does have some chronic pain in his hips, and otherwise has been acting different than normal according to the . Patient himself does not have significant complaints at this time. No recent fevers or chills. No chest pain or abdominal pain. Discomfort is rated 1/10. Home Medications Medication Instructions Recorded Confirmed Type cetirizine 10 mg tablet 10 mg PO DAILY PRN Allergy Symptoms 11/25/19 07/24/24 History vitamin B complex 1 tab PO QDL 12/06/21 07/24/24 History acetaminophen 500 mg capsule 1,000 mg (2 x 500 mg) PO TID Pain 03/18/22 07/24/24 Rx 30 days #180 caps cholecalciferol (vitamin D3) 25 5,000 unit PO QAM 01/31/23 07/24/24 History mcg (1,000 unit) capsule (Vitamin D3) mecobalamin (vitamin B12) 1,000 1,000 mcg PO QAM 01/31/23 07/24/24 History mcg chewable tablet testosterone 75 mg implant pellet 75 mg implant .COMPLEX 01/31/23 07/24/24 History vitamin A 2,400 mcg capsule 2,400 mcg PO QDL 01/31/23 07/24/24 History zinc gluconate 50 mg tablet 50 mg PO QDL 01/31/23 07/24/24 History allopurinol 300 mg tablet 300 mg PO QAM #90 tabs 07/10/23 07/24/24 Rx colchicine 0.6 mg capsule 0.6 mg PO DIRECTED PRN GOUT 10/14/23 07/24/24 Rx FLARE UPS #2 caps albuterol sulfate 90 mcg/actuation 2 puff inhalation Q4H PRN 11/18/23 07/24/24 Rx aerosol inhaler SOB/WHEEZING #8.5 grams divalproex 500 mg tablet,extended 1,000 mg (2 x 500 mg) PO HS #180 11/18/23 07/24/24 Rx release 24 hr (Depakote ER) tabs benzonatate 100 mg capsule 100 mg PO TID PRN cough #60 caps 11/26/23 07/24/24 Rx ipratropium 0.5 mg-albuterol 3 mg 3 ml inhalation Q6H PRN wheezing 11/28/23 07/24/24 Rx (2.5 mg base)/3 mL nebulization #180 mL soln potassium chloride 20 mEq 20 meq PO BID #180 tabs 01/14/24 07/24/24 Rx tablet,extended release magnesium oxide 400 mg PO BID #180 tabs 02/09/24 07/24/24 Rx trazodone 100 mg tablet 200 mg (2 x 100 mg) PO HS #60 tabs 03/22/24 07/24/24 Rx metoprolol succinate 100 mg 100 mg PO QAM #90 tabs 04/09/24 07/24/24 Rx tablet,extended release 24 hr bumetanide 1 mg tablet 2 mg PO QAM 05/06/24 07/24/24 History cephalexin 500 mg capsule 2,000 mg PO ONCE PRN prior to 05/06/24 07/24/24 History dental procedures digoxin 125 mcg (0.125 mg) tablet 125 mcg PO QPM 05/06/24 07/24/24 History naltrexone 50 mg tablet 50 mg PO QAM 05/06/24 07/24/24 History thiamine HCl (vitamin B1) 100 mg 100 mg PO BID 05/06/24 07/24/24 History tablet alfuzosin 10 mg tablet,extended 10 mg PO QAM #90 tabs 05/17/24 07/24/24 Rx release 24 hr (Uroxatral) diltiazem HCl 120 mg 120 mg PO QPM #90 caps 06/09/24 07/24/24 Rx capsule,extended release 12 hr lamotrigine 150 mg tablet 150 mg PO HS #30 tabs 06/09/24 07/24/24 Rx (Lamictal) apixaban 5 mg tablet (Eliquis) 5 mg PO BID #180 tabs 08/19/24 09/07/24 Rx Allergies Allergy/AdvReac Type Severity Reaction Status Date / Time meloxicam Allergy Severe Swollen Verified 07/24/24 07:10 tongue amitriptyline [From Elavil] Allergy Intermediate Hallucinati Verified 07/24/24 07:10 ons aripiprazole [From Abilify] Allergy Intermediate Tremors, Verified 07/24/24 07:10 balance issues, trouble controlling body movements hyoscyamine Allergy Intermediate Hallucinati Verified 07/24/24 07:10 [From Symax Duotab] ons venlafaxine [From Effexor] Allergy Intermediate Hallucinations Verified 07/24/24 07:10 and tremors zolpidem [From Ambien] Allergy Intermediate Hallucinati Verified 07/24/24 07:10 ons ciprofloxacin Allergy Mild Rash Verified 07/24/24 07:10 Penicillins Allergy Mild Rash Verified 07/24/24 07:10 adhesive tape AdvReac Mild rash, red Verified 07/24/24 07:10 skin Past Med/Surg History Problem List Weakness (Acute) TYRA (acute kidney injury) (Acute) Hypercarbia Acute metabolic encephalopathy Alcohol withdrawal Personal history of colonic polyps Varicose veins of legs COVID-19 History of left hip replacement Heart failure with reduced ejection fraction Nocturnal hypoxia Alcohol abuse Hematoma of left buttock Rhabdomyolysis (Acute) Fall from standing (Acute) Atrial fibrillation, permanent (Acute) Restrictive lung disease Heart failure with mid-range ejection fraction Chest pain (Acute) Chronic kidney disease with active medical management without dialysis, stage 3 (moderate) Metabolic alkalosis Hypertension Lumbar facet joint syndrome Bipolar 2 disorder Congestive heart failure EF 40-45% Nov 2021 ECHO (questionable tachycardia induced per cardio) Degenerative joint disease of left hip Myofascial pain Leg length discrepancy Ascending aorta dilatation 4.6 cm - no change from Nov [address] per 12/06/21 chest CTA Left ventricular dysfunction Degenerative joint disease, foot, left Foot pain, left Insomnia Asthma COLD WEATHER INDUCED>NO INHALER USED FOR A WHILE Breathing stable Chronic gout Chronic lumbar pain S/P insertion of spinal cord stimulator X 2 *ONLY 1 IS FUNCTIONING BUT NOT IN USE CURRENTLY (WILL BRING ALONG REMOTE AND INSTRUCTIONS TO SURGERY/PAT APT) Hypoxia Atelectasis Elevated hemidiaphragm left Dyspnea Iniguez's neuroma of left foot Cough Orthopnea Hypomagnesemia Elevated MCV Fatigue Hearing loss, bilateral Recurrent right knee instability Memory impairment Hypogonadism in male (Chronic) RLS (restless legs syndrome) HX OF BPH w urinary obs/LUTS Skin tag (Chronic) Medical marijuana use (Chronic) Spinal stenosis (Chronic) Hx of knee surgery RT KNEE SCOPE Medical History Spinal stenosis Varicose veins of legs Restrictive lung disease Nocturnal hypoxia on 4L oxygen HS Lumbar facet joint syndrome Left ventricular dysfunction Hypertension Hearing loss Elevated hemidiaphragm on left Dyspnea on exertion Congestive heart failure EF 40-45% Nov 2021 ECHO (questionable tachycardia induced per cardio) Chronic lumbar pain per pt since 2011 with spinal stenosis Chronic kidney disease, stage [address] Holman Chronic gout History of chest pain 2022--per pt resolved--follows with Dr. Artis Bipolar 2 disorder lamicatal/depakote Decreased diffusion capacity of lung "atelectasis"--in right lung per pt capacity is 50% On home oxygen therapy 4L via NC at HS Asthma cold weather induced--rarely uses rescue inhaler History of alcohol abuse on naltrexone Acute kidney injury superimposed on CKD per pt was due to fall--per pt resolved Acute heart failure hx--does have congestive heart failure Hypokalemia Peripheral neuropathy Bilateral feet Atrial fibrillation On Eliquis History of COVID-19 11/2021>TROUBLE BREATHING/CONGESTION>HOSPITAL AFTER DX FOR PULSE RATE *RESOLVED History of hypogonadism Surgical History S/P insertion of spinal cord stimulator X 2 *ONLY 1 CURRENTLY, BUT NOT IN USE CURRENTLY (WILL BRING ALONG REMOTE) History of arthroscopy of right knee Hx of eye surgery 08-29-23 R orbital superior medial orbitotomy exploration and removal of glass fragments largest [address] Jose Murphy S/P total left hip arthroplasty 03-19-22 Dr August, [facility] H/O hand surgery LEFT Hx of vasectomy History of colonoscopy History of tonsillectomy [place] teeth removed History of cataract surgery RT/LEFT History of cholecystectomy Hx of hernia repair UMBILICAL HERNIA Family History Mother Breast cancer Hypertension Sister Diabetes Lung cancer Other No family history of adverse response to anesthesia Denies family history of Ovarian cancer Prostate cancer Myocardial infarction Colorectal cancer Social History Smoking Status: Never smoker Second Hand Exposure: No; Do You Dip or Chew Tobacco: No; Hx Alcohol Use: Yes (Current withdrawal) Alcohol type: beer Hx Substance Use: Yes (Positive lab results) Prescribed Medications: Marijuana Last Used Substance: Unknown Substance Use Type Other:: Medical marijuana for sleep Preferred Language: Telugu Communication Ability: Effective Communication Ability Comment: Patient unable to communicate at this time Hearing Ability: Use of Hearing Aid Health Insurance Assessor Required: No Beliefs That Will Affect Care: None marital status: Current Living Situation: Spouse current occupational status: retired How many Children do You have: 6 How many Children do You have Comment: 2 biological and 4 step-children. Feels Safe at Home: Yes Childhood Exposure to Second-Hand Smoke: Yes Diet: regular Diet Comment: Optivia diet caffeine: Yes during the past year weight has: remained stable Dental Care, Regularly: No Physical Activity Frequency: Does not Exercise Physical Activity Frequency Comment: CHF Seatbelt Use: always Sunscreen Use: No Do you think of yourself as: straight/heterosexual Gender Identity: Male Assistive Devices: Hearing Aid - Bilateral and Oxygen - Continuous Assistive Devices Comment: No hearing aides present with patient Review of Systems A total of 10 systems reviewed and were otherwise negative Physical Exam Vital Signs Vital Signs - 24 hr 07/24/24 05:07 07/24/24 05:07 07/24/24 05:10 Temperature 36.9 C Temperature Source Oral Pulse Rate 98 H 98 H 89 Pulse Rate [Left Finger] Respiratory Rate 20 20 16 Respiratory Effort / Characteristics Non-Labored Respiratory Depth Normal Respiratory Pattern Regular Blood Pressure 119/57 L 119/57 L Blood Pressure [Left Arm] Blood Pressure Mean 77 60 Blood Pressure Mean [Left Arm] Pulse Oximetry 94 94 95 Oxygen Delivery Method Nasal Cannula Nasal Cannula Nasal Cannula Oxygen Flow Rate 2 2 2 Sepsis Recent Fever Within 48 Hours No Sepsis New/Unexplained Change in Mental Status N/A Sepsis Action Taken by Nursing No Action Required 07/24/24 05:15 07/24/24 05:33 07/24/24 07:00 Temperature Temperature Source Pulse Rate 95 H 108 H Pulse Rate [Left Finger] 97 H Respiratory Rate 24 16 Respiratory Effort / Characteristics Respiratory Depth Respiratory Pattern Blood Pressure 112/65 Blood Pressure [Left Arm] 80/61 L Blood Pressure Mean 80 Blood Pressure Mean [Left Arm] 67 Pulse Oximetry 94 94 Oxygen Delivery Method Nasal Cannula Nasal Cannula Oxygen Flow Rate 2 3 Sepsis Recent Fever Within 48 Hours Sepsis New/Unexplained Change in Mental Status Sepsis Action Taken by Nursing VITALS: Vitals are noted on the nurse's note and reviewed by myself. Vital signs stable. GENERAL: Elderly white male who is pleasant and cooperative HEAD: Normocephalic atraumatic. NECK: Supple without nuchal rigidity. No lymphadenopathy. No thyromegaly. Cervical spine is nontender. HEART: Irregularly irregular LUNGS: Clear to auscultation bilaterally without wheezes, rales or rhonchi. No retractions or accessory muscle use. ABDOMEN: Positive normal bowel sounds x 4. Soft, nontender, without masses or organomegaly. No guarding or rebound tenderness. MUSCULOSKELETAL: No muscle atrophy, erythema, or edema noted. Full range of motion in all extremities. NEURO: Patient was alert and oriented to person place and time. CN II through XII grossly intact. GCS 15. Course Administered Medications Sodium Chloride (Nss) 1,000 mls @ 125 mls/hr IV .Q8H JEAN-CLAUDE Stop: 08/23/24 08:29 Last Admin: 07/24/24 18:42 Dose: 125 mls/hr Documented By: Infusion: 07/24/24 18:41 Dose: Infused Documented By: Admin: 07/24/24 10:50 Dose: 125 mls/hr Documented By: Infusion: 07/24/24 10:50 Dose: Infused Documented By: Admin: 07/24/24 10:06 Dose: 125 mls/hr Documented By: SANTO DOMINGO Thiamine HCl 100 mg/ Syringe 10 mls @ 2 mls/min IV QAM JEAN-CLAUDE Stop: 08/23/24 09:44 Last Admin: 07/24/24 11:33 Dose: 2 mls/min Documented By: LIZZY Folic Acid 1 mg/ Syringe 10 mls @ 5 mls/min IV QAM JEAN-CLAUDE Stop: 08/23/24 09:44 Last Admin: 07/24/24 11:34 Dose: 5 mls/min Documented By: LIZZY Ceftriaxone Sodium (Rocephin) 2,000 mg in 50 mls @ 100 mls/hr IV Q24H JEAN-CLAUDE Stop: 07/29/24 19:14 Last Infusion: 07/24/24 20:30 Dose: Infused Documented By: Admin: 07/24/24 19:59 Dose: 100 mls/hr Documented By: JUANJOSE Naloxone HCl (Naloxone Hcl 0.4 Mg/1 Ml Vial/Carp) 0.2 mg IV Q5M PRN PRN Reason: Oversedation/Resp Depression Last Admin: 07/24/24 15:00 Dose: 0.4 mg Documented By: CITLALLI Discontinued Medications Flumazenil (Flumazenil 0.1 Mg/1 Ml 10 Ml Vial) 0.2 mg IV NOW STA Stop: 07/24/24 18:53 Last Admin: 07/24/24 18:55 Dose: 0.2 mg Documented By: MAYTE Flumazenil (Flumazenil 0.1 Mg/1 Ml 10 Ml Vial) Confirm Administered Dose 1 mg IV .STK-MED ONE Stop: 07/24/24 18:55 Last Admin: 07/24/24 19:03 Dose: 0.3 mg Documented By: MAYTE Sodium Chloride (Nss) 1,000 mls @ 999 mls/hr IV .Q1H1M JEAN-CLAUDE Stop: 07/24/24 08:00 Last Infusion: 07/24/24 07:50 Dose: Infused Documented By: SANTO DOMINGO Admin: 07/24/24 06:49 Dose: 999 mls/hr Documented By: LUI Sodium Chloride (Nss) 1,000 mls @ 999 mls/hr IV .Q1H1M ONE Stop: 07/24/24 09:38 Last Infusion: 07/24/24 11:45 Dose: Infused Documented By: Admin: 07/24/24 09:01 Dose: 999 mls/hr Documented By: SANTO DOMINGO Lorazepam (Lorazepam 2 Mg/1 Ml Vial) 2 mg IV UD PRN; Protocol PRN Reason: EtOH Withdrawal AWSS Score 8,9 Stop: 08/23/24 09:42 Last Admin: 07/24/24 13:10 Dose: 2 mg Documented By: CITLALLI Lorazepam (Lorazepam 2 Mg/1 Ml Vial) 3 mg IV ONCE PRN; Protocol PRN Reason: EtOH Withdrawal AWSS Score 10+ Last Admin: 07/24/24 10:04 Dose: 3 mg Documented By: SANTO DOMINGO Lorazepam (Lorazepam 2 Mg/1 Ml Vial) 3 mg IV NOW STA Stop: 07/24/24 11:18 Last Admin: 07/24/24 11:32 Dose: 3 mg Documented By: LIZZY Naloxone HCl (Naloxone Hcl 0.4 Mg/1 Ml Vial/Carp) Confirm Administered Dose 0.4 mg .ROUTE .STK-MED ONE Stop: 07/24/24 14:41 Last Admin: 07/24/24 14:44 Dose: 0.4 mg Documented By: [facility] Medical Decision Making Differential Diagnosis Differential includes acute coronary syndrome, myocardial infarction, CVA, TIA, anemia, infection, pneumonia, UTI, pyelonephritis, poor nutrition, dehydration, electrolyte disturbance,hypoglycemia. Laboratory Data 07/24/24 16:40 07/24/24 16:40 Lab Results 07/24/24 07/24/24 07/24/24 Range/Units 05:17 05:21 06:45 WBC 11.46 H (4.8-10.8) K/ul RBC 4.08 L (4.70-6.10) M/uL Hgb 13.7 L (14.0-18.0) g/dl Hct 41.1 L (42.0-52.0) % MCV 100.7 H (80.0-100.0) fL MCH 33.6 (25.0-34.0) pg MCHC 33.3 (32.0-36.0) g/dL RDW Std Deviation 52.7 H (36.4-46.3) fL RDW Coeff of Daniel 14.4 (11.5-14.5) % Plt Count 140 (130-400) K/uL MPV 10.6 (9.4-12.4) fL Immature Gran % (Auto) 0.6 % Neut % (Auto) 76.9 % Lymph % (Auto) 13.4 % [place] % (Auto) 7.3 % Eos % (Auto) 1.5 % Baso % (Auto) 0.3 % Neut # (Auto) 8.81 H (1.40-6.50) K/uL Lymph # (Auto) 1.53 (1.20-3.40) K/uL [place] # (Auto) 0.84 H (0.11-0.59) K/uL Eos # (Auto) 0.17 (0.00-0.50) K/uL Baso # (Auto) 0.04 (0.00-0.20) K/uL Immature Gran # (Auto) 0.07 (0.01-0.20) K/uL Sodium 131 L (136-145) mmol/L Potassium 4.7 (3.5-5.1) mmol/L Chloride 90 L (98-107) mmol/L Carbon Dioxide 29 (21-32) mmol/L Anion Gap 12 H (3-11) BUN 73 H (6-23) mg/dl Creatinine 7.20 H* (0.6-1.4) mg/dl Est Cr Clr Drug Dosing 13.1 ml/min Est GFR ( Amer) 8.1 ml/min Est GFR (Non-Af Amer) 7.0 ml/min BUN/Creatinine Ratio 10.1 (10-20) Glucose 108 H (70-99(Fasting)) mg/dl Calcium 8.8 (8.6-10.3) mg/dl Magnesium 2.0 (1.7-2.4) mg/dl Total Bilirubin 1.0 (0.2-1.0) mg/dl AST 34 (13-39) U/L ALT 24 (7-52) U/L Alkaline Phosphatase 66 (34-104) U/L Total Creatine Kinase 1221 H (30-223) U/L Troponin I High Sens 18.6 (0-20) pg/ml B-Natriuretic Peptide 116 H (0-100) pg/ml Total Protein 6.4 (6.0-8.3) gm/dl Albumin 3.8 (3.4-5.0) gm/dl Globulin 2.6 (2.5-4.0) gm/dl Albumin/Globulin Ratio 1.5 (0.9-2) Lipase 3 L (11-82) U/L Urine Color Dark Yellow Urine Appearance Cloudy A (Clear) Urine pH 5.0 (4.5-7.5) Ur Specific Murphy 1.020 (1.000-1.030) Urine Protein 1+ H (Negative) Urine Glucose (UA) Negative (Negative) Urine Ketones Trace H (Negative) Urine Blood Negative (Negative) Urine Nitrite Negative (Negative) Urine Bilirubin 2+ H (Negative) Urine Urobilinogen Negative (Negative) Ur Leukocyte Esterase 1+ H (Negative) Urine WBC (Auto) 0-5 (0-5) /hpf Urine RBC (Auto) 3-5 H (0-2) /hpf U Hyaline Cast (Auto) 6-10 H (0-2) /lpf U Epithel Cells (Auto) 0-2 (0-2) /hpf Urine Bacteria (Auto) None Seen (None Seen) Hyaline Casts Present A (None Presnt) /lpf Ethyl Alcohol mg/dL < 10.0 (<10.0) mg/dl Adenovirus (PCR) Not Detected (NotDetected) B. pertussis DNA (PCR) Not Detected (NotDetected) B.parapertussis DNA PCR Not Detected (NotDetected) C. pneumoniae DNA (PCR) Not Detected (NotDetected) Coronavirus OC43 (PCR) Not Detected (NotDetected) Coronavirus HKU1 (PCR) Not Detected (NotDetected) Coronavirus 229E (PCR) Not Detected (NotDetected) SARS-CoV-2 (PCR) Not Detected (NotDetected) Coronavirus NL63 (PCR) Not Detected (NotDetected) Human Metapneumovir PCR Not Detected (NotDetected) Influenza Type A (PCR) Not Detected (NotDetected) Influenza Type B (PCR) Not Detected (NotDetected) M. pneumoniae (PCR) Not Detected (NotDetected) Parainfluenza 1 (PCR) Not Detected (NotDetected) Parainfluenza 2 (PCR) Not Detected (NotDetected) Parainfluenza 3 (PCR) Not Detected (NotDetected) Parainfluenza 4 (PCR) Not Detected (NotDetected) RSV (PCR) Not Detected (NotDetected) Entero/Rhino (PCR) Not Detected (NotDetected) MDM Narrative Physical exam and history were performed. Nursing notes, EMR, and Medication List were personally reviewed. No social concerns were identified as barriers to patients care. Patient appears to have a near fall at home. Patient has had several falls over the past week and at baseline has difficulty with ambulation. The patient does not have any significant complaints himself other than hip pain. IV access was established and labs were obtained. He was hydrated with normal saline. Patient's blood work is as above and was reviewed. He does not have a significantly elevated white blood cell count or gross anemia. Creatinine is markedly elevated at over 7, which appears new and acute for the patient. Potassium is normal and EKG is reassuring. CK is over 1200. Urine is tea colored on inspection and without distinct evidence of infection on labs. Bio fire negative. Colon catheter was placed and the patient was hydrated with normal saline. Case was discussed with my attending. Patient does not appear well for discharge and escalation of care is necessary. It is unsure if his rhabdo is from falls earlier in the week, in which case this could be contributory to TYRA. Case was discussed with the on-call hospitalist group who agreed to evaluate the patient here in the ER. Please see their dictation for further patient course, plan, disposition. The chart was completed utilizing [employer] Speech Voice Recognition Software. Grammatical errors, random word insertions, pronoun errors, and incomplete sentences are an occasional consequence of this system due to software limitations, ambient noise, and hardware issues. Any formal questions or concerns about the content, text, or information contained within the body of this dictation should be directly addressed to the provider for clarification. Impression & Plan TYRA (acute kidney injury), Rhabdomyolysis, Atrial fibrillation, permanent, Weakness Discharge Plan Visit Data Chief Complaint: Fall Stated Complaint: Fall, Bilateral Hip Pain ED Provider: Job Zamora ED Midlevel Provider: James Dawn Discharge Problem: TYRA (acute kidney injury), Rhabdomyolysis, Atrial fibrillation, permanent, Weakness Patient Disposition: Admitted As Inpatient Discharge Instructions Interventions: ED Discharge Assessment Last Done: 07/24/24 10:20
--- NOTE | 2024-07-24 07:41 | History & Physical Report ---
Date of Service July 24, 2024 Assessment & Plan (1) TYRA (acute kidney injury): Plan: 69-year-old man with history of alcohol abuse reported to be in remission, chronic atrial fibrillation, heart failure with mid range ejection fraction, CKD stage III who was admitted with acute encephalopathy and severe acute kidney injury. overall picture is hard to put together however with respect to the kidney injury it appears to be prerenal and he was clinically dry on exam, with respect to his acute encephalopathy differential diagnosis is broad his talk screen is positive for MDMA, pupils are pinpoint concerning for some kind of overdose, he appeared to potentially be in alcohol withdrawal or another withdrawal syndrome because of tremulousness and tachycardia. He has been mildly hypotensive but I do not see any clear-cut signs of infection. UA is abnormal but this is likely related to his TYRA does not clearly appear to be UTI. Hypotension - possibly hypovolemic, no evidence of infection Severe TYRA on CKD stage III with mild rhabdomyolysis, multiple recent falls at home -IV saline 1L bolus now then continue 125/h -continue gilman, monitor UOP -Renal ultrasound - Resulted, no evidence of obstruction -urine Cr and NA for FeNA - resulted, Myah less than 0.3% consistent with prerenal -monitor BMP - repeat this evening is pending -monitor CK - recheck in a.m. -consult nephrology if not improving rapidly with fluids. has had marginal urine output throughout the day but continues to make urine and electrolytes are acceptable so seems unlikely to require renal rate replacement therapy in the short-term future (2) Acute metabolic encephalopathy: Plan: unclear cause, suspicious for withdrawal syndrome and or overdose/toxic ingestion he is on apixaban so I obtained stat head CT which was negative for any acute findings he is not lateralizing on neurological exam so acute stroke seems unlikely early in hospital course was treated with IV lorazepam for possible withdrawal syndrome however he became oversedated on this we did not see any improvement in his clinical status, held for now and if ongoing signs of withdrawal may need to use Precedex. if respiratory status worsens first alert may need dose of flumazenil administered total of 0.8 mg IV naloxone mid afternoon and he did have some response became more alert, moving around much more, grimacing, trying to open his eyes, and grunting trying to verbalize also respiratory rate increased and blood pressure improved. tox screen is negative for oxycodone methadone and fentanyl, however check ammonia (on VPA) - pending check acetaminophen level, salicylate level hold sedating meds (3) Hypercarbia: Plan: Mild acute hypercarbic respiratory failure there may be some could chronic component to this as he does have restrictive lung disease and requires 2L nocturnal oxygen at home however it worsened after receiving lorazepam for possible alcohol withdrawal repeat VBG improved after naloxone turned down oxygen and eventually turned it off keep O2 sats 88-90% avoid over oxygenation will continue serial VBG, he is at risk for needing mechanical ventilation and poor candidate for NIV because of poor mental status (4) Alcohol withdrawal: Plan: unclear whether alcohol withdrawal but has been tremulous appearing and tachycardic, did not do well with IV lorazepam see above supplement thiamine folate IV may need Precedex drip if ongoing concerns over withdrawal syndrome and concomitant respiratory failure (5) Atrial fibrillation, permanent: Plan: Hold apixaban since unable to take p.o. if prolonged n.p.o. can start enoxaparin prophylaxis dose or bridging hypotensive so metoprolol and diltiazem held, digoxin held and level pending (6) Heart failure with mid-range ejection fraction: Plan: Appears hypovolemic Last EF 45-50% 11/08 hypotensive so bumetanide held, metoprolol held (7) Bipolar 2 disorder: Plan: VPA, lamotrigine - both held currently Plan Ecchymoses, bilateral hips, L ankle Hips/pelvis xray no fracture. Hx R SOPHIE L ankle xray obtainedno fracture, soft tissue swelling only DVT prophylaxiscurrently still anticoagulated on apixaban, reassess tomorrow History of Present Illness Chief Complaint: fall, weakness Primary Care Provider: Keith Dimas, DO 69 y/o with afib fell a few times this week when alone, last night fell when using walker but his caught him and he didn't hit ground He is unable to provide any history because he is somnolent, however his reported he quit drinking in 2022. Utox was positive for MDMA. In the ED he was tachycardic and appeared to be tremulous which raised concern for alcohol withdrawal because he does have a significant drinking history. ED course Cr 7 (usually 1-1.4) Was able to urinate 200 mL tea colored into urinal in ED CK elevated 1200 gilman placed - 1L IVF given Allergies Allergy/AdvReac Type Severity Reaction Status Date / Time meloxicam Allergy Severe Swollen Verified 07/24/24 07:10 tongue amitriptyline [From Elavil] Allergy Intermediate Hallucinati Verified 07/24/24 07:10 ons aripiprazole [From Abilify] Allergy Intermediate Tremors, Verified 07/24/24 07:10 balance issues, trouble controlling body movements hyoscyamine Allergy Intermediate Hallucinati Verified 07/24/24 07:10 [From Symax Duotab] ons venlafaxine [From Effexor] Allergy Intermediate Hallucinations Verified 07/24/24 07:10 and tremors zolpidem [From Ambien] Allergy Intermediate Hallucinati Verified 07/24/24 07:10 ons ciprofloxacin Allergy Mild Rash Verified 07/24/24 07:10 Penicillins Allergy Mild Rash Verified 07/24/24 07:10 adhesive tape AdvReac Mild rash, red Verified 07/24/24 07:10 skin Home Medications Medication Instructions Recorded Confirmed Type cetirizine 10 mg tablet 10 mg PO DAILY PRN Allergy Symptoms 11/25/19 07/24/24 History vitamin B complex 1 tab PO QDL 12/06/21 07/24/24 History acetaminophen 500 mg capsule 1,000 mg (2 x 500 mg) PO TID Pain 03/18/22 07/24/24 Rx 30 days #180 caps cholecalciferol (vitamin D3) 25 5,000 unit PO QAM 01/31/23 07/24/24 History mcg (1,000 unit) capsule (Vitamin D3) mecobalamin (vitamin B12) 1,000 1,000 mcg PO QAM 01/31/23 07/24/24 History mcg chewable tablet testosterone 75 mg implant pellet 75 mg implant .COMPLEX 01/31/23 07/24/24 History vitamin A 2,400 mcg capsule 2,400 mcg PO QDL 01/31/23 07/24/24 History zinc gluconate 50 mg tablet 50 mg PO QDL 01/31/23 07/24/24 History allopurinol 300 mg tablet 300 mg PO QAM #90 tabs 07/10/23 07/24/24 Rx colchicine 0.6 mg capsule 0.6 mg PO DIRECTED PRN GOUT 10/14/23 07/24/24 Rx FLARE UPS #2 caps albuterol sulfate 90 mcg/actuation 2 puff inhalation Q4H PRN 11/18/23 07/24/24 Rx aerosol inhaler SOB/WHEEZING #8.5 grams divalproex 500 mg tablet,extended 1,000 mg (2 x 500 mg) PO HS #180 11/18/23 07/24/24 Rx release 24 hr (Depakote ER) tabs benzonatate 100 mg capsule 100 mg PO TID PRN cough #60 caps 11/26/23 07/24/24 Rx ipratropium 0.5 mg-albuterol 3 mg 3 ml inhalation Q6H PRN wheezing 11/28/23 07/24/24 Rx (2.5 mg base)/3 mL nebulization #180 mL soln potassium chloride 20 mEq 20 meq PO BID #180 tabs 01/14/24 07/24/24 Rx tablet,extended release magnesium oxide 400 mg PO BID #180 tabs 02/09/24 07/24/24 Rx trazodone 100 mg tablet 200 mg (2 x 100 mg) PO HS #60 tabs 03/22/24 07/24/24 Rx metoprolol succinate 100 mg 100 mg PO QAM #90 tabs 04/09/24 07/24/24 Rx tablet,extended release 24 hr bumetanide 1 mg tablet 2 mg PO QAM 05/06/24 07/24/24 History cephalexin 500 mg capsule 2,000 mg PO ONCE PRN prior to 05/06/24 07/24/24 History dental procedures digoxin 125 mcg (0.125 mg) tablet 125 mcg PO QPM 05/06/24 07/24/24 History naltrexone 50 mg tablet 50 mg PO QAM 05/06/24 07/24/24 History thiamine HCl (vitamin B1) 100 mg 100 mg PO BID 05/06/24 07/24/24 History tablet alfuzosin 10 mg tablet,extended 10 mg PO QAM #90 tabs 05/17/24 07/24/24 Rx release 24 hr (Uroxatral) diltiazem HCl 120 mg 120 mg PO QPM #90 caps 06/09/24 07/24/24 Rx capsule,extended release 12 hr lamotrigine 150 mg tablet 150 mg PO HS #30 tabs 06/09/24 07/24/24 Rx (Lamictal) apixaban 5 mg tablet (Eliquis) 5 mg PO BID #180 tabs 07/05/24 07/24/24 Rx Past Med/Surg History Problem List Hypercarbia Acute metabolic encephalopathy Alcohol withdrawal Personal history of colonic polyps Varicose veins of legs COVID-19 History of left hip replacement Heart failure with reduced ejection fraction Nocturnal hypoxia Alcohol abuse Hematoma of left buttock Rhabdomyolysis (Acute) Fall from standing (Acute) Atrial fibrillation, permanent Restrictive lung disease Heart failure with mid-range ejection fraction Chest pain (Acute) Chronic kidney disease with active medical management without dialysis, stage 3 (moderate) Metabolic alkalosis Hypertension Lumbar facet joint syndrome Bipolar 2 disorder Congestive heart failure EF 40-45% Nov 2021 ECHO (questionable tachycardia induced per cardio) Degenerative joint disease of left hip Myofascial pain Leg length discrepancy Ascending aorta dilatation 4.6 cm - no change from Nov [address] per 12/06/21 chest CTA Left ventricular dysfunction Degenerative joint disease, foot, left Foot pain, left Insomnia Asthma COLD WEATHER INDUCED>NO INHALER USED FOR A WHILE Breathing stable Chronic gout Chronic lumbar pain S/P insertion of spinal cord stimulator X 2 *ONLY 1 IS FUNCTIONING BUT NOT IN USE CURRENTLY (WILL BRING ALONG REMOTE AND INSTRUCTIONS TO SURGERY/PAT APT) Hypoxia Atelectasis Elevated hemidiaphragm left Dyspnea Iniguez's neuroma of left foot Cough Orthopnea Hypomagnesemia Elevated MCV Fatigue Hearing loss, bilateral Recurrent right knee instability Memory impairment Hypogonadism in male (Chronic) RLS (restless legs syndrome) HX OF BPH w urinary obs/LUTS Skin tag (Chronic) Medical marijuana use (Chronic) Spinal stenosis (Chronic) Hx of knee surgery RT KNEE SCOPE Medical History Spinal stenosis Varicose veins of legs Restrictive lung disease Nocturnal hypoxia on 4L oxygen HS Lumbar facet joint syndrome Left ventricular dysfunction Hypertension Hearing loss Elevated hemidiaphragm on left Dyspnea on exertion Congestive heart failure EF 40-45% Nov 2021 ECHO (questionable tachycardia induced per cardio) Chronic lumbar pain per pt since 2011 with spinal stenosis Chronic kidney disease, stage [address] Holman Chronic gout History of chest pain 2022--per pt resolved--follows with Dr. Artis Bipolar 2 disorder lamicatal/depakote Decreased diffusion capacity of lung "atelectasis"--in right lung per pt capacity is 50% On home oxygen therapy 4L via NC at HS Asthma cold weather induced--rarely uses rescue inhaler History of alcohol abuse on naltrexone Acute kidney injury superimposed on CKD per pt was due to fall--per pt resolved Acute heart failure hx--does have congestive heart failure Hypokalemia Peripheral neuropathy Bilateral feet Atrial fibrillation On Eliquis History of COVID-19 11/2021>TROUBLE BREATHING/CONGESTION>HOSPITAL AFTER DX FOR PULSE RATE *RESOLVED History of hypogonadism Surgical History S/P insertion of spinal cord stimulator X 2 *ONLY 1 CURRENTLY, BUT NOT IN USE CURRENTLY (WILL BRING ALONG REMOTE) History of arthroscopy of right knee Hx of eye surgery 08-29-23 R orbital superior medial orbitotomy exploration and removal of glass fragments largest [address] Jose Murphy S/P total left hip arthroplasty 03-19-22 Dr August, [facility] H/O hand surgery LEFT Hx of vasectomy History of colonoscopy History of tonsillectomy [place] teeth removed History of cataract surgery RT/LEFT History of cholecystectomy Hx of hernia repair UMBILICAL HERNIA Family History Mother Breast cancer Hypertension Sister Diabetes Lung cancer Other No family history of adverse response to anesthesia Denies family history of Ovarian cancer Prostate cancer Myocardial infarction Colorectal cancer Social History Smoking Status: Never smoker Second Hand Exposure: No; Do You Dip or Chew Tobacco: No; Hx Alcohol Use: Yes (Current withdrawal) Alcohol type: beer Hx Substance Use: Yes (Positive lab results) Prescribed Medications: Marijuana Last Used Substance: Unknown Substance Use Type Other:: Medical marijuana for sleep Preferred Language: Syriac Communication Ability: Effective Communication Ability Comment: Patient unable to communicate at this time Hearing Ability: Use of Hearing Aid Care Coordinator Required: No Beliefs That Will Affect Care: None marital status: Current Living Situation: Spouse current occupational status: retired How many Children do You have: 6 How many Children do You have Comment: 2 biological and 4 step-children. Feels Safe at Home: Yes Childhood Exposure to Second-Hand Smoke: Yes Diet: regular Diet Comment: Optivia diet caffeine: Yes during the past year weight has: remained stable Dental Care, Regularly: No Physical Activity Frequency: Does not Exercise Physical Activity Frequency Comment: CHF Seatbelt Use: always Sunscreen Use: No Do you think of yourself as: straight/heterosexual Gender Identity: Male Assistive Devices: Hearing Aid - Bilateral and Oxygen - Continuous Assistive Devices Comment: No hearing aides present with patient Review of Systems Review of Systems: Unobtainable due to cognitive status Physical Exam Physical Exam: PHYSICAL EXAMINATION Last 24h vital signs reviewed, see documentation in flowsheet General: poorly responsive HEENT: abrasion above left eyebrow, pupils are round and pinpoint, sclera anicteric Lungs: Normal respiratory effort. Clear to auscultation bilaterally. No RRW Heart: mildly tachycardic Regular rate and rhythm, no murmurs. No JVD Abdomen: Soft, nontender, nondistended. Bowel sounds present. Extremities: Warm, dry, well-perfused. No extremity edema. left ankle with ecchymosis especially over lateral malleolus and some abrasions ecchymoses bilateral hips Neuro: lethargic and poorly arousable even to sternal rub, grimaces, pupils are pinpoint, face symmetric, observed to move 4 extremities Psych: unable to assess Results & Data Results & Data Vital Signs (Past 12 Hours) Vital Signs Temp Pulse Pulse Resp BP BP Pulse Ox 07/24/24 07:00 97 H 16 80/61 L 94 07/24/24 05:33 108 H 24 112/65 94 07/24/24 05:15 95 H 07/24/24 05:10 89 16 119/57 L 95 07/24/24 05:07 98 H 20 94 07/24/24 05:07 36.9 C 98 H 20 119/57 L 94 O2 Del Method O2 Flow Rate 07/24/24 07:00 Nasal Cannula 3 07/24/24 05:33 Nasal Cannula 2 07/24/24 05:15 07/24/24 05:10 Nasal Cannula 2 07/24/24 05:07 Nasal Cannula 2 07/24/24 05:07 Nasal Cannula 2 Laboratory Results white blood count 11, hemoglobin 13.7 and 12 on repeat, lactate negative potassium 4.5, sodium normal, BUN 73, creatinine 6.85 U-Tox positive for MDMA, BAL negative total CK12 100 BNP 116 AST/ALT/alk phos normal, lipase normal UA grossly abnormal with 1+ protein, trace ketones, 1+ leukocyte esterase, hyaline casts, 3-5 RBCs, no bacteria and no white cells respiratory bio fire panel negative Diagnostic Findings Hip/Pelvis X-Ray 07/24/24 05:07 XR hip ABBEY 2v w pelvis HISTORY: 69 years-old Male pain acute bilateral hip pain. COMPARISON: CT 11/01/2023 TECHNIQUE: AP view of the pelvis with 2 views of the bilateral hips FINDINGS: Unremarkable appearance of the left hip arthroplasty. [id number] right hip osteoarthritis. Battery pack projects over the right iliac crest. Gaseous distention of the colon. No acute fracture or dislocation. IMPRESSION: 1. No acute fracture or dislocation. 2. Unremarkable appearance of the left hip arthroplasty. 3. Mild to moderate right hip osteoarthritis. ACT 112: Negative or not required by law. The above report was generated using voice recognition software. It may contain grammatical, syntax or spelling errors. Electronically signed by: Mars Albrecht M.D. 07/24/2024 8:08 AM Renal Ultrasound 07/24/24 08:42 RENAL ULTRASOUND HISTORY: Acute kidney injury TYRA COMPARISON: CT 11/01/2023. FINDINGS: Right kidney: 11.9 cm. No hydronephrosis. Normal corticomedullary differentiation and cortical thickness. Left kidney: Suboptimally visualized secondary to patient motion and obscuring bowel gas. A stool-filled loop of bowel noted within the abdominal floor quadrant. Bladder: No bladder wall thickening. The bilateral ureteral jets were identified. IMPRESSION: 1. No hydronephrosis identified. 2. Limited exam as above. ACT 112: Negative or not required by law. Electronically signed by: Mars Albrecht M.D. 07/24/2024 12:58 PM Ankle X-Ray 07/24/24 09:01 XR ankle LT min 3V routine HISTORY: 69 years-old Male falls, ankle swelling acute pain and swelling of left ankle COMPARISON: None TECHNIQUE: 3 views of the left ankle FINDINGS: Moderate circumferential soft tissue swelling. No acute fracture or dislocation identified. Corticated ossifications adjacent to the medial malleolus appear chronic. Soft tissue thickening of the distal Achilles tendon. Mild to moderate osteoarthritis. Arterial calcifications. IMPRESSION: Soft tissue swelling without acute osseous abnormality. ACT 112: Negative or not required by law. The above report was generated using voice recognition software. It may contain grammatical, syntax or spelling errors. Electronically signed by: Mars Albrecht M.D. 07/24/2024 11:[address] 07/24/24 09:01 CT head/brain wo con CLINICAL HISTORY: 69 years-old Male with acute encephalopathy, falls, on apixaban. Acutely altered mental status TECHNIQUE: Multiple axial CT images of the head were obtained without contrast. A dose lowering technique was utilized adhering to the principles of ALARA. CT DOSE: 1375.09 mGy.cm COMPARISON: 11/01/2023 FINDINGS: No acute intracranial hemorrhage, midline shift, intracranial mass, hydrocephalus, territorial ischemia or abnormal extra-axial collection. Involutional changes with suggestion of mild chronic microvascular ischemic dis ease. The study is motion degraded. The calvarium is intact. Chronic bilateral nasal bone fractures with mild angulation and displacement on the right redemonstrated. Prior bilateral lens repair. The paranasal sinuses, mastoid air cells, and middle ear cavities are clear. IMPRESSION: Motion degraded exam without acute intracranial abnormality. ACT 112: Negative or not required by law. The above report was generated using voice recognition software. It may contain grammatical, syntax or spelling errors. Electronically signed by: Mars Albrecht M.D. 07/24/2024 9:34 AM Chest X-Ray 07/24/24 14:26 XR chest 1V portable HISTORY: 69 years-old Male hypoxia acute hypoxia COMPARISON: 11/01/2023 TECHNIQUE: AP view of the chest FINDINGS: Cardiac silhouette is enlarged. Stimulator leads overlie the mid thoracic spine. Left hemidiaphragmatic elevation. Hypoinflation with bronchovascular crowding and mild bibasilar atelectasis again noted. IMPRESSION: Cardiomegaly without acute process. ACT 112: Negative or not required by law. The above report was generated using voice recognition software. It may contain grammatical, syntax or spelling errors. Electronically signed by: Mars Albrecht M.D. 07/24/2024 3:15 PM PG Care Time/CCT Total # of Minutes Spent Total Time Spent with Patient: Total time spent is greater than 50% in coordination of care (as documented) at patient's floor/unit and/or counseling patient: I personally spent 65 minutes of critical care time today on reviewing vital signs, studies, serial physical examinations, serial labs for this life- threatening illness Coding Level of Care Code 44511 INT INP/OBS CARE MIN (25 - SIGNIFICANT, SEPARATELY IDENTIFIABLE ) Diagnoses TYRA (acute kidney injury) N17.9 Acute metabolic encephalopathy G93.41 Hypercarbia R06.89 Alcohol withdrawal F10.939 Atrial fibrillation, permanent I48.21 Heart failure with mid-range ejection fraction I50.22 Bipolar 2 disorder F31.81
--- NOTE | 2024-07-24 08:09 | XRay Report ---
XR hip ABBEY 2v w pelvis HISTORY: 69 years-old Male pain acute bilateral hip pain. COMPARISON: CT 11/01/2023 TECHNIQUE: AP view of the pelvis with 2 views of the bilateral hips FINDINGS: Unremarkable appearance of the left hip arthroplasty. [id number] right hip osteoarthritis. Valeriano anthony pack projects over the right iliac crest. Gaseous distention of the colon. No acute fracture or d islocation. IMPRESSION: 1. No acute fracture or dislocation. 2. Unremarkable appearance of the left hip arthroplasty. 3. Mild to moderate right hip osteoarthritis. ACT 112: Negative or not required by law. The above report was generated using voice recognition software. It may contain grammatical, syntax o r spelling errors. Electronically signed by: Mars Albrecht M.D. 07/24/2024 8:08 AM
[2024-07-24 08:33] LABS: Appearance Urine Cloudy (Clear); Bacteria Urine Automated None Seen (None Seen); Bilirubin Urine 2+ (Negative); Blood Urine Negative (Negative); Color Urine Dark Yellow; Epithelial Cell Urine Auto 0-2 /hpf (0-2); Glucose Urine UA Negative (Negative); Hyaline Casts Urine Present /lpf (None Presnt); Ketones Urine Trace (Negative); Leukocyte Esterase Urine 1+ (Negative); Nitrite Urine Negative (Negative); Protein Urine 1+ (Negative); Urobilinogen Urine Negative (Negative); WBC Urine Automated 0-5 /hpf (0-5)
[2024-07-24 09:00] LABS: Hematocrit (blood only) 36.3 % (42.0-52.0)
[2024-07-24] MEDS: SODIUM CHLORIDE 0.9% 1,000 ML IV ONE (09:01)
[2024-07-24 09:18] LABS: Base Excess VBG 2.4 mEq/L; HCO3 VBG 30 mmol/L; Oxygen Saturation VBG 80.9 %; PCO2 VBG 56 mmHg (38-50); PO2 VBG 47 mmHg; pH VBG 7.33 (7.36-7.41)
[2024-07-24 09:19] LABS: BUN Creatinine Ratio 10.7 (10-20); Calcium 8.2 mg/dl (8.6-10.3); Creatinine Clr Calc Pharmacy 13.8 ml/min; Est GFR (African American) 8.6 ml/min; Est GFR (Non-African American) 7.4 ml/min; Potassium 4.5 mmol/L (3.5-5.1)
--- NOTE | 2024-07-24 09:35 | CT Scan Report ---
CT head/brain wo con CLINICAL HISTORY: 69 years-old Male with acute encephalopathy, falls, on apixaban. Acutely altered m ental status TECHNIQUE: Multiple axial CT images of the head were obtained without contrast. A dose lowering tech nique was utilized adhering to the principles of ALARA. CT DOSE: 1375.09 mGy.cm COMPARISON: 11/01/2023 FINDINGS: No acute intracranial hemorrhage, midline shift, intracranial mass, hydrocephalus, territorial ischem ia or abnormal extra-axial collection. Involutional changes with suggestion of mild chronic microvasc ular ischemic disease. The study is motion degraded. The calvarium is intact. Chronic bilateral nasal bone fractures with mild angulation and displacement on the right redemonstrated. Prior bilateral lens repair. The paranasal sinuses, mastoid air cells, and middle ear cavities are clear. IMPRESSION: Motion degraded exam without acute intracranial abnormality. ACT 112: Negative or not required by law. The above report was generated using voice recognition software. It may contain grammatical, syntax o r spelling errors. Electronically signed by: Mars Albrecht M.D. 07/24/2024 9:34 AM
[2024-07-24] MEDS ORDERED: LORazepam 2 MG/1 ML VIAL IV PRN (09:43)
[2024-07-24] MEDS ORDERED: Ativan IV Alcohol Withdrawal--Active Protocol IV PRN (09:43)
[2024-07-24] MEDS: LORazepam 2 MG/1 ML VIAL IV PRN ×2 (10:04→13:10)
[2024-07-24 10:15] LABS: Amphetamines+Metham, Urine Neg (Neg); Barbiturates, Urine Neg (Neg); Benzodiazepine, Urine Neg (Neg); Cocaine, Urine Neg (Neg); Fentanyl, Urine Neg (Neg); MDMA (Ecstacy), Urine Pos (Neg); Marijuana, Urine Neg (Neg); Methadone, Urine Neg (Neg); Opiate, Urine Neg (Neg); Phencyclidine, Urine Neg (Neg)
[2024-07-24] MEDS ORDERED: ALBUT/IPRATROP 3MG/0.5MG NEB 3 ML VIAL INH PRN (10:58)
[2024-07-24] MEDS ORDERED: POLYETHYLENE (MIRALAX) 17 GM PACK PO PRN (10:58)
[2024-07-24] MEDS ORDERED: ALUMINUM/MAGNESIUM SUSP 30 ML UDC PO PRN (10:58)
[2024-07-24] MEDS ORDERED: MAGNESIUM HYDROXIDE SUSP 30 ML UDC PO PRN (10:58)
[2024-07-24] MEDS ORDERED: ALBUTEROL HFA 8 GM INHALER INH PRN (10:58)
[2024-07-24] MEDS ORDERED: ONDANSETRON INJ 2 MG/ML 2 ML VIAL IV PRN (10:58)
--- NOTE | 2024-07-24 11:10 | XRay Report ---
XR ankle LT min 3V routine HISTORY: 69 years-old Male falls, ankle swelling acute pain and swelling of left ankle COMPARISON: None TECHNIQUE: 3 views of the left ankle FINDINGS: Moderate circumferential soft tissue swelling. No acute fracture or dislocation identified. Corticate d ossifications adjacent to the medial malleolus appear chronic. Soft tissue thickening of the distal Achilles tendon. Mild to moderate osteoarthritis. Arterial calcifications. IMPRESSION: Soft tissue swelling without acute osseous abnormality. ACT 112: Negative or not required by law. The above report was generated using voice recognition software. It may contain grammatical, syntax o r spelling errors. Electronically signed by: Mars Albrecht M.D. 07/24/2024 11:09 AM
[2024-07-24] MEDS: LORazepam 2 MG/1 ML VIAL IV STA (11:32)
[2024-07-24] MEDS: THIAMINE HCL 100 MG in SYRINGE 9 ML IV SCH (11:33)
[2024-07-24] MEDS: FOLIC ACID 1 MG in SYRINGE 9.8 ML IV SCH (11:34)
--- NOTE | 2024-07-24 13:01 | Ultrasound Report ---
RENAL ULTRASOUND HISTORY: Acute kidney injury TYRA COMPARISON: CT 11/01/2023. FINDINGS: Right kidney: 11.9 cm. No hydronephrosis. Normal corticomedullary differentiation and cortical thickn ess. Left kidney: Suboptimally visualized secondary to patient motion and obscuring bowel gas. A stool-maude led loop of bowel noted within the abdominal floor quadrant. Bladder: No bladder wall thickening. The bilateral ureteral jets were identified. IMPRESSION: 1. No hydronephrosis identified. 2. Limited exam as above. ACT 112: Negative or not required by law. Electronically signed by: Mars Albrecht M.D. 07/24/2024 12:58 PM
[2024-07-24 13:21] LABS: Base Excess VBG 1.2 mEq/L; HCO3 VBG 30 mmol/L; Oxygen Saturation VBG 60.6 %; PCO2 VBG 63 mmHg (38-50); PO2 VBG 33 mmHg; pH VBG 7.28 (7.36-7.41)
[2024-07-24] MEDS: NALOXONE HCL 0.4 MG/1 ML VIAL/CARP ONE (14:44)
[2024-07-24] MEDS: NALOXONE HCL 0.4 MG/1 ML VIAL/CARP IV PRN (15:00)
--- NOTE | 2024-07-24 15:16 | XRay Report ---
XR chest 1V portable HISTORY: 69 years-old Male hypoxia acute hypoxia COMPARISON: 11/01/2023 TECHNIQUE: AP view of the chest FINDINGS: Cardiac silhouette is enlarged. Stimulator leads overlie the mid thoracic spine. Left hemidiaphragmat ic elevation. Hypoinflation with bronchovascular crowding and mild bibasilar atelectasis again noted. IMPRESSION: Cardiomegaly without acute process. ACT 112: Negative or not required by law. The above report was generated using voice recognition software. It may contain grammatical, syntax o r spelling errors. Electronically signed by: Mars Albrecht M.D. 07/24/2024 3:15 PM
[2024-07-24 16:47] LABS: Base Excess VBG 1.2 mEq/L; HCO3 VBG 29 mmol/L; Oxygen Saturation VBG < 60.0 %; PCO2 VBG 59 mmHg (38-50); PO2 VBG 28 mmHg
[2024-07-24 17:03] LABS: Hematocrit (blood only) 39.9 % (42.0-52.0); Hemoglobin 12.8 g/dl (14.0-18.0); Mean Corpuscular Hemoglobin 32.8 pg (25.0-34.0); Mean Corpuscular Hgb Conc 32.1 g/dL (32.0-36.0); Mean Corpuscular Volume 102.3 fL (80.0-100.0); Mean Platelet Volume 10.4 fL (9.4-12.4); Platelet Count 135 K/uL (130-400); RDW Coefficient of Variation 14.6 % (11.5-14.5); RDW Standard Deviation 54.5 fL (36.4-46.3); White Blood Count 7.19 K/ul (4.8-10.8)
[2024-07-24 17:12] LABS: BUN Creatinine Ratio 11.2 (10-20); Calcium 8.4 mg/dl (8.6-10.3); Creatinine Clr Calc Pharmacy 15.9 ml/min; Est GFR (Non-African American) 8.6 ml/min; Potassium 4.5 mmol/L (3.5-5.1)
[2024-07-24 17:21] LABS: Acetaminophen < 3 ug/ml (10-30); Salicylate < 3.0 mg/dl (3.0-30)
[2024-07-24] MEDS: FLUMAZENIL 0.1 MG/1 ML 10 ML VIAL IV STA (18:55)
[2024-07-24] MEDS: FLUMAZENIL 0.1 MG/1 ML 10 ML VIAL IV ONE (19:03)
--- NOTE | 2024-07-24 19:30 | Communication Note ---
Date of Service: July 24, 2024 Remained somnolent this afternoon and respiratory status worsened again with increasing O2 requirement from room air up to 4L Administered flumazenil 0.2, 0.3 mg for benzodiazepine reversal with good effect. 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 Continuous to have coarse tremor, HR in 110s. His at bedside states that he hasn't had alcohol, doesn't take anything besides his prescriptions, has been eating/drinking poorly and off his meds several days. In past he had episode of encephalopathy and required LP (this was in [place]), eventually found to have severe polyarticular gout flare. Currently he denies any joint pain and no joint inflammation on exam other than bruising L lateral malleolus Plan: Monitor closely, repeat flumazenil if mental status worsens again or respiratory depression Tremulousness could be related to metabolic issues Continue IV fluids Repeat VBG in 1 hour Sp O2 goal 88-92%. Has chronically elevated hemidiaphragm and restrictive lung disease, usually 2L nocturnal UOP low but adequate and Cr has improved since this AM
[2024-07-24] MEDS: cefTRIAXone SODIUM 2,000 MG/50 ML BAG IV SCH (19:59)
[2024-07-24 20:23] LABS: HCO3 VBG 29 mmol/L; Oxygen Saturation VBG < 60.0 %; PCO2 VBG 57 mmHg (38-50); PO2 VBG 28 mmHg; pH VBG 7.32 (7.36-7.41)
[2024-07-25] MEDS: DIGOXIN 0.125 MG TAB PO ONE (00:54)
[2024-07-25] MEDS: ACETAMINOPHEN 1,000 MG/100 ML VIAL IV STA (04:38)
[2024-07-25] MEDS: LORazepam 2 MG/1 ML VIAL IV STA (04:39)
[2024-07-25] MEDS: THIAMINE HCL 100 MG TAB PO SCH (08:28)
[2024-07-25] MEDS: allopurinoL 300 MG TAB PO SCH (08:28)
[2024-07-25] MEDS: NALTREXONE HCL 50 MG TAB PO SCH (08:28)
[2024-07-25] MEDS: TAMSULOSIN HCL 0.4 MG CAP PO SCH (08:28)
[2024-07-25 09:17] LABS: Calcium 7.9 mg/dl (8.6-10.3); Creatinine Clr Calc Pharmacy 27.4 ml/min; Est GFR (Non-African American) 16.4 ml/min; Potassium 4.6 mmol/L (3.5-5.1)
[2024-07-25] MEDS ORDERED: STAT IV Infusion **Titration per Protocol STA (09:18)
[2024-07-25] MEDS: dilTIAZem HCL 125 MG in DEXTROSE 5% 100 ML IV SCH (10:34)
[2024-07-25 11:17] LABS: Adenovirus F 40/41 PCR Not Detected (NotDetected); Astrovirus PCR Not Detected (NotDetected); Campylobacter PCR Not Detected (NotDetected); Cryptosporidium PCR Not Detected (NotDetected); Cyclospora cayetanensis PCR Not Detected (NotDetected); Entamoeba histolytica PCR Not Detected (NotDetected); Enteroaggregative E.coli(EAEC) Not Detected (NotDetected); Enteropathogenic E.coli (EPEC) Not Detected (NotDetected); Enterotoxigenic E.coli (ETEC) Not Detected (NotDetected); Giardia lamblia PCR Not Detected (NotDetected); Norovirus GI/GII PCR Not Detected (NotDetected); Plesiomonas shigelloides PCR Not Detected (NotDetected); Rotavirus A PCR Not Detected (NotDetected); Salmonella PCR Not Detected (NotDetected); Sapovirus PCR Not Detected (NotDetected); Shiga-like Toxin E.coli (STEC) Not Detected (NotDetected); Shigella/Enteroinvasive E.coli Not Detected (NotDetected); Vibrio cholerae PCR Not Detected (NotDetected); Vibrio species PCR Not Detected (NotDetected); Yersinia enterocolitica PCR Not Detected (NotDetected)
[2024-07-25 11:25] LABS: Cdiff Toxin B Gene (2yr or >) Positive Cdiff Gene (Neg)
[2024-07-25 11:58] LABS: Cdiff Antigen Positive
[2024-07-25 12:03] LABS: Cdiff Toxin A+B Positive Cdiff Toxin (Negative)
[2024-07-25] MEDS: CHERRY SYRUP 5 ML UDP PO SCH (12:59)
[2024-07-25] MEDS: VANCOMYCIN HCL 125 MG/2.5ML SOLN PO SCH (12:59)
--- NOTE | 2024-07-25 14:01 | Hospitalist Progress Note ---
Date of Service July 25, 2024 Assessment & Plan (1) TYRA (acute kidney injury): Plan: 69-year-old man with history of alcohol abuse reported to be in remission since February, chronic atrial fibrillation, heart failure with mid range ejection fraction, CKD stage III who was admitted with acute encephalopathy and severe acute kidney injury. He was severely encephalopathic throughout the day 07/24. Initial presentation looked concerning for alcohol withdrawal with delirium, tremulousness, damp skin, tachycardia. He was treated with IV lorazepam but this resulted in oversedation and required reversal with flumazenil late afternoon 07/24. Responsiveness and respirations improved but remains confused. TYRA is prerenal with FeNa 0.3% and improving with IV fluids. He developed diarrhea early AM 07/25 and tested positive for C. difficile. Hypotension - was hypovolemic on presentation however remains mildly hypotensive despite fluid resuscitation. probable sepsis due to C. difficile infection present on admission - has been tachycardic, mildly hypotensive, mildly hypothermic, WBC 11.4 and normal lactates. Severe TYRA on CKD stage III with mild rhabdomyolysis, multiple recent falls at home -Cr improving from 7 --> 3.5 and UOP improved overnight, continue NS IV -continue gilman, monitor UOP -Renal ultrasound - no evidence of obstruction -CK improved to 717 -hold digoxin because of poor renal clearance, level was 1.0 -AM BMP (2) Acute metabolic encephalopathy: Plan: Severe acute toxic metabolic encephalopathy, multifactorial related to infection, TYRA, medications Utox +MDMA which is a false positive related to his trazodone, VPA level low normal, ammonia normal, APAP and ASA levels negative, CT head 07/24 with no acute findings Considered withdrawal syndrome though he worsened rather than improved after lorazepam, is not hypertensive, denies alcohol recently Improved today though remains confused and tremulous -continue IV fluids, try to get essential po meds down (ie oral vanco), try low dose olanzapine for agitation and avoid lorazepam (3) Clostridium difficile diarrhea: Plan: start oral vancomycin qid x 10 days probiotic when able to take po first episode (4) Atrial fibrillation, permanent: Plan: Atrial fibrillation with rapid rate Rates have been mostly 100-120 though spiked to 160s overnight given one low dose of oral digoxin Hold apixaban since unable to take p.o., continue SQ heparin tid Resume digoxin when renal function improved. If redosed with digoxin prior to this, level should be checked Diltiazem and metoprolol held for hypotension Attempted low dose dilt drip today but BP went down too low IF rapid afib and too hypotensive for AV mary jane lilian can use amiodarone drip (5) Hypercarbia: Plan: Mild acute hypercarbic respiratory failure 07/24 Related to poor mental status, sedation, and baseline restrictive lung disease chronically elevated hemidiaphragm -improved after naloxone, flumazenil 07/24 -repeat VBG if mental status worsens -avoid over-oxygenation. sat goal 88-92% (6) Heart failure with mid-range ejection fraction: Plan: Appears euvolemic Last EF 45-50% 11/08 hypotensive so bumetanide held, metoprolol held (7) Bipolar 2 disorder: Plan: VPA, lamotrigine - both held currently (8) TYRA (acute kidney injury): Plan Ecchymoses, bilateral hips, L ankle Hips/pelvis xray no fracture. Hx R SOPHIE L ankle xray obtainedno fracture, soft tissue swelling only DVT prophylaxisapixaban held, start SQ heparin 5000u tid I updated his at bedside 07/24, 07/25 Admission and Anticipated Discharge Date Admission Date: July 24, 2024 Subjective remains confused though more alert than yesterday. his reports he typically does have night terrors able to speak few words, short phrases denied abdominal pain having profuse diarrhea starting this AM, nonbloody. she is not aware of any diarrhea prior to admission Physical Exam 2 Physical Exam: PHYSICAL EXAMINATION Last 24h vital signs reviewed, see documentation in flowsheet General: still lethargic but much more easily arousable HEENT: abrasion above left eyebrow, pupils are still round and pinpoint, sclera anicteric Lungs: Normal respiratory effort. Clear to auscultation bilaterally. No RRW Heart: mildly tachycardic irreg, no murmurs. No JVD Abdomen: Soft, nontender, nondistended. Bowel sounds present. Profuse loose brown stool Extremities: Warm, dry, well-perfused. No extremity edema. Ankles swelling has resolved. left ankle with ecchymosis especially over lateral malleolus and some abrasions ecchymoses bilateral hips evolving Neuro: once stimulated became awake, confused, some speech garbled but some words and short phrases clear, face symmetric, moving 4 extremities well, remains with coarse tremor of extremities Psych: not currently agitated Results & Data Results & Data Vital Signs (Past 12 Hours) Vital Signs Temp Pulse Resp BP Pulse Ox O2 Del Method O2 Del Method 07/25/24 11:34 109 H 87/58 L 93 Nasal Cannula 07/25/24 11:19 109 H 18 91/58 L 95 Room Air 07/25/24 11:04 110 H 18 102/46 L 97 Room Air 07/25/24 10:49 116 H 20 101/48 L 98 Room Air 07/25/24 10:44 120 H 20 124/74 98 Room Air 07/25/24 10:39 120 H 20 103/69 98 Room Air 07/25/24 10:34 64 18 118/73 98 Room Air 07/25/24 09:06 118/62 97 Nasal Cannula 07/25/24 07:02 36.5 C 121 H 17 84/54 L 97 Nasal Cannula 07/25/24 05:07 Room Air 07/25/24 03:08 36.8 C 121 H 22 93/60 L Nasal Cannula O2 Flow Rate 07/25/24 11:34 2 07/25/24 11:19 07/25/24 11:04 07/25/24 10:49 07/25/24 10:44 07/25/24 10:39 07/25/24 10:34 07/25/24 09:06 2 07/25/24 07:02 2 07/25/24 05:07 07/25/24 03:08 2 Laboratory Results 07/24/24 16:40 07/25/24 07:40 PG Care Time/CCT Total # of Minutes Spent Total Time Spent with Patient: Total time spent is greater than 50% in coordination of care (as documented) at patient's floor/unit and/or counseling patient: Coding Level of Care Code 70665 SUB INP/OBS CARE 3/50MIN Diagnoses TYRA (acute kidney injury) N17.9 Acute metabolic encephalopathy G93.41 Clostridium difficile diarrhea A04.72 Atrial fibrillation, permanent I48.21 Hypercarbia R06.89 Heart failure with mid-range ejection fraction I50.22 Bipolar 2 disorder F31.81
[2024-07-25] MEDS: HEPARIN SOD 5,000 UNIT/0.5 ML VIAL SQ SCH (15:20)
--- NOTE | 2024-07-25 17:48 | Communication Note ---
Date of Service: July 25, 2024 Continues with mixed hypoactive and hyperactive delirium Improved LOC since this AM Tolerating oral doses of vancomycin. Continues with diarrhea. Has been picking at equipment and removing his clothing. Awake and talking much more, words all understandable, thinks he's in [place], not oriented to situation. Denies abdominal pain. On exam keeping eyes closed but will open them if asked, tremulous but less so, improved speech, oriented x self, abd s/nt/nd Urine is much peoplesoft consultant in color, now yellow slightly dark but no longer tea colored Continue oral vancomycin for C. diff and IVF for YTRA Has olanzapine 2.5 q8h PRN agitation - no doses needed thus far, may need dose increase but starting conservatively Discussed with RNs at bedside
[2024-07-25] MEDS: OLANZapine ZYDIS 5 MG ORALLY DIS. TAB PO PRN (20:32)
--- NOTE | 2024-07-25 20:59 | Electrocardiogram Report ---
Test Reason : Blood Pressure : */* mmHG Vent. Rate : 92 BPM Atrial Rate : * BPM P-R Int : * ms QRS Dur : 104 ms QT Int : 348 ms P-R-T Axes : * 47 -7 degrees QTcB Int : 430 ms Atrial fibrillation Low voltage QRS Abnormal ECG When compared with ECG of 01-Nov-2023 06:05, Criteria for Septal infarct are no longer Present Confirmed by Lemuel Strickland ([id number]) on 07/25/2024 8:59:40 PM Referred By: Confirmed By: Lemuel Strickland
[2024-07-26 07:32] LABS: BUN Creatinine Ratio 24.1 (10-20); Calcium 8.2 mg/dl (8.6-10.3); Creatinine Clr Calc Pharmacy 58.1 ml/min; Est GFR (African American) 47.7 ml/min; Est GFR (Non-African American) 41.1 ml/min; Potassium 4.2 mmol/L (3.5-5.1)
[2024-07-26] MEDS: METOPROLOL SUCC 50MG EXT REL TAB PO SCH (09:38)
[2024-07-26] MEDS: APIXABAN 5 MG TABLET PO SCH (09:38)
[2024-07-26] MEDS ORDERED: STAT IV Infusion **Titration per Protocol STA (12:46)
[2024-07-26] MEDS: dilTIAZem HCl 5 MG/ML 5 ML VIAL IV STA (13:22)
[2024-07-26] MEDS: dilTIAZem HCL 125 MG in DEXTROSE 5% 100 ML IV SCH (13:28)
--- NOTE | 2024-07-26 14:14 | Hospitalist Progress Note ---
Date of Service July 26, 2024 Assessment & Plan (1) TYRA (acute kidney injury): Plan: 69-year-old man with history of alcohol abuse reported to be in remission since February, chronic atrial fibrillation, heart failure with mid range ejection fraction, CKD stage III who was admitted with acute encephalopathy and severe acute kidney injury. He was severely encephalopathic throughout the day 07/24. Initial presentation looked concerning for alcohol withdrawal with delirium, tremulousness, damp skin, tachycardia. He was treated with IV lorazepam but this resulted in oversedation and required reversal with flumazenil late afternoon 07/24. remained confused but awake 07/25, resolved or resolving 07/26 TRYA is prerenal with FeNa 0.3% and resolving with IV fluids. He developed diarrhea early AM 07/25 and tested positive for C. difficile. Hypotension - was hypovolemic on presentation however remains mildly hypotensive despite fluid resuscitation. probable sepsis due to C. difficile infection present on admission - improved, no longer hypotensive Severe TYRA on CKD stage III with mild rhabdomyolysis, multiple recent falls at home -Cr improving from 7 --> 1.6 - will order an additional liter of normal saline today -continue gilman, monitor UOP - probably discontinue tomorrow -Renal ultrasound - no evidence of obstruction -CK improved to 717 -AM BMP (2) Acute metabolic encephalopathy: Plan: Severe acute toxic metabolic encephalopathy, multifactorial related to infection, TYRA, medications Utox +MDMA which is a false positive related to his trazodone, VPA level low normal, ammonia normal, APAP and ASA levels negative, CT head 07/24 with no acute findings Considered withdrawal syndrome though he worsened rather than improved after lorazepam, is not hypertensive, denies alcohol recently significantly improved 07/26, resolving (3) Clostridium difficile diarrhea: Plan: start oral vancomycin qid x 10 days ordered probiotic first episode (4) Atrial fibrillation, permanent: Plan: Atrial fibrillation with rapid rate has had intermittent rapid A-fib since admission, today developed tachycardia with rates greater than 150 - today we were able to resume oral medications including metoprolol 100 mg p.o. given this a.m., resumed oral digoxin, - starting Dilt 20 mg IV bolus and drip for rapid atrial fibrillation, hold oral diltiazem for now while on Dilt drip. discussed with RN - resumed apixaban (5) Hypercarbia: Plan: Mild acute hypercarbic respiratory failure 07/24 Related to poor mental status, sedation, and baseline restrictive lung disease chronically elevated hemidiaphragm -improved after naloxone, flumazenil 07/24 - resolved (6) Heart failure with mid-range ejection fraction: Plan: Appears euvolemic Last EF 45-50% 11/08 resume metoprolol, bumetanide and potassium held since having diarrhea and TYRA (7) Bipolar 2 disorder: Plan: VPA, lamotrigine - resumed Plan Ecchymoses, bilateral hips, L ankle Hips/pelvis xray no fracture. Hx R SOPHIE L ankle xray obtainedno fracture, soft tissue swelling only DVT prophylaxis resume apixaban I updated his at bedside 07/24, 07/25 Admission and Anticipated Discharge Date Admission Date: July 24, 2024 Subjective Read is much more coherent today he is asking appropriate questions and speaking in full sentences, tremor has more or less resolved diarrhea has improved, he denies abdominal pain or nausea he is still vague on his history of the last week or so but it does not sound like he had remarkable diarrhea at home prior to admission Physical Exam 2 Physical Exam: PHYSICAL EXAMINATION Last 24h vital signs reviewed, see documentation in flowsheet General: awake and alert HEENT: abrasion above left eyebrow, p PERRL, sclera anicteric Lungs: Normal respiratory effort. Clear to auscultation bilaterally. No RRW Heart: mildly tachycardic irreg, no murmurs. No JVD Abdomen: soft nondistended nontender active bowel sounds Extremities: Warm, dry, well-perfused. No extremity edema. Ankles swelling has resolved. left ankle with ecchymosis especially over lateral malleolus and some abrasions ecchymoses bilateral hips evolving - these are unchanged Neuro: alert and oriented to the hospital, asking appropriate questions face symmetric speech intact moves 4 extremities equally Psych: calm with appropriate behavior, normal affect Results & Data Results & Data Vital Signs (Past 12 Hours) Vital Signs Temp Pulse Pulse Resp BP Pulse Ox O2 Del Method 07/26/24 13:56 100 H 144/82 H 07/26/24 13:46 98 H 124/85 07/26/24 13:41 89 122/78 07/26/24 13:36 101 H 122/75 07/26/24 13:31 93 H 122/75 07/26/24 13:26 132 H 139/74 07/26/24 12:35 146 H 134/90 07/26/24 10:41 36.4 C L 147 H 19 127/93 92 Room Air 07/26/24 10:00 07/26/24 07:51 Room Air 07/26/24 07:20 36.3 C L 116 H 18 137/88 97 Room Air 07/26/24 05:00 07/26/24 04:00 36.2 C L 119 H 20 122/87 99 Nasal Cannula O2 Del Method O2 Flow Rate O2 Flow Rate 07/26/24 13:56 07/26/24 13:46 07/26/24 13:41 07/26/24 13:36 07/26/24 13:31 07/26/24 13:26 07/26/24 12:35 07/26/24 10:41 07/26/24 10:00 Room Air 07/26/24 07:51 07/26/24 07:20 07/26/24 05:00 Nasal Cannula 2 07/26/24 04:00 2 Laboratory Results 07/24/24 16:40 07/26/24 06:27 PG Care Time/CCT Total # of Minutes Spent Total Time Spent with Patient: Total time spent is greater than 50% in coordination of care (as documented) at patient's floor/unit and/or counseling patient: Coding Level of Care Code 64553 SUB INP/OBS CARE 3/50MIN Diagnoses TYRA (acute kidney injury) N17.9 Acute metabolic encephalopathy G93.41 Clostridium difficile diarrhea A04.72 Atrial fibrillation, permanent I48.21 Hypercarbia R06.89 Heart failure with mid-range ejection fraction I50.22 Bipolar 2 disorder F31.81
[2024-07-26] MEDS: ADVANCED PROBIOTIC 625 MG CAPSULE PO SCH (16:05)
[2024-07-26] MEDS: DIGOXIN 0.125 MG TAB PO SCH (16:06)
[2024-07-26] MEDS: DIVALPROEX EXTENDED RELEASE 500 MG TAB PO SCH (20:21)
[2024-07-26] MEDS: traZODone HCL 100 MG TAB PO SCH (20:22)
[2024-07-26] MEDS: lamoTRIgine 100 MG TAB PO SCH (20:22)
[2024-07-27 08:21] LABS: BUN Creatinine Ratio 15.3 (10-20); Calcium 8.1 mg/dl (8.6-10.3); Creatinine Clr Calc Pharmacy 99.9 ml/min; Est GFR (African American) 90.2 ml/min; Est GFR (Non-African American) 77.8 ml/min; Potassium 3.5 mmol/L (3.5-5.1)
[2024-07-27] MEDS: COLESTIPOL HCL 1 GM TAB PO SCH (09:49)
[2024-07-27] MEDS: MAGNESIUM SULFATE / D5W 1 GM/100 ML BAG IV SCH (10:58)
--- NOTE | 2024-07-27 19:29 | Hospitalist Progress Note ---
Date of Service July 27, 2024 Assessment & Plan (1) TYRA (acute kidney injury): Plan: pre-renal (hypotension, hypovolemia from diarrhea) + rhabdomyolysis Peak Cr 7 at admission Now <1 stop IV fluids is taking & tolerating PO no obstruction on imaging gilman is out (2) Acute metabolic encephalopathy: Plan: likely 2nd to TYRA, C diff infection, etc. improved cont supportive care talked to pt & his about blinds open during the day closed at night good sleep etc (3) Clostridium difficile diarrhea: Plan: vancomycin qid x 10 days day #3 of such add once daily colestipol for bulking cont lactinex contact precautions (4) Atrial fibrillation, permanent: Plan: rates improved cont metoprolol succ 100 mg daily cont digoxin daily currently on diltiazem drip 10mg/hour can stop, convert to his usual PO diltiazem 120mg/day (but may need higher dose - will monitor) cont Eliquis (5) Hypercarbia: Plan: Mild acute hypercarbic respiratory failure 07/24 resolved (6) Heart failure with mid-range ejection fraction: Plan: euvolemic Last EF 45-50% 10/2023 echo stop IV fluids cont meto succ bumex on hold due to diarrhea & TYRA should be on low-dose Entresto if he can tolerate such (7) Bipolar 2 disorder: Plan: cont depakote daily cont lamotrigine daily cont trazodone daily (8) Rhabdomyolysis: Plan: CPK 1221 at admission repeat level improved check another level in am Plan DVT prophylaxis - apixaban updated at bedside today PT/OT evals requested may need rehab Admission and Anticipated Discharge Date Admission Date: July 24, 2024 Subjective at bedside during the visit diarrhea improved - about 3-4 episodes of such today not as liquid today; trying to form denies abd pain appetite improving no dyspnea mental status improving he overall feels better, but is weak Review of Systems Review of Systems: gen - no fevers cv - no cp, no edema pulm - no dyspnea GI - no N/V Physical Exam Physical Exam: gen - resting comfortably in bed, NAD mouth - MMM neck - no JVD heart - irregularly irregular, s1 s2, no murmur lungs - CTA b/l abd - soft NT ND BS+; no HSM ext - no edema, pulses 2+ b/l skin - multiple tiny ulcers on shins - all covered with optifoams; no cellulitis any location Results & Data Results & Data Vital Signs (Past 12 Hours) Vital Signs Temp Pulse Pulse Resp BP Pulse Ox O2 Del Method 07/27/24 16:25 80 07/27/24 15:46 87 07/27/24 14:40 36.7 C 80 19 129/82 95 Room Air 07/27/24 10:46 36.8 C 83 19 104/68 95 Room Air 07/27/24 10:00 88 07/27/24 07:31 Room Air Laboratory Results Laboratory Results - last 24 hr 07/27/24 07:49 Sodium 140 Potassium 3.5 Chloride 105 Carbon Dioxide 30 Anion Gap 5 BUN 15 D Creatinine 0.98 D Est Cr Clr Drug Dosing 99.9 Est GFR ( Amer) 90.2 Est GFR (Non-Af Amer) 77.8 BUN/Creatinine Ratio 15.3 Glucose 104 H Calcium 8.1 L Magnesium 1.0 L PG Care Time/CCT Total # of Minutes Spent Total Time Spent with Patient: Total time spent is greater than 50% in coordination of care (as documented) at patient's floor/unit and/or counseling patient: Coding Level of Care Code 65440 SUB INP/OBS CARE 3/50MIN Diagnoses TYRA (acute kidney injury) N17.9 Acute metabolic encephalopathy G93.41 Clostridium difficile diarrhea A04.72 Atrial fibrillation, permanent I48.21 Hypercarbia R06.89 Heart failure with mid-range ejection fraction I50.22 Bipolar 2 disorder F31.81 Rhabdomyolysis M62.82
[2024-07-27] MEDS: dilTIAZem HCL 120 MG CAPCR PO SCH (20:43)
[2024-07-28 08:04] LABS: BUN Creatinine Ratio 7.1 (10-20); Calcium 8.3 mg/dl (8.6-10.3); Creatinine Clr Calc Pharmacy 114.8 ml/min; Est GFR (African American) 102.3 ml/min; Est GFR (Non-African American) 88.3 ml/min; Magnesium 1.1 mg/dl (1.7-2.4); Potassium 3.7 mmol/L (3.5-5.1)
[2024-07-28] MEDS: COLCHICINE 0.6 MG TAB PO ONE (08:28)
[2024-07-28 08:34] LABS: Ferritin 297.5 ng/ml (8-388)
[2024-07-28] MEDS: MAGNESIUM SULFATE / D5W 1 GM/100 ML BAG IV SCH (09:50)
[2024-07-28] MEDS: ACETAMINOPHEN 500 MG TAB PO PRN (10:37)
[2024-07-28 12:37] LABS: MDA negative; MDEA negative; MDMA (Ecstasy) Urine, Confirm negative
--- NOTE | 2024-07-28 14:18 | Hospitalist Progress Note ---
Date of Service July 28, 2024 Assessment & Plan (1) TYRA (acute kidney injury): Plan: pre-renal (hypotension, hypovolemia from diarrhea) + rhabdomyolysis Peak Cr 7 at admission Now <1 resolved (2) Acute metabolic encephalopathy: Plan: likely 2nd to TYRA, C diff infection, etc. improved/resolved cont supportive care (3) Clostridium difficile diarrhea: Plan: vancomycin qid x 10 days day #4 of such cont daily colestipol for bulking cont lactinex contact precautions (4) Atrial fibrillation, permanent: Plan: rates improved but still not optimal cont metoprolol succ 100 mg daily cont digoxin daily increase diltiazem CD to 180mg/day eval response tomorrow cont Eliquis (5) Hypercarbia: Plan: Mild acute hypercarbic respiratory failure 07/24 resolved (6) Heart failure with mid-range ejection fraction: Plan: euvolemic on exam today Last EF 45-50% 10/2023 echo cont meto succ resume bumex tomorrow should be on low-dose Entresto if he can tolerate such (7) Bipolar 2 disorder: Plan: cont depakote daily cont lamotrigine daily cont trazodone daily (8) Rhabdomyolysis: Plan: 2nd to falls at home CPK 1221 at admission CPK today wnl resolved (9) Right ankle pain: Plan: suspect acute gout history of previous gout flares is on allopurinol at home takes colchicine prn in light of trauma / falls pre-admission obtained x-rays of R ankle - old avulsion fractures medial malleolus (no pain over this area today on exam) due to Eliquis use NSAIDs are not ideal; further he just had severe TYRA with Cr of 7 thus, defer on NSAIDs give course of prednisone start 20mg today, then 10mg tomorrow did give colchicine x 1 today as well will review his ankle films with ortho (10) Sleep-disordered breathing: Plan: cont NC O2 4 liters HS Plan DVT prophylaxis - apixaban updated at bedside yesterday PT/OT jaylan completed - rehab advised Admission and Anticipated Discharge Date Admission Date: July 24, 2024 Subjective diarrhea MUCH improved no abd pain tolerating diet no nausea/emesis main complaint is right ankle pain feels like gout attack started overnight hurt to bear weight on it today he did have falls at home, but up until last pm he didn't have pain in the ankle no left ankle pain today Review of Systems Review of Systems: pulm - uses NC O2 with sleep at home; denies dyspnea CV - no chest pain, no orthopnea GI - no abd pain Physical Exam Physical Exam: gen - resting comfortably in bed, NAD, looks good today mouth - MMM neck - no JVD heart - irregularly irregular, s1 s2, no murmur; rate ~100 lungs - CTA b/l abd - soft NT ND BS+; no HSM ext - focal edema R foot/ankle only; otherwise no edema, pulses 2+ b/l skin - multiple tiny ulcers on shins and feet b/l - all covered with optifoams; no cellulitis any location; bruising noted around R foot/ankle, especially laterally; there is only 1 bruise medially musculo - right ankle synovitis; tender with active/passive ROM of R ankle; tender lateral malleolus to palpation, no pain with palpation of medial malleolus Results & Data Results & Data Vital Signs (Past 12 Hours) Vital Signs Temp Pulse Pulse Resp BP Pulse Ox Pulse Ox 07/28/24 10:38 36.9 C 119 H 16 129/82 94 07/28/24 10:00 94 07/28/24 07:00 118 H 07/28/24 06:57 36.8 C 104 H 15 137/87 97 07/28/24 05:00 07/28/24 02:40 36.7 C 90 18 137/82 97 O2 Del Method O2 Del Method 07/28/24 10:38 Room Air 07/28/24 10:00 Room Air 07/28/24 07:00 07/28/24 06:57 Room Air 07/28/24 05:00 Room Air 07/28/24 02:40 Room Air Laboratory Results Laboratory Results - last 24 hr 07/24/24 07/28/24 09:23 07:25 Sodium 141 Potassium 3.7 Chloride 105 Carbon Dioxide 30 Anion Gap 6 BUN 6 Creatinine 0.85 Est Cr Clr Drug Dosing 114.8 Est GFR ( Amer) 102.3 Est GFR (Non-Af Amer) 88.3 BUN/Creatinine Ratio 7.1 L Glucose 84 Calcium 8.3 L Magnesium 1.1 L Iron 36 TIBC 185 L Unsaturated IBC 149 L Transferrin % Sat 19 L Ferritin 297.5 Total Creatine Kinase 131 Urine MDEA negative MDMA negative Urine MDMA negative Diagnostic Findings Ankle X-Ray 07/28/24 14:17 XR ankle RT min 3V routine CLINICAL HISTORY: recent fall, severe pain, effusion COMPARISON STUDY: None. FINDINGS: Diffuse soft tissue swelling within the right ankle. Small ossific densities inferior to the medial malleolus consistent with age indeterminate avulsion fractures. No additional fractures within the right ankle. No dislocation. Basilar calcifications are noted. There is a plantar heel spur. IMPRESSION: 1. Soft tissue swelling within the right ankle. 2. Small ossific densities inferior to the medial malleolus consistent with age indeterminate avulsion fractures. ACT 112: Negative or not required by law. Electronically signed by: Larry Mac M.D. 07/28/2024 2:45 PM PG Care Time/CCT Total # of Minutes Spent Total Time Spent with Patient: Total time spent is greater than 50% in coordination of care (as documented) at patient's floor/unit and/or counseling patient: Coding Level of Care Code 33557 SUB INP/OBS CARE 3/50MIN Diagnoses TYRA (acute kidney injury) N17.9 Acute metabolic encephalopathy G93.41 Clostridium difficile diarrhea A04.72 Atrial fibrillation, permanent I48.21 Hypercarbia R06.89 Heart failure with mid-range ejection fraction I50.22 Bipolar 2 disorder F31.81 Rhabdomyolysis M62.82 Right ankle pain M25.571 Sleep-disordered breathing G47.30
[2024-07-28] MEDS: dilTIAZem HCL 30 MG TAB PO ONE (14:26)
--- NOTE | 2024-07-28 14:47 | XRay Report ---
XR ankle RT min 3V routine CLINICAL HISTORY: recent fall, severe pain, effusion COMPARISON STUDY: None. FINDINGS: Diffuse soft tissue swelling within the right ankle. Small ossific densities inferior to th e medial malleolus consistent with age indeterminate avulsion fractures. No additional fractures with in the right ankle. No dislocation. Basilar calcifications are noted. There is a plantar heel spur. IMPRESSION: 1. Soft tissue swelling within the right ankle. 2. Small ossific densities inferior to the medial malleolus consistent with age indeterminate avulsio n fractures. ACT 112: Negative or not required by law. Electronically signed by: Larry Mac M.D. 07/28/2024 2:45 PM
[2024-07-28] MEDS: predniSONE 20 MG TAB PO STA (19:22)
[2024-07-28] MEDS: dilTIAZem HCL 180 MG CAPCR PO SCH (22:02)
[2024-07-29 08:03] LABS: BUN Creatinine Ratio 9.1 (10-20); Calcium 8.6 mg/dl (8.6-10.3); Creatinine Clr Calc Pharmacy 110.9 ml/min; Est GFR (African American) 100.9 ml/min; Magnesium 1.4 mg/dl (1.7-2.4); Potassium 3.9 mmol/L (3.5-5.1)
[2024-07-29] MEDS: MAGNESIUM SULFATE / D5W 1 GM/100 ML BAG IV SCH (09:06)
[2024-07-29] MEDS: predniSONE 10 MG TABLET PO SCH (11:39)
--- NOTE | 2024-07-29 19:29 | Hospitalist Progress Note ---
Date of Service July 29, 2024 Assessment & Plan (1) TYRA (acute kidney injury): Plan: pre-renal (hypotension, hypovolemia from diarrhea) + rhabdomyolysis Peak Cr 7 at admission Now <1 resolved (2) Acute metabolic encephalopathy: Plan: likely 2nd to TYRA, C diff infection, etc. resolved mental status back to baseline (3) Clostridium difficile diarrhea: Plan: improved/resolved vancomycin qid x 10 days day #5 of such cont daily colestipol for bulking cont lactinex contact precautions (4) Atrial fibrillation, permanent: Plan: rates improved with titration of diltiazem CD but probably can go back to 120mg/day (from 180mg/day) cont metoprolol succ 100 mg daily cont digoxin daily cont Eliquis (5) Hypercarbia: Plan: Mild acute hypercarbic respiratory failure 07/24 resolved (6) Heart failure with mid-range ejection fraction: Plan: euvolemic again on exam today Last EF 45-50% 10/2023 echo cont meto succ resume bumex tomorrow if mag level is wnl should be on low-dose Entresto if he can tolerate such (7) Bipolar 2 disorder: Plan: cont depakote daily cont lamotrigine daily cont trazodone daily (8) Rhabdomyolysis: Plan: 2nd to falls at home resolved CPK 1221 at admission CPK on 07/28/24 was wnl resolved (9) Right ankle pain: Plan: suspect acute gout history of previous gout flares is on allopurinol at home takes colchicine prn in light of trauma / falls pre-admission obtained x-rays of R ankle - old avulsion fractures medial malleolus only due to Eliquis use NSAIDs are not ideal; further he just had severe TYRA with Cr of 7 thus, defer on NSAIDs give course of prednisone s/p 20mg on 07/28/24 give 10mg today, then 10mg/day for another 5-7 days the right ankle is much better today with steroids I reviewed his ankle films with orthopedics today - they agree that the right medial avulsion fractures are old (10) Sleep-disordered breathing: Plan: cont NC O2 4 liters HS (11) Hypomagnesemia: Plan: severe 2nd to bumex, diarrhea, nutritional factors, etc give more mag sulfate IV today repeat level am is on mag oxide at home chronically (12) Chronic lumbar pain: Plan: starting 04/2024 was placed on low-dose prednisone 5mg/day sometime about 1-2 weeks before this admission report they stopped the prednisone would place back on prednisone (for the gout attack) and then taper to 5mg/day and leave on that dose until he sees his PCP or pain management Plan DVT prophylaxis - apixaban updated at bedside today PT/OT jaylan completed - rehab advised patient will talk with his about this tonight Admission and Anticipated Discharge Date Admission Date: July 24, 2024 Subjective diarrhea resolved right ankle/foot feels better - less pain, can bear weight no dyspnea no dizziness eating well confusion resolved tele - a.fib rates <100 at bedside during the visit she reports that back in April he was placed on 5mg/day of prednisone for his back, not gout he does not follow with rheumatology for his gout Review of Systems Review of Systems: gen - no fevers or chills cv - no chest pain, no orthopnea pulm - no cough or congestion Physical Exam Physical Exam: gen - resting comfortably in bed, NAD, looks good; no confusion mouth - MMM neck - no JVD heart - irregularly irregular, s1 s2, no murmur; rate <100 lungs - CTA b/l abd - soft NT ND BS+; no HSM ext - focal edema R foot/ankle only - improved; otherwise no edema, pulses 2+ b/l skin - multiple tiny ulcers on shins and feet b/l - all covered with optifoams; no cellulitis any location musculo - right ankle synovitis improved today - less swelling, less heat, NO tenderness to palpation over the medial or lateral malleolus psych - a/o x 3 Results & Data Results & Data Vital Signs (Past 12 Hours) Vital Signs Temp Pulse Pulse Pulse Resp BP Pulse Ox 07/29/24 17:20 68 07/29/24 15:00 36.5 C 74 69 18 121/69 97 07/29/24 10:58 36.4 C L 83 18 113/74 97 07/29/24 08:00 O2 Del Method O2 Flow Rate 07/29/24 17:20 07/29/24 15:00 Nasal Cannula 4 07/29/24 10:58 Nasal Cannula 4 07/29/24 08:00 Nasal Cannula Laboratory Results Laboratory Results - last 24 hr 07/29/24 06:48 Sodium 140 Potassium 3.9 Chloride 104 Carbon Dioxide 30 Anion Gap 6 BUN 8 Creatinine 0.88 Est Cr Clr Drug Dosing 110.9 Est GFR ( Amer) 100.9 Est GFR (Non-Af Amer) 87.0 BUN/Creatinine Ratio 9.1 L Glucose 113 H Calcium 8.6 Magnesium 1.4 L PG Care Time/CCT Total # of Minutes Spent Total Time Spent with Patient: Total time spent is greater than 50% in coordination of care (as documented) at patient's floor/unit and/or counseling patient: Coding Level of Care Code 29964 SUB INP/OBS CARE 3/50MIN Diagnoses TYRA (acute kidney injury) N17.9 Acute metabolic encephalopathy G93.41 Clostridium difficile diarrhea A04.72 Atrial fibrillation, permanent I48.21 Hypercarbia R06.89 Heart failure with mid-range ejection fraction I50.22 Bipolar 2 disorder F31.81 Rhabdomyolysis M62.82 Right ankle pain M25.571 Sleep-disordered breathing G47.30 Hypomagnesemia E83.42 Chronic lumbar pain M54.50; G89.29
[2024-07-29] MEDS: dilTIAZem HCL 120 MG CAPCR PO SCH (20:00)
[2024-07-30 07:34] LABS: Hematocrit (blood only) 35.8 % (42.0-52.0); Hemoglobin 11.8 g/dl (14.0-18.0); Mean Corpuscular Hemoglobin 33.1 pg (25.0-34.0); Mean Corpuscular Volume 100.3 fL (80.0-100.0); Mean Platelet Volume 9.5 fL (9.4-12.4); Platelet Count 252 K/uL (130-400); RDW Coefficient of Variation 15.5 % (11.5-14.5); RDW Standard Deviation 56.1 fL (36.4-46.3); Red Blood Count 3.57 M/uL (4.70-6.10); White Blood Count 9.98 K/ul (4.8-10.8)
[2024-07-30 07:49] LABS: BUN Creatinine Ratio 12.2 (10-20); Calcium 8.6 mg/dl (8.6-10.3); Creatinine Clr Calc Pharmacy 99.5 ml/min; Est GFR (African American) 90.2 ml/min; Est GFR (Non-African American) 77.8 ml/min; Magnesium 1.4 mg/dl (1.7-2.4); Potassium 3.9 mmol/L (3.5-5.1)
[2024-07-30] MEDS: MAGNESIUM SULFATE / D5W 1 GM/100 ML BAG IV SCH (08:45)
[2024-07-30] MEDS: BUMETANIDE 1 MG TAB PO ONE (13:11)
[2024-07-30] MEDS: POTASSIUM CHLORIDE CRTAB 20 MEQ TABCR PO SCH (13:11)
--- NOTE | 2024-07-30 19:57 | Hospitalist Progress Note ---
Date of Service July 30, 2024 Assessment & Plan (1) TYRA (acute kidney injury): Plan: resolved pre-renal in etiology (hypotension, hypovolemia from diarrhea) + rhabdomyolysis Peak Cr 7 at admission Cr now <1 (2) Acute metabolic encephalopathy: Plan: likely 2nd to TYRA, C diff infection, etc. resolved (3) Clostridium difficile diarrhea: Plan: resolved vancomycin qid x 10 days day #6 of such cont daily colestipol for bulking cont lactinex contact precautions (4) Atrial fibrillation, permanent: Plan: cont diltiazem CD but go back to 180mg/day cont metoprolol succ 100 mg daily cont digoxin daily cont Eliquis (5) Hypercarbia: Plan: Mild acute hypercarbic respiratory failure 07/24 resolved (6) Heart failure with mid-range ejection fraction: Plan: euvolemic again on exam today except for mild LE edema Last EF 45-50% 10/2023 echo cont meto succ resume bumex today should be on low-dose Entresto if he can tolerate such (7) Bipolar 2 disorder: Plan: cont depakote daily cont lamotrigine daily cont trazodone daily (8) Rhabdomyolysis: Plan: 2nd to falls at home resolved CPK 1221 at admission CPK on 07/28/24 was wnl resolved (9) Right ankle pain: Plan: suspect acute gout history of previous gout flares is on allopurinol at home takes colchicine prn in light of trauma / falls pre-admission obtained x-rays of R ankle - old avulsion fractures medial malleolus only remains on course of prednisone s/p 20mg on 07/28/24 s/p 10mg daily starting 07/29/24 continue 10mg today and for about 5 additional days overall the right ankle continues to improve I reviewed his ankle films with on-call orthopedics - they agree that the right medial avulsion fractures are old (10) Sleep-disordered breathing: Plan: cont NC O2 4 liters HS (11) Hypomagnesemia: Plan: severe ongoing level 1.4 today 2nd to bumex, diarrhea, nutritional factors, etc give more mag sulfate IV today repeat level am is on mag oxide at home chronically (12) Chronic lumbar pain: Plan: starting 04/2024 was placed on low-dose prednisone 5mg/day sometime about 1-2 weeks before this admission report they stopped the prednisone would place back on prednisone (for the gout attack) and then taper to 5mg/day and leave on that dose until he sees his PCP or pain management Plan DVT prophylaxis - apixaban updated at bedside yesterday auth pending for [facility] back-up - [place] Care Admission and Anticipated Discharge Date Admission Date: July 24, 2024 Subjective stools are normal eating well no abd pain or N/V denies dyspnea he has gained some weight above baseline, and is having LE edema right ankle gout attack resolving no pain with active ROM or weight-bearing Review of Systems Review of Systems: gen - no fevers or chills cv - no chest pain, no orrthopnea pulm - no dyspnea Physical Exam Physical Exam: gen - resting comfortably in bed, NAD, looks great today mouth - MMM neck - no JVD heart - irregularly irregular, s1 s2, no murmur; rate <100 lungs - CTA b/l abd - soft NT ND BS+; no HSM ext - edema b/l ankles/feet, a little worse on right; pulses 2+ b/l skin - multiple tiny ulcers on shins and feet b/l - all covered with optifoams; no cellulitis any location musculo - right ankle synovitis again improved -- tenderness to palpation over the medial or lateral malleolus; no pain with passive/active ROM of the ankle psych - a/o x 3 Results & Data Results & Data Vital Signs (Past 12 Hours) Vital Signs Temp Pulse Pulse Resp BP Pulse Ox O2 Del Method 07/30/24 19:50 36.6 C 89 22 138/84 98 Room Air 07/30/24 16:00 87 07/30/24 14:57 36.5 C 87 18 134/78 93 Room Air 07/30/24 14:33 102 H 07/30/24 11:38 36.5 C 85 18 130/91 96 Room Air Laboratory Results Laboratory Results - last 24 hr 07/30/24 06:44 WBC 9.98 RBC 3.57 L Hgb 11.8 L Hct 35.8 L MCV 100.3 H MCH 33.1 MCHC 33.0 RDW Std Deviation 56.1 H RDW Coeff of Daniel 15.5 H Plt Count 252 MPV 9.5 Sodium 142 Potassium 3.9 Chloride 104 Carbon Dioxide 32 Anion Gap 6 BUN 12 Creatinine 0.98 Est Cr Clr Drug Dosing 99.5 Est GFR ( Amer) 90.2 Est GFR (Non-Af Amer) 77.8 BUN/Creatinine Ratio 12.2 Glucose 80 Calcium 8.6 Magnesium 1.4 L PG Care Time/CCT Total # of Minutes Spent Total Time Spent with Patient: Total time spent is greater than 50% in coordination of care (as documented) at patient's floor/unit and/or counseling patient: Coding Level of Care Code 10967 SUB INP/OBS CARE 235MIN Diagnoses TYRA (acute kidney injury) N17.9 Acute metabolic encephalopathy G93.41 Clostridium difficile diarrhea A04.72 Atrial fibrillation, permanent I48.21 Hypercarbia R06.89 Heart failure with mid-range ejection fraction I50.22 Bipolar 2 disorder F31.81 Rhabdomyolysis M62.82 Right ankle pain M25.571 Sleep-disordered breathing G47.30 Hypomagnesemia E83.42 Chronic lumbar pain M54.50; G89.29
[2024-07-30] MEDS: dilTIAZem HCL 180 MG CAPCR PO SCH (20:30)
[2024-07-31] MEDS: BUMETANIDE 1 MG TAB PO SCH (08:22)
[2024-07-31 08:38] LABS: Calcium 8.7 mg/dl (8.6-10.3); Magnesium 1.2 mg/dl (1.7-2.4); Potassium 3.6 mmol/L (3.5-5.1)
[2024-07-31 08:44] LABS: BUN Creatinine Ratio 10.8 (10-20); Creatinine Clr Calc Pharmacy 95.2 ml/min; Est GFR (African American) 85.9 ml/min; Est GFR (Non-African American) 74.1 ml/min
[2024-07-31] MEDS: MAGNESIUM SULFATE / D5W 1 GM/100 ML BAG IV SCH (09:26)
[2024-07-31] MEDS: MAGNESIUM CHLORIDE W/CALCIUM 64MG DELAYED REL TAB PO SCH (10:09)
[2024-07-31] MEDS: aMILoride HCL 5 MG TAB PO SCH (10:09)
--- NOTE | 2024-07-31 19:14 | Hospitalist Progress Note ---
Date of Service July 31, 2024 Assessment & Plan (1) TYRA (acute kidney injury): Plan: resolved pre-renal in etiology (hypotension, hypovolemia from diarrhea) + rhabdomyolysis Peak Cr 7 at admission Cr now 1 (2) Acute metabolic encephalopathy: Plan: likely 2nd to TYRA, C diff infection, etc. resolved (3) Clostridium difficile diarrhea: Plan: resolving vancomycin qid x 10 days day #7 of such cont daily colestipol for bulking cont lactinex contact precautions (4) Atrial fibrillation, permanent: Plan: cont diltiazem CD 180mg/day cont metoprolol succ 100 mg daily cont digoxin daily rates acceptable cont Eliquis (5) Hypercarbia: Plan: Mild acute hypercarbic respiratory failure 07/24 resolved (6) Heart failure with mid-range ejection fraction: Plan: euvolemic again on exam today except for mild LE edema Last EF 45-50% 10/2023 echo cont meto succ cont bumex should be on low-dose Entresto if he can tolerate such (7) Bipolar 2 disorder: Plan: cont depakote daily cont lamotrigine daily cont trazodone daily (8) Rhabdomyolysis: Plan: 2nd to falls at home resolved CPK 1221 at admission CPK on 07/28/24 was wnl resolved (9) Right ankle pain: Plan: 2nd gout resolving remains on course of prednisone s/p 20mg on 07/28/24 s/p 10mg daily starting 07/29/24 continue 10mg today and for about 5 additional days x-rays of R ankle - old appearing avulsion fractures medial malleolus I reviewed his ankle films with on-call orthopedics - they agree that the right medial avulsion fractures are old (10) Sleep-disordered breathing: Plan: cont NC O2 4 liters HS (11) Hypomagnesemia: Plan: severe ongoing despite COPIOUS IV REPLACEMENT last few days level 1.2 today - suspect he dropped again due to re-starting of bumex 2nd to bumex, diarrhea, nutritional factors, etc give more mag sulfate IV today start PO mag cl 64mg BID but watch to ensure it doesn't worsen his stools start amiloride to prevent renal wasting repeat level am is on mag oxide at home chronically - stop such and again changing to mag chloride (12) Chronic lumbar pain: Plan: starting 04/2024 was placed on low-dose prednisone 5mg/day sometime about 1-2 weeks before this admission report they stopped the prednisone would place back on prednisone (for the gout attack) and then taper to 5mg/day and leave on that dose until he sees his PCP or pain management (13) Nightmares: Plan: trial of prazosin 1mg HS re-eval tomorrow Plan DVT prophylaxis - apixaban updated at bedside multiple times this week auth pending for [facility] back-up - [place] Care Admission and Anticipated Discharge Date Admission Date: July 24, 2024 Subjective stools are loose but not watery like they had been before admission no abd pain "I'm eating everything" denies pain in R ankle/foot ambulating w/o difficulty having severe nightmares - getting them about every other day; never has had this happen to him before Review of Systems Review of Systems: cv - edema of legs improving; no cp; no orthopnea pulm - no dyspnea GI - no n/V Physical Exam Physical Exam: gen - resting comfortably in bed, NAD, looks well mouth - MMM neck - no JVD heart - irregularly irregular, s1 s2, no murmur; regular rate lungs - CTA b/l abd - soft NT ND BS+; no HSM ext - edema b/l ankles/feet IMPROVED; pulses 2+ b/l skin - multiple tiny ulcers on shins and feet b/l - all covered with optifoams musculo - right ankle synovitis resolved; no warmth; no tenderness to palpation over the medial or lateral malleolus; no pain with passive/active ROM of the ankle psych - a/o x 3 Results & Data Results & Data Vital Signs (Past 12 Hours) Vital Signs Temp Pulse Pulse Pulse Resp BP Pulse Ox 07/31/24 17:04 75 07/31/24 15:48 36.4 C L 75 18 129/80 07/31/24 13:46 90 07/31/24 11:49 36.6 C 69 18 122/87 07/31/24 10:00 07/31/24 07:41 36.6 C 77 18 138/99 97 O2 Del Method O2 Del Method 07/31/24 17:04 07/31/24 15:48 07/31/24 13:46 07/31/24 11:49 07/31/24 10:00 Room Air 07/31/24 07:41 Room Air Laboratory Results Laboratory Results 07/31/24 08:09 Sodium 141 Potassium 3.6 Chloride 102 Carbon Dioxide 32 Anion Gap 7 BUN 11 Creatinine 1.02 Est Cr Clr Drug Dosing 95.2 Est GFR ( Amer) 85.9 Est GFR (Non-Af Amer) 74.1 BUN/Creatinine Ratio 10.8 Glucose 98 Calcium 8.7 Magnesium 1.2 L PG Care Time/CCT Total # of Minutes Spent Total Time Spent with Patient: Total time spent is greater than 50% in coordination of care (as documented) at patient's floor/unit and/or counseling patient: Coding Level of Care Code 20840 SUB INP/OBS CARE 3/50MIN Diagnoses TYRA (acute kidney injury) N17.9 Acute metabolic encephalopathy G93.41 Clostridium difficile diarrhea A04.72 Atrial fibrillation, permanent I48.21 Hypercarbia R06.89 Heart failure with mid-range ejection fraction I50.22 Bipolar 2 disorder F31.81 Rhabdomyolysis M62.82 Right ankle pain M25.571 Sleep-disordered breathing G47.30 Hypomagnesemia E83.42 Chronic lumbar pain M54.50; G89.29 Nightmares F51.5
[2024-07-31] MEDS: PRAZOSIN HCL 1 MG CAP PO SCH (20:27)
[2024-07-31] MEDS: ACETAMINOPHEN 325 MG TAB PO PRN (20:53)
[2024-08-01 01:19] VITALS: RESP 18
[2024-08-01 09:33] LABS: BUN Creatinine Ratio 9.8 (10-20); Calcium 8.7 mg/dl (8.6-10.3); Creatinine Clr Calc Pharmacy 92.9 ml/min; Est GFR (African American) 85.9 ml/min; Est GFR (Non-African American) 74.1 ml/min; Magnesium 1.1 mg/dl (1.7-2.4)
[2024-08-01] MEDS: MAGNESIUM SULFATE / D5W 1 GM/100 ML BAG IV SCH (09:52)
--- NOTE | 2024-08-01 19:58 | Hospitalist Progress Note ---
Date of Service August 01, 2024 Assessment & Plan (1) TYRA (acute kidney injury): Plan: resolved pre-renal in etiology (hypotension, hypovolemia from diarrhea) + rhabdomyolysis Peak Cr 7 at admission Cr now 1 (2) Acute metabolic encephalopathy: Plan: 2nd to TYRA, C diff infection, etc. 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 without question his bumex is contributing heavily to this (prior etoh use was likely also contributing) see below re: low mag will likely use a reduced dose of bumex with amiloride (7) Bipolar 2 disorder: Plan: cont depakote daily cont lamotrigine daily cont trazodone daily (8) Rhabdomyolysis: Plan: 2nd to falls at home resolved CPK 1221 at admission CPK on 07/28/24 was wnl resolved (9) Right ankle pain: Plan: 2nd gout resolved remains on course of prednisone s/p 20mg on 07/28/24 s/p 10mg daily starting 07/29/24 continue 10mg today and for about 2 more days, then reduced to 5mg/day thereafter (see below) x-rays of R ankle - old appearing avulsion fractures medial malleolus I reviewed his ankle films with on-call orthopedics - they agree that the right medial avulsion fractures are old (10) Sleep-disordered breathing: Plan: cont NC O2 4 liters HS (11) Hypomagnesemia: Plan: severe refractory chronic review of his record shows low mag going back to 2019 or even prior ongoing despite COPIOUS IV REPLACEMENT last few days level 1.1 today - suspect he isn't correcting because of bumex use is having 2-3 small stools/day but doubt it is GI losses at this point remains on mag cl 64mg BID but watch to ensure it doesn't worsen his stools we are going to have to reduce his bumex dose and add amiloride for this problem today - give additional mag sulfate IV repeat level am (12) Chronic lumbar pain: Plan: starting 04/2024 was placed on low-dose prednisone 5mg/day sometime about 1-2 weeks before this admission report they stopped the prednisone placed back on prednisone (for right ankle gout attack) and then taper to 5mg/day and leave on that dose until he sees his PCP or pain management (13) Nightmares: Plan: prazosin 1mg HS Plan DVT prophylaxis - apixaban updated at bedside multiple times this week updated by phone this evening, 08/01 auth pending for [facility] back-up - [place] Care Admission and Anticipated Discharge Date Admission Date: July 24, 2024 Subjective tele - a.fib, rates acceptable overall good day LE edema improved/resolved R ankle gout flare resolved ambulating w/o difficulty; no dyspnea still 2-3 small loose stools/day but not liquid and no abd pain eating very well Review of Systems Review of Systems: cv - no orthopnea, no chest pain pulm - no dyspnea, no cough musculo - pain right thigh from recent fall, but does not hurt to bend the leg GI - no nausea/emesis Physical Exam Physical Exam: gen - resting comfortably in bed, NAD mouth - MMM neck - no JVD heart - irregularly irregular, s1 s2, no murmur; regular rate lungs - CTA b/l abd - soft NT ND BS+; no HSM ext - edema b/l ankles/feet resolved; pulses 2+ b/l skin - multiple tiny ulcers on shins and feet b/l - all covered with optifoams musculo - right ankle synovitis resolved; no warmth; no tenderness to palpation over the medial or lateral malleolus; no pain with passive/active ROM of the ankle; no pain of right hip with passive/active ROM of right hip psych - a/o x 3 skin - extensive ecchymoses on right thigh, tender to palpation of this region; ecchymoses scattered on arms Results & Data Results & Data Vital Signs (Past 12 Hours) Vital Signs Temp Pulse Pulse Resp BP BP Pulse Ox 08/01/24 16:59 89 08/01/24 15:12 36.7 C 89 18 115/54 L 95 08/01/24 11:19 37.1 C 88 18 128/87 97 O2 Del Method 08/01/24 16:59 08/01/24 15:12 Room Air 08/01/24 11:19 Room Air Laboratory Results Laboratory Results - last 24 hr 08/01/24 08:54 Sodium 142 Potassium 4.0 Chloride 103 Carbon Dioxide 32 Anion Gap 7 BUN 10 Creatinine 1.02 Est Cr Clr Drug Dosing 92.9 Est GFR ( Amer) 85.9 Est GFR (Non-Af Amer) 74.1 BUN/Creatinine Ratio 9.8 L Glucose 112 H Calcium 8.7 Magnesium 1.1 L PG Care Time/CCT Total # of Minutes Spent Total Time Spent with Patient: Total time spent is greater than 50% in coordination of care (as documented) at patient's floor/unit and/or counseling patient: Coding Level of Care Code 91684 SUB INP/OBS CARE 2/35MIN Diagnoses TYRA (acute kidney injury) N17.9 Acute metabolic encephalopathy G93.41 Clostridium difficile diarrhea A04.72 Atrial fibrillation, permanent I48.21 Hypercarbia R06.89 Heart failure with mid-range ejection fraction I50.22 Bipolar 2 disorder F31.81 Rhabdomyolysis M62.82 Right ankle pain M25.571 Sleep-disordered breathing G47.30 Hypomagnesemia E83.42 Chronic lumbar pain M54.50; G89.29 Nightmares F51.5
[2024-08-02 08:15] LABS: BUN Creatinine Ratio 11.1 (10-20); Calcium 8.5 mg/dl (8.6-10.3); Creatinine Clr Calc Pharmacy 94.6 ml/min; Est GFR (African American) 89.1 ml/min; Est GFR (Non-African American) 76.8 ml/min; Magnesium 1.3 mg/dl (1.7-2.4)
[2024-08-02] MEDS: MAGNESIUM SULFATE / D5W 1 GM/100 ML BAG IV SCH (08:45)
[2024-08-02] MEDS: TRIAMCINOLONE ACET 0.1% CR 80 GM TUBE EXT SCH (20:11)
--- NOTE | 2024-08-02 20:50 | Hospitalist Progress Note ---
Date of Service August 02, 2024 Assessment & Plan (1) TYRA (acute kidney injury): Plan: resolved pre-renal in etiology (hypotension, hypovolemia from diarrhea) + rhabdomyolysis Peak Cr 7 at admission Cr now 1 (2) Acute metabolic encephalopathy: Plan: 2nd to TYRA, C diff infection, etc. resolved (3) Clostridium difficile diarrhea: Plan: resolving vancomycin qid x 10 days day #9 of such cont daily colestipol for bulking but can likely stop this soon cont lactinex cont contact precautions (4) Atrial fibrillation, permanent: Plan: cont diltiazem CD 180mg/day (dose was increased from 120mg to 180 a few days ago) cont metoprolol succ 100 mg daily cont digoxin daily rates acceptable cont Eliquis (5) Hypercarbia: Plan: Mild acute hypercarbic respiratory failure 07/24/24 resolved (6) Heart failure with mid-range ejection fraction: Plan: compensated Last EF 45-50% 10/2023 echo cont meto succ should be on low-dose Entresto if he can tolerate such diuretics - for many years Mr Lion has had refractory hypomagnesemia without question his bumex is contributing heavily to this (prior etoh use was likely also contributing) see below re: low mag will likely use a reduced dose of bumex with amiloride (7) Bipolar 2 disorder: Plan: cont depakote daily cont lamotrigine daily cont trazodone daily (8) Rhabdomyolysis: Plan: 2nd to falls at home resolved CPK 1221 at admission CPK on 07/28/24 was wnl resolved (9) Right ankle pain: Plan: 2nd gout resolved remains on course of prednisone s/p 20mg on 07/28/24 s/p 10mg daily starting 07/29/24 continue 10mg today and then reduce to 5mg/day starting tomorrow (see below) x-rays of R ankle - old appearing avulsion fractures medial malleolus I reviewed his ankle films with on-call orthopedics a few days ago - they agree that the right medial avulsion fractures are old (10) Sleep-disordered breathing: Plan: cont NC O2 4 liters HS (11) Hypomagnesemia: Plan: severe refractory chronic review of his record shows low mag going back to 2019 or even prior ongoing despite COPIOUS IV REPLACEMENT last few days level 1.3 today - suspect he isn't correcting because of bumex use diarrhea resolved thus it isn't GI losses remains on mag cl 64mg BID but watch to ensure it doesn't worsen his stools we are going to have to reduce his bumex dose and add amiloride for this problem today - give additional mag sulfate IV x 2 grams repeat level am (12) Chronic lumbar pain: Plan: starting 04/2024 was placed on low-dose prednisone 5mg/day sometime about 1-2 weeks before this admission report they stopped the prednisone placed back on prednisone (for right ankle gout attack) and then taper to 5mg/day and leave on that dose until he sees his PCP or pain management (13) Nightmares: Plan: prazosin 1mg HS (14) Pain in right anthony: Plan: in light of recent falls check tib-fib x-rays, r/o fracture Plan Right thigh trauma with ecchymoses - x-rays negative K-pad heating pad to promote resolution of ecchymoses DVT prophylaxis - apixaban updated at bedside multiple times this week updated by phone 08/01 auth pending for [facility] back-up - [facility] patient reports that if auth for [facility] is denied he simply wants to return home Admission and Anticipated Discharge Date Admission Date: July 24, 2024 Subjective tele - a.fib, rates well controlled eating robustly (100% meals) diarrhea completely resolved no abd pain he reports a pain - like "having shinsplints" - over the proximal right lateral anthony hurts at rest and worse with ambulation edema of legs resolved pain right ankle resolved denies any dyspnea insurance auth pending for [facility] patient reports that if he gets denied from [facility] he doesn't hear anything by tomorrow he simply wants to go home Review of Systems Review of Systems: cv - no cp, no orthopnea, no edema pulm - no dyspnea, no INGRAM GI - diarrhea resolved, stools normal Physical Exam Physical Exam: gen - resting comfortably in bed, NAD mouth - MMM neck - no JVD heart - irregularly irregular, s1 s2, no murmur; regular rate lungs - CTA b/l abd - soft NT ND BS+; no HSM ext - edema b/l ankles/feet resolved; pulses 2+ b/l skin - multiple tiny ulcers on shins and feet b/l - all covered with optifoams; I lifted up multiple optifoams and all ulcers are healing musculo - right ankle synovitis resolved; no warmth; no tenderness to palpation over the medial or lateral malleolus; no pain with passive/active ROM of the ankle; tender to palpation over the proximal right anthony/fibula to palpation; no pain over tibia psych - a/o x 3 skin - extensive ecchymoses on right thigh, tender to palpation of this region; ecchymoses scattered on arms Results & Data Results & Data Vital Signs (Past 12 Hours) Vital Signs Temp Pulse Pulse Resp BP BP Pulse Ox 08/02/24 19:21 36.6 C 83 18 119/83 97 08/02/24 17:32 89 08/02/24 15:24 36.6 C 84 18 131/88 98 08/02/24 14:35 99 H 08/02/24 11:11 36.5 C 88 18 112/69 92 O2 Del Method 08/02/24 19:21 Room Air 08/02/24 17:32 08/02/24 15:24 Room Air 08/02/24 14:35 08/02/24 11:11 Room Air Laboratory Results Laboratory Results - last 24 hr 08/02/24 07:36 Sodium 137 Potassium 4.0 Chloride 99 Carbon Dioxide 33 H Anion Gap 5 BUN 11 Creatinine 0.99 Est Cr Clr Drug Dosing 94.6 Est GFR ( Amer) 89.1 Est GFR (Non-Af Amer) 76.8 BUN/Creatinine Ratio 11.1 Glucose 87 Calcium 8.5 L Magnesium 1.3 L PG Care Time/CCT Total # of Minutes Spent Total Time Spent with Patient: Total time spent is greater than 50% in coordination of care (as documented) at patient's floor/unit and/or counseling patient: Coding Level of Care Code 19772 SUB INP/OBS CARE 3/50MIN Diagnoses TYRA (acute kidney injury) N17.9 Acute metabolic encephalopathy G93.41 Clostridium difficile diarrhea A04.72 Atrial fibrillation, permanent I48.21 Hypercarbia R06.89 Heart failure with mid-range ejection fraction I50.22 Bipolar 2 disorder F31.81 Rhabdomyolysis M62.82 Right ankle pain M25.571 Sleep-disordered breathing G47.30 Hypomagnesemia E83.42 Chronic lumbar pain M54.50; G89.29 Nightmares F51.5 Pain in right anthony M79.127
[2024-08-02 23:34] VITALS: TEMP 97.7
[2024-08-03 07:42] LABS: BUN Creatinine Ratio 12.7 (10-20); Calcium 8.7 mg/dl (8.6-10.3); Creatinine Clr Calc Pharmacy 85.2 ml/min; Est GFR (African American) 78.4 ml/min; Est GFR (Non-African American) 67.7 ml/min; Magnesium 1.4 mg/dl (1.7-2.4); Potassium 4.2 mmol/L (3.5-5.1)
--- NOTE | 2024-08-03 07:51 | XRay Report ---
XR tibia fibula RT 2V CLINICAL HISTORY: proximal-mid lateral tibial pain, falls COMPARISON STUDY: Right ankle 07/28/2024. FINDINGS: Comminuted and slightly displaced fracture within the proximal right fibula at the fibular neck. The proximal tibia appears intact. Mild soft tissue swelling within the proximal right lower le g. Tiny ossific densities again noted at the medial and lateral malleoli consistent with age-indeterm inate avulsion injuries. These are similar to the prior study. Small plantar heel spur is noted. IMPRESSION: Comminuted and slightly displaced fracture within the proximal right fibula at the fibul ar neck. ACT 112: Negative or not required by law. Electronically signed by: Larry Mac M.D. 08/03/2024 7:50 AM
[2024-08-03] MEDS: MAGNESIUM SULFATE / D5W 1 GM/100 ML BAG IV SCH (08:45)
[2024-08-03 11:21] VITALS: BP 108/70; O2SAT 95
--- NOTE | 2024-08-03 14:51 | Orthopedic Consultation ---
Date of Service August 03, 2024 Assessment & Plan (1) Fracture of proximal end of fibula: Plan This is likely an nightstick type pattern from impact. He demonstrates no ankle irritability or suggestion of instability from [place] pattern. He has been ambulating well and this is likely beneficial for him. He is recommended to use a walker anyway. Recommend weightbearing and range of motion as tolerated. He can use the walker to modify weightbearing as needed according to pain. Recommend no immobilization. I asked the patient to come see us for repeat x-rays in 1 to 2 weeks. He was agreeable. History of Present Illness Reason for Consultation: Right fibula fracture Requesting Physician: . Attending Physician: Diana Boyd MD 69-year-old male admitted for metabolic encephalopathy and acute kidney injury was found to have a proximal fibula fracture at the end of his hospital admission. Patient today reports that he cannot recall exactly how he did it. He did fall onto the right lower extremity and has some ecchymosis about his hip. He said it is possible that he injured it that way. He remembers the fall. He was backing out of his laundry area incontinency on the carpet and then fell onto his right side. He did not think much of it with regard to his ankle or lateral side of his leg. He says it feels as though he has a anthony splint at times. He is minimally symptomatic. He says he has done 3 laps today with his walker in the hallway and had very little discomfort. He says he did not have any ankle instability. No ankle discomfort with weightbearing. Allergies Allergy/AdvReac Type Severity Reaction Status Date / Time meloxicam Allergy Severe Swollen Verified 07/24/24 07:10 tongue amitriptyline [From Elavil] Allergy Intermediate Hallucinati Verified 07/24/24 07:10 ons aripiprazole [From Abilify] Allergy Intermediate Tremors, Verified 07/24/24 07:10 balance issues, trouble controlling body movements hyoscyamine Allergy Intermediate Hallucinati Verified 07/24/24 07:10 [From Symax Duotab] ons venlafaxine [From Effexor] Allergy Intermediate Hallucinations Verified 07/24/24 07:10 and tremors zolpidem [From Ambien] Allergy Intermediate Hallucinati Verified 07/24/24 07:10 ons ciprofloxacin Allergy Mild Rash Verified 07/24/24 07:10 Penicillins Allergy Mild Rash Verified 07/24/24 07:10 adhesive tape AdvReac Mild rash, red Verified 07/24/24 07:10 skin Home Medications Medication Instructions Recorded Confirmed Type cetirizine 10 mg tablet 10 mg PO DAILY PRN Allergy Symptoms 11/25/19 07/24/24 History vitamin B complex 1 tab PO QDL 12/06/21 07/24/24 History acetaminophen 500 mg capsule 1,000 mg (2 x 500 mg) PO TID Pain 03/18/22 07/24/24 Rx 30 days #180 caps cholecalciferol (vitamin D3) 25 5,000 unit PO QAM 01/31/23 07/24/24 History mcg (1,000 unit) capsule (Vitamin D3) mecobalamin (vitamin B12) 1,000 1,000 mcg PO QAM 01/31/23 07/24/24 History mcg chewable tablet testosterone 75 mg implant pellet 75 mg implant .COMPLEX 01/31/23 07/24/24 History vitamin A 2,400 mcg capsule 2,400 mcg PO QDL 01/31/23 07/24/24 History zinc gluconate 50 mg tablet 50 mg PO QDL 01/31/23 07/24/24 History allopurinol 300 mg tablet 300 mg PO QAM #90 tabs 07/10/23 07/24/24 Rx colchicine 0.6 mg capsule 0.6 mg PO DIRECTED PRN GOUT 10/14/23 07/24/24 Rx FLARE UPS #2 caps albuterol sulfate 90 mcg/actuation 2 puff inhalation Q4H PRN 11/18/23 07/24/24 Rx aerosol inhaler SOB/WHEEZING #8.5 grams divalproex 500 mg tablet,extended 1,000 mg (2 x 500 mg) PO HS #180 11/18/23 07/24/24 Rx release 24 hr (Depakote ER) tabs benzonatate 100 mg capsule 100 mg PO TID PRN cough #60 caps 11/26/23 07/24/24 Rx ipratropium 0.5 mg-albuterol 3 mg 3 ml inhalation Q6H PRN wheezing 11/28/23 07/24/24 Rx (2.5 mg base)/3 mL nebulization #180 mL soln potassium chloride 20 mEq 20 meq PO BID #180 tabs 01/14/24 07/24/24 Rx tablet,extended release magnesium oxide 400 mg PO BID #180 tabs 02/09/24 07/24/24 Rx trazodone 100 mg tablet 200 mg (2 x 100 mg) PO HS #60 tabs 03/22/24 07/24/24 Rx metoprolol succinate 100 mg 100 mg PO QAM #90 tabs 04/09/24 07/24/24 Rx tablet,extended release 24 hr bumetanide 1 mg tablet 2 mg PO QAM 05/06/24 07/24/24 History cephalexin 500 mg capsule 2,000 mg PO ONCE PRN prior to 05/06/24 07/24/24 History dental procedures digoxin 125 mcg (0.125 mg) tablet 125 mcg PO QPM 05/06/24 07/24/24 History naltrexone 50 mg tablet 50 mg PO QAM 05/06/24 07/24/24 History thiamine HCl (vitamin B1) 100 mg 100 mg PO BID 05/06/24 07/24/24 History tablet alfuzosin 10 mg tablet,extended 10 mg PO QAM #90 tabs 05/17/24 07/24/24 Rx release 24 hr (Uroxatral) diltiazem HCl 120 mg 120 mg PO QPM #90 caps 06/09/24 07/24/24 Rx capsule,extended release 12 hr lamotrigine 150 mg tablet 150 mg PO HS #30 tabs 06/09/24 07/24/24 Rx (Lamictal) apixaban 5 mg tablet (Eliquis) 5 mg PO BID #180 tabs 07/05/24 07/24/24 Rx amiloride 5 mg tablet 5 mg PO DAILY #30 tabs 08/03/24 Rx magnesium chloride 64 mg 64 mg PO BID #60 tabs 08/03/24 Rx (magnesium chloride) tablet,delayed release (Mag 64) prednisone 5 mg tablet 5 mg PO DAILY #14 tabs 08/03/24 Rx vancomycin 125 mg capsule 125 mg PO Q6H #4 caps 08/03/24 Rx Past Med/Surg History Problem List Fracture of proximal end of fibula Pain in right anthony Nightmares Chronic lumbar pain per pt since 2011 with spinal stenosis Sleep-disordered breathing Right ankle pain Clostridium difficile diarrhea Weakness (Acute) TYRA (acute kidney injury) (Acute) Hypercarbia Acute metabolic encephalopathy Alcohol withdrawal Personal history of colonic polyps Varicose veins of legs COVID-19 History of left hip replacement Heart failure with reduced ejection fraction Nocturnal hypoxia Alcohol abuse Hematoma of left buttock Rhabdomyolysis (Acute) Fall from standing (Acute) Atrial fibrillation, permanent (Acute) Restrictive lung disease Heart failure with mid-range ejection fraction Chest pain (Acute) Chronic kidney disease with active medical management without dialysis, stage 3 (moderate) Metabolic alkalosis Hypertension Lumbar facet joint syndrome Bipolar 2 disorder Congestive heart failure EF 40-45% Nov 2021 ECHO (questionable tachycardia induced per cardio) Degenerative joint disease of left hip Myofascial pain Leg length discrepancy Ascending aorta dilatation 4.6 cm - no change from Nov [address] per 12/06/21 chest CTA Left ventricular dysfunction Degenerative joint disease, foot, left Foot pain, left Insomnia Asthma COLD WEATHER INDUCED>NO INHALER USED FOR A WHILE Breathing stable Chronic gout Chronic lumbar pain S/P insertion of spinal cord stimulator X 2 *ONLY 1 IS FUNCTIONING BUT NOT IN USE CURRENTLY (WILL BRING ALONG REMOTE AND INSTRUCTIONS TO SURGERY/PAT APT) Hypoxia Atelectasis Elevated hemidiaphragm left Dyspnea Iniguez's neuroma of left foot Cough Orthopnea Hypomagnesemia Elevated MCV Fatigue Hearing loss, bilateral Recurrent right knee instability Memory impairment Hypogonadism in male (Chronic) RLS (restless legs syndrome) HX OF BPH w urinary obs/LUTS Skin tag (Chronic) Medical marijuana use (Chronic) Spinal stenosis (Chronic) Hx of knee surgery RT KNEE SCOPE Medical History Spinal stenosis Varicose veins of legs Restrictive lung disease Nocturnal hypoxia on 4L oxygen HS Lumbar facet joint syndrome Left ventricular dysfunction Hypertension Hearing loss Elevated hemidiaphragm on left Dyspnea on exertion Congestive heart failure EF 40-45% Nov 2021 ECHO (questionable tachycardia induced per cardio) Chronic kidney disease, stage [address] Holman Chronic gout History of chest pain 2022--per pt resolved--follows with Dr. Artis Bipolar 2 disorder lamicatal/depakote Decreased diffusion capacity of lung "atelectasis"--in right lung per pt capacity is 50% On home oxygen therapy 4L via NC at HS Asthma cold weather induced--rarely uses rescue inhaler History of alcohol abuse on naltrexone Acute kidney injury superimposed on CKD per pt was due to fall--per pt resolved Acute heart failure hx--does have congestive heart failure Hypokalemia Peripheral neuropathy Bilateral feet Atrial fibrillation On Eliquis History of COVID-19 11/2021>TROUBLE BREATHING/CONGESTION>HOSPITAL AFTER DX FOR PULSE RATE *RESOLVED History of hypogonadism Surgical History S/P insertion of spinal cord stimulator X 2 *ONLY 1 CURRENTLY, BUT NOT IN USE CURRENTLY (WILL BRING ALONG REMOTE) History of arthroscopy of right knee Hx of eye surgery 08-29-23 R orbital superior medial orbitotomy exploration and removal of glass fragments largest [address] Jose Murphy S/P total left hip arthroplasty 03-19-22 Dr August, [facility] H/O hand surgery LEFT Hx of vasectomy History of colonoscopy History of tonsillectomy [place] teeth removed History of cataract surgery RT/LEFT History of cholecystectomy Hx of hernia repair UMBILICAL HERNIA Family History Mother Breast cancer Hypertension Sister Diabetes Lung cancer Other No family history of adverse response to anesthesia Denies family history of Ovarian cancer Prostate cancer Myocardial infarction Colorectal cancer Social History Smoking Status: Never smoker Second Hand Exposure: No; Do You Dip or Chew Tobacco: No; Hx Alcohol Use: Yes (Current withdrawal) Alcohol type: beer Hx Substance Use: Yes (Positive lab results) Prescribed Medications: Marijuana Last Used Substance: Unknown Substance Use Type Other:: Medical marijuana for sleep Preferred Language: Slovak Communication Ability: Effective Communication Ability Comment: Patient unable to communicate at this time Hearing Ability: Use of Hearing Aid Box Spring Maker Required: No Beliefs That Will Affect Care: None marital status: Current Living Situation: Spouse current occupational status: retired How many Children do You have: 6 How many Children do You have Comment: 2 biological and 4 step-children. Feels Safe at Home: Yes Childhood Exposure to Second-Hand Smoke: Yes Diet: regular Diet Comment: Optivia diet caffeine: Yes during the past year weight has: remained stable Dental Care, Regularly: No Physical Activity Frequency: Does not Exercise Physical Activity Frequency Comment: CHF Seatbelt Use: always Sunscreen Use: No Do you think of yourself as: straight/heterosexual Gender Identity: Male Assistive Devices: Oxygen - at Night and Walker Review of Systems All systems reviewed & are unremarkable except as noted in HPI & below. Physical Exam RLE: Chronic ecchymosis pattern from his greater trochanter extending down the IT band on the lateral side of his knee. There is no ecchymosis around the proximal fibula but there is some ecchymosis settling out about his lateral mal leolus. He is diffusely and mildly tender along the anterior ankle joint line. He has full active range of motion the ankle without pain. There is no discomfort with anterior drawer test, talar tilt test, nor dorsiflexion and external rotation stress test. He is tender about the proximal fibula in the area of the fracture that corresponds to the x-ray. Nontender along the tibia. No knee effusion. Constitutional WD/WN, vitals as above no acute distress and not intoxicated appearing Respiratory normal respiratory effort; no labored breathing Cardiovascular Extremities: normal capillary refill Results & Data Results & Data Laboratory Results . Diagnostic Findings Radiographs of the tibia and fibula were reviewed and do indeed show an impacted fracture at the proximal diaphysis of the fibula. There is fragmentation but is minimally displaced. Ankle radiographs were also reviewed. Is no instability demonstrated at the ankle mortise. There is no shortening of the fibula. PG Care Time/CCT Total # of Minutes Spent Total Time Spent with Patient: Total time spent is greater than 50% in coordination of care (as documented) at patient's floor/unit and/or counseling patient: Coding Level of Care Code 31075 IN/OBS CONSULT LVL 4,60M Diagnoses Fracture of proximal end of fibula S82.839A
[2024-08-03 15:46] VITALS: PULSE 75
[2024-08-04] MEDS ORDERED: aMILoride HCL 5 MG TAB PO SCH (09:00)
--- NOTE | 2024-08-05 15:42 | Coding Query ---
CODING QUERY To promote full compliance with coding requirements relating to patient care, provider participation is requested in all cases of boot liner maker uncertainty. Please assist us with the question(s) below: Clinical Indicators: H&P: * Vitals: Temp - 36.9; Pulse - 97; Resp - 16; BP - 80/61; Pulse Ox - 94 * white blood count 11 * lactate negative * anion gap 9 * TYRA (acute kidney injury) * Acute metabolic encephalopathy Progress Note 07/25/2024: * probable sepsis due to C. difficile infection * Severe acute toxic metabolic encephalopathy, multifactorial related to infection, TYRA, medications * start oral vancomycin qid x 10 days Coding Question(s): Based on the clinical indicators above, are you able to clarify the following regarding the sepsis diagnosis? ( ) Sepsis due to C. difficile ruled in (x ) Severe sepsis due to C difficile with organ failure ( ) Sepsis ruled out ( ) Other (please specify) ( ) Unable to determine. Thank you Karen Nelosn Principal Diagnosis: "that condition established after study, to be chiefly responsible for occasioning the admission of the patient to the hospital for care." Co-Existing Principal Diagnosis: "when two or more diagnoses equally meet the criteria for principal diagnosis as determined by the circumstances of admission, diagnostic work up, and/or therapy provided, and the Alphabetic Index, Tabular List, or another coding guideline does not provide sequencing direction, any one of the diagnoses may be sequenced first." "When the physician has documented what appears to be a current diagnosis in the body of the record, but has not included the diagnosis in the final diagnostic statement, the physician should be asked whether the diagnosis should be added." (Source Coding Clinic 2 QTR90. p3-4) [facility]
--- NOTE | 2024-08-06 19:09 | Discharge Summary ---
Discharge Summary Date of Service August 03, 2024 Principal Dx & Hospital Course #1 = Principal Diagnosis (1) Clostridium difficile diarrhea: 69 y/o man admitted with acute encephalopathy, hypotension, multiple recent falls, severe TYRA on admission. Eventually it became clear that his presentation was caused by sepsis (present on admission) due to Clostridium difficile colitis. This was not obvious at the start because he did not have diarrhea at the outset or abdominal pain. -TYRA was prerenal resolved with IVF -C. diff was treated with oral vancomycin for 10 days, probiotic -acute encephalopathy, severe initially, resolved with treatment of C. diff. At time of admission was thought to have alcohol withdrawal but this was ruled out. Historically he has a lot of coarse tremor when encephalopathic which confuses the picture. He and his confirmed he has not been drinking alcohol at least for several months. (2) TYRA (acute kidney injury): resolved Peak Cr 7 at admission Cr now 1 (3) Acute metabolic encephalopathy: 2nd to TYRA, C diff infection, etc. resolved (4) Atrial fibrillation, permanent: cont diltiazem CD cont metoprolol succ 100 mg daily cont digoxin daily cont Eliquis (5) Hypercarbia: Mild acute hypercarbic respiratory failure 07/24/24 related to acute encephalopathy and oversedation resolved (6) Heart failure with mid-range ejection fraction: compensated Last EF 45-50% 10/2023 echo cont meto succ should be on low-dose Entresto if he can tolerate such diuretics - for many years Mr Lion has had refractory hypomagnesemia without question his bumex is contributing heavily to this (prior etoh use was likely also contributing) see below re: low mag decreased his bumex and added amiloride (7) Bipolar 2 disorder: cont depakote daily cont lamotrigine daily cont trazodone daily (8) Rhabdomyolysis: mild, 2nd to falls at home resolved CPK 1221 at admission CPK on 07/28/24 was wnl (9) Right ankle pain: from acute gout flare resolved - treated with prednisone - tapered down to 5 mg daily continue allopurinol x-rays of R ankle - old appearing avulsion fractures medial malleolus reviewed his ankle films with on-call orthopedics - they agree that the right medial avulsion fractures are old (10) Sleep-disordered breathing: cont NC O2 4 liters HS (11) Hypomagnesemia: severe, chronic refractory - serial IV replacements needed in hospital even after resolution of diarrhea reduced bumex dose and started amiloride to help with mag sparing continue bid oral mag supplement (12) Chronic lumbar pain: starting 04/2024 was placed on low-dose prednisone 5mg/day sometime about 1-2 weeks before this admission report they stopped the prednisone placed back on prednisone (for right ankle gout attack) and then taper to 5mg/day and leave on that dose until he sees his PCP or pain management (13) Pain in right anthony: found to have proximal fibula fracture ortho consulted, recommended WBAT, follow up with ortho in 1-2 weeks Plan Right thigh trauma with ecchymoses - x-rays negative K-pad heating pad to promote resolution of ecchymoses insurance denied authorization for inpatient rehab and Mr. Lion requested discharge home with home health, he has been able to walk laps in hallway with walker and mobility much improved last few days Notes For Next Care Provider discharged on prednisone 5 mg because of gout and back pain - continue or slow taper as appropriate C. diff prophylaxis with oral vancomycin if on other antibiotics in next 6-12 months Please recheck BMP and magnesium level Medication Changes From Visit bumex dose decreased and amiloride started prednisone 5 mg daily on discharge - continue until follow up with PCP or pain management Admission HPI Per Admitting Provider 69 y/o with afib fell a few times this week when alone, last night fell when using walker but his caught him and he didn't hit ground He is unable to provide any history because he is somnolent, however his reported he quit drinking in 2022. Utox was positive for MDMA. In the ED he was tachycardic and appeared to be tremulous which raised concern for alcohol withdrawal because he does have a significant drinking history. ED course Cr 7 (usually 1-1.4) Was able to urinate 200 mL tea colored into urinal in ED CK elevated 1200 gilman placed - 1L IVF given Discharge Exam PHYSICAL EXAMINATION Last 24h vital signs reviewed, see documentation in flowsheet General: awake and alert, sitting up in bed HEENT: abrasion above left eyebrow, p PERRL, sclera anicteric Lungs: Normal respiratory effort. Heart: deferred Abdomen: S/ND Extremities: Warm, dry, well-perfused. No extremity edema. no swelling or warmth of R ankle. L ankle ecchymosis resolving. tenderness and slight deformity? proximal R fibula, R thigh ecchymosis fading/evolving Neuro: AOx4 normal mental status Psych: normal affect and behavior Discharge Plan Discharge Items Patient Disposition: Home - Self-Care Reason For Visit: TYRA Discharge Diagnosis: Clostridium difficile infection, sepsis, TYRA, acute toxic metabolic encephalopathy Activity: Per Instructions section Non-emergency contact: Primary Care Provider Call non-emergency contact if: you have any medication questions, your symptoms worsen and you have a fever Follow-up/Referrals: Hai Doan MD [Surgeon] - 08/12/24 3:00 pm (Follow-up with myself or Dr. August for repeat x-rays of his right proximal fibular fracture. Follow-up within 1 to 2 weeks of discharge would be appropriate.) Keith Dimas DO [Primary Care Provider] - 08/06/24 12:00 pm Diet: Regular Addtl Attending Provider Instructions: You were treated for sepsis, delirium, and acute injury related to Clostridium difficile colitis -this is a bacterial infection of the colon that needs to be treated with specific antibiotic (oral vancomycin, for example). It can be triggered by courses of other broad spectrum antibiotics that upset the normal balance of bowel phyllis -you are on your last day of oral vancomycin -take a probiotic for a month to help restore your normal bowel bacteria -C. diff diarrhea can recur up to 1/3 of the time - seek medical evaluation if you have recurrent diarrhea, especially if abdominal pain or fever -if you have to be on other antibiotics for the next 6-12 months for another reason, you should be on low dose oral vancomycin as well for C. diff prophylaxis Kidney injury and delirium resolved You were treated for gout flare Stay on prednisone 5 mg daily until you follow up with your primary care doctor, he can stop it or taper it at that time You have chronically low magnesium level. Stop magnesium oxide (which causes diarrhea) and take extended release magnesium twice a day instead. Reduce your bumex to 1 tab (because it causes magnesium loss) and we added amiloride, a different diuretic which spares magnesium and potassium Reduce your potassium supplement to once a day because of these changes -have your doctor check your blood chemistry and magnesium on follow up For the fibula fracture - you may bear weight as tolerated. Follow up with [facility] in 1-2 weeks It was a pleasure taking care of you in the hospital Diana Boyd MD Pending Studies at Discharge: No Stand-Alone Forms: My [facility], Smoking Cessation Medications and DC Order Prescriptions: New Advanced Probiotic 625 mg (10 billion cell) Capsule See Rx Instructions .ROUTE .COMPLEX Qty: 0 0RF Rx Instructions: take probiotic daily as directed for one month amiloride 5 mg Tablet 5 mg PO DAILY Qty: 30 0RF magnesium chloride [Mag 64] 64 mg Tablet,Delayed Release (Dr/Ec) 64 mg PO BID Qty: 60 0RF prednisone 5 mg tablet 5 mg PO DAILY Qty: 14 0RF Continued acetaminophen 500 mg capsule 1,000 mg PO TID 30 Days Qty: 180 0RF Rx Instructions: TAke 3 times per day to lessen pain. allopurinol 300 mg tablet 300 mg PO QAM Qty: 90 3RF divalproex [Depakote ER] 500 mg tablet extended release 24 hr 1,000 mg PO HS Qty: 180 3RF benzonatate 100 mg capsule 100 mg PO TID PRN (Reason: cough) Qty: 60 3RF ipratropium-albuterol 0.5 mg-3 mg(2.5 mg base)/3 mL solution for nebulization 3 ml inhalation Q6H PRN (Reason: wheezing) Qty: 180 5RF trazodone 100 mg tablet 200 mg PO HS Qty: 60 11RF metoprolol succinate 100 mg tablet extended release 24 hr 100 mg PO QAM Qty: 90 3RF alfuzosin [Uroxatral] 10 mg tablet extended release 24 hr 10 mg PO QAM Qty: 90 4RF Rx Instructions: administer after the same meal each day lamotrigine [Lamictal] 150 mg tablet 150 mg PO HS Qty: 30 11RF diltiazem HCl 120 mg capsule,extended release 12 hr 120 mg PO QPM Qty: 90 3RF Eliquis 5 mg tablet 5 mg PO BID Qty: 180 3RF Hold Instructions: hold until your outpatient doctors tell you it is safe to resume vitamin A 2,400 mcg capsule 2,400 mcg PO QDL testosterone 75 mg pellet 75 mg implant .COMPLEX Rx Instructions: 75 mg implant Quarterly; zinc gluconate 50 mg tablet 50 mg PO QDL mecobalamin (vitamin B12) 1,000 mcg tablet,chewable 1,000 mcg PO QAM colchicine 0.6 mg capsule 0.6 mg PO DIRECTED PRN (Reason: GOUT FLARE UPS) Qty: 2 5RF Rx Instructions: one pills at onset of gout flare, one pill in 2-6 hours if not resolved no more than 2 pills every 14 days cetirizine 10 mg tablet 10 mg PO DAILY PRN (Reason: Allergy Symptoms) albuterol sulfate 90 mcg/actuation HFA aerosol inhaler 2 puff inhalation Q4H PRN (Reason: SOB/WHEEZING) Qty: 8.5 3RF vitamin B complex Tablet 1 tab PO QDL cholecalciferol (vitamin D3) [Vitamin D3] 25 mcg (1,000 unit) capsule 5,000 unit PO QAM thiamine HCl (vitamin B1) 100 mg tablet 100 mg PO BID cephalexin 500 mg capsule 2,000 mg PO ONCE PRN (Reason: prior to dental procedures) Rx Instructions: Take 30min prior to dental work digoxin 125 mcg (0.125 mg) tablet 125 mcg PO QPM Changed bumetanide 1 mg tablet 1 mg PO QAM Qty: 0 0RF Rx Instructions: Take one tablet daily. If weight 240 lbs or greater, increase to 2MG. Reduce to 1MG daily once weight 235 lbs or less. potassium chloride 20 mEq tablet extended release 20 meq PO DAILY Qty: 180 3RF Discontinued magnesium oxide 400 mg magnesium tablet 400 mg PO BID Qty: 180 3RF No Action vancomycin 125 mg capsule 125 mg PO DAILY PRN (Reason: antibiotic use) Qty: 7 5RF Rx Instructions: 125mg daily for 5 to 7 days after completion of systemic antibiotics oxycodone 5 mg tablet 5 mg PO Q8H PRN (Reason: pain) Qty: 21 0RF Discharge Orders: Discharge Order (Routine); Ordered 08/03/24 Ordered By: Diana Escalante/Other Patient Handouts: Substance Abuse Rehab Program, Alcoholism: Getting Help Admission Data Admit Date/Time: 07/24/24 08:24 Attending Provider: Diana Boyd Admit Provider: Diana Boyd Primary Care Provider: Keith Dimas Other Providers: Diana Boyd; [facility]; [place]; James August Other Interventions: Discharge Summary Assessment (RN) Last Done: 08/03/24 15:29 Hospital Stay Data Consultations 07/24/24 07:41 ED Decision to Admit Stat 08/03/24 07:00 Consult Orthopedic Surgery Routine Diagnostic Imagining Performed 07/24/24 08:42 US Renal Bladder [US renal/blad retro comp] Routine 07/24/24 09:01 CT head/brain wo con Stat Pending Results Patient Have Any Pending Studies at Discharge: No Discharge Instructions Given to Patient (Per Discharging Provider) You were treated for sepsis, delirium, and acute injury related to Clostridium difficile colitis -this is a bacterial infection of the colon that needs to be treated with specific antibiotic (oral vancomycin, for example). It can be triggered by courses of other broad spectrum antibiotics that upset the normal balance of b owel phyllis -you are on your last day of oral vancomycin -take a probiotic for a month to help restore your normal bowel bacteria -C. diff diarrhea can recur up to 1/3 of the time - seek medical evaluation if you have recurrent diarrhea, especially if abdominal pain or fever -if you have to be on other antibiotics for the next 6-12 months for another reason, you should be on low dose oral vancomycin as well for C. diff prophylaxis Kidney injury and delirium resolved You were treated for gout flare Stay on prednisone 5 mg daily until you follow up with your primary care doctor, he can stop it or taper it at that time You have chronically low magnesium level. Stop magnesium oxide (which causes diarrhea) and take extended release magnesium twice a day instead. Reduce your bumex to 1 tab (because it causes magnesium loss) and we added amiloride, a different diuretic which spares magnesium and potassium Reduce your potassium supplement to once a day because of these changes -have your doctor check your blood chemistry and magnesium on follow up For the fibula fracture - you may bear weight as tolerated. Follow up with [facility] in 1-2 weeks It was a pleasure taking care of you in the hospital Diana Boyd MD Total Time Total Time Spent Total Time Spent (In Minutes): I personally spent: 50 minutes on clinical care activities for discharge including: reviewing chart notes and vital signs reviewing labs reviewing studies discussion with retirement sales consultant(s) - orthopedics discussion with care tech examining and counseling the patient writing orders, prescriptions, discharge instructions documentation Coding Level of Care Code 36942 INP/OBS DISCH >30 MIN Diagnoses Clostridium difficile diarrhea A04.72 TYRA (acute kidney injury) N17.9 Acute metabolic encephalopathy G93.41 Atrial fibrillation, permanent I48.21 Hypercarbia R06.89 Heart failure with mid-range ejection fraction I50.22 Bipolar 2 disorder F31.81 Rhabdomyolysis M62.82 Right ankle pain M25.571 Sleep-disordered breathing G47.30 Hypomagnesemia E83.42 Chronic lumbar pain M54.50; G89.29 Pain in right anthony M79.661
== END 2024-08-03 16:53 | disposition home or self-care (01) | DRG 871 ==
LOC: ED 05:00 → SUATTDRO 08:24 → 2S 08:24

== ENCOUNTER 2025-07-21 18:42 | Inpatient (IN) ==
--- NOTE | 2025-07-21 18:57 | Emergency Department Note ---
Impression & Plan Chest pain, Contusion of face, Chest wall contusion, Closed rib fracture, Elevated troponin I level, Alcohol intoxication, Atrial fibrillation with rapid ventricular response ED Provider Note NAME: YANNICK QUINTERO AGE: 70 SEX: M : 1955 ARRIVES VIA: Ambulance INFORMANT: Patient, EMS ED PROVIDER(S): Chapito Gallardo DO I evaluated this patient at the bedside at 1846 CHIEF COMPLAINT: Trauma HPI: The patient is a 70-year-old male who presented to the emergency department for chest pain. He was made a trauma alert upon initial evaluation by the nursing staff. The patient states that he was walking in his home. He developed pain which bribes a very heavy chest pain. The patient states he has no trouble breathing. He denies having any lower extremity swelling or pain. He denies having any abdominal pain. The patient states that he fell. He is unsure exactly how he fell. He does not think that he passed out but he has facial trauma as well as chest trauma. The patient denies having any neck pain. He denies having any seizure-like activity. He was home alone when this occurred. When his significant other had found out what happened she called 911 and sent the patient to the emergency department. ROS: See above HPI for pertinent positives & negatives. A total of 10 systems reviewed and were otherwise negative. PAST MEDICAL HISTORY: See Below PAST SURGICAL HISTORY: See Below FAMILY HISTORY: See Below SOCIAL HISTORY: See Below HOME MEDICATIONS: See Below ALLERGIES: See Below VITALS: See Below PHYSICAL EXAMINATION: Primary Survey Airway: Intact Breathing: Normal, breath sounds equal bilaterally Circulation: Skin warm, distal pulses 2+, capillary refill less than 2 seconds Disability Pupils: Equal and reactive to light, 4mm, brisk GCS: 15, Motor Function: Moves all extremities. Sensory: No deficits Secondary Survey GEN: Well developed and well-nourished HEAD: There was signs of ecchymosis in the left infra orbital region as well as over the left cheek. There was swelling over the left upper lip. There is no tenderness over the scalp. EYES: Pupils round reactive to light, conjunctiva clear, extraocular movements intact, no raccoons eyes ENT: There is no dental trauma appreciated. NECK: No JVD, midline trachea, no cervical spine tenderness, cervical collar is clinically cleared in the emergency department. HEART: Regular rate and rhythm LUNGS: Clear to auscultation bilaterally. CHEST: There is erythema and tenderness over the anterior chest wall. There is no crepitus. ABD: Abdomen is soft and nontender. There is no tenderness guarding or rigidity noted. BACK: No step offs or deformities, T-L spine non tender EXT: 2+ global pulses, moving all extremities well, +5/5 muscle strength globally. There was ecchymosis over the left patella but no decreased range of motion noted. There was ecchymosis over the left shoulder but no decreased range of motion noted. NEURO: The patient is awake alert and oriented x 3. Strength is symmetric. He follows commands well. MEDICAL DECISION MAKING: The patient is a 70-year-old male who presented to the emergency department after a fall. The patient was made a trauma alert upon arrival. The patient was found to have signs of trauma with injury to his face as well as his chest. Cervical spine was clinically cleared upon arrival. I discussed the patient's laboratory and radiographic studies with him as well as his significant other. Given the patient's presence of chest pain prior to the fall I do feel he would be a better candidate for inpatient management especially given his age and comorbidities. He was not found to have any obvious ischemic changes but he has atrial fibrillation with RVR. The patient did have a slightly elevated troponin. He was treated with aspirin prior to arrival. I discussed his condition with the on-call [facility] hospitalist. They have agreed to evaluate the patient in the emergency department for further management and disposition. Triage Nursing notes reviewed. Prior medical records reviewed Vital Signs: reviewed and remarkable for tachycardia. Differential diagnosis: Cardiac ischemia, aortic dissection, pulmonary embolism, pneumothorax, pneumonia, pericarditis, myocarditis, esophageal rupture, GERD, cholecystitis, pancreatitis, musculoskeletal, as well as other pathologies. ER treatment provided: See below Diagnostics interpreted by me: ECG: EKG was obtained in the emergency department. My interpretation is atrial fibrillation at 148 bpm. There is no PVCs noted. Nonspecific ST abnormalities were appreciated. This was carried to a tracing from July 24, 2024. No changes were noted. Cardiac Monitoring: An order was placed for continuous cardiac monitoring. The monitor shows a rate of 110 bpm with atrial fibrillation and RVR. Laboratory studies: As stated above and show below. Imaging studies: See below. Radiographic imaging was reviewed by myself Consultation(s): I discussed this case with Dr. August who is on-call for the [facility] hospitalist group. ED COURSE: Procedures: none Critical Care: I have personally spent greater than 35 minutes of critical care time in the direct management of this patient. This includes bedside care, interpretation of diagnostic studies, and testing, discussion with consultants, patient, and family members, and other required patient management activities. This 35 minutes is in excess of all separately billable procedures. Past Med/Surg History Problem List Atrial fibrillation with rapid ventricular response (Acute) Alcohol intoxication (Acute) Elevated troponin I level (Acute) Closed rib fracture (Acute) Chest wall contusion (Acute) Contusion of face (Acute) Chest pain (Acute) Left shoulder pain Nocturnal hypoxia on 4L oxygen HS Osteoarthritis of right knee Inflammation of joint of right knee Vitamin D deficiency Gout of right ankle Fracture of proximal end of fibula Pain in right anthony Nightmares Chronic lumbar pain per pt since 2011 with spinal stenosis Sleep-disordered breathing Right ankle pain Clostridium difficile diarrhea Personal history of colonic polyps Varicose veins of legs History of left hip replacement Heart failure with reduced ejection fraction Hematoma of left buttock Fall from standing (Acute) Atrial fibrillation, permanent (Acute) Restrictive lung disease Heart failure with mid-range ejection fraction Chest pain (Acute) Chronic kidney disease with active medical management without dialysis, stage 3 (moderate) Metabolic alkalosis Hypertension Lumbar facet joint syndrome Bipolar 2 disorder Congestive heart failure EF 40-45% Nov 2021 ECHO (questionable tachycardia induced per cardio) Degenerative joint disease of left hip Myofascial pain Leg length discrepancy Ascending aorta dilatation 4.6 cm - no change from Nov [address] per 12/06/21 chest CTA Left ventricular dysfunction Degenerative joint disease, foot, left Foot pain, left Insomnia Asthma COLD WEATHER INDUCED>NO INHALER USED FOR A WHILE Breathing stable Chronic gout S/P insertion of spinal cord stimulator X 2 *ONLY 1 IS FUNCTIONING BUT NOT IN USE CURRENTLY (WILL BRING ALONG REMOTE AND INSTRUCTIONS TO SURGERY/PAT APT) Hypoxia Atelectasis Elevated hemidiaphragm left Dyspnea Iniguez's neuroma of left foot Cough Orthopnea Hypomagnesemia Elevated MCV Fatigue Hearing loss, bilateral Recurrent right knee instability Memory impairment Hypogonadism in male (Chronic) RLS (restless legs syndrome) HX OF BPH w urinary obs/LUTS Skin tag (Chronic) Medical marijuana use (Chronic) Spinal stenosis (Chronic) Hx of knee surgery RT KNEE SCOPE Medical History Alcohol abuse COVID-19 Left ventricular dysfunction Dyspnea on exertion History of chest pain 2022--per pt resolved--follows with Dr. Artis Decreased diffusion capacity of lung "atelectasis"--in right lung per pt capacity is 50% On home oxygen therapy 4L via NC at HS History of alcohol abuse on naltrexone Acute kidney injury superimposed on CKD per pt was due to fall--per pt resolved Acute heart failure hx--does have congestive heart failure Hypokalemia Peripheral neuropathy Bilateral feet History of COVID-19 11/2021>TROUBLE BREATHING/CONGESTION>HOSPITAL AFTER DX FOR PULSE RATE *RESOLVED History of hypogonadism Surgical History S/P insertion of spinal cord stimulator X 2 *ONLY 1 CURRENTLY, BUT NOT IN USE CURRENTLY (WILL BRING ALONG REMOTE) History of arthroscopy of right knee Hx of eye surgery 08-29-23 R orbital superior medial orbitotomy exploration and removal of glass fragments largest [address] Jose Murphy S/P total left hip arthroplasty 03-19-22 Dr August, [facility] H/O hand surgery LEFT Hx of vasectomy History of colonoscopy History of tonsillectomy [place] teeth removed History of cataract surgery RT/LEFT History of cholecystectomy Hx of hernia repair UMBILICAL HERNIA Family History Mother Breast cancer Hypertension Sister Diabetes Lung cancer Other No family history of adverse response to anesthesia Denies family history of Ovarian cancer Prostate cancer Myocardial infarction Colorectal cancer Social History Smoking Status: Unknown if ever smoked Second Hand Exposure: Yes (as a child. ); Do You Dip or Chew Tobacco: No; Hx Alcohol Use: No (Current withdrawal) Hx Substance Use: No (Positive lab results) Preferred Language: Nigerien Communication Ability: Effective Visual Impairment: Limited Hearing Ability: Use of Hearing Aid Police Guard Required: No Beliefs That Will Affect Care: None marital status: Current Living Situation: Spouse current occupational status: retired How many Children do You have: 6 How many Children do You have Comment: 2 biological and 4 step-children. Feels Safe at Home: Yes Childhood Exposure to Second-Hand Smoke: Yes Diet: regular Diet Comment: Optivia diet caffeine: Yes during the past year weight has: remained stable Dental Care, Regularly: No Physical Activity Frequency: Does not Exercise Physical Activity Frequency Comment: [facility] Seatbelt Use: always Sunscreen Use: Yes Do you think of yourself as: straight/heterosexual Sexual Activity: has been sexually active, but not for at least 12 months Gender Identity: Male Assistive Devices: Brace/Splint/Immobilizer, Cane, Glasses and Oxygen - at Night Allergies Allergies Allergy/AdvReac Type Severity Reaction Status Date / Time meloxicam Allergy Severe Swollen Verified 06/30/25 11:01 tongue amitriptyline [From Elavil] Allergy Intermediate Hallucinati Verified 06/30/25 11:01 ons aripiprazole [From Abilify] Allergy Intermediate Tremors, Verified 06/30/25 11:01 balance issues, trouble controlling body movements hyoscyamine Allergy Intermediate Hallucinati Verified 06/30/25 11:01 [From Symax Duotab] ons venlafaxine [From Effexor] Allergy Intermediate Hallucinations Verified 06/30/25 11:01 and tremors zolpidem [From Ambien] Allergy Intermediate Hallucinati Verified 06/30/25 11:01 ons ciprofloxacin Allergy Mild Rash Verified 06/30/25 11:01 Penicillins Allergy Mild Rash Verified 06/30/25 11:01 adhesive tape AdvReac Mild rash, red Verified 06/30/25 11:01 skin Home Meds Home Medications Medication Instructions Recorded Confirmed cetirizine 10 mg tablet 10 mg PO DAILY PRN Allergy Symptoms 11/25/19 06/30/25 vitamin B complex 1 tab PO QDL 12/06/21 06/30/25 cholecalciferol (vitamin D3) 25 5,000 unit PO QAM 01/31/23 06/30/25 mcg (1,000 unit) capsule (Vitamin D3) mecobalamin (vitamin B12) 1,000 1,000 mcg PO QAM 01/31/23 06/30/25 mcg chewable tablet testosterone 75 mg implant pellet 75 mg implant .COMPLEX 01/31/23 06/30/25 vitamin A 2,400 mcg capsule 2,400 mcg PO QDL 01/31/23 06/30/25 zinc gluconate 50 mg tablet 50 mg PO QDL 01/31/23 06/30/25 thiamine HCl (vitamin B1) 100 mg 100 mg PO BID 05/06/24 06/30/25 tablet Previous Rx's Medication Instructions Recorded acetaminophen 500 mg capsule 1,000 mg (2 x 500 mg) PO TID Pain 03/18/22 30 days #180 caps colchicine 0.6 mg capsule 0.6 mg PO DIRECTED PRN GOUT 10/14/23 FLARE UPS #2 caps albuterol sulfate 90 mcg/actuation 2 puff inhalation Q4H PRN 11/18/23 aerosol inhaler SOB/WHEEZING #8.5 grams benzonatate 100 mg capsule 100 mg PO TID PRN cough #60 caps 11/26/23 ipratropium 0.5 mg-albuterol 3 mg 3 ml inhalation Q6H PRN wheezing 11/28/23 (2.5 mg base)/3 mL nebulization #180 mL soln metoprolol succinate 100 mg 100 mg PO QAM #90 tabs 04/09/24 tablet,extended release 24 hr alfuzosin 10 mg tablet,extended 10 mg PO QAM #90 tabs 05/17/24 release 24 hr (Uroxatral) diltiazem HCl 120 mg 120 mg PO QPM #90 caps 06/09/24 capsule,extended release 12 hr L.acidop,casei,lactis,rham-B.lact,cora See Rx Instructions .Route 08/03/24 625 mg (10 billion cell) capsule .COMPLEX #0 caps (Advanced Probiotic) allopurinol 300 mg tablet 300 mg PO QAM #90 tabs 09/03/24 magnesium chloride 64 mg 64 mg PO BID #180 tabs 09/03/24 (magnesium chloride) tablet,delayed release (Mag 64) amiloride 5 mg tablet 5 mg PO DAILY #90 tabs 09/13/24 digoxin 125 mcg (0.125 mg) tablet 125 mcg PO QPM #90 tabs 09/21/24 divalproex 500 mg tablet,extended 1,000 mg (2 x 500 mg) PO HS #180 10/25/24 release 24 hr (Depakote ER) tabs walker #1 ea 10/25/24 cephalexin 500 mg capsule 2,000 mg (4 x 500 mg) PO ONCE PRN 12/03/24 prior to dental procedures #4 caps vancomycin 125 mg capsule 125 mg PO DAILY PRN antibiotic use 12/03/24 #7 caps potassium chloride 20 mEq 20 meq PO DAILY #180 tabs 12/27/24 tablet,extended release trazodone 100 mg tablet 200 mg (2 x 100 mg) PO HS #60 tabs 02/11/25 bumetanide 1 mg tablet 1 mg PO QAM #30 tabs 02/24/25 apixaban 5 mg tablet (Eliquis) 5 mg PO BID #180 tabs 05/10/25 prednisone 20 mg tablet 40 mg (2 x 20 mg) PO DAILY #10 tabs 05/19/25 methylprednisolone 4 mg tablets in 4 mg PO DAILY #21 ea 06/01/25 a dose pack prednisone 5 mg tablet 5 mg PO DAILY #30 tabs 06/01/25 lamotrigine 150 mg tablet 150 mg PO HS #30 tabs 07/01/25 (Lamictal) oxycodone 5 mg tablet 5 mg PO Q8H PRN pain #90 tabs 07/08/25 Results & Data (ED) Vital Signs Vital Signs - 24 hr 07/21/25 18:50 07/21/25 18:50 07/21/25 18:50 Temperature 36.6 C Pulse Rate 139 H 151 H Pulse Rate [Apical] Pulse Rhythm Pulse Rhythm [Apical] Pulse Strength Pulse Strength [Apical] Respiratory Rate 20 Respiratory Effort / Characteristics Respiratory Depth Respiratory Pattern Blood Pressure 133/65 Blood Pressure [Right Arm] Blood Pressure Mean Blood Pressure Mean [Right Arm] Blood Pressure Position Blood Pressure Position [Right Arm] Pulse Oximetry 95 96 Oxygen Delivery Method Nasal Cannula Nasal Cannula Oxygen Flow Rate 4 4 Sepsis Recent Fever Within 48 Hours Sepsis New/Unexplained Change in Mental Status Sepsis Action Taken by Nursing 07/21/25 18:51 07/21/25 18:51 07/21/25 19:02 Temperature Pulse Rate 139 H Pulse Rate [Apical] 140 H Pulse Rhythm Regular Pulse Rhythm [Apical] Regular Pulse Strength Normal Pulse Strength [Apical] Normal Respiratory Rate 28 H 28 H Respiratory Effort / Characteristics Non-Labored Spontaneous Non-Labored Spontaneous Respiratory Depth Normal Normal Respiratory Pattern Regular Regular Blood Pressure 133/95 Blood Pressure [Right Arm] Blood Pressure Mean 107 Blood Pressure Mean [Right Arm] Blood Pressure Position Lying Blood Pressure Position [Right Arm] Pulse Oximetry 96 95 96 Oxygen Delivery Method Nasal Cannula Nasal Cannula Nasal Cannula Oxygen Flow Rate 4 4 4 Sepsis Recent Fever Within 48 Hours No Sepsis New/Unexplained Change in Mental Status No Sepsis Action Taken by Nursing No Action Required 07/21/25 19:36 07/21/25 20:00 07/21/25 21:00 Temperature Pulse Rate Pulse Rate [Apical] 137 H 132 H 123 H Pulse Rhythm Pulse Rhythm [Apical] Regular Regular Regular Pulse Strength Pulse Strength [Apical] Normal Normal Normal Respiratory Rate 26 H 24 22 Respiratory Effort / Characteristics Non-Labored Spontaneous Non-Labored Spontaneous Non-Labored Spontaneous Respiratory Depth Normal Normal Normal Respiratory Pattern Regular Regular Regular Blood Pressure Blood Pressure [Right Arm] 139/97 144/93 H 131/88 Blood Pressure Mean Blood Pressure Mean [Right Arm] 111 110 102 Blood Pressure Position Blood Pressure Position [Right Arm] Lying Lying Lying Pulse Oximetry 96 93 94 Oxygen Delivery Method Nasal Cannula Nasal Cannula Room Air Oxygen Flow Rate 4 4 Sepsis Recent Fever Within 48 Hours Sepsis New/Unexplained Change in Mental Status Sepsis Action Taken by [facility] Medications Current Medication List: was personally reviewed by me Laboratory Data Attestation: I reviewed the patient's lab results. 07/21/25 Unknown 07/21/25 Unknown Lab Results 07/21/25 07/21/25 07/21/25 Range/Units 18:55 19:54 Unknown WBC 15.50 H (4.8-10.8) K/ul RBC 4.59 L (4.70-6.10) M/uL Hgb 16.1 (14.0-18.0) g/dl POC Hgb 17.0 (14.0-18.0) g/dl Hct 45.5 (42.0-52.0) % POC Hct 50 (42-52) % MCV 99.1 (80.0-100.0) fL MCH 35.1 H (25.0-34.0) pg MCHC 35.4 (32.0-36.0) g/dL RDW Std Deviation 56.2 H (36.4-46.3) fL RDW Coeff of Daniel 15.2 H (11.5-14.5) % Plt Count 171 (130-400) K/uL MPV 9.7 (9.4-12.4) fL Immature Gran % (Auto) 0.5 % Neut % (Auto) 79.1 % Lymph % (Auto) 15.2 % [place] % (Auto) 4.3 % Eos % (Auto) 0.1 % Baso % (Auto) 0.8 % Neut # (Auto) 12.28 H (1.40-6.50) K/uL Lymph # (Auto) 2.35 (1.20-3.40) K/uL [place] # (Auto) 0.66 H (0.11-0.59) K/uL Eos # (Auto) 0.01 (0.00-0.50) K/uL Baso # (Auto) 0.12 (0.00-0.20) K/uL Immature Gran # (Auto) 0.08 (0.01-0.20) K/uL PT 10.8 (9.0-12.0) Seconds INR 1.0 (0.9-1.1) APTT 23 (21-31) Seconds PTT Ratio 0.9 POC Sodium 136 (135-144) mmol/L Sodium 137 (136-145) mmol/L POC Potassium 4.2 (3.3-5.0) mmol/L Potassium 4.2 (3.5-5.1) mmol/L POC Chloride 100 L (101-112) mmol/L Chloride 98 (98-107) mmol/L Carbon Dioxide 20 L (21-32) mmol/L POC Total CO2 19 L (24-31) mmol/L Anion Gap 19 H (3-11) POC Anion Gap 22.0 (16-25) mmol/L POC BUN 28 H (7-18) mg/dl BUN 26 H (6-23) mg/dl Creatinine 1.28 (0.6-1.4) mg/dl POC Creatinine 1.6 H (0.6-1.3) mg/dl Est Cr Clr Drug Dosing 65.6 ml/min eGFR 59.84 BUN/Creatinine Ratio 20.3 H (10-20) Glucose 74 (70-99(Fasting)) mg/dl POC Glucose (other) 70 (70-99) mg/dl Calcium 8.9 (8.6-10.3) mg/dl POC Ioniz Calcium Yoni 0.97 L (1.12-1.32) mmol/l Magnesium 1.6 L (1.7-2.4) mg/dl Total Bilirubin 1.1 H (0.2-1.0) mg/dl AST 56 H (13-39) U/L ALT 35 (7-52) U/L Alkaline Phosphatase 73 (34-104) U/L Total Creatine Kinase 556 H (30-223) U/L Troponin I High Sens 27.1 H (0-20) pg/ml Total Protein 7.3 (6.0-8.3) gm/dl Albumin 4.4 (3.4-5.0) gm/dl Globulin 2.9 (2.5-4.0) gm/dl Albumin/Globulin Ratio 1.5 (0.9-2) Lipase 10 L (11-82) U/L Urine Color Yellow Urine Appearance Clear (Clear) Urine pH 5.5 (4.5-7.5) Ur Specific Briggs 1.021 (1.000-1.030) Urine Protein 1+ H (Negative) Urine Glucose (UA) Negative (Negative) Urine Ketones Trace H (Negative) Urine Blood 1+ H (Negative) Urine Nitrite Negative (Negative) Urine Bilirubin Negative (Negative) Urine Urobilinogen Negative (Negative) Ur Leukocyte Esterase Negative (Negative) Urine WBC (Auto) 0-5 (0-5) /hpf Urine RBC (Auto) 0-2 (0-2) /hpf U Hyaline Cast (Auto) 0-2 (0-2) /lpf U Epithel Cells (Auto) 0-2 (0-2) /hpf Urine Bacteria (Auto) None Seen (None Seen) Urine Comment Urine Opiates Screen Neg (Neg) Ur Methadone, Qual Neg (Neg) Urine Fentanyl Screen Neg (Neg) Urine Barbiturates Neg (Neg) Ur Phencyclidine (PCP) Neg (Neg) U Amphetamin/Meth Scrn Neg (Neg) MDMA (Ecstasy) Screen Neg (Neg) U Benzodiazepines Scrn Neg (Neg) Ur Cocaine Metabolite Neg (Neg) U Marijuana (THC) Screen Neg (Neg) Ethyl Alcohol mg/dL 282.8 H (<10.0) mg/dl Administered Medications Discontinued Medications Diltiazem HCl (Diltiazem Hcl 5 Mg/Ml 5 Ml Vial) 20 mg IV NOW STA Stop: 07/21/25 20:28 Last Admin: 07/21/25 20:31 Dose: 20 mg Documented By: GUSTAVO Co-signed By: MARIBELL Sodium Chloride (Nss) 500 mls @ 999 mls/hr IV .Q31M ONE Stop: 07/21/25 19:20 Last Infusion: 07/21/25 19:57 Dose: Infused Documented By: Admin: 07/21/25 18:59 Dose: 999 mls/hr Documented By: SANDY Magnesium Sulfate/Dextrose (Magnesium Sulfate / D5w) 1 gm in 100 mls @ 100 mls/hr IV NOW STA Stop: 07/21/25 19:51 Last Infusion: 07/21/25 19:58 Dose: Infused Documented By: Admin: 07/21/25 18:59 Dose: 100 mls/hr Documented By: SANDY Sodium Chloride (Nss) 500 mls @ 999 mls/hr IV .Q31M ONE Stop: 07/21/25 20:57 Last Infusion: 07/21/25 21:03 Dose: Infused Documented By: Admin: 07/21/25 20:31 Dose: 999 mls/hr Documented By: GUSTAVO Ioversol (Optiray 320 100ml) 90 ml IV ONCE ONE Stop: 07/21/25 19:13 Last Admin: 07/21/25 19:13 Dose: 90 ml Documented By: GRANT Morphine Sulfate (Morphine Sulfate 4 Mg/Ml 1 Ml Carp\\Vial) 4 mg IV NOW STA Stop: 07/21/25 20:58 Last Admin: 07/21/25 21:03 Dose: 4 mg Documented By: SANDY Ondansetron HCl (Ondansetron Inj 2 Mg/Ml 2 Ml Vial) 4 mg IV NOW STA Stop: 07/21/25 20:58 Last Admin: 07/21/25 21:03 Dose: 4 mg Documented By: SANDY Imaging Data Attestation: I personally reviewed and interpreted this imaging study as follows: My Impression: 1 view chest x-ray was obtained in the emergency department. My interpretation is no free air, elevated left hemidiaphragm was noted, final report pending. CT the brain was obtained in the emergency department. No interpretation is no intracranial hemorrhage or mass effect, final report below. CT of the chest was obtained in the emergency department. My interpretation is no free air or obvious infiltrate, final report below. Radiologist's Impression: Chest X-Ray 07/21/25 18:50 Clinical History: Trauma Technique: A frontal view of the chest was obtained Comparison is made to the prior examination dated 07/24/2024 Findings: There are no confluent pulmonary infiltrates. The heart size is at the upper limit of normal. No pleural effusion or pneumothorax is seen. There is unchanged prominent elevation of the left hemidiaphragm. No fracture is noted. There are stimulator leads in the spinal canal Impression: Unchanged elevation of the left hemidiaphragm Electronically signed by Carlos Ernandez 07-21-2025 7:53 PM Abdomen/Pelvis CT 07/21/25 18:51 Clinical History: Trauma Technique: Axial computed tomography images were obtained of the abdomen and pelvis after the administration of intravenous contrast. Comparison is made to the prior CT dated 11/01/2043. Findings: The liver is overall of normal size, attenuation, and contour with no sign of cirrhosis or significant fatty infiltration. No liver mass lesion is seen. The portal vein is patent. The gallbladder has been removed. There is bile duct dilatation that is likely due to the postcholecystectomy state. The spleen is of normal size. No focal splenic lesion is evident. The pancreas is atrophic and there are scattered pancreatic calcifications, suggestive of chronic pancreatitis. The pancreatic duct is of normal caliber. The adrenal glands appear unremarkable. No definite renal or proximal ureteral calculi are seen on this contrast-enhanced study. There is no hydronephrosis or perinephric stranding. There is no definite change in a 7 mm exophytic hyperdense lesion of the posteromedial mid right kidney. There are small bilateral renal cysts, measuring up to 1 cm in size The abdominal aorta is of normal caliber. No abdominal adenopathy is seen. There is prominence of the gastric wall that is likely due to the decompressed state. There is no sign of small bowel obstruction. There is diverticulosis without evidence of diverticulitis. No free intraperitoneal fluid or air is identified. No distal ureteral or bladder calculi are seen. No bladder mass lesion is evident. There is a suspected small diverticulum of the right bladder dome. The iliac arteries are of normal caliber. No pelvic adenopathy is noted. The prostate is enlarged measuring 5.3 cm No fracture is identified. No focal osseous lesion is seen. There is a left hip replacement, resulting in surrounding artifact Impression: 1. No definite sign of abdominal organ injury after trauma 2. Chronic pancreatitis 3. Small bilateral renal cysts 4. Unchanged small hyperdense right renal lesion, indeterminate in nature but likely a benign proteinaceous or hemorrhagic cyst. A solid mass could also have this appearance but is less likely given the stability for nearly 2 years 5. Diverticulosis without evidence of diverticulitis 6. Enlarged prostate. Correlation with PSA levels may be useful 7. Small bladder diverticulum ACT 112: Positive. There are findings on this exam that require communication between the performing entity and the patient following Patient Test Result Information Act ([place] ACT 112) [place]. Electronically signed by Carlos Ernandez 07-21-2025 7:[address] 07/21/25 18:51 Technique: Axial computed tomography images were obtained of the cervical spine without intravenous contrast. Sagittal and coronal reconstructions were obtained Comparison is made to the prior CT dated 11/01/2023 Findings: No fracture is identified. There is 4 mm of retrolisthesis of C3 on C4. No focal osseous lesion is evident. 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 There is no spinal stenosis. The neural foramen are patent At C3-4, there is spinal stenosis due to a disc bulge. There is left greater than right neural foramen narrowing that may affect the exiting C4 nerve roots At C4-5, there is a disc bulge without spinal stenosis. The neural foramen are patent At C5-6, there is mild spinal stenosis due to a disc bulge. There is mild left greater than right neural foramen narrowing At C6-7, there is mild spinal stenosis due to a disc bulge. There is left neural foramen narrowing that may affect the left C7 nerve root At C7-T1, there is a disc bulge without spinal stenosis. The neural foramen are patent The lung apices appear clear. The visualized soft tissues of the neck appear unremarkable. No foreign body is seen Impression: 1. No definite cervical spine fracture 2. Retrolisthesis at C3-4 4. Spinal stenosis at C3-4 and to a lesser extent at C5-6 and C6-7 5. Bilateral C3-4 and left C6-7 neural foramen narrowing, which may affect the exiting nerve roots ACT 112: Positive. There are findings on this exam that require communication between the performing entity and the patient following Patient Test Result Information Act [place] ACT 112[place] [place]. Electronically signed by Carlos Ernandez 07-21-2025 7:[address] 07/21/25 18:51 Clinical history: Pain after fall Technique: Axial computed tomography images were obtained of the chest after the administration of intravenous contrast Comparison is made to the prior CT dated 12/06/2021 Findings: There is bilateral lower lobe atelectasis. There is no pleural effusion or pneumothorax. There is no sign of pulmonary fibrosis or other diffuse interstitial process. No endobronchial lesion is seen There is no mediastinal, hilar, or axillary adenopathy. There is unchanged aneurysmal dilatation of the thoracic aorta, measuring up to 4.6 cm. No aortic dissection is seen. There is no pericardial effusion There is unchanged elevation of the left hemidiaphragm. There is an acute slightly displaced fracture of the left anterior fourth rib. There are stimulator leads within the spinal canal. No focal osseous lesion is evident Impression: 1. Acute fracture of the left fourth rib 2. No pneumothorax 3. Unchanged elevation of the left hemidiaphragm 4. Bilateral lung base atelectasis 5. Unchanged thoracic aortic aneurysm ACT 112: Positive. There are findings on this exam that require communication between the performing entity and the patient following Patient Test Result Information Act [place] ACT 112) [place]. Electronically signed by Carlos Ernandez 07-21-2025 7:[address] 07/21/25 18:51 Clinical history: Trauma Technique: Axial computed tomography images were obtained of the facial bones without intravenous contrast. Sagittal and coronal reconstructions were obtained Findings: No fracture is identified. No focal osseous lesion is noted. There is mild mucosal thickening in the frontal, ethmoid, and sphenoid sinuses. No air-fluid level is seen. The ostiomeatal units appear patent bilaterally. The mastoid air cells appear clear The orbits appear unremarkable. No foreign body is seen. The nasal septum appears midline. There is joseph bullosa of the left middle nasal turbinate. No definite nasal polyp is noted Impression: No definite facial bone fracture Electronically signed by Carlos Ernandez 07-21-2025 7:[address] 07/21/25 18:51 Technique: Axial computed tomography images were obtained of the brain from the vertex to the skull base without intravenous contrast. Findings: There is no sign of intracranial hemorrhage. There is normal downs-white matter differentiation with no sign of acute or old infarction. No midline shift or other form of herniation is identified. There is no hydrocephalus. No obvious mass lesion is seen on this noncontrast examination. The visualized portions of the orbits and paranasal sinuses appear unremarkable. The mastoid air cells appear clear Impression: Unremarkable noncontrast CT of the brain Electronically signed by Carlos Ernandez 07-21-2025 7:32 PM Discharge Plan Visit Data Chief Complaint: Trauma Stated Complaint: CHEST PAIN, FALL ED Provider: Chapito Gallardo Discharge Problem: Chest pain, Contusion of face, Chest wall contusion, Closed rib fracture, Elevated troponin I level, Alcohol intoxication, Atrial fibrillation with rapid ventricular response Patient Disposition: Being Evaluated by Hospitalist Condition: Fair Forms Stand Alone Forms: [facility] Prescriptions Prescriptions: No Action acetaminophen 500 mg capsule 1,000 mg PO TID 30 Days Qty: 180 0RF Rx Instructions: TAke 3 times per day to lessen pain. benzonatate 100 mg capsule 100 mg PO TID PRN (Reason: cough) Qty: 60 3RF ipratropium-albuterol 0.5 mg-3 mg(2.5 mg base)/3 mL solution for nebulization 3 ml inhalation Q6H PRN (Reason: wheezing) Qty: 180 5RF metoprolol succinate 100 mg tablet extended release 24 hr 100 mg PO QAM Qty: 90 3RF alfuzosin [Uroxatral] 10 mg tablet extended release 24 hr 10 mg PO QAM Qty: 90 4RF Rx Instructions: administer after the same meal each day diltiazem HCl 120 mg capsule,extended release 12 hr 120 mg PO QPM Qty: 90 3RF allopurinol 300 mg tablet 300 mg PO QAM Qty: 90 3RF magnesium chloride [Mag 64] 64 mg tablet,delayed release (DR/EC) 64 mg PO BID Qty: 180 3RF amiloride 5 mg tablet 5 mg PO DAILY Qty: 90 3RF digoxin 125 mcg (0.125 mg) tablet 125 mcg PO QPM Qty: 90 3RF divalproex [Depakote ER] 500 mg tablet extended release 24 hr 1,000 mg PO HS Qty: 180 3RF cephalexin 500 mg capsule 2,000 mg PO ONCE PRN (Reason: prior to dental procedures) Qty: 4 0RF Rx Instructions: Take 30min prior to dental work vancomycin 125 mg capsule 125 mg PO DAILY PRN (Reason: antibiotic use) Qty: 7 5RF Rx Instructions: 125mg daily for 5 to 7 days after completion of systemic antibiotics potassium chloride 20 mEq tablet extended release 20 meq PO DAILY Qty: 180 3RF trazodone 100 mg tablet 200 mg PO HS Qty: 60 11RF bumetanide 1 mg tablet 1 mg PO QAM Qty: 30 5RF Rx Instructions: Take one tablet daily. If weight 240 lbs or greater, increase to 2MG. Reduce to 1MG daily once weight 235 lbs or less. prednisone 20 mg tablet 40 mg PO DAILY Qty: 10 0RF Rx Instructions: for 5 days prednisone 5 mg tablet 5 mg PO DAILY Qty: 30 2RF methylprednisolone 4 mg tablets,dose pack 4 mg PO DAILY Qty: 21 0RF Rx Instructions: Follow pack instructions lamotrigine [Lamictal] 150 mg tablet 150 mg PO HS Qty: 30 11RF oxycodone 5 mg tablet 5 mg PO Q8H PRN (Reason: pain) Qty: 90 0RF Rx Instructions: DNFB 07-12-25 vitamin A 2,400 mcg capsule 2,400 mcg PO QDL testosterone 75 mg pellet 75 mg implant .COMPLEX Rx Instructions: 75 mg implant Quarterly; zinc gluconate 50 mg tablet 50 mg PO QDL mecobalamin (vitamin B12) 1,000 mcg tablet,chewable 1,000 mcg PO QAM colchicine 0.6 mg capsule 0.6 mg PO DIRECTED PRN (Reason: GOUT FLARE UPS) Qty: 2 5RF Rx Instructions: one pills at onset of gout flare, one pill in 2-6 hours if not resolved no more than 2 pills every 14 days cetirizine 10 mg tablet 10 mg PO DAILY PRN (Reason: Allergy Symptoms) albuterol sulfate 90 mcg/actuation HFA aerosol inhaler 2 puff inhalation Q4H PRN (Reason: SOB/WHEEZING) Qty: 8.5 3RF (DME) jeannette Kumar See Rx Instructions .MEDSUPPLY Qty: 1 0RF Rx Instructions: As directed Eliquis 5 mg tablet 5 mg PO BID Qty: 180 3RF Hold Instructions: hold until your outpatient doctors tell you it is safe to resume vitamin B complex Tablet 1 tab PO QDL cholecalciferol (vitamin D3) [Vitamin D3] 25 mcg (1,000 unit) capsule 5,000 unit PO QAM thiamine HCl (vitamin B1) 100 mg tablet 100 mg PO BID Advanced Probiotic 625 mg (10 billion cell) Capsule See Rx Instructions .ROUTE .COMPLEX Qty: 0 0RF Rx Instructions: take probiotic daily as directed for one month Referrals Referrals: Keith Dimas DO [Primary Care Provider] -
[2025-07-21] MEDS: MAGNESIUM SULFATE / D5W 1 GM/100 ML BAG IV STA (18:59)
[2025-07-21] MEDS: SODIUM CHLORIDE 0.9% 500 ML IV ONE ×2 (18:59→20:31)
[2025-07-21 19:09] LABS: Hematocrit (blood only) 45.5 % (42.0-52.0); Hemoglobin 16.1 g/dl (14.0-18.0); Immature Granulocytes # (auto) 0.08 K/uL (0.01-0.20); Immature Granulocytes % (auto) 0.5 %; Mean Corpuscular Hemoglobin 35.1 pg (25.0-34.0); Mean Corpuscular Volume 99.1 fL (80.0-100.0); Platelet Count 171 K/uL (130-400); RDW Standard Deviation 56.2 fL (36.4-46.3); Red Blood Count 4.59 M/uL (4.70-6.10); White Blood Count 15.50 K/ul (4.8-10.8)
[2025-07-21] MEDS: OPTIRAY 320 100ml IV ONE (19:13)
[2025-07-21 19:28] LABS: Anion Gap 19.0 (3-11); Blood Urea Nitrogen 26.0 mg/dl (6-23); Calcium 8.9 mg/dl (8.6-10.3); Carbon Dioxide 20.0 mmol/L (21-32); Chloride 98.0 mmol/L (98-107); Creatinine Clr Calc Pharmacy 65.6 ml/min; Glucose 74.0 mg/dl (70-99(Fasting)); Potassium 4.2 mmol/L (3.5-5.1); Sodium 137.0 mmol/L (136-145)
--- NOTE | 2025-07-21 19:34 | CT Scan Report ---
Technique: Axial computed tomography images were obtained of the brain from the vertex to the skull base without intravenous contrast. Findings: There is no sign of intracranial hemorrhage. There is normal downs-white matter differentiation with no sign of acute or old infarction. No midline shift or other form of herniation is identified. There is no hydrocephalus. No obvious mass lesion is seen on this noncontrast examination. The visualized portions of the orbits and paranasal sinuses appear unremarkable. The mastoid air cells appear clear Impression: Unremarkable noncontrast CT of the brain Electronically signed by Carlos Ernandez 07-21-2025 7:32 PM
--- NOTE | 2025-07-21 19:44 | CT Scan Report ---
Clinical history: Trauma Technique: Axial computed tomography images were obtained of the facial bones without intravenous contrast. Sagittal and coronal reconstructions were obtained Findings: No fracture is identified. No focal osseous lesion is noted. There is mild mucosal thickening in the frontal, ethmoid, and sphenoid sinuses. No air-fluid level is seen. The ostiomeatal units appear patent bilaterally. The mastoid air cells appear clear The orbits appear unremarkable. No foreign body is seen. The nasal septum appears midline. There is joseph bullosa of the left middle nasal turbinate. No definite nasal polyp is noted Impression: No definite facial bone fracture Electronically signed by Carlos Ernandez 07-21-2025 7:43 PM
--- NOTE | 2025-07-21 19:47 | CT Scan Report ---
Technique: Axial computed tomography images were obtained of the cervical spine without intravenous contrast. Sagittal and coronal reconstructions were obtained Comparison is made to the prior CT dated 11/01/2023 Findings: No fracture is identified. There is 4 mm of retrolisthesis of C3 on C4. No focal osseous lesion is evident. 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 There is no spinal stenosis. The neural foramen are patent At C3-4, there is spinal stenosis due to a disc bulge. There is left greater than right neural foramen narrowing that may affect the exiting C4 nerve roots At C4-5, there is a disc bulge without spinal stenosis. The neural foramen are patent At C5-6, there is mild spinal stenosis due to a disc bulge. There is mild left greater than right neural foramen narrowing At C6-7, there is mild spinal stenosis due to a disc bulge. There is left neural foramen narrowing that may affect the left C7 nerve root At C7-T1, there is a disc bulge without spinal stenosis. The neural foramen are patent The lung apices appear clear. The visualized soft tissues of the neck appear unremarkable. No foreign body is seen Impression: 1. No definite cervical spine fracture 2. Retrolisthesis at C3-4 4. Spinal stenosis at C3-4 and to a lesser extent at C5-6 and C6-7 5. Bilateral C3-4 and left C6-7 neural foramen narrowing, which may affect the exiting nerve roots ACT 112: Positive. There are findings on this exam that require communication between the performing entity and the patient following Patient Test Result Information Act ([place] ACT 112) [place]. Electronically signed by Carlos Ernandez 07-21-2025 7:46 PM
[2025-07-21 19:51] LABS: INR 1.0 (0.9-1.1); Partial Thromboplastin Time 23 Seconds (21-31); Prothrombin Time 10.8 Seconds (9.0-12.0)
[2025-07-21 19:53] LABS: Alanine Aminotransferase 35.0 U/L (7-52); Albumin Globulin Ratio 1.5 (0.9-2); Alkaline Phosphatase 73.0 U/L (34-104); Bilirubin,Total 1.1 mg/dl (0.2-1.0); Creatine Kinase 556.0 U/L (30-223); Globulin 2.9 gm/dl (2.5-4.0); Lipase 10.0 U/L (11-82); Magnesium 1.6 mg/dl (1.7-2.4); Total Protein 7.3 gm/dl (6.0-8.3)
--- NOTE | 2025-07-21 19:58 | CT Scan Report ---
Clinical history: Pain after fall Technique: Axial computed tomography images were obtained of the chest after the administration of intravenous contrast Comparison is made to the prior CT dated 12/06/2021 Findings: There is bilateral lower lobe atelectasis. There is no pleural effusion or pneumothorax. There is no sign of pulmonary fibrosis or other diffuse interstitial process. No endobronchial lesion is seen There is no mediastinal, hilar, or axillary adenopathy. There is unchanged aneurysmal dilatation of the thoracic aorta, measuring up to 4.6 cm. No aortic dissection is seen. There is no pericardial effusion There is unchanged elevation of the left hemidiaphragm. There is an acute slightly displaced fracture of the left anterior fourth rib. There are stimulator leads within the spinal canal. No focal osseous lesion is evident Impression: 1. Acute fracture of the left fourth rib 2. No pneumothorax 3. Unchanged elevation of the left hemidiaphragm 4. Bilateral lung base atelectasis 5. Unchanged thoracic aortic aneurysm ACT 112: Positive. There are findings on this exam that require communication between the performing entity and the patient following Patient Test Result Information Act ([place] ACT 112) [place]. Electronically signed by Carlos Ernandez 07-21-2025 7:52 PM
--- NOTE | 2025-07-21 19:58 | XRay Report ---
Clinical History: Trauma Technique: A frontal view of the chest was obtained Comparison is made to the prior examination dated 07/24/2024 Findings: There are no confluent pulmonary infiltrates. The heart size is at the upper limit of normal. No pleural effusion or pneumothorax is seen. There is unchanged prominent elevation of the left hemidiaphragm. No fracture is noted. There are stimulator leads in the spinal canal Impression: Unchanged elevation of the left hemidiaphragm Electronically signed by Carlos Ernandez 07-21-2025 7:53 PM
--- NOTE | 2025-07-21 19:59 | CT Scan Report ---
Clinical History: Trauma Technique: Axial computed tomography images were obtained of the abdomen and pelvis after the administration of intravenous contrast. Comparison is made to the prior CT dated 11/01/2043. Findings: The liver is overall of normal size, attenuation, and contour with no sign of cirrhosis or significant fatty infiltration. No liver mass lesion is seen. The portal vein is patent. The gallbladder has been removed. There is bile duct dilatation that is likely due to the postcholecystectomy state. The spleen is of normal size. No focal splenic lesion is evident. The pancreas is atrophic and there are scattered pancreatic calcifications, suggestive of chronic pancreatitis. The pancreatic duct is of normal caliber. The adrenal glands appear unremarkable. No definite renal or proximal ureteral calculi are seen on this contrast-enhanced study. There is no hydronephrosis or perinephric stranding. There is no definite change in a 7 mm exophytic hyperdense lesion of the posteromedial mid right kidney. There are small bilateral renal cysts, measuring up to 1 cm in size The abdominal aorta is of normal caliber. No abdominal adenopathy is seen. There is prominence of the gastric wall that is likely due to the decompressed state. There is no sign of small bowel obstruction. There is diverticulosis without evidence of diverticulitis. No free intraperitoneal fluid or air is identified. No distal ureteral or bladder calculi are seen. No bladder mass lesion is evident. There is a suspected small diverticulum of the right bladder dome. The iliac arteries are of normal caliber. No pelvic adenopathy is noted. The prostate is enlarged measuring 5.3 cm No fracture is identified. No focal osseous lesion is seen. There is a left hip replacement, resulting in surrounding artifact Impression: 1. No definite sign of abdominal organ injury after trauma 2. Chronic pancreatitis 3. Small bilateral renal cysts 4. Unchanged small hyperdense right renal lesion, indeterminate in nature but likely a benign proteinaceous or hemorrhagic cyst. A solid mass could also have this appearance but is less likely given the stability for nearly 2 years 5. Diverticulosis without evidence of diverticulitis 6. Enlarged prostate. Correlation with PSA levels may be useful 7. Small bladder diverticulum ACT 112: Positive. There are findings on this exam that require communication between the performing entity and the patient following Patient Test Result Information Act ([place] ACT 112) [place]. Electronically signed by Carlos Ernandez 07-21-2025 7:58 PM
[2025-07-21 20:13] LABS: Appearance Urine Clear (Clear); Bacteria Urine Automated None Seen (None Seen); Cast Urine Automated 0-2 /lpf (0-2); Epithelial Cell Urine Auto 0-2 /hpf (0-2); Glucose Urine UA Negative (Negative); RBC Urine Automated 0-2 /hpf (0-2); WBC Urine Automated 0-5 /hpf (0-5)
[2025-07-21 20:53] LABS: Amphetamines+Metham, Urine Neg (Neg); MDMA (Ecstacy), Urine Neg (Neg); Marijuana, Urine Neg (Neg)
[2025-07-21] MEDS: ONDANSETRON INJ 2 MG/ML 2 ML VIAL IV STA (21:03)
[2025-07-21] MEDS: MoRPHine SULFATE 4 MG/ML 1 ML CARP\\VIAL IV STA (21:03)
--- NOTE | 2025-07-21 21:11 | History & Physical Report ---
Date of Service July 21, 2025 Assessment & Plan (1) Atrial fibrillation with rapid ventricular response: (2) Fall: (3) Closed rib fracture: (4) Hypomagnesemia: (5) Elevated creatine kinase: (6) Alcohol intoxication: Plan 70-year-old male PMHx permanent A-fib on Eliquis, HTN, alcohol abuse, restrictive lung disease, CKD stage III, HFrEF, chronic lumbar pain, and dilatation of ascending aorta presenting s/p fall at home with complaint of chest pain. His ED evaluation does reveal presence of L rib fracture from fall also in setting of recent chest pain, unlikely ACS. He was found to be in Afib with RVR, and required additional rate control. CBC does reveal leukocytosis, but no anemia. Electrolytes overall WNL with exception of low magnesium. CK was found to be elevated. Pt is intoxicated. Pt will be admitted for further management of Afib with RVR, L rib fracture, and electrolyte abnormalities. #Afib with RVR/Chest pain H/o Afib, permanent, on Eliquis, digoxin, diltiazem, and metoprolol. Follows with cardiology, most recent visit 05/10/2025. S/p Cardizem 20mg IV x 1 in ED. Asx with afib usually. Reports HR usually in the 90s. Do suspect chest pain is 2/2 to rib injury, not ACS. - EKG at admission Afib @ 148 bpm; no ischemic changes - monitor on tele - CBC leukocytosis, stable H/H; TSH, digoxin level pending - Trop 27.1, 28.4 on repeat - trend x 2 -- likely 2/2 demand ischemia/in presence of tachycardia - Echo 09/2024 EF 50-55%, LA dilated, RA dilated, mild MR, aortic root dilatation, dilated ascending aorta -- pending repeat - Metoprolol 50mg po x 1 - Continue home meds #Fall/Closed rib fracture, L Pt presenting for fall at home, found down; Received 1L NSS in ED. Current complaint L sided chest discomfort where he had landed during fall. - CBC leukocytosis 15k, stable H/H; CK 556 - no clear sign of infection at present; CBC, CK am - CXR unchanged elevation L hemidiaphragm - Head CT WNL - Face CT no definite fx - C spine CT no definite fracture, areas of spinal stenosis and neuroforaminal narrowing identified (C3-4, L C6-7) - C spine cleared - Chest CT acute fx L 4th rib, no PTX, bilat atelectasis - CTAP no abdominal injury, chronic pancreatitis, bilat renal cysts and hypo dense lesion R kidney - IS - Fall precautions - Zofran prn N/V - Acetaminophen prn fever/pain, morphine prn severe pain - Lidocaine patch to rib - PT/OT ordered - appreciate input + recs - REPEAT TRAUMA EXAM IN 24 HOURS AFTER ADMISSION - Initial exam completed 07/21/2025 @ 2200 #Hypomagnesemia H/o such; Received Mag sulfate 1g IV in ED. - Mg 1.6 - Mag sulfate 1g IV now for total of 2g IV - Mg am #Elevated CK In setting of trauma after laying on ground ~ 3 hours, no current muscle pain/weakness. - CK 556 - CMP K 4.2, Cr 1.28, BUN 26; Ca 8.9 - BMP am - IVF LR @ 100 mL/hr #Alcohol intoxication/Abuse/Hx of WD H/o alcohol abuse, previously on naltrexone but since d/c since being started on oxycodone in June for pain management. Typically drinks "5-6 shots of liquor" per day, most recent drink being "around 2300 last night". Unclear how accurate current number is, as there was discrepancy with story between providers. PAWS score 6 at admission (consumption in last 30 days, intoxicated last 30 days, experienced WD in past, experienced seizures in past, rehab in past, [+] BAL on presentation, and increased autonomic activity). Denies feeling anxious or agitated, does feel shaky. - EtOH 282.8 on arrival, UDS negative - AG 19 -- likely in setting of EtOH - IVF as above - AWSS - Seizure precautions - Thiamine + folic acid IV -- hold po thiamine + folic acid - Ativan IV as ordered - Valium 10mg po x 1 now for symptoms - May benefit from psych consult and possible rehab #CKD stage III- Follows with nephrology, most recent visit 06/27/2025; Baseline Cr 1.0-1.5, Cr at admission 1.28 - BMP am #HFpEF- Echo 2023 with EF 50-55%; Bumex, amiloride - continue #Chronic lumbar pain- Previously prescribed oxycodone for management of such; PDMP independently reviewed at time of admission, ? filled - hold oxycodone, pain management as above #Gout- Allopurinol - continue #Psych/Bipolar 2 disorder- Valproic acid level pending; Depakote, lamotrigine, trazodone - continue #Hypogonadism- Testosterone pellets (11 placed 06/06/2025) #Sleep disordered breathing- O2 4L HS, no O2 with activity #BPH- Alfuzosin - continue Dispo: Admit, PCU -- presence of rib fx VTE Prophylaxis: On Eliquis - continue This document was dictated utilizing [employer]ively[employer]. Please excuse any grammatical errors that may be secondary to use of this software. Admission and Anticipated Discharge Date Admission Date: 07/21/2025 History of Present Illness Chief Complaint: Trauma Primary Care Provider: Keith Dimas DO 70-year-old male PMHx permanent A-fib on Eliquis, HTN, alcohol abuse, restrictive lung disease, CKD stage III, HFrEF, chronic lumbar pain, and dilatation of ascending aorta presenting s/p fall at home with complaint of chest pain. Pt reports that he was partaking in "heavy drinking" over the weekend because his was away in [place], as well as the day [employer] and that on the day of arrival, he had 2 falls. The initial fall was when he woke up and walked to the bathroom. He states that he was dizzy when standing, and he had urinated then when he went to stand, he fell over, hitting his walker and landing on the L side. He did hit his face, and reports that he then felt L sided chest pain and thought he broke a rib. He was able to get himself up and went to the living room. Pt used the walker to do so. When he got to the living room, he went to sit in the recliner and fell once more. He did feel off balance and states that when he fell the second time, he does not recall injuring any part of his body but did lay on the floor for around 3 hours before he called his . He admits to L sided chest pain along his lateral torso that is worse with deep breathing. States that prior to falling, he did not have any symptoms other than some dizziness which he attributed to be because he was intoxicated. He denies any additional pain at this time to include headache, abdominal pain, UE/LE pain, or facial pain. States that his lip feels swollen. Pt denies SOB, palpitations, N/V/D/C, LUTS, URI symptoms, F/C, or weakness. He does admit to heavy drinking. States that, on average, he drinks ~ 5-6 shots of liquor per day, with his most recent drink being at "2300 the night" [employer]. Denies drinking on the day of arrival. Continues to mention that he was "being stupid" when talking about how often/much he drank. He does admit to feeling shakes at present, and states that he normally does become shaky ~ 24 hours after his last drink. Has a history of WD seizures "one time, many years ago." Has been to 2 different rehabs for the alcohol abuse, and denies mixing other substances with alcohol. He denies having "black outs" and denies DTs. Reports that he took all of his am medications, and his last dose of Eliquis was the morning of arrival. Recalls wanting to get home to his dog, Ирина, soon. ED evaluation reveals CBC with leukocytosis 15.50, RBC 4.59; PT/INR WNL; CMP CO2 20, anion gap 19, BUN 26, ratio 20.3; magnesium 1.6; bilirubin 1.1, AST 56; total CK5 56; troponin 27.1, pending repeat; lipase 10; UA negative for infection; urine drug screen negative; valproic acid level pending; alcohol level 282.8; CXR unchanged elevation of L hemidiaphragm; CTAP no sign of abdominal organ injury after trauma, chronic pancreatitis, small bilateral renal cyst, unchanged hypodense lesion R kidney, diverticulosis, enlarged prostate, small bladder diverticulum; cervical spine CT no definite spine fracture, retrolisthesis of C3-C4, spinal stenosis C3-4, bilateral C3-4 and left C6-7 neuroforaminal narrowing; chest CT acute fracture of L fourth rib, no PTX, unchanged elevation of L hemidiaphragm, bilateral lung base atelectasis, unchanged thoracic aortic aneurysm; face CT no definite facial bone fracture; head CT unremarkable; EKG A-fib with RVR and low voltage QRS at 148 bpm.; Provided with 1L NSS, Zofran 4 mg IV, morphine 4 mg IV, mag sulfate 1 g IV, and diltiazem 20 mg IV in ED. Please see Dr. August's attestation for adjustments/additions to treatment plan. Allergies Allergy/AdvReac Type Severity Reaction Status Date / Time meloxicam Allergy Severe Swollen Verified 06/30/25 11:01 tongue amitriptyline [From Elavil] Allergy Intermediate Hallucinati Verified 06/30/25 11:01 ons aripiprazole [From Abilify] Allergy Intermediate Tremors, Verified 06/30/25 11:01 balance issues, trouble controlling body movements hyoscyamine Allergy Intermediate Hallucinati Verified 06/30/25 11:01 [From Symax Duotab] ons venlafaxine [From Effexor] Allergy Intermediate Hallucinations Verified 06/30/25 11:01 and tremors zolpidem [From Ambien] Allergy Intermediate Hallucinati Verified 06/30/25 11:01 ons ciprofloxacin Allergy Mild Rash Verified 06/30/25 11:01 Penicillins Allergy Mild Rash Verified 06/30/25 11:01 adhesive tape AdvReac Mild rash, red Verified 06/30/25 11:01 skin Home Medications Medication Instructions Recorded Confirmed Type cetirizine 10 mg tablet 10 mg PO QAM PRN Allergy Symptoms 11/25/19 07/21/25 History vitamin B complex 1 tab PO QDL 12/06/21 07/21/25 History acetaminophen 500 mg capsule 1,000 mg (2 x 500 mg) PO TID Pain 03/18/22 07/21/25 Rx 30 days #180 caps cholecalciferol (vitamin D3) 25 5,000 unit PO QAM 01/31/23 07/21/25 History mcg (1,000 unit) capsule (Vitamin D3) mecobalamin (vitamin B12) 1,000 1,000 mcg PO QAM 01/31/23 07/21/25 History mcg chewable tablet testosterone 75 mg implant pellet 75 mg implant .COMPLEX 01/31/23 07/21/25 History vitamin A 2,400 mcg capsule 2,400 mcg PO QDL 01/31/23 07/21/25 History zinc gluconate 50 mg tablet 50 mg PO QDL 01/31/23 07/21/25 History colchicine 0.6 mg capsule 0.6 mg PO DIRECTED PRN GOUT 10/14/23 06/30/25 Rx FLARE UPS #2 caps albuterol sulfate 90 mcg/actuation 2 puff inhalation Q4H PRN 11/18/23 07/21/25 Rx aerosol inhaler SOB/WHEEZING #8.5 grams thiamine HCl (vitamin B1) 100 mg 100 mg PO BID 05/06/24 07/21/25 History tablet magnesium chloride 64 mg 64 mg PO BID #180 tabs 09/03/24 07/21/25 Rx (magnesium chloride) tablet,delayed release (Mag 64) divalproex 500 mg tablet,extended 1,000 mg (2 x 500 mg) PO HS #180 10/25/24 07/21/25 Rx release 24 hr (Depakote ER) tabs walker #1 ea 10/25/24 06/30/25 Rx potassium chloride 20 mEq 20 meq PO DAILY #180 tabs 12/27/24 07/21/25 Rx tablet,extended release trazodone 100 mg tablet 200 mg (2 x 100 mg) PO HS #60 tabs 02/11/25 07/21/25 Rx bumetanide 1 mg tablet 1 mg PO QAM #30 tabs 02/24/25 07/21/25 Rx apixaban 5 mg tablet (Eliquis) 5 mg PO BID #180 tabs 05/10/25 07/21/25 Rx lamotrigine 150 mg tablet 150 mg PO HS #30 tabs 07/01/25 07/21/25 Rx (Lamictal) oxycodone 5 mg tablet 5 mg PO Q8H PRN pain #90 tabs 07/08/25 07/21/25 Rx alfuzosin 10 mg tablet,extended 10 mg PO QPM 07/21/25 07/21/25 History release 24 hr (Uroxatral) allopurinol 300 mg tablet 300 mg PO QPM 07/21/25 07/21/25 History amiloride 5 mg tablet 5 mg PO QAM 07/21/25 07/21/25 History digoxin 125 mcg (0.125 mg) tablet 125 mcg PO QAM 07/21/25 07/21/25 History diltiazem HCl 120 mg 120 mg PO QAM 07/21/25 07/21/25 History capsule,extended release 12 hr metoprolol succinate 100 mg 100 mg PO DAILY 07/21/25 07/21/25 History tablet,extended release 24 hr Past Med/Surg History Problem List Elevated creatine kinase Atrial fibrillation with rapid ventricular response (Acute) Alcohol intoxication (Acute) Elevated troponin I level (Acute) Closed rib fracture (Acute) Chest wall contusion (Acute) Contusion of face (Acute) Chest pain (Acute) Left shoulder pain Nocturnal hypoxia on 4L oxygen HS Osteoarthritis of right knee Inflammation of joint of right knee Vitamin D deficiency Gout of right ankle Fracture of proximal end of fibula Pain in right anthony Nightmares Chronic lumbar pain per pt since 2011 with spinal stenosis Sleep-disordered breathing Right ankle pain Clostridium difficile diarrhea Personal history of colonic polyps Varicose veins of legs History of left hip replacement Heart failure with reduced ejection fraction Hematoma of left buttock Fall from standing (Acute) Atrial fibrillation, permanent (Acute) Restrictive lung disease Heart failure with mid-range ejection fraction Chest pain (Acute) Chronic kidney disease with active medical management without dialysis, stage 3 (moderate) Metabolic alkalosis Hypertension Lumbar facet joint syndrome Bipolar 2 disorder Congestive heart failure EF 40-45% Nov 2021 ECHO (questionable tachycardia induced per cardio) Degenerative joint disease of left hip Myofascial pain Leg length discrepancy Ascending aorta dilatation 4.6 cm - no change from Nov [address] per 12/06/21 chest CTA Left ventricular dysfunction Degenerative joint disease, foot, left Foot pain, left Insomnia Asthma COLD WEATHER INDUCED>NO INHALER USED FOR A WHILE Breathing stable Chronic gout S/P insertion of spinal cord stimulator X 2 *ONLY 1 IS FUNCTIONING BUT NOT IN USE CURRENTLY (WILL BRING ALONG REMOTE AND INSTRUCTIONS TO SURGERY/PAT APT) Hypoxia Atelectasis Elevated hemidiaphragm left Dyspnea Iniguez's neuroma of left foot Cough Orthopnea Hypomagnesemia Elevated MCV Fatigue Hearing loss, bilateral Recurrent right knee instability Memory impairment Hypogonadism in male (Chronic) RLS (restless legs syndrome) HX OF BPH w urinary obs/LUTS Skin tag (Chronic) Medical marijuana use (Chronic) Spinal stenosis (Chronic) Hx of knee surgery RT KNEE SCOPE Medical History Alcohol abuse COVID-19 Left ventricular dysfunction Dyspnea on exertion History of chest pain 2022--per pt resolved--follows with Dr. Artis Decreased diffusion capacity of lung "atelectasis"--in right lung per pt capacity is 50% On home oxygen therapy 4L via NC at HS History of alcohol abuse on naltrexone Acute kidney injury superimposed on CKD per pt was due to fall--per pt resolved Acute heart failure hx--does have congestive heart failure Hypokalemia Peripheral neuropathy Bilateral feet History of COVID-19 11/2021>TROUBLE BREATHING/CONGESTION>HOSPITAL AFTER DX FOR PULSE RATE *RESOLVED History of hypogonadism Surgical History S/P insertion of spinal cord stimulator X 2 *ONLY 1 CURRENTLY, BUT NOT IN USE CURRENTLY (WILL BRING ALONG REMOTE) History of arthroscopy of right knee Hx of eye surgery 08-29-23 R orbital superior medial orbitotomy exploration and removal of glass fragments largest [address] Jose Murphy S/P total left hip arthroplasty 03-19-22 Dr August, [facility] H/O hand surgery LEFT Hx of vasectomy History of colonoscopy History of tonsillectomy [place] teeth removed History of cataract surgery RT/LEFT History of cholecystectomy Hx of hernia repair UMBILICAL HERNIA Family History Mother Breast cancer Hypertension Sister Diabetes Lung cancer Other No family history of adverse response to anesthesia Denies family history of Ovarian cancer Prostate cancer Myocardial infarction Colorectal cancer Social History Smoking Status: Never smoker Second Hand Exposure: Yes (as a child. ); Do You Dip or Chew Tobacco: No; Hx Alcohol Use: Yes Alcohol type: other Hx Substance Use: Yes Last Used Substance Other:: 7 years Substance Use Type Other:: Medical marijuana for sleep Preferred Language: Korean Communication Ability: Impaired Visual Impairment: Limited Hearing Ability: Use of Hearing Aid Lead Pharmacy Technician Required: No Beliefs That Will Affect Care: None marital status: Current Living Situation: Spouse current occupational status: retired How many Children do You have: 6 How many Children do You have Comment: 2 biological and 4 step-children. Other Information That Helps Us Care for You: No Feels Safe at Home: Yes Safety Concerns: Feels Safe At This Time Childhood Exposure to Second-Hand Smoke: Yes Diet: regular Diet Comment: Optivia diet caffeine: Yes during the past year weight has: remained stable Dental Care, Regularly: No Physical Activity Frequency: Does not Exercise Physical Activity Frequency Comment: CHF Seatbelt Use: always Sunscreen Use: Yes Do you think of yourself as: straight/heterosexual Sexual Activity: has been sexually active, but not for at least 12 months Gender Identity: Male Assistive Devices: Oxygen - at Night, Raised Toilet Seat and Walker Review of Systems Review of Systems: All systems reviewed & are unremarkable except as noted in Subjective Physical Exam Physical Exam: General: - Alert: Yes, intoxicated but res ponds appropriately - Oriented: Yes - GCS 15: Yes HEENT: - Pain to upper lip with some barry ma L side, no open wounds identified/no tenderness. - No lacerations/abrasions noted; Ecchymosis below L eye - No numbness/tingling - PERLAA. Normal Visual Acuity. N o visual field cuts. No nystagmus. Normal hearing. No relative afferent pupillary defect. No facial asymmetry. Normal palatal elevation, uvula midline. Midline tongue protrusion. Shoulder shrug with 5/5 strength bilaterally. - Mucous membranes moist. Neck: - Midline Tenderness: No - Cleared C-Spine: Yes Thorax: - Pain/Tenderness: Mild over L ch est/along lateral aspect, none otherwise - Lacerations/Abrasions: None - Swelling/Ecchymosis: None - Air/Bony Crepitus: None Cardiopulmonary: - Irregularly irregular rhythm, t achycardia. No murmurs, rubs or gallops. - Breath sounds CTAB. Slightly de creased BS at bilateral bases; No wheezes, rales, or rhonchi. - Symmetrical Chest Rise but limi troy 2/2 pain Abdomen - Pain/Tenderness: None - Lacerations/Abrasions: None - No abdominal distension - Abdominal rigidity/guarding: No ne - Bowel Sounds: Present, normal - Pelvis stable Back/Spine - Lacerations/Abrasions: None - Swelling/Ecchymosis: None - Pain/Tenderness: None - Step-offs: None Extremities: - RUE: IV in place. No deformity. No lacerations/abrasions. No swelling/ecchymosis. No pain/tenderness. Full active and passive range of motion. Lining Setter strength, elbow flexion/extension, shoulder flexion/extension/abduction/adduction/external rotation/internal rotation intact with 5/5 strength. Sensation intact to soft touch without deficit. Radial pulse intact, cap refill in the thumb <2 seconds. - RLE: No deformity. No laceratio ns/abrasions. No swelling/ecchymosis. No pain/tenderness. Full active and passive range of motion. Lining Setter strength, elbow flexion/extension, shoulder flexion/extension/abduction/adduction/external rot ation/internal rotation intact with 5/5 strength. Sensation intact to soft touch without deficit. Radial pulse intact, cap refill in the thumb <2 seconds. - LLE: No deformity. No laceratio ns/abrasions. No swelling/ecchymosis. No pain/tenderness. Full active and passive range of motion. Hip flexion/extension, knee flexion/extension, ankle dorsiflexion/plantarflexion with 5/5 strength. Sensation intact to soft touch without deficit. PT pulse intact to palpation, cap refill in the hallux <2 seconds. - RLE: No deformity. No laceratio ns/abrasions. No swelling/ecchymosis. No pain/tenderness. Full active and passive range of motion. Hip flexion/extension, knee flexion/extension, ankle dorsiflexion/plantarflexion with 5/5 strength. Sensation intact to soft touch without deficit. PT pulse intact to palpation, cap refill in the hallux <2 seconds. Mental status Adequate for Full Exam: Intoxicated, responding appropriately C-Spine Cleared (Radiologically AND Clinically): Yes Results & Data Results & Data Vital Signs (Past 12 Hours) Vital Signs Temp Pulse Pulse Resp BP BP Pulse Ox 07/21/25 21:00 123 H 22 131/88 94 07/21/25 20:00 132 H 24 144/93 H 93 07/21/25 19:36 137 H 26 H 139/97 96 07/21/25 19:02 96 07/21/25 18:51 140 H 28 H 95 07/21/25 18:51 139 H 28 H 133/95 96 07/21/25 18:50 151 H 07/21/25 18:50 96 07/21/25 18:50 36.6 C 139 H 20 133/65 95 O2 Del Method O2 Flow Rate 07/21/25 21:00 Room Air 09/04/25 20:00 Nasal Cannula 4 07/21/25 19:36 Nasal Cannula 4 07/21/25 19:02 Nasal Cannula 4 07/21/25 18:51 Nasal Cannula 4 07/21/25 18:51 Nasal Cannula 4 07/21/25 18:50 07/21/25 18:50 Nasal Cannula 4 07/21/25 18:50 Nasal Cannula 4 Laboratory Results 07/21/25 07/21/25 07/21/25 Unknown 20:39 19:54 WBC 15.50 H RBC 4.59 L Hgb 16.1 POC Hgb Hct 45.5 POC Hct MCV 99.1 MCH 35.1 H MCHC 35.4 RDW Std Deviation 56.2 H RDW Coeff of Daniel 15.2 H Plt Count 171 MPV 9.7 Immature Gran % (Auto) 0.5 Neut % (Auto) 79.1 Lymph % (Auto) 15.2 [place] % (Auto) 4.3 Eos % (Auto) 0.1 Baso % (Auto) 0.8 Neut # (Auto) 12.28 H Lymph # (Auto) 2.35 [place] # (Auto) 0.66 H Eos # (Auto) 0.01 Baso # (Auto) 0.12 Immature Gran # (Auto) 0.08 PT 10.8 INR 1.0 APTT 23 PTT Ratio 0.9 POC Sodium Sodium 137 POC Potassium Potassium 4.2 POC Chloride Chloride 98 Carbon Dioxide 20 L POC Total CO2 Anion Gap 19 H POC Anion Gap POC BUN BUN 26 H Creatinine 1.28 POC Creatinine Est Cr Clr Drug Dosing 65.6 eGFR 59.84 BUN/Creatinine Ratio 20.3 H Glucose 74 POC Glucose (other) Calcium 8.9 POC Ioniz Calcium Yoni Magnesium 1.6 L Total Bilirubin 1.1 H AST 56 H ALT 35 Alkaline Phosphatase 73 Total Creatine Kinase 556 H Troponin I High Sens 27.1 H 28.4 H Total Protein 7.3 Albumin 4.4 Globulin 2.9 Albumin/Globulin Ratio 1.5 Lipase 10 L Urine Color Yellow Urine Appearance Clear Urine pH 5.5 Ur Specific [place] 1.021 Urine Protein 1+ H Urine Glucose (UA) Negative Urine Ketones Trace H Urine Blood 1+ H Urine Nitrite Negative Urine Bilirubin Negative Urine Urobilinogen Negative Ur Leukocyte Esterase Negative Urine WBC (Auto) 0-5 Urine RBC (Auto) 0-2 U Hyaline Cast (Auto) 0-2 U Epithel Cells (Auto) 0-2 Urine Bacteria (Auto) None Seen Urine Comment Urine Opiates Screen Neg Ur Methadone, Qual Neg Urine Fentanyl Screen Neg Urine Barbiturates Neg Ur Phencyclidine (PCP) Neg U Amphetamin/Meth Scrn Neg MDMA (Ecstasy) Screen Neg U Benzodiazepines Scrn Neg Ur Cocaine Metabolite Neg U Marijuana (THC) Screen Neg Ethyl Alcohol mg/dL 282.8 H 07/21/25 18:55 WBC RBC Hgb POC Hgb 17.0 Hct POC Hct 50 MCV MCH MCHC RDW Std Deviation RDW Coeff of Daniel Plt Count MPV Immature Gran % (Auto) Neut % (Auto) Lymph % (Auto) [place] % (Auto) Eos % (Auto) Baso % (Auto) Neut # (Auto) Lymph # (Auto) [place] # (Auto) Eos # (Auto) Baso # (Auto) Immature Gran # (Auto) PT INR APTT PTT Ratio POC Sodium 136 Sodium POC Potassium 4.2 Potassium POC Chloride 100 L Chloride Carbon Dioxide POC Total CO2 19 L Anion Gap POC Anion Gap 22.0 POC BUN 28 H BUN Creatinine POC Creatinine 1.6 H Est Cr Clr Drug Dosing eGFR BUN/Creatinine Ratio Glucose POC Glucose (other) 70 Calcium POC Ioniz Calcium Yoni 0.97 L Magnesium Total Bilirubin AST ALT Alkaline Phosphatase Total Creatine Kinase Troponin I High Sens Total Protein Albumin Globulin Albumin/Globulin Ratio Lipase Urine Color Urine Appearance Urine pH Ur Specific [place] Urine Protein Urine Glucose (UA) Urine Ketones Urine Blood Urine Nitrite Urine Bilirubin Urine Urobilinogen Ur Leukocyte Esterase Urine WBC (Auto) Urine RBC (Auto) U Hyaline Cast (Auto) U Epithel Cells (Auto) Urine Bacteria (Auto) Urine Comment Urine Opiates Screen Ur Methadone, Qual Urine Fentanyl Screen Urine Barbiturates Ur Phencyclidine (PCP) U Amphetamin/Meth Scrn MDMA (Ecstasy) Screen U Benzodiazepines Scrn Ur Cocaine Metabolite U Marijuana (THC) Screen Ethyl Alcohol mg/dL Diagnostic Findings Chest X-Ray 07/21/25 18:50 Clinical History: Trauma Technique: A frontal view of the chest was obtained Comparison is made to the prior examination dated 07/24/2024 Findings: There are no confluent pulmonary infiltrates. The heart size is at the upper limit of normal. No pleural effusion or pneumothorax is seen. There is unchanged prominent elevation of the left hemidiaphragm. No fracture is noted. There are stimulator leads in the spinal canal Impression: Unchanged elevation of the left hemidiaphragm Electronically signed by Carlos Ernandez 07-21-2025 7:53 PM Abdomen/Pelvis CT 07/21/25 18:51 Clinical History: Trauma Technique: Axial computed tomography images were obtained of the abdomen and pelvis after the administration of intravenous contrast. Comparison is made to the prior CT dated 11/01/2043. Findings: The liver is overall of normal size, attenuation, and contour with no sign of cirrhosis or significant fatty infiltration. No liver mass lesion is seen. The portal vein is patent. The gallbladder has been removed. There is bile duct dilatation that is likely due to the postcholecystectomy state. The spleen is of normal size. No focal splenic lesion is evident. The pancreas is atrophic and there are scattered pancreatic calcifications, suggestive of chronic pancreatitis. The pancreatic duct is of normal caliber. The adrenal glands appear unremarkable. No definite renal or proximal ureteral calculi are seen on this contrast-enhanced study. There is no hydronephrosis or perinephric stranding. There is no definite change in a 7 mm exophytic hyperdense lesion of the posteromedial mid right kidney. There are small bilateral renal cysts, measuring up to 1 cm in size The abdominal aorta is of normal caliber. No abdominal adenopathy is seen. There is prominence of the gastric wall that is likely due to the decompressed state. There is no sign of small bowel obstruction. There is diverticulosis without evidence of diverticulitis. No free intraperitoneal fluid or air is identified. No distal ureteral or bladder calculi are seen. No bladder mass lesion is evident. There is a suspected small diverticulum of the right bladder dome. The iliac arteries are of normal caliber. No pelvic adenopathy is noted. The prostate is enlarged measuring 5.3 cm No fracture is identified. No focal osseous lesion is seen. There is a left hip replacement, resulting in surrounding artifact Impression: 1. No definite sign of abdominal organ injury after trauma 2. Chronic pancreatitis 3. Small bilateral renal cysts 4. Unchanged small hyperdense right renal lesion, indeterminate in nature but likely a benign proteinaceous or hemorrhagic cyst. A solid mass could also have this appearance but is less likely given the stability for nearly 2 years 5. Diverticulosis without evidence of diverticulitis 6. Enlarged prostate. Correlation with PSA levels may be useful 7. Small bladder diverticulum ACT 112: Positive. There are findings on this exam that require communication between the performing entity and the patient following Patient Test Result Information Act ([place] ACT 112) [place]. Electronically signed by Carlos Ernandez 07-21-2025 7:[address] 07/21/25 18:51 Technique: Axial computed tomography images were obtained of the cervical spine without intravenous contrast. Sagittal and coronal reconstructions were obtained Comparison is made to the prior CT dated 11/01/2023 Findings: No fracture is identified. There is 4 mm of retrolisthesis of C3 on C4. No focal osseous lesion is evident. 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 There is no spinal stenosis. The neural foramen are patent At C3-4, there is spinal stenosis due to a disc bulge. There is left greater than right neural foramen narrowing that may affect the exiting C4 nerve roots At C4-5, there is a disc bulge without spinal stenosis. The neural foramen are patent At C5-6, there is mild spinal stenosis due to a disc bulge. There is mild left greater than right neural foramen narrowing At C6-7, there is mild spinal stenosis due to a disc bulge. There is left neural foramen narrowing that may affect the left C7 nerve root At C7-T1, there is a disc bulge without spinal stenosis. The neural foramen are patent The lung apices appear clear. The visualized soft tissues of the neck appear unremarkable. No foreign body is seen Impression: 1. No definite cervical spine fracture 2. Retrolisthesis at C3-4 4. Spinal stenosis at C3-4 and to a lesser extent at C5-6 and C6-7 5. Bilateral C3-4 and left C6-7 neural foramen narrowing, which may affect the exiting nerve roots ACT 112: Positive. There are findings on this exam that require communication between the performing entity and the patient following Patient Test Result Information Act ([place] ACT 112) [place]. Electronically signed by Carlos Ernandez 07-21-2025 7:[address] 07/21/25 18:51 Clinical history: Pain after fall Technique: Axial computed tomography images were obtained of the chest after the administration of intravenous contrast Comparison is made to the prior CT dated 12/06/2021 Findings: There is bilateral lower lobe atelectasis. There is no pleural effusion or pneumothorax. There is no sign of pulmonary fibrosis or other diffuse interstitial process. No endobronchial lesion is seen There is no mediastinal, hilar, or axillary adenopathy. There is unchanged aneurysmal dilatation of the thoracic aorta, measuring up to 4.6 cm. No aortic dissection is seen. There is no pericardial effusion There is unchanged elevation of the left hemidiaphragm. There is an acute slightly displaced fracture of the left anterior fourth rib. There are stimulator leads within the spinal canal. No focal osseous lesion is evident Impression: 1. Acute fracture of the left fourth rib 2. No pneumothorax 3. Unchanged elevation of the left hemidiaphragm 4. Bilateral lung base atelectasis 5. Unchanged thoracic aortic aneurysm ACT 112: Positive. There are findings on this exam that require communication between the performing entity and the patient following Patient Test Result Information Act ([place] ACT 112) [place]. Electronically signed by Carlos Ernandez 07-21-2025 7:[address] 07/21/25 18:51 Clinical history: Trauma Technique: Axial computed tomography images were obtained of the facial bones without intravenous contrast. Sagittal and coronal reconstructions were obtained Findings: No fracture is identified. No focal osseous lesion is noted. There is mild mucosal thickening in the frontal, ethmoid, and sphenoid sinuses. No air-fluid level is seen. The ostiomeatal units appear patent bilaterally. The mastoid air cells appear clear The orbits appear unremarkable. No foreign body is seen. The nasal septum appears midline. There is joseph bullosa of the left middle nasal turbinate. No definite nasal polyp is noted Impression: No definite facial bone fracture Electronically signed by Carlos Ernandez 07-21-2025 7:[address] 07/21/25 18:51 Technique: Axial computed tomography images were obtained of the brain from the vertex to the skull base without intravenous contrast. Findings: There is no sign of intracranial hemorrhage. There is normal downs-white matter differentiation with no sign of acute or old infarction. No midline shift or other form of herniation is identified. There is no hydrocephalus. No obvious mass lesion is seen on this noncontrast examination. The visualized portions of the orbits and paranasal sinuses appear unremarkable. The mastoid air cells appear clear Impression: Unremarkable noncontrast CT of the brain Electronically signed by Carlos Ernandez 07-21-2025 7:32 PM Medications Administered 1L NSS Zofran 4 mg IV Morphine 4 mg IV Mag sulfate 1 g IV Diltiazem 20 mg IV ECG Additional Comments: A-fib with RVR, low voltage QRS 148 bpm, QRS 92, QT/QTc 310/46, PRT*/47/127 Code Status & VTE Plan Code Status Full Supervising Physician Co-Signing Physician Notes Patient seen and examined, chart reviewed, case discussed with LASHON Menezes and I agree with the assessment and plan as above PG Care Time/CCT Total # of Minutes Spent Total Time Spent with Patient: Total time spent is greater than 50% in coordination of care (as documented) at patient's floor/unit and/or counseling patient: Coding Level of Care Code 05371 INT INP/OBS CARE 3/75MIN Diagnoses Atrial fibrillation with rapid ventricular response I48.91 Fall W19.XXXA Closed rib fracture S22.39XA Hypomagnesemia E83.42 Elevated creatine kinase R74.8 Alcohol intoxication F10.929
[2025-07-21] MEDS ORDERED: Ativan IV Alcohol Withdrawal--Active Protocol IV PRN (22:37)
[2025-07-21] MEDS: METOPROLOL TARTRATE 50 MG TAB PO STA (22:50)
[2025-07-21 23:04] LABS: Digoxin 0.5 ng/ml (0.8-2.0)
[2025-07-21] MEDS ORDERED: ALUMINUM/MAGNESIUM SUSP 30 ML UDC PO PRN (23:36)
[2025-07-21] MEDS ORDERED: CETIRIZINE HCL 10 MG TABLET PO PRN (23:36)
[2025-07-21] MEDS ORDERED: ONDANSETRON INJ 2 MG/ML 2 ML VIAL IV PRN (23:36)
[2025-07-21] MEDS ORDERED: POLYETHYLENE (MIRALAX) 17 GM PACK PO PRN (23:36)
[2025-07-21] MEDS ORDERED: MAGNESIUM HYDROXIDE SUSP 30 ML UDC PO PRN (23:36)
[2025-07-21] MEDS ORDERED: ALBUTEROL HFA 8 GM INHALER INH PRN (23:36)
[2025-07-21] MEDS: LACTATED RINGER'S 1,000 ML IV SCH (23:37)
[2025-07-21] MEDS: MAGNESIUM SULFATE / D5W 1 GM/100 ML BAG IV ONE (23:41)
[2025-07-22] MEDS: MoRPHine SULFATE 2 MG/ML CARP IV PRN (00:29)
[2025-07-22] MEDS: lamoTRIgine 25 MG TAB PO SCH (01:14)
[2025-07-22] MEDS: DIVALPROEX EXTENDED RELEASE 500 MG TAB PO SCH (01:14)
[2025-07-22] MEDS: LIDOCAINE 5% 1 PATCH TD STA (01:17)
[2025-07-22 05:51] LABS: Hematocrit (blood only) 41.8 % (42.0-52.0); Hemoglobin 14.5 g/dl (14.0-18.0); Mean Corpuscular Hemoglobin 34.5 pg (25.0-34.0); Mean Corpuscular Volume 99.5 fL (80.0-100.0); Platelet Count 141 K/uL (130-400); RDW Standard Deviation 55.5 fL (36.4-46.3); Red Blood Count 4.20 M/uL (4.70-6.10); White Blood Count 8.48 K/ul (4.8-10.8)
[2025-07-22] MEDS: HYDROmorphone INJ 0.5 MG/0.5 ML SYR IV STA (05:54)
[2025-07-22 06:08] LABS: Anion Gap 10.0 (3-11); Blood Urea Nitrogen 23.0 mg/dl (6-23); Calcium 8.4 mg/dl (8.6-10.3); Carbon Dioxide 25.0 mmol/L (21-32); Chloride 100.0 mmol/L (98-107); Creatine Kinase 553.0 U/L (30-223); Creatinine Clr Calc Pharmacy 83.2 ml/min; Glucose 82.0 mg/dl (70-99(Fasting)); Magnesium 1.7 mg/dl (1.7-2.4); Potassium 4.1 mmol/L (3.5-5.1); Sodium 135.0 mmol/L (136-145)
[2025-07-22] MEDS: METHOCARBAMOL 750 MG TABLET PO SCH (08:40)
[2025-07-22] MEDS: ACETAMINOPHEN 500 MG TAB PO SCH (08:40)
[2025-07-22] MEDS: aMILoride HCL 5 MG TAB PO SCH (08:41)
[2025-07-22] MEDS: BUMETANIDE 1 MG TAB PO SCH (08:42)
[2025-07-22] MEDS: CYANOCOBALAMIN (B-12) 500 MCG TABLET PO SCH (08:42)
[2025-07-22] MEDS: MAGNESIUM CHLORIDE W/CALCIUM 64MG DELAYED REL TAB PO SCH (08:42)
[2025-07-22] MEDS: FOLIC ACID 1 MG in SYRINGE 9.8 ML IV SCH (08:42)
[2025-07-22] MEDS: CHOLECALCIFEROL 125 MCG (5,000 UNITS) TAB PO SCH (08:42)
[2025-07-22] MEDS: THIAMINE HCL 100 MG in SYRINGE 9 ML IV SCH (08:43)
--- NOTE | 2025-07-22 09:42 | XCELERA ---
[id number]
[2025-07-22] MEDS: REMOVE LIDODERM PATCH SCH ×2 (12:04→20:06)
[2025-07-22] MEDS: DIGOXIN 0.125 MG TAB PO SCH (16:19)
[2025-07-22] MEDS: TAMSULOSIN HCL 0.4 MG CAP PO SCH (16:19)
[2025-07-22] MEDS: chlordiazePOXIDE ALCOHOL WITHDRAWL 25MG PO STA (16:23)
--- NOTE | 2025-07-22 17:46 | Electrocardiogram Report ---
Test Reason : Blood Pressure : */* mmHG Vent. Rate : 148 BPM Atrial Rate : * BPM P-R Int : * ms QRS Dur : 92 ms QT Int : 310 ms P-R-T Axes : * 47 127 degrees QTcB Int : 486 ms Atrial fibrillation with rapid ventricular response Low voltage QRS Abnormal ECG When compared with ECG of 24-Jul-2024 05:12, Vent. rate has increased by 56 bpm Confirmed by Christofer Harris ([id number]) on 07/22/2025 5:46:24 PM Referred By: REFERRED SELF Confirmed By: Christofer Harris
[2025-07-22] MEDS ORDERED: lamoTRIgine 100 MG TAB PO SCH (21:00)
[2025-07-22] MEDS ORDERED: DIVALPROEX EXTENDED RELEASE 500 MG TAB PO SCH (21:00)
--- NOTE | 2025-07-22 22:24 | Hospitalist Progress Note ---
Date of Service July 22, 2025 Assessment & Plan (1) Atrial fibrillation with rapid ventricular response: (2) Fall: (3) Closed rib fracture: (4) Hypomagnesemia: (5) Elevated creatine kinase: (6) Alcohol intoxication: Plan 70-year-old male PMHx permanent A-fib on Eliquis, HTN, alcohol abuse, restrictive lung disease, CKD stage III, HFrEF, chronic lumbar pain, and dilatation of ascending aorta presenting s/p fall at home with complaint of chest pain. His ED evaluation does reveal presence of L rib fracture from fall also in setting of recent chest pain, unlikely ACS. He was found to be in Afib with RVR, and required additional rate control. CBC does reveal leukocytosis, but no anemia. Electrolytes overall WNL with exception of low magnesium. CK was found to be elevated. Pt is intoxicated. Pt will be admitted for further management of Afib with RVR, L rib fracture, and electrolyte abnormalities. #Afib with RVR/Chest pain H/o Afib, permanent, on Eliquis, digoxin, diltiazem, and metoprolol. Follows with cardiology, most recent visit 05/10/2025. S/p Cardizem 20mg IV x 1 in ED. Asx with afib usually. Reports HR usually in the 90s. Do suspect chest pain is 2/2 to rib injury, not ACS. - EKG at admission Afib @ 148 bpm; no ischemic changes - monitor on tele - CBC leukocytosis, stable H/H; TSH, digoxin level pending - Trop 27.1, 28.4 on repeat - trend x 2 -- likely 2/2 demand ischemia/in presence of tachycardia - Echo 09/2024 EF 50-55%, LA dilated, RA dilated, mild MR, aortic root dilatation, dilated ascending aorta -- pending repeat - Continue home meds -Heart rate is better controlled. #Fall/Closed rib fracture, L Pt presenting for fall at home, found down; Received 1L NSS in ED. Current complaint L sided chest discomfort where he had landed during fall. - CBC leukocytosis 15k, stable H/H; CK 556 - no clear sign of infection at present; CBC, CK am - CXR unchanged elevation L hemidiaphragm - Head CT WNL - Face CT no definite fx - C spine CT no definite fracture, areas of spinal stenosis and neuroforaminal narrowing identified (C3-4, L C6-7) - C spine cleared - Chest CT acute fx L 4th rib, no PTX, bilat atelectasis - CTAP no abdominal injury, chronic pancreatitis, bilat renal cysts and hypodense lesion R kidney - IS - Fall precautions - Zofran prn N/V - Acetaminophen prn fever/pain, morphine prn severe pain - Lidocaine patch to rib - PT/OT ordered - appreciate input + recs - REPEAT TRAUMA EXAM IN 24 HOURS AFTER ADMISSION - Initial exam completed 07/21/2025 @ 2200 -added methocarbamol. for pain control #Hypomagnesemia H/o such; Received Mag sulfate 1g IV in ED. replaced mag #Elevated CK In setting of trauma after laying on ground ~ 3 hours, no current muscle pain/weakness. - CK 556 - CMP K 4.2, Cr 1.28, BUN 26; Ca 8.9 - BMP am - IVF LR @ 100 mL/hr #Alcohol intoxication/Abuse/Hx of WD H/o alcohol abuse, previously on naltrexone but since d/c since being started on oxycodone in June for pain management. Typically drinks "5-6 shots of liquor" per day, most recent drink being "around 2300 last night". Unclear how accurate current number is, as there was discrepancy with story between providers. PAWS score 6 at admission (consumption in last 30 days, intoxicated last 30 days, experienced WD in past, experienced seizures in past, rehab in past, [+] BAL on presentation, and increased autonomic activity). Denies feeling anxious or agitated, does feel shaky. - EtOH 282.8 on arrival, UDS negative - AG 19 -- likely in setting of EtOH - IVF as above - AWSS - Seizure precautions - Thiamine + folic acid IV -- hold po thiamine + folic acid -Added librium taper #CKD stage III- Follows with nephrology, most recent visit 06/27/2025; Baseline Cr 1.0-1.5, Cr at admission 1.28 - stable #HFpEF- Echo 2023 with EF 50-55%; Bumex, amiloride - continue #Chronic lumbar pain- Previously prescribed oxycodone for management of such; PDMP independently reviewed at time of admission, ? filled - hold oxycodone, pain management as above #Gout- Allopurinol - continue #Psych/Bipolar 2 disorder- Valproic acid level pending; Depakote, lamotrigine, trazodone - continue #Hypogonadism- Testosterone pellets (11 placed 06/06/2025) #Sleep disordered breathing- O2 4L HS, no O2 with activity #BPH- Alfuzosin - continue Dispo: Admit, PCU -- presence of rib fx VTE Prophylaxis: On Eliquis - continue Admission and Anticipated Discharge Date Admission Date: July 21, 2025 Subjective Patient reports still having left sided chest pain. Patient reports no new symptoms. Patient is hard of hearing. Physical Exam Constitutional: WD/WN, vitals as above Neck: trachea midline, no thyromegaly Respiratory: normal respiratory effort, lungs clear to auscultation Cardiovascular: Rate/Rhythm: + irregularly irregular Gastrointestinal (Abdomen): normal bowel sounds, soft, nontender, no hepatosplenomegaly Skin: no rashes, warm and dry Neurologic: mild extension tremors Psychiatric: A+Ox3, euthymic affect Results & Data Results & Data Vital Signs (Past 12 Hours) Vital Signs Temp Pulse Pulse Resp BP BP Pulse Ox 07/22/25 19:48 07/22/25 19:46 36.6 C 80 20 118/77 98 07/22/25 17:03 36.6 C 124 H 21 119/77 91 07/22/25 16:19 109 H 07/22/25 14:52 07/22/25 13:42 85 07/22/25 12:29 36.7 C 106 H 25 H 120/84 95 Pulse Ox Pulse Ox O2 Del Method O2 Flow Rate O2 Flow Rate O2 Flow Rate 07/22/25 19:48 Nasal Cannula 4 07/22/25 19:46 Room Air 07/22/25 17:03 Room Air 07/22/25 16:19 07/22/25 14:52 93 95 0 0 07/22/25 13:42 07/22/25 12:29 Nasal Cannula 2 PG Care Time/CCT Total # of Minutes Spent Total Time Spent with Patient: Total time spent is greater than 50% in coordination of care (as documented) at patient's floor/unit and/or counseling patient: Coding Level of Care Code 19970 SUB INP/OBS CARE 3/50MIN Diagnoses Atrial fibrillation with rapid ventricular response I48.91 Fall W19.XXXA Closed rib fracture S22.39XA Hypomagnesemia E83.42 Elevated creatine kinase R74.8 Alcohol intoxication F10.929
[2025-07-23 08:02] LABS: Hematocrit (blood only) 39.3 % (42.0-52.0); Hemoglobin 13.4 g/dl (14.0-18.0); Mean Corpuscular Hemoglobin 34.2 pg (25.0-34.0); Mean Corpuscular Volume 100.3 fL (80.0-100.0); Platelet Count 130 K/uL (130-400); RDW Standard Deviation 55.5 fL (36.4-46.3); Red Blood Count 3.92 M/uL (4.70-6.10); White Blood Count 7.93 K/ul (4.8-10.8)
[2025-07-23 08:17] LABS: Anion Gap 5.0 (3-11); Blood Urea Nitrogen 19.0 mg/dl (6-23); Calcium 8.7 mg/dl (8.6-10.3); Carbon Dioxide 31.0 mmol/L (21-32); Chloride 101.0 mmol/L (98-107); Creatinine Clr Calc Pharmacy 73.5 ml/min; Glucose 102.0 mg/dl (70-99(Fasting)); Potassium 4.1 mmol/L (3.5-5.1); Sodium 137.0 mmol/L (136-145)
[2025-07-23] MEDS: LIDOCAINE 5% 1 PATCH TD SCH (08:37)
[2025-07-23] MEDS: METOPROLOL SUCC 50MG EXT REL TAB PO SCH (09:54)
[2025-07-23] MEDS: METOPROLOL TARTRATE 1 MG/ML VIAL IV STA (10:43)
--- NOTE | 2025-07-23 14:05 | Hospitalist Progress Note ---
Date of Service July 23, 2025 Assessment & Plan (1) Atrial fibrillation with rapid ventricular response: (2) Fall: (3) Closed rib fracture: (4) Hypomagnesemia: (5) Elevated creatine kinase: (6) Alcohol intoxication: Plan 70-year-old male PMHx permanent A-fib on Eliquis, HTN, alcohol abuse, restrictive lung disease, CKD stage III, HFrEF, chronic lumbar pain, and dilatation of ascending aorta presenting s/p fall at home with complaint of chest pain. His ED evaluation does reveal presence of L rib fracture from fall also in setting of recent chest pain, unlikely ACS. He was found to be in Afib with RVR, and required additional rate control. CBC does reveal leukocytosis, but no anemia. Electrolytes overall WNL with exception of low magnesium. CK was found to be elevated. Pt is intoxicated. Pt will be admitted for further management of Afib with RVR, L rib fracture, and electrolyte abnormalities. #Afib with RVR/Chest pain H/o Afib, permanent, on Eliquis, digoxin, diltiazem, and metoprolol. Follows with cardiology, most recent visit 05/10/2025. S/p Cardizem 20mg IV x 1 in ED. Asx with afib usually. Reports HR usually in the 90s. Do suspect chest pain is 2/2 to rib injury, not ACS. - EKG at admission Afib @ 148 bpm; no ischemic changes - monitor on tele - CBC leukocytosis, stable H/H; TSH, digoxin level pending - Trop 27.1, 28.4 on repeat - trend x 2 -- likely 2/2 demand ischemia/in presence of tachycardia - Echo 09/2024 EF 50-55%, LA dilated, RA dilated, mild MR, aortic root dilatation, dilated ascending aorta -- pending repeat - Continue home meds - Patient again went into a fib RVR, ordered IV metoprolol, and resumed oral metoprolol, since then his HR had been controlled in the afernoon. #Fall/Closed rib fracture, L Pt presenting for fall at home, found down; Received 1L NSS in ED. Current complaint L sided chest discomfort where he had landed during fall. - CBC leukocytosis 15k, stable H/H; CK 556 - no clear sign of infection at present; CBC, CK am - CXR unchanged elevation L hemidiaphragm - Head CT WNL - Face CT no definite fx - C spine CT no definite fracture, areas of spinal stenosis and neuroforaminal narrowing identified (C3-4, L C6-7) - C spine cleared - Chest CT acute fx L 4th rib, no PTX, bilat atelectasis - CTAP no abdominal injury, chronic pancreatitis, bilat renal cysts and hypodense lesion R kidney - IS - Fall precautions - Zofran prn N/V - Acetaminophen prn fever/pain, morphine prn severe pain - Lidocaine patch to rib - PT/OT ordered - appreciate input + recs - Repeated trauma exam completed on 07/23/2025 at 16:00 -added methocarbamol. for pain control #Hypomagnesemia H/o such; Received Mag sulfate 1g IV in ED. replaced mag #Elevated CK In setting of trauma after laying on ground ~ 3 hours, no current muscle pain/weakness. - CK 556 - CMP K 4.2, Cr 1.28, BUN 26; Ca 8.9 - BMP am - IVF LR @ 100 mL/hr #Alcohol intoxication/Abuse/Hx of WD H/o alcohol abuse, previously on naltrexone but since d/c since being started on oxycodone in June for pain management. Typically drinks "5-6 shots of liquor" per day, most recent drink being "around 2300 last night". Unclear how accurate current number is, as there was discrepancy with story between providers. PAWS score 6 at admission (consumption in last 30 days, intoxicated last 30 days, experienced WD in past, experienced seizures in past, rehab in past, [+] BAL on presentation, and increased autonomic activity). Denies feeling anxious or agitated, does feel shaky. - EtOH 282.8 on arrival, UDS negative - AG 19 -- likely in setting of EtOH - IVF as above - AWSS - Seizure precautions - Thiamine + folic acid IV -- hold po thiamine + folic acid -Added librium taper; patient appears to be much better #CKD stage III- Follows with nephrology, most recent visit 06/27/2025; Baseline Cr 1.0-1.5, Cr at admission 1.28 - stable #HFpEF- Echo 2023 with EF 50-55%; Bumex, amiloride - continue #Chronic lumbar pain- Previously prescribed oxycodone for management of such; PDMP independently reviewed at time of admission, ? filled - hold oxycodone, pain management as above #Gout- Allopurinol - continue #Psych/Bipolar 2 disorder- Valproic acid level pending; Depakote, lamotrigine, trazodone - continue #Hypogonadism- Testosterone pellets (11 placed 06/06/2025) #Sleep disordered breathing- O2 4L HS, no O2 with activity #BPH- Alfuzosin - continue Dispo: Admit, PCU -- presence of rib fx VTE Prophylaxis: On Eliquis - continue Admission and Anticipated Discharge Date Admission Date: July 21, 2025 Subjective Patient reports feeling well, his pain is much better controlled today. Physical Exam Physical Exam: General: - Alert: Yes - Oriented: Yes - GCS 15: Yes HEENT: - No pain/tenderness. - No lacerations/abrasions - No numbness/tingling - PERLAA. Normal Visual Acuity. N o visual field cuts. No nystagmus. No contact lenses. Normal hearing. No relative afferent pupillary defect. No facial asymmetry. Normal palatal elevation, uvula midline. Midline tongue protrusion. Shoulder shrug with 5/5 strength bilaterally. - Mucous membranes moist. Neck: - Midline Tenderness: No - Cleared C-Spine: Yes Thorax: - Pain/Tenderness: Pain on left a nterior chest - Lacerations/Abrasions: None - Swelling/Ecchymosis: None - Air/Bony Crepitus: None Cardiopulmonary: - Regular Rate and Rhythm. No mur murs, rubs or gallops. - Breath sounds CTAB. No wheezes, rales, or rhonchi. - Symmetrical Chest Rise Abdomen - Pain/Tenderness: None - Lacerations/Abrasions: None - No abdominal distension - Abdominal rigidity/guarding: No ne - Bowel Sounds: Present, normal - Pelvis stable Back/Spine - Lacerations/Abrasions: None - Swelling/Ecchymosis: None - Pain/Tenderness: None - Step-offs: None Extremities: - RUE: No deformity. No laceratio ns/abrasions. No swelling/ecchymosis. No pain/tenderness. Full active and passive range of motion. Product Marketer strength, elbow flexion/extension, shoulder flexion/extension/abduction/adduction/external rotation/internal rotation intact with 5/5 strength. Sensation intact to soft touch without deficit. Radial pulse intact, cap refill in the thumb <2 seconds. - RLE: No deformity. No laceratio ns/abrasions. No swelling/ecchymosis. No pain/tenderness. Full active and passive range of motion. Product Marketer strength, elbow flexion/extension, shoulder flexion/extension/abduction/adduction/external rotation/internal rotation intact with 5/5 strength. Sensation intact to soft touch without deficit. Radial pulse intact, cap refill in the thumb <2 seconds. - LLE: No deformity. No laceratio ns/abrasions. No swelling/ecchymosis. No pain/tenderness. Full active and passive range of motion. Hip flexion/ extension, knee flexion/extension, ankle dorsiflexion/plantarflexion with 5/5 strength. Sensation intact to soft touch without deficit. PT pulse intact to palpation, cap refill in the hallux <2 seconds. - RLE: No deformity. No laceratio ns/abrasions. No swelling/ecchymosis. No pain/tenderness. Full active and passive range of motion. Hip flexion/extension, knee flexion/extension, ankle dorsiflexion/plantarflexion with 5/5 strength. Sensation intact to soft touch without deficit. PT pulse intact to palpation, cap refill in the hallux <2 seconds. Mental status Adequate for Full Exam: Yes C-Spine Cleared (Radiologically AND Clinically): Yes Results & Data Results & Data Vital Signs (Past 12 Hours) Vital Signs Temp Pulse Pulse Resp BP BP BP 07/23/25 11:57 36.6 C 107 H 20 117/82 07/23/25 11:05 107 H 117/82 07/23/25 10:43 139 H 111/84 07/23/25 08:06 36.3 C L 122 H 20 147/78 H 07/23/25 04:48 106 H 07/23/25 02:51 36.6 C 101 H 18 126/80 Pulse Ox O2 Del Method 07/23/25 11:57 94 Room Air 07/23/25 11:05 07/23/25 10:43 07/23/25 08:06 94 Room Air 07/23/25 04:48 07/23/25 02:51 93 Room Air PG Care Time/CCT Total # of Minutes Spent Total Time Spent with Patient: Total time spent is greater than 50% in coordination of care (as documented) at patient's floor/unit and/or counseling patient: Coding Level of Care Code 90338 SUB INP/OBS CARE 3/50MIN Diagnoses Atrial fibrillation with rapid ventricular response I48.91 Fall W19.XXXA Closed rib fracture S22.39XA Hypomagnesemia E83.42 Elevated creatine kinase R74.8 Alcohol intoxication F10.929
[2025-07-23] MEDS: MELATONIN 3 MG TAB PO PRN (22:39)
[2025-07-24 07:00] LABS: Hematocrit (blood only) 39.0 % (42.0-52.0); Hemoglobin 13.2 g/dl (14.0-18.0); Mean Corpuscular Hemoglobin 33.8 pg (25.0-34.0); Mean Corpuscular Volume 100.0 fL (80.0-100.0); Platelet Count 124 K/uL (130-400); RDW Standard Deviation 55.3 fL (36.4-46.3); Red Blood Count 3.90 M/uL (4.70-6.10); White Blood Count 9.53 K/ul (4.8-10.8)
[2025-07-24 07:27] LABS: Anion Gap 6.0 (3-11); Blood Urea Nitrogen 16.0 mg/dl (6-23); Calcium 8.4 mg/dl (8.6-10.3); Carbon Dioxide 30.0 mmol/L (21-32); Chloride 102.0 mmol/L (98-107); Creatinine Clr Calc Pharmacy 84.9 ml/min; Glucose 102.0 mg/dl (70-99(Fasting)); Potassium 3.8 mmol/L (3.5-5.1); Sodium 138.0 mmol/L (136-145)
--- NOTE | 2025-07-24 23:05 | Hospitalist Progress Note ---
Date of Service July 24, 2025 Assessment & Plan (1) Atrial fibrillation with rapid ventricular response: (2) Fall: (3) Closed rib fracture: (4) Hypomagnesemia: (5) Elevated creatine kinase: (6) Alcohol intoxication: Plan 70-year-old male PMHx permanent A-fib on Eliquis, HTN, alcohol abuse, restrictive lung disease, CKD stage III, HFrEF, chronic lumbar pain, and dilatation of ascending aorta presenting s/p fall at home with complaint of chest pain. His ED evaluation does reveal presence of L rib fracture from fall also in setting of recent chest pain, unlikely ACS. He was found to be in Afib with RVR, and required additional rate control. CBC does reveal leukocytosis, but no anemia. Electrolytes overall WNL with exception of low magnesium. CK was found to be elevated. Pt is intoxicated. Pt will be admitted for further management of Afib with RVR, L rib fracture, and electrolyte abnormalities. #Afib with RVR/Chest pain H/o Afib, permanent, on Eliquis, digoxin, diltiazem, and metoprolol. Follows with cardiology, most recent visit 05/10/2025. S/p Cardizem 20mg IV x 1 in ED. Asx with afib usually. Reports HR usually in the 90s. Do suspect chest pain is 2/2 to rib injury, not ACS. - EKG at admission Afib @ 148 bpm; no ischemic changes - monitor on tele - CBC leukocytosis, stable H/H; TSH, digoxin level pending - Trop 27.1, 28.4 on repeat - trend x 2 -- likely 2/2 demand ischemia/in presence of tachycardia - Echo 09/2024 EF 50-55%, LA dilated, RA dilated, mild MR, aortic root dilatation, dilated ascending aorta -- pending repeat - Continue home meds - HR is better controlled this AM. #Fall/Closed rib fracture, L Pt presenting for fall at home, found down; Received 1L NSS in ED. Current complaint L sided chest discomfort where he had landed during fall. - CBC leukocytosis 15k, stable H/H; CK 556 - no clear sign of infection at present; CBC, CK am - CXR unchanged elevation L hemidiaphragm - Head CT WNL - Face CT no definite fx - C spine CT no definite fracture, areas of spinal stenosis and neuroforaminal narrowing identified (C3-4, L C6-7) - C spine cleared - Chest CT acute fx L 4th rib, no PTX, bilat atelectasis - CTAP no abdominal injury, chronic pancreatitis, bilat renal cysts and hypodense lesion R kidney - IS - Fall precautions - Zofran prn N/V - Acetaminophen prn fever/pain, morphine prn severe pain - Lidocaine patch to rib - PT/OT ordered - appreciate input + recs - Repeated trauma exam completed on 07/23/2025 at 16:00 -added methocarbamol. for pain control #Hypomagnesemia H/o such; Received Mag sulfate 1g IV in ED. replaced mag #Elevated CK In setting of trauma after laying on ground ~ 3 hours, no current muscle pain/weakness. - CK 556 - CMP K 4.2, Cr 1.28, BUN 26; Ca 8.9 - BMP am - IVF LR @ 100 mL/hr #Alcohol intoxication/Abuse/Hx of WD H/o alcohol abuse, previously on naltrexone but since d/c since being started on oxycodone in June for pain management. Typically drinks "5-6 shots of liquor" per day, most recent drink being "around 2300 last night". Unclear how accurate current number is, as there was discrepancy with story between providers. PAWS score 6 at admission (consumption in last 30 days, intoxicated last 30 days, experienced WD in past, experienced seizures in past, rehab in past, [+] BAL on presentation, and increased autonomic activity). Denies feeling anxious or agitated, does feel shaky. - EtOH 282.8 on arrival, UDS negative - AG 19 -- likely in setting of EtOH - IVF as above - AWSS - Seizure precautions - Thiamine + folic acid IV -- hold po thiamine + folic acid -Added librium taper; patient appears to be much better. will continue taper. #CKD stage III- Follows with nephrology, most recent visit 06/27/2025; Baseline Cr 1.0-1.5, Cr at admission 1.28 - stable #HFpEF- Echo 2023 with EF 50-55%; Bumex, amiloride - continue #Chronic lumbar pain- Previously prescribed oxycodone for management of such; PDMP independently reviewed at time of admission, ? filled - hold oxycodone, pain management as above #Gout- Allopurinol - continue #Psych/Bipolar 2 disorder- Valproic acid level pending; Depakote, lamotrigine, trazodone - continue #Hypogonadism- Testosterone pellets (11 placed 06/06/2025) #Sleep disordered breathing- O2 4L HS, no O2 with activity #BPH- Alfuzosin - continue Dispo: Admit, PCU -- presence of rib fx VTE Prophylaxis: On Eliquis - continue Admission and Anticipated Discharge Date Admission Date: July 21, 2025 Subjective Patient reports no new symptoms. Physical Exam Constitutional: WD/WN, vitals as above Neck: trachea midline, no thyromegaly Respiratory: normal respiratory effort, lungs clear to auscultation Cardiovascular: Rate/Rhythm: + irregularly irregular Gastrointestinal (Abdomen): normal bowel sounds, soft, nontender, no hepatosplenomegaly Skin: no rashes, warm and dry Psychiatric: A+Ox3, euthymic affect Results & Data Results & Data Vital Signs (Past 12 Hours) Vital Signs Temp Pulse Pulse Resp BP BP Pulse Ox 07/24/25 20:30 07/24/25 19:49 36.7 C 91 H 18 111/76 97 07/24/25 16:08 90 07/24/25 14:57 36.6 C 91 H 17 112/77 96 07/24/25 13:00 87 O2 Del Method O2 Flow Rate 07/24/25 20:30 Room Air 07/24/25 19:49 Nasal Cannula 4.0 07/24/25 16:08 07/24/25 14:57 Room Air 07/24/25 13:00 PG Care Time/CCT Total # of Minutes Spent Total Time Spent with Patient: Total time spent is greater than 50% in coordination of care (as documented) at patient's floor/unit and/or counseling patient: Coding Level of Care Code 34016 SUB INP/OBS CARE 3/50MIN Diagnoses Atrial fibrillation with rapid ventricular response I48.91 Fall W19.XXXA Closed rib fracture S22.39XA Hypomagnesemia E83.42 Elevated creatine kinase R74.8 Alcohol intoxication F10.929
[2025-07-25] MEDS: DICLOFENAC SOD 1% GEL 100 GM TUBE EXT SCH (02:42)
[2025-07-25 06:47] LABS: Hematocrit (blood only) 36.4 % (42.0-52.0); Hemoglobin 12.6 g/dl (14.0-18.0); Mean Corpuscular Hemoglobin 35.5 pg (25.0-34.0); Mean Corpuscular Volume 102.5 fL (80.0-100.0); Platelet Count 132 K/uL (130-400); RDW Standard Deviation 55.2 fL (36.4-46.3); Red Blood Count 3.55 M/uL (4.70-6.10); White Blood Count 10.64 K/ul (4.8-10.8)
[2025-07-25 07:08] LABS: Anion Gap 4.0 (3-11); Blood Urea Nitrogen 14.0 mg/dl (6-23); Calcium 8.1 mg/dl (8.6-10.3); Carbon Dioxide 31.0 mmol/L (21-32); Chloride 103.0 mmol/L (98-107); Creatinine Clr Calc Pharmacy 76.9 ml/min; Glucose 98.0 mg/dl (70-99(Fasting)); Potassium 3.5 mmol/L (3.5-5.1); Sodium 138.0 mmol/L (136-145)
[2025-07-25] MEDS: APIXABAN 5 MG TABLET PO SCH (11:01)
--- NOTE | 2025-07-25 12:01 | Ultrasound Report ---
BILATERAL LOWER EXTREMITY VENOUS DOPPLER CLINICAL HISTORY: chest pain/ hypoxia COMPARISON STUDY: No previous studies for comparison. TECHNIQUE: Sonography of the deep venous system of the bilateral lower extremities was performed. Co mpression and augmentation were evaluated. FINDINGS: The bilateral common femoral, superficial femoral and popliteal veins were compressible. A ugmentation was normal. Flow was shown within the deep calf vessels. There is a 6.9 x 5 x 3 cm right popliteal cystic lesion which contains low level internal echoes. IMPRESSION: 1. No evidence of deep venous thrombus within the bilateral lower extremities. 2. 6.9 x 5 x 3 cm suspected right popliteal cyst. ACT 112: Negative or not required by law. Electronically signed by: Blu Hdez M.D. 07/25/2025 12:00 PM
[2025-07-25 12:56] VITALS: RESP 18; TEMP 97.7; O2SAT 96
--- NOTE | 2025-07-25 15:09 | Electrocardiogram Report ---
Test Reason : Blood Pressure : */* mmHG Vent. Rate : 94 BPM Atrial Rate : 267 BPM P-R Int : * ms QRS Dur : 90 ms QT Int : 336 ms P-R-T Axes : * 24 -8 degrees QTcB Int : 420 ms Atrial fibrillation Low voltage QRS Nonspecific T wave abnormality Abnormal ECG When compared with ECG of 21-Jul-2025 18:46, Vent. rate has decreased by 54 bpm Criteria for Septal infarct are no longer Present Confirmed by Chapito Artis ([id number]) on 07/25/2025 3:09:16 PM Referred By: REFERRED SELF Confirmed By: Chapito Artis
[2025-07-25 15:39] VITALS: BP 126/95
[2025-07-25 16:09] VITALS: PULSE 84
--- NOTE | 2025-07-25 17:08 | Discharge Summary ---
Discharge Summary Date of Service July 25, 2025 Principal Dx & Hospital Course #1 = Principal Diagnosis (1) Atrial fibrillation with rapid ventricular response: (2) Fall: (3) Closed rib fracture: (4) Hypomagnesemia: (5) Elevated creatine kinase: (6) Alcohol intoxication: Plan 70-year-old male PMHx permanent A-fib on Eliquis, HTN, alcohol abuse, restrictive lung disease, CKD stage III, HFrEF, chronic lumbar pain, and di latation of ascending aorta presenting s/p fall at home with complaint of chest pain. His ED evaluation does reveal presence of L rib fracture from fall also in setting of recent chest pain, unlikely ACS. He was found to be in Afib with RVR, and required additional rate control. CBC does reveal leukocytosis, but no anemia. Electrolytes overall WNL with exception of low magnesium. CK was found to be elevated. Pt is intoxicated. Pt will be admitted for further management of Afib with RVR, L rib fracture, and electrolyte abnormalities. #Afib with RVR/Chest pain H/o Afib, permanent, on Eliquis, digoxin, diltiazem, and metoprolol. Follows with cardiology, most recent visit 05/10/2025. S/p Cardizem 20mg IV x 1 in ED. Asx with afib usually. Reports HR usually in the 90s. Do suspect chest pain is 2/2 to rib injury, not ACS. - EKG at admission Afib @ 148 bpm; no ischemic changes - monitor on tele - CBC leukocytosis, stable H/H; TSH, digoxin level pending - Trop 27.1, 28.4 on repeat - trend x 2 -- likely 2/2 demand ischemia/in presence of tachycardia - Echo 09/2024 EF 50-55%, LA dilated, RA dilated, mild MR, aortic root dilatation, dilated ascending aorta -- pending repeat - Continue home meds - HR is better controlled this AM. #Fall/Closed rib fracture, L Pt presenting for fall at home, found down; Received 1L NSS in ED. Current complaint L sided chest discomfort where he had landed during fall. - CBC leukocytosis 15k, stable H/H; CK 556 - no clear sign of infection at present; CBC, CK am - CXR unchanged elevation L hemidiaphragm - Head CT WNL - Face CT no definite fx - C spine CT no definite fracture, areas of spinal stenosis and neuroforaminal narrowing identified (C3-4, L C6-7) - C spine cleared - Chest CT acute fx L 4th rib, no PTX, bilat atelectasis - CTAP no abdominal injury, chronic pancreatitis, bilat renal cysts and hypodense lesion R kidney - IS - Fall precautions - Zofran prn N/V - Acetaminophen prn fever/pain, morphine prn severe pain - Lidocaine patch to rib - PT/OT ordered - appreciate input + recs - Repeated trauma exam completed on 07/23/2025 at 16:00 -added methocarbamol. for pain control #Hypomagnesemia H/o such; Received Mag sulfate 1g IV in ED. replaced mag #Elevated CK In setting of trauma after laying on ground ~ 3 hours, no current muscle pain/weakness. - CK 556 - CMP K 4.2, Cr 1.28, BUN 26; Ca 8.9 - BMP am - IVF LR @ 100 mL/hr #Alcohol intoxication/Abuse/Hx of WD H/o alcohol abuse, previously on naltrexone but since d/c since being started on oxycodone in June for pain management. Typically drinks "5-6 shots of liquor" per day, most recent drink being "around 2300 last night". Unclear how accurate current number is, as there was discrepancy with story between providers. PAWS score 6 at admission (consumption in last 30 days, intoxicated last 30 days, experienced WD in past, experienced seizures in past, rehab in past, [+] BAL on presentation, and increased autonomic activity). Denies feeling anxious or agitated, does feel shaky. - EtOH 282.8 on arrival, UDS negative - AG 19 -- likely in setting of EtOH - IVF as above - AWSS - Seizure precautions - Thiamine + folic acid IV -- hold po thiamine + folic acid -Added librium taper; patient appears to be much better. will continue taper. #CKD stage III- Follows with nephrology, most recent visit 06/27/2025; Baseline Cr 1.0-1.5, Cr at admission 1.28 - stable #HFpEF- Echo 2023 with EF 50-55%; Bumex, amiloride - continue #Chronic lumbar pain- Previously prescribed oxycodone for management of such; PDMP independently reviewed at time of admission, ? filled - hold oxycodone, pain management as above #Gout- Allopurinol - continue #Psych/Bipolar 2 disorder- Valproic acid level pending; Depakote, lamotrigine, trazodone - continue #Hypogonadism- Testosterone pellets (11 placed 06/06/2025) #Sleep disordered breathing- O2 4L HS, no O2 with activity #BPH- Alfuzosin - continue Dispo: Admit, PCU -- presence of rib fx VTE Prophylaxis: On Eliquis - continue Admission HPI Per Admitting Provider 70-year-old male PMHx permanent A-fib on Eliquis, HTN, alcohol abuse, restrictive lung disease, CKD stage III, HFrEF, chronic lumbar pain, and dilatation of ascending aorta presenting s/p fall at home with complaint of chest pain. Pt reports that he was partaking in "heavy drinking" over the weekend because his was away in [place], as well as the day [employer] and that on the day of arrival, he had 2 falls. The initial fall was when he woke up and walked to the bathroom. He states that he was dizzy when standing, and he had urinated then when he went to stand, he fell over, hitting his walker and landing on the L side. He did hit his face, and reports that he then felt L sided chest pain and thought he broke a rib. He was able to get himself up and went to the living room. Pt used the walker to do so. When he got to the living room, he went to sit in the recliner and fell once more. He did feel off balance and states that when he fell the second time, he does not recall injuring any part of his body but did lay on the floor for around 3 hours before he called his . He admits to L sided chest pain along his lateral torso that is worse with deep breathing. States that prior to falling, he did not have any symptoms other than some dizziness which he attributed to be because he was intoxicated. He denies any additional pain at this time to include headache, abdominal pain, UE/LE pain, or facial pain. States that his lip feels swollen. Pt denies SOB, palpitations, N/V/D/C, LUTS, URI symptoms, F/C, or weakness. He does admit to heavy drinking. States that, on average, he drinks ~ 5-6 shots of liquor per day, with his most recent drink being at "2300 the night" [employer]. Denies drinking on the day of arrival. Continues to mention that he was "being stupid" when talking about how often/much he drank. He does admit to feeling shakes at present, and states that he normally does become shaky ~ 24 hours after his last drink. Has a history of WD seizures "one time, many years ago." Has been to 2 different rehabs for the alcohol abuse, and denies mixing other substances with alcohol. He denies having "black outs" and denies DTs. Reports that he took all of his am medications, and his last dose of Eliquis was the morning of arrival. Recalls wanting to get home to his dog, Ирина, soon. ED evaluation reveals CBC with leukocytosis 15.50, RBC 4.59; PT/INR WNL; CMP CO2 20, anion gap 19, BUN 26, ratio 20.3; magnesium 1.6; bilirubin 1.1, AST 56; total CK5 56; troponin 27.1, pending repeat; lipase 10; UA negative for infection; urine drug screen negative; valproic acid level pending; alcohol level 282.8; CXR unchanged elevation of L hemidiaphragm; CTAP no sign of abdominal organ injury after trauma, chronic pancreatitis, small bilateral renal cyst, unchanged hypodense lesion R kidney, diverticulosis, enlarged prostate, small bladder diverticulum; cervical spine CT no definite spine fracture, retrolisthesis of C3-C4, spinal stenosis C3-4, bilateral C3-4 and left C6-7 neuroforaminal narrowing; chest CT acute fracture of L fourth rib, no PTX, unchanged elevation of L hemidiaphragm, bilateral lung base atelectasis, unchanged thoracic aortic aneurysm; face CT no definite facial bone fracture; head CT unremarkable; EKG A-fib with RVR and low voltage QRS at 148 bpm.; Provided with 1L NSS, Zofran 4 mg IV, morphine 4 mg IV, mag sulfate 1 g IV, and diltiazem 20 mg IV in ED. Please see Dr. August's attestation for adjustments/additions to treatment plan. Discharge Plan Discharge Items Patient Disposition: Home - Self-Care Reason For Visit: AFIB RVR, RIB FX, ALCOHOL WD Discharge Diagnosis: A Fib RVR Condition on Discharge: Fair Activity: Resume your previous activity Non-emergency contact: Primary Care Provider Call non-emergency contact if: you have any medication questions Follow-up/Referrals: Keith Dimas DO [Primary Care Provider] - 07/29/25 12:30 pm (Hospital follow up on July 29 at 12:30 pm.) Diet: Heart Healthy Addtl Attending Provider Instructions: Recommend followup with your PCP in 1-2 weeks Recommend discussing medications to help with alcohol abstinence. We added some medication for pain. The voltaren gel, lidocaine patches, and methocarbamol. We also ordered 2 more doses of librium to help with your withdrawal. First dose will be tonight and next dose tomorrow. Please abstain from operating heavy machinery while on these medications. Do not mix with alcohol as this could be deadly. Pending Studies at Discharge: No Stand-Alone Forms: [facility], Smoking Cessation Medications and DC Order Prescriptions: New methocarbamol 750 mg Tablet 1,500 mg PO TID 14 Days Qty: 84 0RF chlordiazepoxide HCl 5 mg Capsule 5 mg PO BID Qty: 2 0RF diclofenac sodium [Voltaren Arthritis Pain] 1 % Gel 2 g EXT QID Qty: 50 0RF lidocaine 5 % Adhesive Patch,Medicated 1 patch transdermal QAM Qty: 15 0RF pantoprazole 40 mg tablet,delayed release (DR/EC) 40 mg PO DAILY Qty: 14 0RF Continued acetaminophen 500 mg capsule 1,000 mg PO TID 30 Days Qty: 180 0RF Rx Instructions: TAke 3 times per day to lessen pain. magnesium chloride [Mag 64] 64 mg tablet,delayed release (DR/EC) 64 mg PO BID Qty: 180 3RF Rx Instructions: At noon and HS divalproex [Depakote ER] 500 mg tablet extended release 24 hr 1,000 mg PO HS Qty: 180 3RF potassium chloride 20 mEq tablet extended release 20 meq PO DAILY Qty: 180 3RF Rx Instructions: Noon trazodone 100 mg tablet 200 mg PO HS Qty: 60 11RF bumetanide 1 mg tablet 1 mg PO QAM Qty: 30 5RF Rx Instructions: Take one tablet daily. If weight 240 lbs or greater, increase to 2MG. Reduc e to 1MG daily once weight 235 lbs or less. lamotrigine [Lamictal] 150 mg tablet 150 mg PO HS Qty: 30 11RF vitamin A 2,400 mcg capsule 2,400 mcg PO QDL testosterone 75 mg pellet 75 mg implant .COMPLEX Rx Instructions: 75 mg implant Quarterly; 11 placed 05/2025 zinc gluconate 50 mg tablet 50 mg PO QDL mecobalamin (vitamin B12) 1,000 mcg tablet,chewable 1,000 mcg PO QAM colchicine 0.6 mg capsule 0.6 mg PO DIRECTED PRN (Reason: GOUT FLARE UPS) Qty: 2 5RF Rx Instructions: one pills at onset of gout flare, one pill in 2-6 hours if not resolved no more than 2 pills every 14 days cetirizine 10 mg tablet 10 mg PO QAM PRN (Reason: Allergy Symptoms) albuterol sulfate 90 mcg/actuation HFA aerosol inhaler 2 puff inhalation Q4H PRN (Reason: SOB/WHEEZING) Qty: 8.5 3RF ([place]) [facility] See Rx Instructions .MEDSUPPLY Qty: 1 0RF Rx Instructions: As directed Eliquis 5 mg tablet 5 mg PO BID Qty: 180 3RF Hold Instructions: hold until your outpatient doctors tell you it is safe to resume vitamin B complex Tablet 1 tab PO QDL cholecalciferol (vitamin D3) [Vitamin D3] 25 mcg (1,000 unit) capsule 5,000 unit PO QAM thiamine HCl (vitamin B1) 100 mg tablet 100 mg PO BID diltiazem HCl 120 mg capsule,extended release 12 hr 120 mg PO QAM amiloride 5 mg tablet 5 mg PO QAM allopurinol 300 mg tablet 300 mg PO QPM digoxin 125 mcg (0.125 mg) tablet 125 mcg PO QAM alfuzosin [Uroxatral] 10 mg tablet extended release 24 hr 10 mg PO QPM Rx Instructions: administer after the same meal each day metoprolol succinate 100 mg Tablet Extended Release 24 Hr 100 mg PO DAILY Held oxycodone 5 mg tablet 5 mg PO Q8H PRN (Reason: pain) Qty: 90 0RF Hold Instructions: Resume on 07/27/25. Rx Instructions: DNFB 07-12-25 Discharge Orders: Discharge Order (Routine); Ordered 07/25/25 Ordered By: Murali Orozco Admission Data Admit Date/Time: 07/21/25 22:09 Attending Provider: Murali Orozco Admit Provider: Diane August Primary Care Provider: Keith Dimas. Other Providers: Diane August Other Interventions: Discharge Summary Assessment (RN) Last Done: 07/25/25 15:38 Hospital Stay Data Consultations 07/21/25 21:06 ED Decision to Admit Stat Diagnostic Imagining Performed 07/21/25 18:51 CT abd pelvis IV con only Stat CT cervical spine wo con Stat CT chest diagnostic w con Stat CT facial bones wo con Stat CT head/brain wo con Stat 07/25/25 10:40 US venous doppler LE BI Stat Pending Results Patient Have Any Pending Studies at Discharge: No Discharge Instructions Given to Patient (Per Discharging Provider) Recommend followup with your PCP in 1-2 weeks Recommend discussing medications to help with alcohol abstinence. We added some medication for pain. The voltaren gel, lidocaine patches, and methocarbamol. We also ordered 2 more doses of librium to help with your withdrawal. First dose will be tonight and next dose tomorrow. Please abstain from operating heavy machinery while on these medications. Do not mix with alcohol as this could be deadly. Coding Diagnoses Atrial fibrillation with rapid ventricular response I48.91 Fall W19.XXXA Closed rib fracture S22.39XA Hypomagnesemia E83.42 Elevated creatine kinase R74.8 Alcohol intoxication F10.929
== END 2025-07-25 18:44 | disposition home or self-care (01) | DRG 309 ==
LOC: ED 18:42 → 2E 22:09 → SUATTDRO 22:09 → 2E 22:58

== ENCOUNTER 2025-10-10 18:03 | Inpatient (IN) ==
[2025-10-10 18:28] LABS: Hematocrit (blood only) 45.1 % (42.0-52.0); Hemoglobin 16.0 g/dL (14.0-18.0); Immature Granulocytes # (auto) 0.07 K/uL (0.01-0.20); Immature Granulocytes % (auto) 0.6 %; Mean Corpuscular Hemoglobin 34.3 pg (25.0-34.0); Mean Corpuscular Volume 96.6 fL (80.0-100.0); Platelet Count 147 K/uL (130-400); RDW Standard Deviation 54.5 fL (36.4-46.3); Red Blood Count 4.67 M/uL (4.70-6.10); White Blood Count 11.01 K/ul (4.8-10.8)
[2025-10-10] MEDS: SODIUM CHLORIDE 0.9% 500 ML IV SCH (18:38)
--- NOTE | 2025-10-10 18:48 | Emergency Department Note ---
Impression & Plan Atrial fibrillation with rapid ventricular response, Alcohol abuse, Suicidal ideation, Leukocytosis, Acute kidney injury, Elevated troponin ED Provider Note NAME: YANNICK QUINTERO AGE: 70 SEX: M : 1955 ARRIVES VIA: Ambulance INFORMANT: [Patient][ems, nursing] ED PROVIDER(S): [Benoit Richards MD] Patient first seen by me at 181 CHIEF COMPLAINT: Alcohol intoxication, possible suicide attempt HISTORY OF PRESENT ILLNESS: The patient is a 70-year-old male with a known history of alcoholism. He has a history of A-fib and is on blood thinning agents. The patient was found sitting on the floor, it is unclear if he fell although, EMS did not find any traumatic injuries. The patient is confused and apparently, drank rubbing alcohol prior to arrival. A nearly empty bottle of rubbing alcohol was found next to him. At 1 point, EMS described him trying to strangle himself with the IV tubing, EMS was concerned for suicidality. Apparently, the patient has been from his son and his son's birthday is coming up soon. The patient is a very unreliable historian. He appears intoxicated at the present time, he really cannot provide any history. He cannot describe what happened. EMS did give IV Zofran prior to arrival, they also gave around 450 cc of IV saline. BSG was reported at 126. PMHx/PSHx/Social Hx: See Below PHYSICAL EXAM: Primary Survey Airway: Intact Breathing: Breath sounds equal bilaterally. No respiratory distress Circulation: Skin warm, capillary refill less than 2 seconds Disability: Pupils equal and reactive to light Motor Function: Moves all extremities. Sensory: No deficits Secondary Survey GEN: Well developed and well-nourished HEAD: Normocephalic, atraumatic EYES: Pupils round and reactive to light, conjunctiva clear, extraocular movements intact ENT: No fluid in external acoustic canals, nares patent, oropharynx clear NECK: Midline trachea, no cervical spine tenderness HEART: Tachycardic with an irregular rhythm, no obvious murmur. LUNGS: Clear to auscultation bilaterally CHEST: Chest wall non-tender, no bruising/deformity ABD: No contusions, soft, non-tender, no distention PELVIS: Stable to rock BACK: No step offs or deformities, T-L spine non tender EXT: Moving all extremities well, no gross deformities NEURO: Moves all extremities, seems confused. DIFFERENTIAL DIAGNOSIS: Intracranial or spinal injury, medication noncompliance, suicidality, electrolyte imbalance, NM, dysrhythmia, among others. EMERGENCY DEPARTMENT PROCEDURES: C-spine was clinically cleared at 2030, once the CT imaging returned. MEDICAL DECISION MAKING: There is a very mild leukocytosis, this could be consistent with infection or the stress of his current presentation. There is a normal hemoglobin and platelet count. No bandemia. No coagulopathy. There is an elevation to the creatinine consistent with some mild acute kidney injury. No concerning liver enzyme elevation. Total CK was normal making rhabdomyolysis unlikely. The patient appeared to be in a euthyroid state. ECG showed rapid atrial fibrillation without any obvious ST elevation. Cardiac enzyme testing does show a slight troponin elevation, this elevation could be secondary to cardiac injury or just mismatch from the tachycardia. Digoxin level was therapeutic. Aspirin and Tylenol's were basically undetectable. Valproic acid level was somewhat low at 46. Alcohol level was undetectable. Brain CT showed no acute bleed or mass effect. C-spine CT showed no acute fracture. Chest x-ray did not show any focal pneumonia or lung injury. There was elevation to the left hemidiaphragm. The patient received a liter of IV saline for hydration. He was given a bolus of IV diltiazem and placed on a diltiazem drip. He was given a dose of IV Valium. The patient's heart rate has decreased with the diltiazem drip. He became a bit agitated while in the ED thus, the Valium was administered. He very likely was developing alcohol withdrawal. Patient drank rubbing alcohol earlier and, I suspect this caused his altered mental state. On reassessment, it appears his alcohol has cleared significantly and he is much more awake and interactive and more appropriate with how he answers questions. His heart rate has improved. I did have the patient seen by psychiatry case management. There was some concerns for suicidality. For now, the patient requires a hospital stay for his rapid A-fib. He will require care for alcohol withdrawal. He can be seen by psychiatry in consult for his suicidal gestures. I did speak with the patient and case management, the on-call hospitalist was consulted. Of note, I did speak with the poison center, there is no emergent intervention required for the ingestion of rubbing alcohol. Prior/Outside records/notes reviewed: Today's EMS notes describing his presentation and transport to this hospital. ECG per my interpretation: Indication was tachycardia. The ECG shows atrial fibrillation with a rate of 165. There is an old septal infarct. There is no obvious ST elevation, no PVCs. There is diffuse nonspecific ST change. QTc is 470. Continuous Cardiac Monitoring per my interpretation: An order was placed for continuous cardiac monitoring. The monitor shows a rate of 155 with atrial fibrillation. Imaging/x-ray results per my interpretation: Chest x-ray does not show any rib injury or pneumothorax. There is an elevation to the left hemidiaphragm but this is chronic. Chronic Medical/Social conditions affecting care: Advanced age, history of alcoholism. Care/Management discussed with: Case management, the on-call hospitalist. Psychiatry case management. Level of care consideration(s): After review of the information above and other included data: --I believe the patient requires escalation of care to admission Critical Care Note: I have personally spent 46 minutes of critical care time in the direct management of this patient. This includes bedside care, interpretation of diagnostic studies, and testing, discussion with consultants, patient, and family members, and other required patient management activities. This 46 minutes is in excess of all separately billable procedures. DISPOSITION: Admission Past Med/Surg History Problem List (Updated 09/14/25 @ 13:32 by Keith Dimas DO) Elevated troponin (Acute) Acute kidney injury (Acute) Leukocytosis (Acute) Suicidal ideation (Acute) Alcohol abuse (Acute) Atrial fibrillation with rapid ventricular response (Acute) Elevated creatine kinase Left shoulder pain Nocturnal hypoxia on 4L oxygen HS Osteoarthritis of right knee Vitamin D deficiency Nightmares Chronic lumbar pain per pt since 2011 with spinal stenosis Sleep-disordered breathing Varicose veins of legs Heart failure with reduced ejection fraction Atrial fibrillation, permanent (Acute) Restrictive lung disease Heart failure with mid-range ejection fraction Chronic kidney disease with active medical management without dialysis, stage 3 (moderate) Hypertension Lumbar facet joint syndrome Bipolar 2 disorder Congestive heart failure EF 40-45% Nov 2021 ECHO (questionable tachycardia induced per cardio) Degenerative joint disease of left hip Myofascial pain Leg length discrepancy Ascending aorta dilatation 4.6 cm - no change from Nov [address] per 12/06/21 chest CTA Left ventricular dysfunction Degenerative joint disease, foot, left Foot pain, left Insomnia Chronic gout S/P insertion of spinal cord stimulator X 2 *ONLY 1 IS FUNCTIONING BUT NOT IN USE CURRENTLY (WILL BRING ALONG REMOTE AND INSTRUCTIONS TO SURGERY/PAT APT) Hypoxia Atelectasis Elevated hemidiaphragm left Dyspnea Iniguez's neuroma of left foot Cough Orthopnea Hypomagnesemia Elevated MCV Fatigue Hearing loss, bilateral Recurrent right knee instability Memory impairment Hypogonadism in male (Chronic) RLS (restless legs syndrome) HX OF BPH w urinary obs/LUTS Skin tag (Chronic) Medical marijuana use (Chronic) Spinal stenosis (Chronic) Hx of knee surgery RT KNEE SCOPE Medical History Right ankle pain Personal history of colonic polyps Pain in right anthony Metabolic alkalosis Inflammation of joint of right knee Hematoma of left buttock Fracture of proximal end of fibula Fall from standing Elevated troponin I level Contusion of face Clostridium difficile diarrhea Closed rib fracture Gout of right ankle Chest wall contusion Chest pain Atrial fibrillation with rapid ventricular response Asthma COLD WEATHER INDUCED>NO INHALER USED FOR A WHILE Breathing stable Alcohol intoxication Medicare annual wellness visit, subsequent Alcohol abuse COVID-19 Left ventricular dysfunction Dyspnea on exertion History of chest pain 2022--per pt resolved--follows with Dr. Artis Decreased diffusion capacity of lung "atelectasis"--in right lung per pt capacity is 50% On home oxygen therapy 4L via [place] at HS History of alcohol abuse on naltrexone Acute kidney injury superimposed on CKD per pt was due to fall--per pt resolved Acute heart failure hx--does have congestive heart failure Hypokalemia Peripheral neuropathy Bilateral feet History of COVID-19 11/2021>TROUBLE BREATHING/CONGESTION>HOSPITAL AFTER DX FOR PULSE RATE *RESOLVED History of hypogonadism Surgical History (Updated 09/14/25 @ 13:32 by Keith Dimas, ) History of left hip replacement S/P insertion of spinal cord stimulator X 2 *ONLY 1 CURRENTLY, BUT NOT IN USE CURRENTLY (WILL BRING ALONG REMOTE) History of arthroscopy of right knee Hx of eye surgery 08-29-23 R orbital superior medial orbitotomy exploration and removal of glass fragments largest [address] Jose Murphy S/P total left hip arthroplasty 03-19-22 Dr August, [facility] H/O hand surgery LEFT Hx of vasectomy History of colonoscopy History of tonsillectomy [place] teeth removed History of cataract surgery RT/LEFT History of cholecystectomy Hx of hernia repair UMBILICAL HERNIA Family History (Updated 09/14/25 @ 14:07 by Keith Dimas, DO) Mother Breast cancer Hypertension Sister Diabetes Thyroid cancer Father Myocardial infarction Bipolar 2 disorder Grandfather (Paternal) Myocardial infarction Mother Lung cancer Breast cancer in female Schizophrenia Other No family history of adverse response to anesthesia Denies family history of Ovarian cancer Prostate cancer Colorectal cancer Social History Smoking Status: Never smoker Second Hand Exposure: Yes (as a child. 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 Feels Safe at Home: Yes Childhood Exposure to Second-Hand Smoke: Yes Diet: regular Diet Comment: Optivia diet caffeine: Yes during the past year weight has: remained stable Dental Care, Regularly: Yes Physical Activity Frequency: 1-2 Times per Week Physical Activity Frequency Comment: CHF Seatbelt Use: always Sunscreen Use: No Do you think of yourself as: straight/heterosexual Sexual Activity: has been sexually active, but not for at least 12 months Gender Identity: Male Assistive Devices: Oxygen - at Night, Raised Toilet Seat and Walker Allergies Allergies Allergy/AdvReac Type Severity Reaction Status Date / Time meloxicam Allergy Severe Swollen Verified 09/14/25 13:26 tongue amitriptyline [From Elavil] Allergy Intermediate Hallucinati Verified 09/14/25 13:26 ons aripiprazole [From Abilify] Allergy Intermediate Tremors, Verified 09/14/25 13:26 balance issues, trouble controlling body movements hyoscyamine Allergy Intermediate Hallucinati Verified 09/14/25 13:26 [From Symax Duotab] ons venlafaxine [From Effexor] Allergy Intermediate Hallucinations Verified 09/14/25 13:26 and tremors zolpidem [From Ambien] Allergy Intermediate Hallucinati Verified 09/14/25 13:26 ons ciprofloxacin Allergy Mild Rash Verified 09/14/25 13:26 Penicillins Allergy Mild Rash Verified 09/14/25 13:26 adhesive tape AdvReac Mild rash, red Verified 09/14/25 13:26 skin Home Meds Home Medications Medication Instructions Recorded Confirmed cetirizine 10 mg tablet 10 mg PO QAM PRN Allergy Symptoms 11/25/19 10/10/25 vitamin B complex 1 tab PO QDL 12/06/21 10/10/25 cholecalciferol (vitamin D3) 25 5,000 unit PO QAM 01/31/23 10/10/25 mcg (1,000 unit) capsule (Vitamin D3) mecobalamin (vitamin B12) 1,000 1,000 mcg PO QAM 01/31/23 10/10/25 mcg chewable tablet testosterone 75 mg implant pellet 75 mg implant .COMPLEX 01/31/23 10/10/25 vitamin A 2,400 mcg capsule 2,400 mcg PO QDL 01/31/23 10/10/25 zinc gluconate 50 mg tablet 50 mg PO QDL 01/31/23 10/10/25 thiamine HCl (vitamin B1) 100 mg 100 mg PO BID 05/06/24 10/10/25 tablet allopurinol 300 mg tablet 300 mg PO QPM 07/21/25 10/10/25 digoxin 125 mcg (0.125 mg) tablet 125 mcg PO QPM 10/10/25 10/10/25 Previous Rx's Medication Instructions Recorded acetaminophen 500 mg capsule 1,000 mg (2 x 500 mg) PO TID Pain 03/18/22 30 days #180 caps albuterol sulfate 90 mcg/actuation 2 puff inhalation Q4H PRN 11/18/23 aerosol inhaler SOB/WHEEZING #8.5 grams divalproex 500 mg tablet,extended 1,000 mg (2 x 500 mg) PO HS #180 10/25/24 release 24 hr (Depakote ER) tabs walker #1 ea 10/25/24 potassium chloride 20 mEq 20 meq PO DAILY #180 tabs 12/27/24 tablet,extended release trazodone 100 mg tablet 200 mg (2 x 100 mg) PO HS #60 tabs 02/11/25 apixaban 5 mg tablet (Eliquis) 5 mg PO BID #180 tabs 05/10/25 lamotrigine 150 mg tablet 150 mg PO HS #30 tabs 07/01/25 (Lamictal) diclofenac sodium 1 % topical gel 2 g EXT QID #50 grams 07/25/25 (Voltaren Arthritis Pain) lidocaine 5 % topical patch 1 patch transdermal QAM #15 ea 07/25/25 diltiazem HCl 120 mg 120 mg PO QAM #90 caps 08/16/25 capsule,extended release 12 hr magnesium chloride 64 mg 64 mg PO BID #180 tabs 08/16/25 (magnesium chloride) tablet,delayed release (Mag 64) amiloride 5 mg tablet 5 mg PO QAM #90 tabs 08/29/25 colchicine 0.6 mg tablet 0.6 mg PO BID #60 tabs 09/13/25 alfuzosin 10 mg tablet,extended 10 mg PO QPM #90 tabs 09/14/25 release 24 hr (Uroxatral) bumetanide 1 mg tablet 1 mg PO QAM #30 tabs 09/28/25 oxycodone 5 mg tablet 5 mg PO Q8H PRN pain #90 tabs 10/10/25 Results & Data (ED) Vital Signs Vital Signs - 24 hr 10/10/25 18:12 10/10/25 18:18 10/10/25 18:19 Pulse Rate 157 H 164 H Pulse Rate [Apical] Pulse Rate from SpO2 Sensor Pulse Rhythm Regular Pulse Strength Normal Respiratory Rate 21 22 Respiratory Effort / Characteristics Non-Labored Respiratory Depth Normal Respiratory Pattern Regular Blood Pressure 125/103 H 128/97 Blood Pressure [Right Arm] Blood Pressure Mean 108 107 Blood Pressure Mean [Right Arm] Blood Pressure Position Lying Pulse Oximetry 91 Oxygen Delivery Method Room Air Oxygen Flow Rate Sepsis Recent Fever Within 48 Hours No Sepsis New/Unexplained Change in Mental Status No Sepsis Action Taken by Nursing Physician Notified 10/10/25 18:21 10/10/25 18:24 10/10/25 18:27 Pulse Rate 160 H 165 H 156 H Pulse Rate [Apical] Pulse Rate from SpO2 Sensor Pulse Rhythm Pulse Strength Respiratory Rate 25 H 21 Respiratory Effort / Characteristics Respiratory Depth Respiratory Pattern Blood Pressure Blood Pressure [Right Arm] Blood Pressure Mean Blood Pressure Mean [Right Arm] Blood Pressure Position Pulse Oximetry Oxygen Delivery Method Oxygen Flow Rate Sepsis Recent Fever Within 48 Hours Sepsis New/Unexplained Change in Mental Status Sepsis Action Taken by Nursing 10/10/25 18:31 10/10/25 18:31 10/10/25 18:31 Pulse Rate Pulse Rate [Apical] Pulse Rate from SpO2 Sensor Pulse Rhythm Pulse Strength Respiratory Rate Respiratory Effort / Characteristics Respiratory Depth Respiratory Pattern Blood Pressure 128/97 128/97 128/97 Blood Pressure [Right Arm] Blood Pressure Mean 100 100 100 Blood Pressure Mean [Right Arm] Blood Pressure Position Pulse Oximetry Oxygen Delivery Method Oxygen Flow Rate Sepsis Recent Fever Within 48 Hours Sepsis New/Unexplained Change in Mental Status Sepsis Action Taken by Nursing 10/10/25 18:31 10/10/25 18:31 10/10/25 18:33 Pulse Rate Pulse Rate [Apical] Pulse Rate from SpO2 Sensor 159 H Pulse Rhythm Pulse Strength Respiratory Rate Respiratory Effort / Characteristics Respiratory Depth Respiratory Pattern Blood Pressure 128/97 128/97 Blood Pressure [Right Arm] Blood Pressure Mean 100 100 Blood Pressure Mean [Right Arm] Blood Pressure Position Pulse Oximetry 92 Oxygen Delivery Method Oxygen Flow Rate Sepsis Recent Fever Within 48 Hours Sepsis New/Unexplained Change in Mental Status Sepsis Action Taken by Nursing 10/10/25 18:42 10/10/25 18:45 10/10/25 18:45 Pulse Rate 115 H Pulse Rate [Apical] Pulse Rate from SpO2 Sensor 115 H Pulse Rhythm Pulse Strength Respiratory Rate 20 Respiratory Effort / Characteristics Respiratory Depth Respiratory Pattern Blood Pressure 122/95 122/95 Blood Pressure [Right Arm] Blood Pressure Mean 98 98 Blood Pressure Mean [Right Arm] Blood Pressure Position Pulse Oximetry 95 Oxygen Delivery Method Oxygen Flow Rate Sepsis Recent Fever Within 48 Hours Sepsis New/Unexplained Change in Mental Status Sepsis Action Taken by Nursing 10/10/25 18:45 10/10/25 18:45 10/10/25 18:45 Pulse Rate 106 H Pulse Rate [Apical] Pulse Rate from SpO2 Sensor 103 H Pulse Rhythm Pulse Strength Respiratory Rate 15 Respiratory Effort / Characteristics Respiratory Depth Respiratory Pattern Blood Pressure 122/95 122/95 Blood Pressure [Right Arm] Blood Pressure Mean 98 98 Blood Pressure Mean [Right Arm] Blood Pressure Position Pulse Oximetry 93 Oxygen Delivery Method Oxygen Flow Rate Sepsis Recent Fever Within 48 Hours Sepsis New/Unexplained Change in Mental Status Sepsis Action Taken by Nursing 10/10/25 18:46 10/10/25 18:46 10/10/25 19:24 Pulse Rate 111 H 127 H Pulse Rate [Apical] Pulse Rate from SpO2 Sensor Pulse Rhythm Regular Pulse Strength Respiratory Rate 16 26 H Respiratory Effort / Characteristics Respiratory Depth Respiratory Pattern Blood Pressure 128/87 Blood Pressure [Right Arm] Blood Pressure Mean 100 Blood Pressure Mean [Right Arm] Blood Pressure Position Pulse Oximetry 93 93 Oxygen Delivery Method Nasal Cannula Nasal Cannula Nasal Cannula Oxygen Flow Rate 2 2 2 Sepsis Recent Fever Within 48 Hours Sepsis New/Unexplained Change in Mental Status Sepsis Action Taken by Nursing 10/10/25 20:00 10/10/25 21:00 10/10/25 21:53 Pulse Rate Pulse Rate [Apical] 112 H 131 H 117 H Pulse Rate from SpO2 Sensor Pulse Rhythm Pulse Strength Respiratory Rate 20 22 20 Respiratory Effort / Characteristics Non-Labored Spontaneous Non-Labored Spontaneous Respiratory Depth Normal Normal Respiratory Pattern Regular Regular Blood Pressure Blood Pressure [Right Arm] 116/90 137/98 118/89 Blood Pressure Mean Blood Pressure Mean [Right Arm] 98 111 98 Blood Pressure Position Pulse Oximetry 93 94 94 Oxygen Delivery Method Nasal Cannula Nasal Cannula Nasal Cannula Oxygen Flow Rate 2 2 2 Sepsis Recent Fever Within 48 Hours Sepsis New/Unexplained Change in Mental Status Sepsis Action Taken by Nursing 10/10/25 22:04 Pulse Rate 112 H Pulse Rate [Apical] Pulse Rate from SpO2 Sensor Pulse Rhythm Pulse Strength Respiratory Rate Respiratory Effort / Characteristics Respiratory Depth Respiratory Pattern Blood Pressure Blood Pressure [Right Arm] Blood Pressure Mean Blood Pressure Mean [Right Arm] Blood Pressure Position Pulse Oximetry Oxygen Delivery Method Oxygen Flow Rate Sepsis Recent Fever Within 48 Hours Sepsis New/Unexplained Change in Mental Status Sepsis Action Taken by [facility] Medications Current Medication List: was personally reviewed by me Laboratory Data Attestation: I reviewed the patient's lab results. 10/10/25 18:13 10/10/25 18:13 Lab Results 10/10/25 10/10/25 Range/Units 18:13 20:11 WBC 11.01 H (4.8-10.8) K/ul RBC 4.67 L (4.70-6.10) M/uL Hgb 16.0 (14.0-18.0) g/dL Hct 45.1 (42.0-52.0) % MCV 96.6 (80.0-100.0) fL MCH 34.3 H (25.0-34.0) pg MCHC 35.5 (32.0-36.0) g/dL RDW Std Deviation 54.5 H (36.4-46.3) fL RDW Coeff of Daniel 15.8 H (11.5-14.5) % Plt Count 147 (130-400) K/uL MPV 9.7 (9.4-12.4) fL Immature Gran % (Auto) 0.6 % Neut % (Auto) 70.2 % Lymph % (Auto) 21.0 % [place] % (Auto) 7.7 % Eos % (Auto) 0.0 % Baso % (Auto) 0.5 % Neut # (Auto) 7.73 H (1.40-6.50) K/uL Lymph # (Auto) 2.31 (1.20-3.40) K/uL [place] # (Auto) 0.85 H (0.11-0.59) K/uL Eos # (Auto) 0.00 (0.00-0.50) K/uL Baso # (Auto) 0.05 (0.00-0.20) K/uL Immature Gran # (Auto) 0.07 (0.01-0.20) K/uL PT 11.3 (9.0-12.0) Seconds INR 1.1 (0.9-1.1) APTT 25 (21-31) Seconds PTT Ratio 0.9 Sodium 135 L (136-145) mmol/L Potassium 4.4 (3.5-5.1) mmol/L Chloride 98 (98-107) mmol/L Carbon Dioxide 26 (21-32) mmol/L Anion Gap 11 (3-11) BUN 15 (6-23) mg/dl Creatinine 1.83 H (0.6-1.4) mg/dl Est Cr Clr Drug Dosing 49.6 ml/min eGFR 38.96 BUN/Creatinine Ratio 8.2 L (10-20) Glucose 121 H (70-99(Fasting)) mg/dl Osmolality 345 H (280-300) mOsm/kg Calcium 9.0 (8.6-10.3) mg/dl Magnesium 1.7 (1.7-2.4) mg/dl Total Bilirubin 0.7 (0.2-1.0) mg/dl AST 26 (13-39) U/L ALT 17 (7-52) U/L Alkaline Phosphatase 73 (34-104) U/L Total Creatine Kinase 175 (30-223) U/L Troponin I High Sens 24.6 H 24.5 H (0-20) pg/ml Total Protein 6.8 (6.0-8.3) gm/dl Albumin 4.0 (3.4-5.0) gm/dl Globulin 2.8 (2.5-4.0) gm/dl Albumin/Globulin Ratio 1.4 (0.9-2) TSH 1.120 (0.300-4.500) uIu/ml Digoxin 0.9 (0.8-2.0) ng/ml Salicylates < 3.0 L (3.0-30) mg/dl Acetaminophen 7 L (10-30) ug/ml Valproic Acid 46 L (50-100) mcg/ml Ethyl Alcohol mg/dL < 10.0 (<10.0) mg/dl Administered Medications Diltiazem HCl 125 mg/ Dextrose 125 mls @ 15 mls/hr IV .Q8H20M [facility]; Protocol Stop: 11/09/25 18:29 Last Titration: 10/10/25 20:43 Dose: 15 mg/hr, 15 mls/hr Documented By: keysha Co-signed By: LLOYD Titration: 10/10/25 19:24 Dose: 10 mg/hr, 10 mls/hr Documented By: RUTH Co-signed By: abl Admin: 10/10/25 18:36 Dose: 5 mg/hr, 5 mls/hr Documented By: eun Co-signed By: THOM Discontinued Medications Diazepam (Diazepam Inj 5 Mg/Ml 2 Ml Carp) 5 mg IV NOW ONE Stop: 10/10/25 20:56 Last Admin: 10/10/25 21:02 Dose: 5 mg Documented By: abl Diltiazem HCl (Diltiazem Hcl 5 Mg/Ml 5 Ml Vial) 15 mg IV NOW STA Stop: 10/10/25 18:17 Last Admin: 10/10/25 18:36 Dose: 15 mg Documented By: asm Co-signed By: THOM Sodium Chloride (Nss) 500 mls @ 999 mls/hr IV .Q31M JEAN-CLAUDE Stop: 10/10/25 19:00 Last Infusion: 10/10/25 19:58 Dose: Infused Documented By: abl Admin: 10/10/25 18:38 Dose: 999 mls/hr Documented By: eun Sodium Chloride (Nss) 500 mls @ 999 mls/hr IV .Q31M ONE Stop: 10/10/25 21:25 Last Admin: 10/10/25 21:03 Dose: 999 mls/hr Documented By: abl Miscellaneous (Stat Iv Infusion Titration Per Protocol) 1 each N/A NOW STA Stop: 10/10/25 18:17 Last Admin: 10/10/25 19:25 Dose: Not Given Documented By: LAF Imaging Data Radiologist's Impression: Cervical Spine CT 10/10/25 18:16 CT of cervical spine without contrast Technique: Noncontrast axial images cervical spine. Coronal and sagittal reformatted images made available for review No comparison Findings: No acute fractures or dislocations. Multilevel cervical spondylopathy resulting in varying degrees of canal foraminal stenosis most severe at the C3-C4 level. Impression: Multilevel cervical spondylopathy without evidence of acute osseous pathology. Electronically signed by Charlie Morton 10-10-2025 8:[address] 10/10/25 18:16 CT of the head without contrast Technique: Noncontrast axial images of the head. Coronal and sagittal reformatted images made available for review Comparison made to prior exam dated 07/24/2024 Findings: No acute intracranial hemorrhage. No acute transcortical infarct. No midline shift. Ventricles, sulci, cisterns within normal limits.Bone windows demonstrate no focal abnormality Impression: Head CT negative for acute intracranial abnormality. Electronically signed by Charlie Morton 10-10-2025 8:19 PM Chest X-Ray 10/10/25 18:18 EXAM: Portable AP chest radiograph TECHNIQUE: AP portable radiograph of the chest was obtained. INDICATION: Shortness of breath Comparison: Chest radiograph July 21, 2025 FINDINGS: LINES and TUBES: None CARDIOVASCULAR: Cardiac silhouette is stable enlarged in size. LUNGS/PLEURA: Mild pulmonary vascular congestion and chronic intra lung changes appear similar to the previous radiograph. Left basilar atelectasis. No focal consolidation identified. No significant pleural fluid. No discernible pneumothorax. OSSEOUS/OTHER: No displaced acute osseous process identified. Unchanged elevation of the left hemidiaphragm. IMPRESSION: No radiographic evidence of acute cardiopulmonary process with no signal change in appearance of the chest compared to the previous radiograph dated 07/21/2025. Electronically signed by Drew Pineda 10-10-2025 8:24 PM Discharge Plan Visit Data Chief Complaint: Alcohol Intoxication Stated Complaint: ALCOHOL INTOX ED Provider: Benoit Richards Discharge Problem: Atrial fibrillation with rapid ventricular response, Alcohol abuse, Suicidal ideation, Leukocytosis, Acute kidney injury, Elevated troponin Patient Disposition: Admitted As Inpatient Condition: Serious Forms Stand Alone Forms: My [facility] Prescriptions Prescriptions: No Action acetaminophen 500 mg capsule 1,000 mg PO TID 30 Days Qty: 180 0RF Rx Instructions: TAke 3 times per day to lessen pain. divalproex [Depakote ER] 500 mg tablet extended release 24 hr 1,000 mg PO HS Qty: 180 3RF potassium chloride 20 mEq tablet extended release 20 meq PO DAILY Qty: 180 3RF Rx Instructions: Noon trazodone 100 mg tablet 200 mg PO HS Qty: 60 11RF lamotrigine [Lamictal] 150 mg tablet 150 mg PO HS Qty: 30 11RF magnesium chloride [Mag 64] 64 mg tablet,delayed release (DR/EC) 64 mg PO BID Qty: 180 3RF Rx Instructions: At noon and HS diltiazem HCl 120 mg capsule,extended release 12 hr 120 mg PO QAM Qty: 90 3RF amiloride 5 mg tablet 5 mg PO QAM Qty: 90 3RF colchicine 0.6 mg tablet 0.6 mg PO BID Qty: 60 2RF Rx Instructions: Day 1: 1.2 mg at the first sign of flare, followed by 0.6 mg after 1 hour. Day 2 and thereafter: 0.6 mg BID. continue for 24 to 48 hours after flare resolves. bumetanide 1 mg tablet 1 mg PO QAM Qty: 30 5RF Rx Instructions: Take one tablet daily. If weight 240 lbs or greater, increase to 2MG. Reduce to 1MG daily once weight 235 lbs or less. oxycodone 5 mg tablet 5 mg PO Q8H PRN (Reason: pain) Qty: 90 0RF Hold Instructions: Resume on 07/27/25. Rx Instructions: DNFB 10-13-25 vitamin A 2,400 mcg capsule 2,400 mcg PO QDL testosterone 75 mg pellet 75 mg implant .COMPLEX Rx Instructions: 75 mg implant Quarterly; 05/2025 zinc gluconate 50 mg tablet 50 mg PO QDL mecobalamin (vitamin B12) 1,000 mcg tablet,chewable 1,000 mcg PO QAM cetirizine 10 mg tablet 10 mg PO QAM PRN (Reason: Allergy Symptoms) albuterol sulfate 90 mcg/actuation HFA aerosol inhaler 2 puff inhalation Q4H PRN (Reason: SOB/WHEEZING) Qty: 8.5 3RF ([place]) jeannette Kumar See Rx Instructions .MEDSUPPLY Qty: 1 0RF Rx Instructions: As directed Eliquis 5 mg tablet 5 mg PO BID Qty: 180 3RF Hold Instructions: hold until your outpatient doctors tell you it is safe to resume alfuzosin [Uroxatral] 10 mg tablet extended release 24 hr 10 mg PO QPM Qty: 90 3RF Rx Instructions: administer after the same meal each day vitamin B complex Tablet 1 tab PO QDL cholecalciferol (vitamin D3) [Vitamin D3] 25 mcg (1,000 unit) capsule 5,000 unit PO QAM digoxin 125 mcg (0.125 mg) tablet 125 mcg PO QPM Rx Instructions: TAKE 1 TABLET BY MOUTH ONCE DAILY IN THE EVENING thiamine HCl (vitamin B1) 100 mg tablet 100 mg PO BID allopurinol 300 mg tablet 300 mg PO QPM diclofenac sodium [Voltaren Arthritis Pain] 1 % Gel 2 g EXT QID Qty: 50 0RF lidocaine 5 % Adhesive Patch,Medicated 1 patch transdermal QAM Qty: 15 0RF Referrals Referrals: Keith Dimas DO [Primary Care Provider] - Discharge Problem: Leukocytosis Qualifiers: Leukocytosis type: unspecified Qualified Code(s): D72.829 - Elevated white blood cell count, unspecified
[2025-10-10 18:49] LABS: Alanine Aminotransferase 17.0 U/L (7-52); Albumin Globulin Ratio 1.4 (0.9-2); Albumin Level 4.0 gm/dl (3.4-5.0); Alkaline Phosphatase 73.0 U/L (34-104); Anion Gap 11.0 (3-11); Bilirubin,Total 0.7 mg/dl (0.2-1.0); Blood Urea Nitrogen 15.0 mg/dl (6-23); Calcium 9.0 mg/dl (8.6-10.3); Carbon Dioxide 26.0 mmol/L (21-32); Chloride 98.0 mmol/L (98-107); Creatine Kinase 175.0 U/L (30-223); Creatinine Clr Calc Pharmacy 49.6 ml/min; Globulin 2.8 gm/dl (2.5-4.0); Glucose 121.0 mg/dl (70-99(Fasting)); Magnesium 1.7 mg/dl (1.7-2.4); Potassium 4.4 mmol/L (3.5-5.1); Sodium 135.0 mmol/L (136-145); Total Protein 6.8 gm/dl (6.0-8.3)
[2025-10-10 18:54] LABS: Acetaminophen 7 ug/ml (10-30); Salicylate < 3.0 mg/dl (3.0-30)
[2025-10-10 19:04] LABS: Thyroid Stimulating Hormone 1.12 uIu/ml (0.300-4.500)
[2025-10-10 19:18] LABS: INR 1.1 (0.9-1.1); Partial Thromboplastin Time 25 Seconds (21-31); Prothrombin Time 11.3 Seconds (9.0-12.0)
[2025-10-10] MEDS: STAT IV Infusion **Titration per Protocol STA (19:25)
--- NOTE | 2025-10-10 20:19 | CT Scan Report ---
CT of the head without contrast Technique: Noncontrast axial images of the head. Coronal and sagittal reformatted images made available for review Comparison made to prior exam dated 07/24/2024 Findings: No acute intracranial hemorrhage. No acute transcortical infarct. No midline shift. Ventricles, sulci, cisterns within normal limits.Bone windows demonstrate no focal abnormality Impression: Head CT negative for acute intracranial abnormality. Electronically signed by Charlie Morton 10-10-2025 8:19 PM
--- NOTE | 2025-10-10 20:19 | CT Scan Report ---
CT of cervical spine without contrast Technique: Noncontrast axial images cervical spine. Coronal and sagittal reformatted images made available for review No comparison Findings: No acute fractures or dislocations. Multilevel cervical spondylopathy resulting in varying degrees of canal foraminal stenosis most severe at the C3-C4 level. Impression: Multilevel cervical spondylopathy without evidence of acute osseous pathology. Electronically signed by Charlie Morton 10-10-2025 8:19 PM
--- NOTE | 2025-10-10 20:24 | XRay Report ---
EXAM: Portable AP chest radiograph TECHNIQUE: AP portable radiograph of the chest was obtained. INDICATION: Shortness of breath Comparison: Chest radiograph July 21, 2025 FINDINGS: LINES and TUBES: None CARDIOVASCULAR: Cardiac silhouette is stable enlarged in size. LUNGS/PLEURA: Mild pulmonary vascular congestion and chronic intra lung changes appear similar to the previous radiograph. Left basilar atelectasis. No focal consolidation identified. No significant pleural fluid. No discernible pneumothorax. OSSEOUS/OTHER: No displaced acute osseous process identified. Unchanged elevation of the left hemidiaphragm. IMPRESSION: No radiographic evidence of acute cardiopulmonary process with no signal change in appearance of the chest compared to the previous radiograph dated 07/21/2025. Electronically signed by Drew Pineda 10-10-2025 8:24 PM
[2025-10-10] MEDS: SODIUM CHLORIDE 0.9% 500 ML IV ONE (21:03)
[2025-10-10 22:28] LABS: Digoxin 0.9 ng/ml (0.8-2.0)
[2025-10-10] MEDS ORDERED: ALBUTEROL HFA 8 GM INHALER INH PRN (23:40)
[2025-10-10] MEDS ORDERED: GLUCAGON FOR INJ 1 MG VIAL SQ PRN (23:40)
[2025-10-10] MEDS ORDERED: CARBOHYDRATES FOR HYPOGLYCEMIA PO PRN (23:40)
[2025-10-10] MEDS ORDERED: Nursing to Pharmacy Communication SCH (23:40)
[2025-10-10] MEDS ORDERED: DEXTROSE 50% 50 ML SYRINGE IV PRN (23:40)
[2025-10-10] MEDS ORDERED: GLUCOSE 10 TAB/TUBE PO PRN (23:40)
[2025-10-10] MEDS ORDERED: GLUCOSE 40% GEL 15 GM TUBE PO PRN (23:40)
[2025-10-10 23:49] LABS: Anion Gap 10.0 (3-11); Blood Urea Nitrogen 14.0 mg/dl (6-23); Calcium 8.3 mg/dl (8.6-10.3); Carbon Dioxide 24.0 mmol/L (21-32); Chloride 101.0 mmol/L (98-107); Creatinine Clr Calc Pharmacy 53.7 ml/min; Glucose 116.0 mg/dl (70-99(Fasting)); Potassium 4.8 mmol/L (3.5-5.1); Sodium 135.0 mmol/L (136-145)
[2025-10-11] MEDS: LACTATED RINGER'S 1,000 ML IV ONE (00:26)
[2025-10-11] MEDS: DIGOXIN 0.125 MG TAB PO ONE (00:30)
[2025-10-11] MEDS: MAGNESIUM SULFATE / D5W 1 GM/100 ML BAG IV SCH (00:30)
[2025-10-11] MEDS: LACTATED RINGER'S 1,000 ML IV SCH (01:27)
[2025-10-11 01:33] LABS: Appearance Urine Clear (Clear); Bacteria Urine Automated None Seen (None Seen); Epithelial Cell Urine Auto 0-2 /hpf (0-2); Glucose Urine UA Negative (Negative); RBC Urine Automated 0-2 /hpf (0-2); WBC Urine Automated 0-5 /hpf (0-5)
--- NOTE | 2025-10-11 01:34 | History & Physical Report ---
Date of Service October 11, 2025 The patient was seen and admitted on October 10, 2025 Assessment & Plan (1) Atrial fibrillation with rapid ventricular response: (2) Acute kidney injury: (3) Suicidal ideation: (4) Alcohol abuse: Plan The patient is a 70-year-old male with a past medical history including suicidal ideation, alcohol abuse, atrial fibrillation with RVR, sleep disordered breathing, HFrEF, permanent A-fib, restrictive lung disease, CKD stage III, bipolar 2 disorder, chronic gout, Iniguez's neuroma of left foot, memory impairment, RLS, BPH with LUTS, and insomnia. He presents to the emergency department after he was found sitting on the floor, confused, and reportedly drank rubbing alcohol prior to arrival. A nearly empty bottle of rubbing alcohol was found next to him by EMS. EMS reports that at 1 point he was trying to strangle himself with the IV tubing line. He reportedly is from his son, and his son's birthday is coming up soon. His significant other tells me that he asked her if she was coming in to say goodbye to him, as he thought h jackie was going to . The patient himself is not a good historian at this time, but does attempt to answer questions with his significant other present. He was given Zofran IV along with normal saline 450 cc en route by EMS. He was found to be in atrial fibrillation with RVR by the ED, and was started on a Cardizem bolus/drip per protocol. From the ED he also received normal saline 1 L, and diazepam 5 mg IV x 1. CT scan of head and CT scan cervical spine without acute findings, both were ordered due to patient being found on the floor, and unknown known if he had fallen or not. [facility]. Atrial fibrillation with rapid ventricular response/elevated troponin/history of HFrEF- The patient will be admitted to telemetry for serial cardiac enzymes, serial EKG's, cardiac rhythm monitoring and a 2-D echocardiogram with Dopplers. Initial troponin 24.5, follow-up as noted Diltiazem bolus/drip began in the ED, and will continue per protocol Optimize magnesium 1.7 with 2 g of mag sulfate IV Serial CBC with differential, BMP and magnesium levels Patient received normal saline 500 mL boluses x 2 from the ED. Give additional 1 L normal saline bolus now, then LR at 110 mL/h. Continue digoxin 100 mcg p.o. every evening, apixaban Hold bumetanide, amiloride, potassium chloride For now hold diltiazem extended release 120 mg p.o. every morning Alcohol abuse/ingestion of rubbing alcohol/suicide attempt/suicidal ideation- Initial anion gap of 11. Serum osmolality Ga as requested by poison control and followed [facility] via Valium IV protocol One-to-one observation for suicidal ideation. Continue trazodone, lamotrigine, divalproex Consult psychiatry Acute kidney injury/superimposed on CKD stage III- Creatinine 1.83 on admission, with base 1.15 IV fluids as above, recheck labs serially in the a.m. BPH with LUTS- Continue alfuzosin interchange to tamsulosin Gout- Continue allopurinol and colchicine Restrictive lung disease- Continue usual inhaler albuterol HFA 2 puffs every 4 hours as needed B12 deficiency- Continue supplement Admission and Anticipated Discharge Date Admission Date: October 10, 2025 History of Present Illness Primary Care Provider: Keith Dimas DO The patient is a 70-year-old male with a past medical history including suicidal ideation, alcohol abuse, atrial fibrillation with RVR, sleep disordered breathing, HFrEF, permanent A-fib, restrictive lung disease, CKD stage III, bipolar 2 disorder, chronic gout, Iniguez's neuroma of left foot, memory impairment, RLS, BPH with LUTS, and insomnia. He presents to the emergency department after he was found sitting on the floor, confused, and reportedly drank rubbing alcohol prior to arrival. A nearly empty bottle of rubbing alcohol was found next to him by EMS. EMS reports that at 1 point he was trying to strangle himself with the IV tubing line. He reportedly is from his son, and his son's birthday is coming up soon. His significant other tells me that he asked her if she was coming in to say goodbye to him, as he thought he was going to . The patient himself is not a good historian at this time, but does attempt to answer questions with his significant other present. He was given Zofran IV along with normal saline 450 cc en route by EMS. He was found to be in atrial fibrillation with RVR by the ED, and was started on a Cardizem bolus/drip per protocol. From the ED he also received normal saline 1 L, and diazepam 5 mg IV x 1. [facility] was then [facility]. Allergies Allergy/AdvReac Type Severity Reaction Status Date / Time meloxicam Allergy Severe Swollen Verified 09/14/25 13:26 tongue amitriptyline [From Elavil] Allergy Intermediate Hallucinati Verified 09/14/25 13:26 ons aripiprazole [From Abilify] Allergy Intermediate Tremors, Verified 09/14/25 13:2 6 balance issues, trouble controlling body movements hyoscyamine Allergy Intermediate Hallucinati Verified 09/14/25 13:26 [From Symax Duotab] ons venlafaxine [From Effexor] Allergy Intermediate Hallucinations Verified 09/14/25 13:26 and tremors zolpidem [From Ambien] Allergy Intermediate Hallucinati Verified 09/14/25 13:26 ons ciprofloxacin Allergy Mild Rash Verified 09/14/25 13:26 Penicillins Allergy Mild Rash Verified 09/14/25 13:26 adhesive tape AdvReac Mild rash, red Verified 09/14/25 13:26 skin Home Medications Medication Instructions Recorded Confirmed Type cetirizine 10 mg tablet 10 mg PO QAM PRN Allergy Symptoms 11/25/19 10/10/25 History vitamin B complex 1 tab PO QDL 12/06/21 10/10/25 History acetaminophen 500 mg capsule 1,000 mg (2 x 500 mg) PO TID Pain 03/18/22 10/10/25 Rx 30 days #180 caps cholecalciferol (vitamin D3) 25 5,000 unit PO QAM 01/31/23 10/10/25 History mcg (1,000 unit) capsule (Vitamin D3) mecobalamin (vitamin B12) 1,000 1,000 mcg PO QAM 01/31/23 10/10/25 History mcg chewable tablet testosterone 75 mg implant pellet 75 mg implant .COMPLEX 01/31/23 10/10/25 History vitamin A 2,400 mcg capsule 2,400 mcg PO QDL 01/31/23 10/10/25 History zinc gluconate 50 mg tablet 50 mg PO QDL 01/31/23 10/10/25 History albuterol sulfate 90 mcg/actuation 2 puff inhalation Q4H PRN 11/18/23 10/10/25 Rx aerosol inhaler SOB/WHEEZING #8.5 grams thiamine HCl (vitamin B1) 100 mg 100 mg PO BID 05/06/24 10/10/25 History tablet divalproex 500 mg tablet,extended 1,000 mg (2 x 500 mg) PO HS #180 10/25/24 10/10/25 Rx release 24 hr (Depakote ER) tabs walker #1 ea 10/25/24 09/14/25 Rx potassium chloride 20 mEq 20 meq PO DAILY #180 tabs 12/27/24 10/10/25 Rx tablet,extended release trazodone 100 mg tablet 200 mg (2 x 100 mg) PO HS #60 tabs 02/11/25 10/10/25 Rx apixaban 5 mg tablet (Eliquis) 5 mg PO BID #180 tabs 05/10/25 09/14/25 Rx lamotrigine 150 mg tablet 150 mg PO HS #30 tabs 07/01/25 10/10/25 Rx (Lamictal) allopurinol 300 mg tablet 300 mg PO QPM 07/21/25 10/10/25 History diclofenac sodium 1 % topical gel 2 g EXT QID #50 grams 07/25/25 10/10/25 Rx (Voltaren Arthritis Pain) lidocaine 5 % topical patch 1 patch transdermal QAM #15 ea 07/25/25 10/10/25 Rx diltiazem HCl 120 mg 120 mg PO QAM #90 caps 08/16/25 10/10/25 Rx capsule,extended release 12 hr magnesium chloride 64 mg 64 mg PO BID #180 tabs 08/16/25 10/10/25 Rx (magnesium chloride) tablet,delayed release (Mag 64) amiloride 5 mg tablet 5 mg PO QAM #90 tabs 08/29/25 10/10/25 Rx colchicine 0.6 mg tablet 0.6 mg PO BID #60 tabs 09/13/25 10/10/25 Rx alfuzosin 10 mg tablet,extended 10 mg PO QPM #90 tabs 09/14/25 10/10/25 Rx release 24 hr (Uroxatral) bumetanide 1 mg tablet 1 mg PO QAM #30 tabs 09/28/25 10/10/25 Rx digoxin 125 mcg (0.125 mg) tablet 125 mcg PO QPM 10/10/25 10/10/25 History oxycodone 5 mg tablet 5 mg PO Q8H PRN pain #90 tabs 10/10/25 10/10/25 Rx Past Med/Surg History Problem List (Updated 09/14/25 @ 13:32 by Keith Dimas, DO) Toxic effect of rubbing alcohol Elevated troponin (Acute) Acute kidney injury (Acute) Leukocytosis (Acute) Suicidal ideation (Acute) Alcohol abuse (Acute) Atrial fibrillation with rapid ventricular response (Acute) Elevated creatine kinase Left shoulder pain Nocturnal hypoxia on 4L oxygen HS Osteoarthritis of right knee Vitamin D deficiency Nightmares Chronic lumbar pain per pt since 2011 with spinal stenosis Sleep-disordered breathing Varicose veins of legs Heart failure with reduced ejection fraction Atrial fibrillation, permanent (Acute) Restrictive lung disease Heart failure with mid-range ejection fraction Chronic kidney disease with active medical management without dialysis, stage 3 (moderate) Hypertension Lumbar facet joint syndrome Bipolar 2 disorder Congestive heart failure EF 40-45% Nov 2021 ECHO (questionable tachycardia induced per cardio) Degenerative joint disease of left hip Myofascial pain Leg length discrepancy Ascending aorta dilatation 4.6 cm - no change from Nov [address] per 12/06/21 chest CTA Left ventricular dysfunction Degenerative joint disease, foot, left Foot pain, left Insomnia Chronic gout S/P insertion of spinal cord stimulator X 2 *ONLY 1 IS FUNCTIONING BUT NOT IN USE CURRENTLY (WILL BRING ALONG REMOTE AND INSTRUCTIONS TO SURGERY/PAT APT) Hypoxia Atelectasis Elevated hemidiaphragm left Dyspnea Iniguez's neuroma of left foot Cough Orthopnea Hypomagnesemia Elevated MCV Fatigue Hearing loss, bilateral Recurrent right knee instability Memory impairment Hypogonadism in male (Chronic) RLS (restless legs syndrome) HX OF BPH w urinary obs/LUTS Skin tag (Chronic) Medical marijuana use (Chronic) Spinal stenosis (Chronic) Hx of knee surgery RT KNEE SCOPE Medical History Right ankle pain Personal history of colonic polyps Pain in right anthony Metabolic alkalosis Inflammation of joint of right knee Hematoma of left buttock Fracture of proximal end of fibula Fall from standing Elevated troponin I level Contusion of face Clostridium difficile diarrhea Closed rib fracture Gout of right ankle Chest wall contusion Chest pain Atrial fibrillation with rapid ventricular response Asthma COLD WEATHER INDUCED>NO INHALER USED FOR A WHILE Breathing stable Alcohol intoxication Medicare annual wellness visit, subsequent Alcohol abuse COVID-19 Left ventricular dysfunction Dyspnea on exertion History of chest pain 2022--per pt resolved--follows with Dr. Artis Decreased diffusion capacity of lung "atelectasis"--in right lung per pt capacity is 50% On home oxygen therapy 4L via NC at HS History of alcohol abuse on naltrexone Acute kidney injury superimposed on CKD per pt was due to fall--per pt resolved Acute heart failure hx--does have congestive heart failure Hypokalemia Peripheral neuropathy Bilateral feet History of COVID-19 11/2021>TROUBLE BREATHING/CONGESTION>HOSPITAL AFTER DX FOR PULSE RATE *RESOLVED History of hypogonadism Surgical History (Updated 09/14/25 @ 13:32 by Keith Dimas DO) History of left hip replacement S/P insertion of spinal cord stimulator X 2 *ONLY 1 CURRENTLY, BUT NOT IN USE CURRENTLY (WILL BRING ALONG REMOTE) History of arthroscopy of right knee Hx of eye surgery 08-29-23 R orbital superior medial orbitotomy exploration and removal of glass fragments largest [address] Jose Murphy S/P total left hip arthroplasty 03-19-22 Dr August, [facility] H/O hand surgery LEFT Hx of vasectomy History of colonoscopy History of tonsillectomy Ute teeth removed History of cataract surgery RT/LEFT History of cholecystectomy Hx of hernia repair UMBILICAL HERNIA Family History (Updated 09/14/25 @ 14:07 by Keith Dimas DO) Mother Breast cancer Hypertension Sister Diabetes Thyroid cancer Father Myocardial infarction Bipolar 2 disorder Grandfather (Paternal) Myocardial infarction Mother Lung cancer Breast cancer in female Schizophrenia Other No family history of adverse response to anesthesia Denies family history of Ovarian cancer Prostate cancer Colorectal cancer Social History Smoking Status: Never smoker Second Hand Exposure: Yes (as a child. 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 Feels Safe at Home: Yes Safety Concerns: Feels Safe At This Time Childhood Exposure to Second-Hand Smoke: Yes Diet: regular Diet Comment: Optivia diet caffeine: Yes during the past year weight has: remained stable Dental Care, Regularly: Yes Physical Activity Frequency: 1-2 Times per Week Physical Activity Frequency Comment: CHF Seatbelt Use: always Sunscreen Use: No Do you think of yourself as: straight/heterosexual Sexual Activity: has been sexually active, but not for at least 12 months Gender Identity: Male Assistive Devices: Cane, Denture - Upper, Hearing Aid - Bilateral and Oxygen - at Night Review of Systems Review of Systems: HPI and ROS are limited due to patient's current mental state. Information is gathered from EMS records, i.e. emergency department records, and the patient's significant other who is in attendance in the ED. Physical Exam Physical Exam: The patient is awake, alert and oriented 3, tearful, normocephalic and atraumatic, lying in bed and in otherwise no acute distress. HEENT--PERRL, EOMI, mucous membranes and oropharynx mildly dry. Neck--supple. No JVD. No bruits. Thyroid normal, trachea midline, no adenopathy. Heart--normal S1 and S2. No murmurs, rubs or gallops. Lungs--clear bilaterally, no respiratory distress, no accessory muscle use. Abdomen--normal bowel sounds and soft. Nontender. Nondistended, no hernias or masses, no organomegaly. Extremities--no cyanosis or clubbing. No edema. There are good distal pulses b/l. Dermatologic--normal skin turgor, normal color, no abnormal lymph nodes, no rash. Neurologic--cranial nerves II through XII grossly intact. Rheumatologic--normal range of motion. Psychiatric--tearful Results & Data Results & Data Vital Signs (Past 12 Hours) Vital Signs Temp Pulse Pulse Resp BP BP Pulse Ox 10/11/25 00:30 126 H 10/11/25 00:02 36.7 C 115 H 20 121/85 95 10/10/25 23:52 129 H 10/10/25 23:40 37 C 126 H 20 120/85 97 10/10/25 23:04 99 H 20 101/84 95 10/10/25 22:04 112 H 10/10/25 21:53 117 H 20 118/89 94 10/10/25 21:00 131 H 22 137/98 94 10/10/25 20:00 112 H 20 116/90 93 10/10/25 19:24 127 H 26 H 128/87 93 10/10/25 18:46 111 H 16 93 10/10/25 18:46 10/10/25 18:45 106 H 15 93 10/10/25 18:45 122/95 10/10/25 18:45 122/95 10/10/25 18:45 122/95 10/10/25 18:45 122/95 10/10/25 18:42 115 H 20 95 10/10/25 18:33 92 10/10/25 18:31 128/97 10/10/25 18:31 128/97 10/10/25 18:31 128/97 10/10/25 18:31 128/97 10/10/25 18:31 128/97 10/10/25 18:27 156 H 21 10/10/25 18:24 165 H 10/10/25 18:21 160 H 25 H 10/10/25 18:19 164 H 22 128/97 91 10/10/25 18:18 157 H 21 10/10/25 18:12 125/103 H O2 Del Method O2 Flow Rate 10/11/25 00:30 10/11/25 00:02 Nasal Cannula 4 10/10/25 23:52 10/10/25 23:40 Nasal Cannula 4 10/10/25 23:04 Nasal Cannula 2 10/10/25 22:04 10/10/25 21:53 Nasal Cannula 2 10/10/25 21:00 Nasal Cannula 2 10/10/25 20:00 Nasal Cannula 2 10/10/25 19:24 Nasal Cannula 2 10/10/25 18:46 Nasal Cannula 2 10/10/25 18:46 Nasal Cannula 2 10/10/25 18:45 10/10/25 18:45 10/10/25 18:45 10/10/25 18:45 10/10/25 18:45 10/10/25 18:42 10/10/25 18:33 10/10/25 18:31 10/10/25 18:31 10/10/25 18:31 10/10/25 18:31 10/10/25 18:31 10/10/25 18:27 10/10/25 18:24 10/10/25 18:21 10/10/25 18:19 Room Air 10/10/25 18:18 10/10/25 18:12 Laboratory Results Laboratory Results WBC 11.01 K/ul (4.8-10.8) H 10/10/25 18:13 RBC 4.67 M/uL (4.70-6.10) L 10/10/25 18:13 Hgb 16.0 g/dL (14.0-18.0) 10/10/25 18:13 Hct 45.1 % (42.0-52.0) 10/10/25 18:13 MCV 96.6 fL (80.0-100.0) 10/10/25 18:13 MCH 34.3 pg (25.0-34.0) H 10/10/25 18:13 MCHC 35.5 g/dL (32.0-36.0) 10/10/25 18:13 RDW Std Deviation 54.5 fL (36.4-46.3) H 10/10/25 18:13 RDW Coeff of Daniel 15.8 % (11.5-14.5) H 10/10/25 18:13 Plt Count 147 K/uL (130-400) 10/10/25 18:13 MPV 9.7 fL (9.4-12.4) 10/10/25 18:13 Immature Gran % (Auto) 0.6 % 10/10/25 18:13 Neut % (Auto) 70.2 % 10/10/25 18:13 Lymph % (Auto) 21.0 % 10/10/25 18:13 Holmes % (Auto) 7.7 % 10/10/25 18:13 Eos % (Auto) 0.0 % 10/10/25 18:13 Baso % (Auto) 0.5 % 10/10/25 18:13 Neut # (Auto) 7.73 K/uL (1.40-6.50) H 10/10/25 18:13 Lymph # (Auto) 2.31 K/uL (1.20-3.40) 10/10/25 18:13 Holmes # (Auto) 0.85 K/uL (0.11-0.59) H 10/10/25 18:13 Eos # (Auto) 0.00 K/uL (0.00-0.50) 10/10/25 18:13 Baso # (Auto) 0.05 K/uL (0.00-0.20) 10/10/25 18:13 Immature Gran # (Auto) 0.07 K/uL (0.01-0.20) 10/10/25 18:13 PT 11.3 Seconds (9.0-12.0) 10/10/25 18:13 INR 1.1 (0.9-1.1) 10/10/25 18:13 APTT 25 Seconds (21-31) 10/10/25 18:13 PTT Ratio 0.9 10/10/25 18:13 Sodium 137 mmol/L (136-145) 10/11/25 03:16 Potassium 4.2 mmol/L (3.5-5.1) 10/11/25 03:16 Chloride 102 mmol/L (98-107) 10/11/25 03:16 Carbon Dioxide 27 mmol/L (21-32) 10/11/25 03:16 Anion Gap 8 (3-11) 10/11/25 03:16 BUN 13 mg/dl (6-23) 10/11/25 03:16 Creatinine 1.52 mg/dl (0.6-1.4) H 10/11/25 03:16 Est Cr Clr Drug Dosing 54.7 ml/min 10/11/25 03:16 eGFR 48.69 10/11/25 03:16 BUN/Creatinine Ratio 8.6 (10-20) L 10/11/25 03:16 Glucose 121 mg/dl (70-99(Fasting)) H 10/11/25 03:16 Osmolality 335 mOsm/kg (280-300) H 10/11/25 03:16 Lactate 2.2 mmol/L (0.4-2.0) H* 10/10/25 23:09 Calcium 8.2 mg/dl (8.6-10.3) L 10/11/25 03:16 Magnesium 1.7 mg/dl (1.7-2.4) 10/10/25 18:13 Total Bilirubin 0.7 mg/dl (0.2-1.0) 10/10/25 18:13 AST 26 U/L (13-39) 10/10/25 18:13 ALT 17 U/L (7-52) 10/10/25 18:13 Alkaline Phosphatase 73 U/L (34-104) 10/10/25 18:13 Total Creatine Kinase 175 U/L (30-223) 10/10/25 18:13 Troponin I High Sens 24.5 pg/ml (0-20) H 10/10/25 20:11 Total Protein 6.8 gm/dl (6.0-8.3) 10/10/25 18:13 Albumin 4.0 gm/dl (3.4-5.0) 10/10/25 18:13 Globulin 2.8 gm/dl (2.5-4.0) 10/10/25 18:13 Albumin/Globulin Ratio 1.4 (0.9-2) 10/10/25 18:13 TSH 1.120 uIu/ml (0.300-4.500) 10/10/25 18:13 Urine Color Dark Yellow 10/11/25 01:00 Urine Appearance Clear (Clear) 10/11/25 01:00 Urine pH 5.5 (4.5-7.5) 10/11/25 01:00 Ur Specific Pearce 1.019 (1.000-1.030) 10/11/25 01:00 Urine Protein Negative (Negative) 10/11/25 01:00 Urine Glucose (UA) Negative (Negative) 10/11/25 01:00 Urine Ketones Trace (Negative) H 10/11/25 01:00 Urine Blood Negative (Negative) 10/11/25 01:00 Urine Nitrite Negative (Negative) 10/11/25 01:00 Urine Bilirubin Negative (Negative) 10/11/25 01:00 Urine Urobilinogen Negative (Negative) 10/11/25 01:00 Ur Leukocyte Esterase Trace (Negative) H 10/11/25 01:00 Urine WBC (Auto) 0-5 /hpf (0-5) 10/11/25 01:00 Urine RBC (Auto) 0-2 /hpf (0-2) 10/11/25 01:00 U Hyaline Cast (Auto) 6-10 /lpf (0-2) H 10/11/25 01:00 U Epithel Cells (Auto) 0-2 /hpf (0-2) 10/11/25 01:00 Urine Bacteria (Auto) None Seen (None Seen) 10/11/25 01:00 Urine Osmolality 432 mOsm/kg (500-800) L 10/11/25 01:00 Urine Comment 10/11/25 01:00 Digoxin 0.9 ng/ml (0.8-2.0) 10/10/25 18:13 Salicylates < 3.0 mg/dl (3.0-30) L 10/10/25 18:13 Urine Opiates Screen Neg (Neg) 10/11/25 01:00 Ur Methadone, Qual Neg (Neg) 10/11/25 01:00 Urine Fentanyl Screen Neg (Neg) 10/11/25 01:00 Acetaminophen 7 ug/ml (10-30) L 10/10/25 18:13 Urine Barbiturates Neg (Neg) 10/11/25 01:00 Valproic Acid 46 mcg/ml (50-100) L 10/10/25 18:13 Ur Phencyclidine (PCP) Neg (Neg) 10/11/25 01:00 U Amphetamin/Meth Scrn Neg (Neg) 10/11/25 01:00 MDMA (Ecstasy) Screen Pos (Neg) H 10/11/25 01:00 U Benzodiazepines Scrn Neg (Neg) 10/11/25 01:00 Ur Cocaine Metabolite Neg (Neg) 10/11/25 01:00 U Marijuana (THC) Screen Neg (Neg) 10/11/25 01:00 Ethyl Alcohol mg/dL < 10.0 mg/dl (<10.0) 10/10/25 18:[address] 10/10/25 18:16 CT of cervical spine without contrast Technique: Noncontrast axial images cervical spine. Coronal and sagittal reformatted images made available for review No comparison Findings: No acute fractures or dislocations. Multilevel cervical spondylopathy resulting in varying degrees of canal foraminal stenosis most severe at the C3-C4 level. Impression: Multilevel cervical spondylopathy without evidence of acute osseous pathology. Electronically signed by Charlie Morton 10-10-2025 8:[address] 10/10/25 18:16 CT of the head without contrast Technique: Noncontrast axial images of the head. Coronal and sagittal reformatted images made available for review Comparison made to prior exam dated 07/24/2024 Findings: No acute intracranial hemorrhage. No acute transcortical infarct. No midline shift. Ventricles, sulci, cisterns within normal limits.Bone windows demonstrate no focal abnormality Impression: Head CT negative for acute intracranial abnormality. Electronically signed by Charlie Morton 10-10-2025 8:19 PM Chest X-Ray 10/10/25 18:18 EXAM: Portable AP chest radiograph TECHNIQUE: AP portable radiograph of the chest was obtained. INDICATION: Shortness of breath Comparison: Chest radiograph July 21, 2025 FINDINGS: LINES and TUBES: None CARDIOVASCULAR: Cardiac silhouette is stable enlarged in size. LUNGS/PLEURA: Mild pulmonary vascular congestion and chronic intra lung changes appear similar to the previous radiograph. Left basilar atelectasis. No focal consolidation identified. No significant pleural fluid. No discernible pneumothorax. OSSEOUS/OTHER: No displaced acute osseous process identified. Unchanged elevation of the left hemidiaphragm. IMPRESSION: No radiographic evidence of acute cardiopulmonary process with no signal change in appearance of the chest compared to the previous radiograph dated 07/21/2025. Electronically signed by Drew Pineda 10-10-2025 8:24 PM Code Status & VTE Plan Code Status Full code PG Care Time/CCT Total # of Minutes Spent Total Time Spent with Patient: Total time spent is greater than 50% in coordination of care (as documented) at patient's floor/unit and/or counseling patient: Coding Level of Care Code 76468 INT INP/OBS CARE 3/75MIN Diagnoses Atrial fibrillation with rapid ventricular response I48.91 Acute kidney injury N17.9 Suicidal ideation R45.851 Alcohol abuse F10.10
[2025-10-11 01:43] LABS: Amphetamines+Metham, Urine Neg (Neg); MDMA (Ecstacy), Urine Pos (Neg); Marijuana, Urine Neg (Neg)
[2025-10-11] MEDS: APIXABAN 5 MG TABLET PO SCH (02:23)
[2025-10-11 03:47] LABS: Anion Gap 8.0 (3-11); Blood Urea Nitrogen 13.0 mg/dl (6-23); Calcium 8.2 mg/dl (8.6-10.3); Carbon Dioxide 27.0 mmol/L (21-32); Chloride 102.0 mmol/L (98-107); Creatinine Clr Calc Pharmacy 54.7 ml/min; Glucose 121.0 mg/dl (70-99(Fasting)); Potassium 4.2 mmol/L (3.5-5.1); Sodium 137.0 mmol/L (136-145)
[2025-10-11] MEDS: ACETAMINOPHEN 500 MG TAB PO ONE (05:00)
[2025-10-11 07:23] LABS: Hematocrit (blood only) 39.3 % (42.0-52.0); Hemoglobin 13.7 g/dL (14.0-18.0); Immature Granulocytes # (auto) 0.04 K/uL (0.01-0.20); Immature Granulocytes % (auto) 0.5 %; Mean Corpuscular Hemoglobin 33.8 pg (25.0-34.0); Mean Corpuscular Volume 97.0 fL (80.0-100.0); Platelet Count 116 K/uL (130-400); RDW Standard Deviation 55.5 fL (36.4-46.3); Red Blood Count 4.05 M/uL (4.70-6.10); White Blood Count 8.16 K/ul (4.8-10.8)
[2025-10-11 07:47] LABS: Anion Gap 6.0 (3-11); Blood Urea Nitrogen 11.0 mg/dl (6-23); Calcium 8.2 mg/dl (8.6-10.3); Carbon Dioxide 29.0 mmol/L (21-32); Chloride 103.0 mmol/L (98-107); Creatinine Clr Calc Pharmacy 60.3 ml/min; Glucose 103.0 mg/dl (70-99(Fasting)); Magnesium 1.9 mg/dl (1.7-2.4); Potassium 4.2 mmol/L (3.5-5.1); Sodium 138.0 mmol/L (136-145)
[2025-10-11] MEDS: POTASSIUM CHLORIDE CRTAB 20 MEQ TABCR PO SCH (09:09)
[2025-10-11] MEDS: ACETAMINOPHEN 500 MG TAB PO SCH (09:09)
[2025-10-11] MEDS: THIAMINE HCL 100 MG TAB PO SCH (09:10)
[2025-10-11] MEDS: CYANOCOBALAMIN (B-12) 500 MCG TABLET PO SCH (09:10)
[2025-10-11 11:48] LABS: Anion Gap 6.0 (3-11); Blood Urea Nitrogen 11.0 mg/dl (6-23); Calcium 8.3 mg/dl (8.6-10.3); Carbon Dioxide 28.0 mmol/L (21-32); Chloride 104.0 mmol/L (98-107); Creatinine Clr Calc Pharmacy 58.6 ml/min; Glucose 101.0 mg/dl (70-99(Fasting)); Potassium 4.3 mmol/L (3.5-5.1); Sodium 138.0 mmol/L (136-145)
--- NOTE | 2025-10-11 12:44 | Psychiatric Consultation ---
Date of Consultation October 11, 2025 Impression / Recommendations Impression Diagnostically consistent with alcohol use disorder as well as unspecified depression likely substance-induced depression as well as possible adjustment disorder with depressed mood due to strained relationship with his son. His use of rubbing alcohol to cope with alcohol use and limited access fits with chart review notable for use of mouthwash in the past for similar effects. No reason to suspect his ingestion was a suicide attempt at this point. Suspect his attempt of using the IV tubing was due to acute disinhibition, potentially driven by depression or regret of his actions of consuming rubbing alcohol, and this fits with his lack of memory of these events. Acute risk of self-harm is low given denial of SI and no longer with intoxication and no prior attempts and denies current major depressive symptoms with strong deterrent/reason for living of his and dog. Chronic risk of self-harm and harm to others is moderate and slightly increased due to hx of bipolar disorder type II and substance use with substance use treatment being the most significant modifiable risk factor to reduce acute and chronic risk. They do not meet criteria for involuntary inpatient psychiatric treatment at this time as behaviors were in the context of acute intoxication and he is now denying SI. Recommendation is for dual diagnosis or residential substance use treatment. They are not interested in residential treatment at this time but are agreeable to considering outpatient services to help with substance use and medication assisted treatment. Overall, I spent a total of 60 minutes with this case including review of chart records, review of labwork, review of EKG QTc, direct evaluation of the patient at bedside, counseling the patient, discussion of the patient with the Nurse and with the hospitalist provider, discussion with the psychiatric liason during clinical rounds and documentation in the electronic health record. (1) Alcohol use disorder, moderate, dependence: (2) Bipolar 2 disorder: (3) Depression: Plan -Doesn't require 1-on-1 or safety precautions, if he asks to leave please call psych liason as possible 302 criteria would be present if family collateral presents evidence of any recent concerning symptoms or differs from his account -Psych liaison to attempt further collateral from his to determine if any additional safety concerns or differing account -Psychiatric liason and CM can provide resources on local mental health services and substance use services and attempt to set them up with outpatient services like [place] or [facility] -Continue AWSS as well as thiamine and folic acid -Medications: * continue Depakote, Lamictal and trazodone prn * consider starting acamprosate 333mg TID (increase after 1 week to 666mg TID if tolerated) in outpatient setting since he cannot be on naltrexone (not available on hospital formulary so would need to start after discharge) * in the future could consider one of these off-label medications for alcohol use disorder as harm reduction strategy if needed: * gabapentin 300mg TID (titrate up to 900mg TID) * topiramate 25mg BID (for one week, then increase to 50mg BID and titrate up to 200mg BID as needed) * baclofen 5mg TID (titrate up to 30mg daily) Psych History Identifying Data 70-year-old male with a past medical history including alcohol use disorder, atrial fibrillation with RVR, sleep disordered breathing, HFrEF, permanent A- fib, restrictive lung disease, CKD stage III, bipolar 2 disorder, chronic gout, Iniguez's neuroma of left foot, memory impairment, RLS, BPH with LUTS, and insomnia. Psychiatry consulted for suicidal ideation. Chief Complaint "What, I had no idea I did that". History of Present Illness Tom was admitted medically after drinking a bottle of rubbing alcohol and then when EMS arrived to his home he attempted to strangle himself with the IV tubing line they were using. Collateral information from the ED and hospitalist admission note describes potential recent stressor being from his son and his son's birthday coming up soon and that he reportedly told his that he believed he was going to and wondered if she was coming to say goodbye to him. It seems this statement was said well until he was intoxicated but the context in which this was said from the collateral documentation is unclear. Today Tom is alert and oriented x 4. Asked why he's here at the hospital he states "I'm afraid I do know, I'm here because I was drinking". He had absolutely no recollection of attempting to use IV tubing to strangle himself and is shocked to hear he tried to do this. He adamantly denies any suicidal ideation. Additionally he denies any history of prior suicide attempts. He does endorse some depression related to struggling to stop drinking but denies any current hopelessness nor anhedonia. He feels his psychiatric medications are stable and has been adherent with them. States he was not drinking the rubbing alcohol as a suicide attempt but rather "I was going through alcohol withdrawal and it was the only thing in the house I could get my hands on". States he had gone about 24 hours without a drink when he started to feel significant craving and withdrawal side effects and so drank the rubbing alcohol. Chart history per previous PCP notes document he has consumed mouthwash in the past while experiencing withdrawal symptoms when no alcohol was in the home. Reports that he has been drinking more recently and this has been a lifelong struggle. He has gone months and years in the past with sobriety. States he has been to residential substance use treatment many times doing week long 30- day and year-long programs. He does not feel this is needed currently as he never found those programs that helpful. He notes "the only thing that works is a change of heart". He does feel he is at the point where he has had this change of heart to want to stop drinking and cites his age is part of the reason that he abuse ongoing drinking is not sustainable and especially problematic. He has guns at home which he reports are for self protection, he denies that he would ever want to use these to harm himself. History of AAN naltrexone in the past. 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 Allergies Allergy/AdvReac Type Severity Reaction Status Date / Time meloxicam Allergy Severe Swollen Verified 09/14/25 13:26 tongue amitriptyline [From Elavil] Allergy Intermediate Hallucinati Verified 09/14/25 13:26 ons aripiprazole [From Abilify] Allergy Intermediate Tremors, Verified 09/14/25 13:26 balance issues, trouble controlling body movements hyoscyamine Allergy Intermediate Hallucinati Verified 09/14/25 13:26 [From Symax Duotab] ons venlafaxine [From Effexor] Allergy Intermediate Hallucinations Verified 09/14/25 13:26 and tremors zolpidem [From Ambien] Allergy Intermediate Hallucinati Verified 09/14/25 13:26 ons ciprofloxacin Allergy Mild Rash Verified 09/14/25 13:26 Penicillins Allergy Mild Rash Verified 09/14/25 13:26 adhesive tape AdvReac Mild rash, red Verified 09/14/25 13:26 skin Home Medications Medication Instructions Recorded Confirmed Type cetirizine 10 mg tablet 10 mg PO QAM PRN Allergy Symptoms 11/25/19 10/10/25 History vitamin B complex 1 tab PO QDL 12/06/21 10/10/25 History acetaminophen 500 mg capsule 1,000 mg (2 x 500 mg) PO TID Pain 03/18/22 10/10/25 Rx 30 days #180 caps cholecalciferol (vitamin D3) 25 5,000 unit PO QAM 01/31/23 10/10/25 History mcg (1,000 unit) capsule (Vitamin D3) mecobalamin (vitamin B12) 1,000 1,000 mcg PO QAM 01/31/23 10/10/25 History mcg chewable tablet testosterone 75 mg implant pellet 75 mg implant .COMPLEX 01/31/23 10/10/25 History vitamin A 2,400 mcg capsule 2,400 mcg PO QDL 01/31/23 10/10/25 History zinc gluconate 50 mg tablet 50 mg PO QDL 01/31/23 10/10/25 History albuterol sulfate 90 mcg/actuation 2 puff inhalation Q4H PRN 11/18/23 10/10/25 Rx aerosol inhaler SOB/WHEEZING #8.5 grams thiamine HCl (vitamin B1) 100 mg 100 mg PO BID 05/06/24 10/10/25 History tablet divalproex 500 mg tablet,extended 1,000 mg (2 x 500 mg) PO HS #180 10/25/24 10/10/25 Rx release 24 hr (Depakote ER) tabs walker #1 ea 10/25/24 09/14/25 Rx potassium chloride 20 mEq 20 meq PO DAILY #180 tabs 12/27/24 10/10/25 Rx tablet,extended release trazodone 100 mg tablet 200 mg (2 x 100 mg) PO HS #60 tabs 02/11/25 10/10/25 Rx apixaban 5 mg tablet (Eliquis) 5 mg PO BID #180 tabs 05/10/25 09/14/25 Rx lamotrigine 150 mg tablet 150 mg PO HS #30 tabs 07/01/25 10/10/25 Rx (Lamictal) allopurinol 300 mg tablet 300 mg PO QPM 07/21/25 10/10/25 History diclofenac sodium 1 % topical gel 2 g EXT QID #50 grams 07/25/25 10/10/25 Rx (Voltaren Arthritis Pain) lidocaine 5 % topical patch 1 patch transdermal QAM #15 ea 07/25/25 10/10/25 Rx diltiazem HCl 120 mg 120 mg PO QAM #90 caps 08/16/25 10/10/25 Rx capsule,extended release 12 hr magnesium chloride 64 mg 64 mg PO BID #180 tabs 08/16/25 10/10/25 Rx (magnesium chloride) tablet,delayed release (Mag 64) amiloride 5 mg tablet 5 mg PO QAM #90 tabs 08/29/25 10/10/25 Rx colchicine 0.6 mg tablet 0.6 mg PO BID #60 tabs 09/13/25 10/10/25 Rx alfuzosin 10 mg tablet,extended 10 mg PO QPM #90 tabs 09/14/25 10/10/25 Rx release 24 hr (Uroxatral) bumetanide 1 mg tablet 1 mg PO QAM #30 tabs 09/28/25 10/10/25 Rx digoxin 125 mcg (0.125 mg) tablet 125 mcg PO QPM 10/10/25 10/10/25 History oxycodone 5 mg tablet 5 mg PO Q8H PRN pain #90 tabs 10/10/25 10/10/25 Rx Patient History Medical History Right ankle pain Personal history of colonic polyps Pain in right anthony Metabolic alkalosis Inflammation of joint of right knee Hematoma of left buttock Fracture of proximal end of fibula Fall from standing Elevated troponin I level Contusion of face Clostridium difficile diarrhea Closed rib fracture Gout of right ankle Chest wall contusion Chest pain Atrial fibrillation with rapid ventricular response Asthma COLD WEATHER INDUCED>NO INHALER USED FOR A WHILE Breathing stable Alcohol intoxication Medicare annual wellness visit, subsequent Alcohol abuse COVID-19 Left ventricular dysfunction Dyspnea on exertion History of chest pain 2022--per pt resolved--follows with Dr. Artis Decreased diffusion capacity of lung "atelectasis"--in right lung per pt capacity is 50% On home oxygen therapy 4L via NC at HS History of alcohol abuse on naltrexone Acute kidney injury superimposed on CKD per pt was due to fall--per pt resolved Acute heart failure hx--does have congestive heart failure Hypokalemia Peripheral neuropathy Bilateral feet History of COVID-19 11/2021>TROUBLE BREATHING/CONGESTION>HOSPITAL AFTER DX FOR PULSE RATE *RESOLVED History of hypogonadism Surgical History (Updated 09/14/25 @ 13:32 by Keith Dimas DO) History of left hip replacement S/P insertion of spinal cord stimulator X 2 *ONLY 1 CURRENTLY, BUT NOT IN USE CURRENTLY (WILL BRING ALONG REMOTE) History of arthroscopy of right knee Hx of eye surgery 08-29-23 R orbital superior medial orbitotomy exploration and removal of glass fragments largest [address] Jose Murphy S/P total left hip arthroplasty 03-19-22 Dr August, [facility] H/O hand surgery LEFT Hx of vasectomy History of colonoscopy History of tonsillectomy [place] teeth removed History of cataract surgery RT/LEFT History of cholecystectomy Hx of hernia repair UMBILICAL HERNIA Family History (Updated 09/14/25 @ 14:07 by Keith Dimas DO) Mother Breast cancer Hypertension Sister Diabetes Thyroid cancer Father Myocardial infarction Bipolar 2 disorder Grandfather (Paternal) Myocardial infarction Mother Lung cancer Breast cancer in female Schizophrenia Other No family history of adverse response to anesthesia Denies family history of Ovarian cancer Prostate cancer Colorectal cancer Social History Smoking Status: Never smoker Second Hand Exposure: Yes (as a child. 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 Feels Safe at Home: Yes Safety Concerns: Feels Safe At This Time Childhood Exposure to Second-Hand Smoke: Yes Diet: regular Diet Comment: Optivia diet caffeine: Yes during the past year weight has: remained stable Dental Care, Regularly: Yes Physical Activity Frequency: 1-2 Times per Week Physical Activity Frequency Comment: CHF Seatbelt Use: always Sunscreen Use: No Do you think of yourself as: straight/heterosexual Sexual Activity: has been sexually active, but not for at least 12 months Gender Identity: Male Assistive Devices: Cane, Oxygen - Continuous, Walker and Other Physical Exam Psychiatric: Orientation: alert and oriented x 3 Apperance: appropriately dressed and appropriately groomed Eye Contact: good eye contact Motor Behavior: no abnormal motor movements Speech: normal rate/rhythm/volume of speech Affect: euthymic affect Mood: + depressed mood (he attributes to alcohol use); no anxious mood Thought Process: linear/logical thought process Thought Content: reality based without delusions Suicidal Thoughts: denies suicidal thoughts Homicidal Thoughts: denies homicidal thoughts Hallucinations: no auditory hallucinations and no visual hallucinations Cogni tion: recent memory grossly intact, remote memory grossly intact, attention grossly intact and language grossly intact Estimated Intelligence: consistent with education level Insight: + fair insight Judgment: + fair judgement Vital Signs (Past 24 Hours): Last Vital Signs Temp 36.7 C 10/11/25 10:20 Pulse 124 H 10/11/25 10:20 Resp 19 10/11/25 10:20 BP 105/77 10/11/25 10:20 Pulse Ox 94 10/11/25 10:20 O2 Del Method Nasal Cannula 10/11/25 10:20 O2 Flow Rate 4 10/11/25 10:20 Results & Data (PSY) Medications Administered Acetaminophen (Acetaminophen 500 Mg Tab) 1,000 mg PO TID [facility] Stop: 11/10/25 08:59 Last Admin: 10/11/25 09:09 Dose: 1,000 mg Documented By: DTT Apixaban (Apixaban 5 Mg Tablet) 5 mg PO BID [facility] Stop: 11/09/25 23:44 Last Admin: 10/11/25 09:10 Dose: 5 mg Documented By: Admin: 10/11/25 02:23 Dose: 5 mg Documented By: SJM Cyanocobalamin (Cyanocobalamin (B-12) 500 Mcg Tablet) 1,000 mcg PO QAM [facility]AU[facility] Stop: 11/10/25 08:59 Last Admin: 10/11/25 09:10 Dose: 1,000 mcg Documented By: DTT Diazepam (Diazepam Inj 5 Mg/Ml 2 Ml Carp) 20 mg IV ONCE PRN; Protocol PRN Reason: AWSS 10 & Above (Sx Triggered) Stop: 11/09/25 23:39 Last Admin: 10/11/25 00:42 Dose: 20 mg Documented By: SJM Diazepam (Diazepam Inj 5 Mg/Ml 2 Ml Carp) 10 mg IV UD PRN; Protocol PRN Reason: AWSS 8,9 (Sx Triggered) Stop: 11/09/25 23:39 Last Admin: 10/11/25 10:29 Dose: 10 mg Documented By: DTT Diltiazem HCl (Diltiazem Hcl 120 Mg Capcr) 120 mg PO QAM [facility]AU[facility] Stop: 11/10/25 08:59 Last Admin: 10/11/25 09:09 Dose: 120 mg Documented By: DTT Lactated Ringer's (Lr) 1,000 mls @ 110 mls/hr IV .Q9H6M [facility] Stop: 10/13/25 21:44 Last Admin: 10/11/25 09:10 Dose: 110 mls/hr Documented By: Infusion: 10/11/25 09:10 Dose: Infused Documented By: Admin: 10/11/25 01:27 Dose: 110 mls/hr Documented By: MANAGER [employer] Oxycodone HCl (Oxycodone Hcl Ir 5 Mg Tab (Immediate Release)) 5 mg PO Q8H PRN PRN Reason: pain Stop: 10/24/25 23:39 Last Admin: 10/11/25 09:16 Dose: 5 mg Documented By: DTT Potassium Chloride (Potassium Chloride Crtab 20 Meq Tabcr) 20 meq PO DAILY [facility] Stop: 11/10/25 08:59 Last Admin: 10/11/25 09:09 Dose: 20 meq Documented By: DTT Thiamine HCl (Thiamine Hcl 100 Mg Tab) 100 mg PO BID [facility] Stop: 11/10/25 08:59 Last Admin: 10/11/25 09:10 Dose: 100 mg Documented By: DTT Coding Level of Care Code 30125 IN/OBS CONSULT LVL 4,60M Diagnoses Alcohol use disorder, moderate, dependence F10.20 Bipolar 2 disorder F31.81 Depression F32.A
--- NOTE | 2025-10-11 12:59 | Electrocardiogram Report ---
Test Reason : Blood Pressure : */* mmHG Vent. Rate : 165 BPM Atrial Rate : * BPM P-R Int : * ms QRS Dur : 100 ms QT Int : 284 ms P-R-T Axes : * 48 240 degrees QTcB Int : 470 ms Atrial fibrillation with rapid ventricular response Abnormal ECG When compared with ECG of 25-Jul-2025 09:26, Vent. rate has increased by 71 bpm Confirmed by Christofer Harris ([id number]) on 10/11/2025 12:59:10 PM Referred By: Confirmed By: Christofer Harris
[2025-10-11] MEDS: DIGOXIN 0.125 MG TAB PO SCH (14:57)
[2025-10-11 16:25] LABS: Anion Gap 7.0 (3-11); Blood Urea Nitrogen 10.0 mg/dl (6-23); Calcium 8.5 mg/dl (8.6-10.3); Carbon Dioxide 28.0 mmol/L (21-32); Chloride 104.0 mmol/L (98-107); Creatinine Clr Calc Pharmacy 64.0 ml/min; Glucose 100.0 mg/dl (70-99(Fasting)); Potassium 4.1 mmol/L (3.5-5.1); Sodium 139.0 mmol/L (136-145)
[2025-10-11] MEDS: DIVALPROEX EXTENDED RELEASE 500 MG TAB PO SCH (19:51)
[2025-10-11] MEDS: lamoTRIgine 100 MG TAB PO SCH (19:52)
[2025-10-11] MEDS: TAMSULOSIN HCL 0.4 MG CAP PO SCH (19:53)
--- NOTE | 2025-10-11 22:27 | Hospitalist Progress Note ---
Date of Service October 11, 2025 Assessment & Plan (1) Atrial fibrillation with rapid ventricular response: (2) Acute kidney injury: (3) Suicidal ideation: (4) Alcohol abuse: Plan The patient is a 70-year-old male with a past medical history including suicidal ideation, alcohol abuse, atrial fibrillation with RVR, sleep disordered breathing, HFrEF, permanent A-fib, restrictive lung disease, CKD stage III, bipolar 2 disorder, chronic gout, Iniguez's neuroma of left foot, memory impairment, RLS, BPH with LUTS, and insomnia. He presents to the emergency department after he was found sitting on the floor, confused, and reportedly drank rubbing alcohol prior to arrival. A nearly empty bottle of rubbing alcohol was found next to him by EMS. EMS reports that at 1 point he was trying to strangle himself with the IV tubing line. He reportedly is from his son, and his son's birthday is coming up soon. His significant other tells me that he asked her if she was coming in to say goodbye to him, as he thought he was going to . The patient himself is not a good historian at this time, but does attempt to answer questions with his significant other present. He was given Zofran IV along with normal saline 450 cc en route by EMS. He was found to be in atrial fibrillation with RVR by the ED, and was started on a Cardizem bolus/drip per protocol. From the ED he also received normal saline 1 L, and diazepam 5 mg IV x 1. CT scan of head and CT scan cervical spine without acute findings, both were ordered due to patient being found on the floor, and unknown known if he had fallen or not. [facility]. Atrial fibrillation with rapid ventricular response/elevated troponin/history of HFrEF- The patient will be admitted to telemetry for serial cardiac enzymes, serial EKG's, cardiac rhythm monitoring and a 2-D echocardiogram with Dopplers. Initial troponin 24.5, follow-up as noted Diltiazem bolus/drip began in the ED, and will continue per protocol Optimize magnesium 1.7 with 2 g of mag sulfate IV Serial CBC with differential, BMP and magnesium levels Patient received normal saline 500 mL boluses x 2 from the ED. Give additional 1 L normal saline bolus now, then LR at 110 mL/h. Continue digoxin 100 mcg p.o. every evening, apixaban Hold bumetanide, amiloride, potassium chloride resumed diltiazem extended release 120 mg p.o. every morning HR better controled, likely exacerbated by alcohol abuse. Alcohol abuse/ingestion of rubbing alcohol/suicide attempt/suicidal ideation- Initial anion gap of 11. Serum osmolality Ga as requested by poison control and followed AWSS via Valium IV protocol One-to-one observation for suicidal ideation. Continue trazodone, lamotrigine, divalproex Consult psychiatry: cleared, remove one to one. Acute kidney injury/superimposed on CKD stage III- Creatinine 1.83 on admission, with base 1.15 IV fluids as above, renal function improved. BPH with LUTS- Continue alfuzosin interchange to tamsulosin Gout- Continue allopurinol and colchicine Restrictive lung disease- Continue usual inhaler albuterol HFA 2 puffs every 4 hours as needed B12 deficiency- Continue supplement Admission and Anticipated Discharge Date Admission Date: October 10, 2025 Subjective 70 yo male reports no new symptoms. Resting comfortably Physical Exam Physical Exam: The patient is awake, alert and oriented 3 HEENT--PERRL, EOMI Neck--supple. No JVD. No bruits. Thyroid normal, trachea midline, no adenopathy. Heart--normal S1 and S2. No murmurs, rubs or gallops. Lungs--clear bilaterally, no respiratory distress, no accessory muscle use. Abdomen--normal bowel sounds and soft. Nontender. Nondistended, no hernias or masses, no organomegaly. Extremities--no cyanosis or clubbing. No edema. There are good distal pulses b/l. Psychiatric--tearful Results & Data Results & Data Vital Signs (Past 12 Hours) Vital Signs Temp Pulse Pulse Pulse Resp BP Pulse Ox 10/11/25 19:11 36.7 C 103 H 18 136/76 95 10/11/25 14:57 121 H 10/11/25 14:50 36.5 C 142 H 20 136/87 O2 Del Method 10/11/25 19:11 Room Air 10/11/25 14:57 10/11/25 14:50 Room Air PG Care Time/CCT Total # of Minutes Spent Total Time Spent with Patient: Total time spent is greater than 50% in coordination of care (as documented) at patient's floor/unit and/or counseling patient: Coding Level of Care Code 27140 SUB INP/OBS CARE 50MIN Diagnoses Atrial fibrillation with rapid ventricular response I48.91 Acute kidney injury N17.9 Suicidal ideation R45.851 Alcohol abuse F10.10
[2025-10-12 06:39] LABS: Hematocrit (blood only) 38.7 % (42.0-52.0); Hemoglobin 13.4 g/dL (14.0-18.0); Immature Granulocytes # (auto) 0.06 K/uL (0.01-0.20); Immature Granulocytes % (auto) 0.7 %; Mean Corpuscular Hemoglobin 34.1 pg (25.0-34.0); Mean Corpuscular Volume 98.5 fL (80.0-100.0); Platelet Count 103 K/uL (130-400); RDW Standard Deviation 57.6 fL (36.4-46.3); Red Blood Count 3.93 M/uL (4.70-6.10); White Blood Count 8.71 K/ul (4.8-10.8)
[2025-10-12 07:02] LABS: Anion Gap 5.0 (3-11); Blood Urea Nitrogen 7.0 mg/dl (6-23); Calcium 8.3 mg/dl (8.6-10.3); Carbon Dioxide 30.0 mmol/L (21-32); Chloride 104.0 mmol/L (98-107); Creatinine Clr Calc Pharmacy 72.3 ml/min; Glucose 95.0 mg/dl (70-99(Fasting)); Magnesium 1.5 mg/dl (1.7-2.4); Potassium 3.4 mmol/L (3.5-5.1); Sodium 139.0 mmol/L (136-145)
[2025-10-12] MEDS: LOPERAMIDE HCL 2 MG CAP PO STA (09:10)
[2025-10-12] MEDS ORDERED: ONDANSETRON INJ 2 MG/ML 2 ML VIAL IV PRN (11:01)
[2025-10-12 16:50] LABS: Cdiff Toxin B Gene (2yr or >) Negative Cdiff Gene (Neg)
[2025-10-12 17:21] LABS: Adenovirus F 40/41 PCR Not Detected (NotDetected); Campylobacter PCR Not Detected (NotDetected); Enteroaggregative E.coli(EAEC) Not Detected (NotDetected); Shiga-like Toxin E.coli (STEC) Not Detected (NotDetected); Vibrio species PCR Not Detected (NotDetected)
[2025-10-12] MEDS: LOPERAMIDE HCL 2 MG CAP PO PRN (17:56)
--- NOTE | 2025-10-12 18:51 | Electrocardiogram Report ---
Test Reason : Blood Pressure : */* mmHG Vent. Rate : 127 BPM Atrial Rate : * BPM P-R Int : * ms QRS Dur : 106 ms QT Int : 312 ms P-R-T Axes : * 43 35 degrees QTcB Int : 453 ms Atrial fibrillation with rapid ventricular response Low voltage QRS Nonspecific T wave abnormality Abnormal ECG Confirmed by Christofer Harris ([id number]) on 10/12/2025 6:51:09 PM Referred By: REFERRED SELF Confirmed By: Christofer Harris
--- NOTE | 2025-10-12 19:58 | Hospitalist Progress Note ---
Date of Service October 12, 2025 Assessment & Plan (1) Atrial fibrillation with rapid ventricular response: (2) Acute kidney injury: (3) Suicidal ideation: (4) Alcohol abuse: Plan The patient is a 70-year-old male with a past medical history including suicidal ideation, alcohol abuse, atrial fibrillation with RVR, sleep disordered breathing, HFrEF, permanent A-fib, restrictive lung disease, CKD stage III, bipolar 2 disorder, chronic gout, Iniguez's neuroma of left foot, memory impairment, RLS, BPH with LUTS, and insomnia. He presents to the emergency department after he was found sitting on the floor, confused, and reportedly drank rubbing alcohol prior to arrival. A nearly empty bottle of rubbing alcohol was found next to him by EMS. EMS reports that at 1 point he was trying to strangle himself with the IV tubing line. He reportedly is from his son, and his son's birthday is coming up soon. His significant other tells me that he asked her if she was coming in to say goodbye to him, as he thought he was going to . The patient himself is not a good historian at this time, but does attempt to answer questions with his significant other present. He was given Zofran IV along with normal saline 450 cc en route by EMS. He was found to be in atrial fibrillation with RVR by the ED, and was started on a Cardizem bolus/drip per protocol. From the ED he also received normal saline 1 L, and diazepam 5 mg IV x 1. CT scan of head and CT scan cervical spine without acute findings, both were ordered due to patient being found on the floor, and unknown known if he had fallen or not. [facility] was then [facility]. Atrial fibrillation with rapid ventricular response/elevated troponin/history of HFrEF- The patient will be admitted to telemetry for serial cardiac enzymes, serial EKG's, cardiac rhythm monitoring and a 2-D echocardiogram with Dopplers. difficult to manage due to etoh withdrawal. added diltiazem TID and will stop XR dose for now. May need to increase dose in AM as patient took both short acting and long acting diltiazem today on IVF, will stop in AM. Continue digoxin 100 mcg p.o. every evening, apixaban Hold bumetanide, amiloride, potassium chloride resumed diltiazem extended release 120 mg p.o. every morning HR better controled, likely exacerbated by alcohol abuse. Alcohol abuse/ingestion of rubbing alcohol/suicide attempt/suicidal ideation- Initial anion gap of 11. Serum osmolality Ga as requested by poison control and followed AWSS via Valium IV protocol Consult psychiatry: cleared, remove one to one. diarrhea likely from withdrawal, on loperamide as infectious workup was negative, Acute kidney injury/superimposed on CKD stage III- Creatinine 1.83 on admission, with base 1.15 IV fluids as above, renal function improved. BPH with LUTS- Continue alfuzosin interchange to tamsulosin Gout- Continue allopurinol and colchicine Restrictive lung disease- Continue usual inhaler albuterol HFA 2 puffs every 4 hours as needed B12 deficiency- Continue supplement' *Metabolic encephalopathy (resolved) Pt found sitting on floor, confused. Limited HPI and ROS due to patient's mental status. Risk Factor(s): Ingestion rubbing alcohol, alcohol abuse, memory impairment, TYRA Treatment: CT head, 1:1 care, IV hydration Admission and Anticipated Discharge Date Admission Date: October 10, 2025 Subjective 70 yo male reports his withdrawal symptoms are better. His main concern is his diarrhea. Nurse reports his has been tachycardic hen he sits up. Physical Exam Physical Exam: The patient is awake, alert and oriented 3 HEENT--PERRL, EOMI Neck--supple. No JVD. No bruits. Thyroid normal, trachea midline, no adenopathy. Heart--normal S1 and S2. No murmurs, rubs or gallops. Lungs--clear bilaterally, no respiratory distress, no accessory muscle use. Abdomen--normal bowel sounds and soft. Nontender. Nondistended, no hernias or masses, no organomegaly. Extremities--no cyanosis or clubbing. No edema. There are good distal pulses b/l. Psychiatric--tearful Results & Data Results & Data Vital Signs (Past 12 Hours) Vital Signs Temp Pulse Pulse Resp BP Pulse Ox O2 Del Method 10/12/25 19:26 36.5 C 99 H 18 136/82 96 Nasal Cannula 10/12/25 16:02 36.3 C L 96 H 21 107/79 Room Air 10/12/25 15:50 92 H 10/12/25 15:10 108 H 10/12/25 11:12 36.4 C L 133 H 20 119/88 97 Nasal Cannula O2 Flow Rate 10/12/25 19:26 4.0 10/12/25 16:02 10/12/25 15:50 10/12/25 15:10 10/12/25 11:12 4 PG Care Time/CCT Total # of Minutes Spent Total Time Spent with Patient: Total time spent is greater than 50% in coordination of care (as documented) at patient's floor/unit and/or counseling patient: Coding Level of Care Code 60277 SUB INP/OBS CARE 3/50MIN Diagnoses Atrial fibrillation with rapid ventricular response I48.91 Acute kidney injury N17.9 Suicidal ideation R45.851 Alcohol abuse F10.10
[2025-10-13 02:55] VITALS: RESP 18
[2025-10-13 07:51] VITALS: BP 139/90; TEMP 97.9; O2SAT 99
[2025-10-13 08:18] LABS: Hematocrit (blood only) 41.7 % (42.0-52.0); Hemoglobin 14.3 g/dL (14.0-18.0); Immature Granulocytes # (auto) 0.04 K/uL (0.01-0.20); Immature Granulocytes % (auto) 0.4 %; Mean Corpuscular Hemoglobin 34.5 pg (25.0-34.0); Mean Corpuscular Volume 100.5 fL (80.0-100.0); Platelet Count 108 K/uL (130-400); RDW Standard Deviation 58.6 fL (36.4-46.3); Red Blood Count 4.15 M/uL (4.70-6.10); White Blood Count 10.05 K/ul (4.8-10.8)
[2025-10-13 08:36] LABS: Anion Gap 6.0 (3-11); Blood Urea Nitrogen 6.0 mg/dl (6-23); Calcium 8.6 mg/dl (8.6-10.3); Carbon Dioxide 31.0 mmol/L (21-32); Chloride 104.0 mmol/L (98-107); Creatinine Clr Calc Pharmacy 76.3 ml/min; Glucose 94.0 mg/dl (70-99(Fasting)); Magnesium 1.2 mg/dl (1.7-2.4); Potassium 4.0 mmol/L (3.5-5.1); Sodium 141.0 mmol/L (136-145)
[2025-10-13] MEDS ORDERED: ACETAMINOPHEN 500 MG TAB PO SCH (09:30)
[2025-10-13 12:44] VITALS: PULSE 142
--- NOTE | 2025-10-13 16:12 | Discharge Summary ---
Discharge Summary Date of Service October 13, 2025 Principal Dx & Hospital Course #1 = Principal Diagnosis (1) Atrial fibrillation with rapid ventricular response: (2) Acute kidney injury: Plan In summary this is a 70-year-old male who presented with symptomatic atrial fibrillation with RVR that resolved with medical intervention, complicated by passive and situational suicidal ideation in association with alcohol use disorder. The patient had improved with regard to their presenting atrial fibrillatio with RVR and acute kidney injury. On the day of discharge, the patient was adamant to leave as they felt they no longer required hospitalization. After discussion with Psychiatric liason, the patient was not able to meet criteria for 302, and was determined to be able to make complex medical decisions albeit their final decision was against our recommendations to remain admitted. Admission HPI Per Admitting Provider The patient is a 70-year-old male with a past medical history including suicidal ideation, alcohol abuse, atrial fibrillation with RVR, sleep disordered breathing, HFrEF, permanent A-fib, restrictive lung disease, CKD stage III, bipolar 2 disorder, chronic gout, Iniguez's neuroma of left foot, memory impairment, RLS, BPH with LUTS, and insomnia. He presents to the emergency department after he was found sitting on the floor, confused, and reportedly drank rubbing alcohol prior to arrival. A nearly empty bottle of rubbing alcohol was found next to him by EMS. EMS reports that at 1 point he was trying to strangle himself with the IV tubing line. He reportedly is from his son, and his son's birthday is coming up soon. His significant other tells me that he asked her if she was coming in to say goodbye to him, as he thought he was going to . The patient himself is not a good historian at this time, but does attempt to answer questions with his significant other present. He was given Zofran IV along with normal saline 450 cc en route by EMS. He was found to be in atrial fibrillation with RVR by the ED, and was started on a Cardizem bolus/drip per protocol. From the ED he also received normal saline 1 L, and diazepam 5 mg IV x 1. He was then referred for evaluation for admission to the [facility]. Discharge Exam The patient is awake, alert and oriented 3 HEENT--PERRL, EOMI Neck--supple. No JVD. No bruits. Thyroid normal, trachea midline, no adenopathy. Heart--normal S1 and S2. No murmurs, rubs or gallops. Lungs--clear bilaterally, no respiratory distress, no accessory muscle use. Abdomen--normal bowel sounds and soft. Nontender. Nondistended, no hernias or masses, no organomegaly. Extremities--no cyanosis or clubbing. No edema. There are good distal pulses b/l. Discharge Plan Discharge Items Patient Disposition: Against Medical Advice Reason For Visit: AFIB/RVR Condition on Discharge: Serious Activity: Per Instructions section Non-emergency contact: Primary Care Provider Follow-up/Referrals: Keith Dimas DO [Primary Care Provider] - Fluids: 2000ml (8 cups) Pending Studies at Discharge: No Stand-Alone Forms: [facility] Medications and DC Order Prescriptions: Continued acetaminophen 500 mg capsule 1,000 mg PO TID 30 Days Qty: 180 0RF Rx Instructions: TAke 3 times per day to lessen pain. divalproex [Depakote ER] 500 mg tablet extended release 24 hr 1,000 mg PO HS Qty: 180 3RF potassium chloride 20 mEq tablet extended release 20 meq PO DAILY Qty: 180 3RF Rx Instructions: Noon trazodone 100 mg tablet 200 mg PO HS Qty: 60 11RF lamotrigine [Lamictal] 150 mg tablet 150 mg PO HS Qty: 30 11RF magnesium chloride [Mag 64] 64 mg tablet,delayed release (DR/EC) 64 mg PO BID Qty: 180 3RF Rx Instructions: At noon and HS diltiazem HCl 120 mg capsule,extended release 12 hr 120 mg PO QAM Qty: 90 3RF amiloride 5 mg tablet 5 mg PO QAM Qty: 90 3RF colchicine 0.6 mg tablet 0.6 mg PO BID Qty: 60 2RF Rx Instructions: Day 1: 1.2 mg at the first sign of flare, followed by 0.6 mg after 1 hour. Day 2 and thereafter: 0.6 mg BID. continue for 24 to 48 hours after flare resolves. bumetanide 1 mg tablet 1 mg PO QAM Qty: 30 5RF Rx Instructions: Take one tablet daily. If weight 240 lbs or greater, increase to 2MG. Reduce to 1MG daily once weight 235 lbs or less. oxycodone 5 mg tablet 5 mg PO Q8H PRN (Reason: pain) Qty: 90 0RF Hold Instructions: Resume on 07/27/25. Rx Instructions: DNFB 10-13-25 vitamin A 2,400 mcg capsule 2,400 mcg PO QDL testosterone 75 mg pellet 75 mg implant .COMPLEX Rx Instructions: 75 mg implant Quarterly; 05/2025 zinc gluconate 50 mg tablet 50 mg PO QDL mecobalamin (vitamin B12) 1,000 mcg tablet,chewable 1,000 mcg PO QAM cetirizine 10 mg tablet 10 mg PO QAM PRN (Reason: Allergy Symptoms) albuterol sulfate 90 mcg/actuation HFA aerosol inhaler 2 puff inhalation Q4H PRN (Reason: SOB/WHEEZING) Qty: 8.5 3RF (DME) [facility] [place] [facility] See Rx Instructions .MEDSUPPLY Qty: 1 0RF Rx Instructions: As directed Eliquis 5 mg tablet 5 mg PO BID Qty: 180 3RF Hold Instructions: hold until your outpatient doctors tell you it is safe to resume alfuzosin [Uroxatral] 10 mg tablet extended release 24 hr 10 mg PO QPM Qty: 90 3RF Rx Instructions: administer after the same meal each day vitamin B complex Tablet 1 tab PO QDL cholecalciferol (vitamin D3) [Vitamin D3] 25 mcg (1,000 unit) capsule 5,000 unit PO QAM digoxin 125 mcg (0.125 mg) tablet 125 mcg PO QPM Rx Instructions: TAKE 1 TABLET BY MOUTH ONCE DAILY IN THE EVENING thiamine HCl (vitamin B1) 100 mg tablet 100 mg PO BID allopurinol 300 mg tablet 300 mg PO QPM diclofenac sodium [Voltaren Arthritis Pain] 1 % Gel 2 g EXT QID Qty: 50 0RF lidocaine 5 % Adhesive Patch,Medicated 1 patch transdermal QAM Qty: 15 0RF Discharge Orders: Left Against Medical Advice (Routine); Ordered 10/13/25 Ordered By: Zach Gusman Admission Data Admit Date/Time: 10/10/25 21:39 Attending Provider: Zach Gusman Admit Provider: Geovani Chu Primary Care Provider: Keith Dimas Other Providers: Geovani Chu; Yaneli Godwin; Antony Berman; Kenya Sharma; Kriss Reyna; Gerber Tobias; Hubert Vides; Luisa Herron; [facility] Stay Data Consultations 10/10/25 20:44 ED Decision to Admit Stat 10/11/25 06:34 Consult Psychiatry Routine Diagnostic Imagining Performed 10/10/25 18:16 CT cervical spine wo con Stat CT head/brain wo con Stat Pending Results Patient Have Any Pending Studies at Discharge: No Total Time Total Time Spent Total Time Spent (In Minutes): I personally spent 50 minutes in the coordination of today's discharge including bedside counselling, physical exam, and discussion of risks with departure AMA Coding Level of Care Code INP/OBS EV SAME DAY LV 1,45MIN Diagnoses Atrial fibrillation with rapid ventricular response I48.91 Acute kidney injury N17.9
[2025-10-15 13:23] LABS: MDA negative; MDEA negative; MDMA (Ecstasy) Urine, Confirm negative
== END 2025-10-13 13:11 | disposition left against medical advice (07) | DRG 917 ==
LOC: ED 18:03 → SUATTDRO 21:39 → 2S 21:39 → 2N 10-13 10:10
DX: F10.24 Alcohol dependence with alcohol-induced mood disorder; F43.21 Adjustment disorder with depressed mood; I48.21 Permanent atrial fibrillation; N17.9 Acute kidney failure, unspecified; N40.1 Benign prostatic hyperplasia with lower urinary tract symptoms; M10.9 Gout, unspecified; Z88.0 Allergy status to penicillin; Y92.009 Unspecified place in unspecified non-institutional (private) residence as the place of occurrence of the external cause; N18.30 Chronic kidney disease, stage 3 unspecified; Z88.1 Allergy status to other antibiotic agents; G57.92 Unspecified mononeuropathy of left lower limb; F10.239 Alcohol dependence with withdrawal, unspecified; J98.4 Other disorders of lung; F31.81 Bipolar II disorder; R79.89 Other specified abnormal findings of blood chemistry; F10.220 Alcohol dependence with intoxication, uncomplicated; I13.0 Hypertensive heart and chronic kidney disease with heart failure and stage 1 through stage 4 chronic kidney disease, or unspecified chronic kidney disease; T51.2X1A Toxic effect of 2-Propanol, accidental (unintentional), initial encounter; E53.8 Deficiency of other specified B group vitamins; I50.20 Unspecified systolic (congestive) heart failure; G93.41 Metabolic encephalopathy